=== PATIENT | female | born 1955 | race Caucasian/White ===

== ENCOUNTER 2023-04-26 11:58 | Outpatient (OUT) | payer MEDICARE, SELFPAY ==
[2023-04-26 12:25] LABS: Basophils Absolute Auto 0.1 10^3/uL (0.0-0.1); Basophils Percent Auto 1.2 % (0.2-2.0); Eosinophils Absolute Auto 0.3 10^3/uL (0.0-0.7); Eosinophils Percent Auto 2.9 % (0.9-7.0); Hematocrit 44.9 % (36.0-48.0); Hemoglobin 14.8 g/dL (12.0-16.0); Immature Granulocytes Abs Auto 0.07 10^3/uL (0.00-0.03); Immature Granulocytes Pct Auto 0.7 % (0.0-0.5); Lymphocytes Absolute Auto 2.3 10^3/uL (1.2-3.8); Lymphocytes Percent Auto 22.5 % (20.5-60.0); Mean Corpuscular Hemoglobin 33.1 pg (26.7-34.0); Mean Corpuscular Volume 100.4 fL (81.0-99.0); Mean Platelet Volume 9.4 fL (9.5-13.5); Monocytes Absolute Auto 0.9 10^3/uL (0.3-0.8); Monocytes Percent Auto 8.6 % (1.7-12.0); Neutrophils Absolute Auto 6.4 10^3/uL (1.4-6.5); Neutrophils Percent Auto 64.1 % (43.0-75.0); Platelet Count 265 10^3/uL (150-450); Red Blood Count 4.47 10^6/uL (4.20-5.40); Red Cell Distribution Width 12.9 % (11.0-15.0)
[2023-04-26 12:33] LABS: Erythrocyte Sedimentation Rate 59 mm/hr (<=30)
[2023-04-26 13:08] LABS: Alanine Aminotransferase 28 U/L (14-59); Albumin Globulin Ratio 0.8; Albumin Level 3.5 g/dL (3.4-5.0); Alkaline Phosphatase 96 U/L (46-116); Aspartate Amino Transferase 22 U/L (15-37); Bilirubin Direct 0.1 mg/dL (0.0-0.2); Bilirubin Total 0.6 mg/dL (0.2-1.0); Estimated GFR (African America >60 (>=60); Estimated GFR (Non-African Ame 52 (>=60); Globulin 4.5 g/dL
== END 2023-04-26 11:59 ==
LOC: LAB 12:02
PROVIDERS: PCP Family Medicine; Visit Provider Internal Medicine Rheumatology
DX: M05.79 Rheumatoid arthritis with rheumatoid factor of multiple sites without organ or systems involvement (principal); Z79.899 Other long term (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
CPT/HCPCS: 36415; 80076; 82565; 85025; 85652

== ENCOUNTER 2023-06-22 13:15 | Outpatient (OUT) | payer MEDICARE, SELFPAY ==
[2023-06-22 13:33] LABS: Basophils Absolute Auto 0.2 10^3/uL (0.0-0.1); Basophils Percent Auto 1.5 % (0.2-2.0); Eosinophils Absolute Auto 0.3 10^3/uL (0.0-0.7); Eosinophils Percent Auto 3.4 % (0.9-7.0); Hematocrit 44.4 % (36.0-48.0); Hemoglobin 14.8 g/dL (12.0-16.0); Immature Granulocytes Abs Auto 0.05 10^3/uL (0.00-0.03); Immature Granulocytes Pct Auto 0.5 % (0.0-0.5); Lymphocytes Absolute Auto 2.6 10^3/uL (1.2-3.8); Lymphocytes Percent Auto 26.8 % (20.5-60.0); Mean Corpuscular HGB Conc 33.3 g/dL (29.9-35.2); Mean Corpuscular Hemoglobin 33.2 pg (26.7-34.0); Mean Corpuscular Volume 99.6 fL (81.0-99.0); Mean Platelet Volume 9.5 fL (9.5-13.5); Monocytes Absolute Auto 0.7 10^3/uL (0.3-0.8); Monocytes Percent Auto 7.4 % (1.7-12.0); Neutrophils Absolute Auto 5.9 10^3/uL (1.4-6.5); Neutrophils Percent Auto 60.4 % (43.0-75.0); Platelet Count 258 10^3/uL (150-450); Red Blood Count 4.46 10^6/uL (4.20-5.40); Red Cell Distribution Width 12.8 % (11.0-15.0); White Blood Count 9.7 10^3/uL (4.0-11.0)
[2023-06-22 13:36] LABS: Erythrocyte Sedimentation Rate 23 mm/hr (<=30)
[2023-06-22 13:50] LABS: Alanine Aminotransferase 28 U/L (14-59); Albumin Level 3.9 g/dL (3.4-5.0); Alkaline Phosphatase 96 U/L (46-116); Aspartate Amino Transferase 18 U/L (15-37); Bilirubin Direct 0.2 mg/dL (0.0-0.2); Bilirubin Total 0.7 mg/dL (0.2-1.0); Estimated GFR (African America >60 (>=60); Estimated GFR (Non-African Ame >60 (>=60); Globulin 3.8 g/dL; Total Protein 7.7 g/dL (6.4-8.2)
== END 2023-06-22 13:16 | disposition home or self-care (01) ==
PROVIDERS: PCP Family Medicine; Visit Provider Internal Medicine Rheumatology
DX: M05.79 Rheumatoid arthritis with rheumatoid factor of multiple sites without organ or systems involvement (principal); Z79.899 Other long term (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
CPT/HCPCS: 36415; 80076; 82565; 85025; 85652

== ENCOUNTER 2024-02-25 11:15 | Outpatient (OUT) | payer MEDICARE, SELFPAY ==
[2024-02-25 11:55] LABS: Basophils Absolute Auto 0.2 10^3/uL (0.0-0.1); Basophils Percent Auto 1.2 % (0.2-2.0); Eosinophils Absolute Auto 0.3 10^3/uL (0.0-0.7); Eosinophils Percent Auto 2.4 % (0.9-7.0); Hematocrit 46.3 % (36.0-48.0); Hemoglobin 14.9 g/dL (12.0-16.0); Immature Granulocytes Abs Auto 0.13 10^3/uL (0.00-0.03); Lymphocytes Absolute Auto 3.9 10^3/uL (1.2-3.8); Lymphocytes Percent Auto 29.3 % (20.5-60.0); Mean Corpuscular HGB Conc 32.2 g/dL (29.9-35.2); Mean Corpuscular Hemoglobin 32.5 pg (26.7-34.0); Mean Corpuscular Volume 101.1 fL (81.0-99.0); Mean Platelet Volume 10.4 fL (9.5-13.5); Monocytes Absolute Auto 1.3 10^3/uL (0.3-0.8); Monocytes Percent Auto 9.5 % (1.7-12.0); Neutrophils Absolute Auto 7.5 10^3/uL (1.4-6.5); Neutrophils Percent Auto 56.6 % (43.0-75.0); Platelet Count 261 10^3/uL (150-450); Red Blood Count 4.58 10^6/uL (4.20-5.40); Red Cell Distribution Width 12.7 % (11.0-15.0); White Blood Count 13.2 10^3/uL (4.0-11.0)
[2024-02-25 12:07] LABS: Alanine Aminotransferase 22 U/L (14-59); Albumin Level 3.6 g/dL (3.4-5.0); Alkaline Phosphatase 98 U/L (46-116); Aspartate Amino Transferase 12 U/L (15-37); Bilirubin Total 0.4 mg/dL (0.2-1.0); C Reactive Protein <0.50 mg/dL (<=0.50); Estimated GFR (African America >60 (>=60); Estimated GFR (Non-African Ame >60 (>=60)
[2024-02-25 12:46] LABS: Erythrocyte Sedimentation Rate 35 mm/hr (<=30)
== END 2024-02-25 11:16 | disposition home or self-care (01) ==
LOC: LAB 11:16
PROVIDERS: PCP Family Medicine; Visit Provider Internal Medicine Rheumatology
DX: M06.9 Rheumatoid arthritis, unspecified (principal); Z79.899 Other long term (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
CPT/HCPCS: 36415; 82042; 82247; 82565; 84075; 84450; 84460; 85025; 85652; 86140

== ENCOUNTER 2024-07-12 15:06 | Outpatient (OUT) | payer MEDICARE, SELFPAY ==
[2024-07-12 15:22] LABS: Basophils Absolute Auto 0.2 10^3/uL (0.0-0.1); Basophils Percent Auto 1.2 % (0.2-2.0); Eosinophils Absolute Auto 0.4 10^3/uL (0.0-0.7); Eosinophils Percent Auto 3.7 % (0.9-7.0); Hemoglobin 15.5 g/dL (12.0-16.0); Immature Granulocytes Abs Auto 0.04 10^3/uL (0.00-0.03); Immature Granulocytes Pct Auto 0.3 % (0.0-0.5); Lymphocytes Absolute Auto 3.3 10^3/uL (1.2-3.8); Lymphocytes Percent Auto 27.8 % (20.5-60.0); Mean Corpuscular Hemoglobin 32.2 pg (26.7-34.0); Mean Corpuscular Volume 97.5 fL (81.0-99.0); Mean Platelet Volume 9.8 fL (9.5-13.5); Monocytes Percent Auto 8.6 % (1.7-12.0); Neutrophils Percent Auto 58.4 % (43.0-75.0); Platelet Count 246 10^3/uL (150-450); Red Blood Count 4.82 10^6/uL (4.20-5.40); Red Cell Distribution Width 12.7 % (11.0-15.0)
--- NOTE | 2024-07-12 15:28 | XR_ITS ---
The [address] [address] Patient Name: TAWANDA KENNEY MRN: [id number] date: 1955 Sex: F Assigned Patient Location: LAB Current Patient Location: Accession/Order Number: [id number] Exam Date: 07/12/2024 15:22 Report Date: 07/13/2024 07:14 At the request of: CARMINE CONROY Procedure: XR chest 2V PROCEDURE: XR chest 2V DATE: 07/12/2024 2:22 PM CDT COMPARISONS: 05/08/2022 CLINICAL INDICATION: 69 years Female Rheumatoid Arthritis, Immunosuppression FINDINGS: The heart is upper normal in size and is stable. There is slight diffuse increase interstitial markings throughout all lung greer likely representing mild chronic lung changes similar or slightly more prominent than 05/08/2022. There is a questionable 2 cm nodule or mass overlying the right upper lung field medially. It lies near the anterior first rib and. It does not appear to be related to the osseous structures in this area however. This could be a pulmonary mass/nodule. There is a subtle 1.5 cm area of increased density overlying the left mid lung field. This could represent a pulmonary nodule. There is no evidence of pleural effusion or pneumothorax. XR/XR chest 2V IMPRESSION: 1. Diffuse increased interstitial markings probably representing chronic lung changes which have shown slight progression from 04/10/2022 2. Possible developing nodules of the lung as described above. CT of the chest is recommended in follow-up. This CT should be done with contrast enhancement if the patient can tolerate contrast enhancement. This exam was placed in the incidental findings queue Electronically authenticated by: ANGEL HERNANDEZ Date: 07/13/2024 07:14
[2024-07-12 15:33] LABS: Erythrocyte Sedimentation Rate 54 mm/hr (<=30)
[2024-07-12 15:40] LABS: Alanine Aminotransferase 32 U/L (14-59); Albumin Level 3.6 g/dL (3.4-5.0); Alkaline Phosphatase 104 U/L (46-116); Aspartate Amino Transferase 20 U/L (15-37); Bilirubin Direct 0.2 mg/dL (0.0-0.2); Bilirubin Total 0.9 mg/dL (0.2-1.0); Estimated GFR (African America >60 (>=60); Estimated GFR (Non-African Ame >60 (>=60); Globulin 3.7 g/dL; Total Protein 7.3 g/dL (6.4-8.2)
== END 2024-07-12 15:07 | disposition home or self-care (01) ==
LOC: LAB 15:08
PROVIDERS: PCP Family Medicine; Visit Provider Internal Medicine Rheumatology
DX: M05.79 Rheumatoid arthritis with rheumatoid factor of multiple sites without organ or systems involvement (principal); Z79.899 Other long term (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; R91.8 Other nonspecific abnormal finding of lung field
CPT/HCPCS: 36415; 71046; 80076; 82565; 85025; 85652

== ENCOUNTER 2024-07-26 12:11 | Outpatient (OUT) | payer MEDICARE, SELFPAY ==
--- OUTSIDE RECORDS SUMMARY | 2024-07-26 12:19 | XMS_ITS | CCD ---
Author Organization [facility] CliniSyhi Care Team Providers Care Cultured [employer] Maker Name Role Phone Carolee Estrada Unavailable Unavailable Unavailable MD Carolee Estrada Primary Care Provider MD Carmine Nails Attending Provider MD August Lamas Admit Provider MD August Lamas Attending Provider [phone] MD Arsalan Conley Attending Provider MD Arsalan Conley Referring Provider MD Carolee Estrada Primary Care Provider MD Carolee Estrada Primary Care Provider MD Carmine Nails Attending Provider MD Carolee Estrada Primary Care Provider MD Arsalan Conley Attending Provider MD Arsalan Conley Referring Provider MD Carmine Nails Attending Provider MD Carolee Estrada Primary Care Provider [phone] MD Arsalan Conley Attending Provider MD Javier Ross Attending Provider Ms. JANENE BERRY Attending Carolee Cordero Primary Care Unavailable DR CARMINE NAILS Admitting Unavailable DR CARMINE NAILS Attending Unavailable SEAN ., DR CAROLEE Agosto Primary Care Unavailable DR CARMINE NAILS Consulting Unavailable JAMAL Junior, DR TANK Muir Admitting Unavaila lanny Junior, DR TANK Muir Attending Unavaila ble SEAN ., DR CAROLEE Agosto Primary Care Unavailable JANENE STONE Consulting Unavailable HALVERN, DR LOU Admitting Unavailable HALADAChase, DR LOU Attending Unavailable ESTRADA ., DR CAROLEE Agosto Primary Care Unavailable HALADAChase, DR LOU Consulting Unavailable MARYCARMEN, DR LOU Admitting Unavailable HALADAChase, DR LOU Attending Unavailable ESTRADA ., DR CAORLEE Agosto Primary Care Unavailable GHEENS, DR LAUREN Funez Consulting Unavailable HALADAChase, DR LOU Consulting Unavailable ESTRADA ., DR CAROLEE Agosto Admitting Unavailable ESTRADA ., DR CAROLEE Agosto Attending Unavailable ESTRADA ., DR CAROLEE Agosto Primary Care Unavailable ESTRADA ., DR CAROLEE Agosto Consulting Unavailable ESTRADA ., DR CAROLEE Agosto Primary Care Unavailable ELIO MIN Admitting Unavailable ELIO MIN Attending Unavailable ZIEBER, DR AUDIE Cortes Consulting Unavailable ELIO MIN Consulting Unavailable JANENE STONE Admitting Unavailable JANENE STONE Attending Unavailable ESTRADA ., DR CAROLEE Agosto Primary Care Unavailable JANENE STONE Consulting Unavailable MARYCARMEN, DR LOU Admitting Unavailable HALADAChase, DR LOU Attending Unavailable ESTRADA ., DR CAROLEE Agosto Primary Care Unavailable ESTRADA ., DR CAROLEE Agosto Consulting Unavailable Javier Ross Unavailable Gilbert Hernandez Attending Unavailable Jamal, MsVernon Irene Referring Bea Estrada, Dr. Carolee Keller Primary Care Unavailab Arsalan Torrez Attending Unavailable Estrada, Dr. Carolee Keller Primary Care Unavailab Arsalan Torrez Referring Unavailable Jamal, MsVernon Irene Attending Bea Berry, Ms. Janene Irene Referring Bea Estrada, Dr. Carolee Keller Primary Care Unavailab jesus Berry, Ms. Janene Irene Attending Bea Berry, Ms. Janene Irene Referring Bea Estrada, Dr. Carolee Keller Primary Care Unavailab Arsalan Torrez Attending Unavailable Estrada, Dr. Carolee Keller Primary Care Unavailab Arsalan Torrez Referring Unavailable Jamal, MsVernon Irene Referring Bea Berry, MsVernon Irene Attending Bea Estrada, Dr. Carolee Keller Primary Care Unavailab jesus Berry, Vernon Janene Templetonchase Irene Referring Bea Berry, Ms. Janene Templetonchase Irene Attending Bea Estrada, Dr. Carolee Keller Primary Care Unavailab le McGuinpardeep, Arsalan Attending Unavailable Sean, Dr. Carolee Keller Primary Care Unavailab le McGuinpardeep, Arsalan Attending Unavailable McGuinpardeep, Arsalan Attending Unavailable Sean, Dr. Carolee Keller Primary Care Unavailab le McGuinn, Arsalan Attending Unavailable Sean, Dr. Carolee Keller Primary Care Unavailab le McGuinn, Arsalan Attending Unavailable Sean, Dr. Carolee Keller Primary Care Unavailab le McGuinn, Arsalan Attending Unavailable McGuinn, Arsalan Attending Unavailable McGuinn, Arsalan Attending Unavailable McGuinn, Arsalan Attending Unavailable Thal Gilbert Admitting Unavailable Thal, Gilbert Attending Unavailable Thal, Gilbert Referring Unavailable Sean, Dr. Carolee Keller Primary Care Unavailab le Thal, Gilbert Attending Unavailable Sean, Dr. Carolee Keller Primary Care Unavailab le Sean, Dr. Carolee Keller Primary Care Unavailab le Mary, Dr. Gilbert Bethea Attending Unavail able Berry DIRECTOR OF KIDS-TIRE MOLD ENGRAVER, Janene K Unavailable Chris Moss MD Primary Care Provider [phone] MD Carolee Estrada Primary Care Provider MD Javier Ross Attending Provider [phone] Clinton Pierce Unavailable MD Carolee Estrada Primary Care Provider MD Clinton Pierce Attending Provider [phone] MD Javier Ross Attending Provider Carolee Estrada Primary Care Unavailable Clinton Pierce Admitting Unavailable Clinton Pierce Attending Unavailable Carolee Estrada Primary Care Unavailable Javier Ross Admitting Unavaila ble Javier Ross Attending Unavaila Carolee Maynard Primary Care Unavailable Javier Ross Admitting Unavaila ble Javier Ross Attending UnavailMD Clinton Millan Attending Provider ARSALAN CONLEY Attending Unavailable CHRIS MOSS Primary Care Unavailable Medications Current Medications Medication Drug Class(es) Dates Sig (Normalized) Sig (Original) apixaban 5 mg oral tablet (20 sources) Factor Xa Inhibitor Start: 05-13-2022 take 1 tablet by mouth twice daily Apixaban (Eliquis) 5 mg Tablet Active 5 MG PO Twice daily 60 May 13, 2022 12:00am b complex 0.4 mg tablet (1 source) take 1 tablet by mouth once daily b complex 0.4 mg tablet Take 1 tablet by mouth once daily. 0 Active calcium carbonate 1500 mg / cholecalciferol 500 unt oral capsule (10 sources) Vitamin D Start: 05-08-2022 take 2 capsules by mouth once daily Calcium Carbonate-Vitamin D3 (Calcium 600 With Vitamin D3) 600 mg-12.5 mcg (500 unit) Capsule Active 2 CAP PO Daily May 08, 2022 12:00am Calcium Carbonate / vitamin D3 (1 source) take 1 tablet by mouth once daily calcium carbonate/vitamin D3 (CALCIUM WITH VITAMIN D3 ORAL) Take 1 tablet by mouth once daily. 0 Active canagliflozin 100 mg oral tablet (20 sources) Sodium-Glucose Cotransporter 2 Inhibitor Start: 05-13-2022 take 1 tablet by mouth once daily Canagliflozin (Invokana) 100 mg Tablet Active 100 MG PO Daily at 0730 30 May 13, 2022 12:00am digoxin 0.125 mg oral tablet (20 sources) Cardiac Glycoside Start: 05-13-2022 take 125 ug by mouth once daily Digoxin Active 125 MCG PO Daily 30 May 13, 2022 12:00am take 1 tablet by mouth once donna y Digoxin 125 MCG TAKE ONE TABLET BY MOUTH ONCE DAILY Oral for 30 Days Active hydroxychloroquine sulfate 200 mg oral tablet (20 sources) Antimalarial, Antirheumatic Agent Start: 09-30-2022 take 1 tablet by mouth twice daily Hydroxychloroquine (Plaquenil) 200 mg Tablet Active 200 MG PO Twice daily September 30, 2022 1:00am Start: 05-08-2022 End: 06-24-2022 take 200 mg by mouth twice daily Hydroxychloroquine Discontinued 200 MG PO Twice daily May 08, 2022 12:00am June 24, 2022 9:27am Start: 04-02-2022 Hydroxychloroq uine Sulfate 200 MG Oral Tablet Quantity: 60 Refills: 0 Ordered: 02-Apr-2022 DO Start : 02-Apr-2022 Complete Multivitamin preparation (1 source) take 1 tablet by mouth once daily Multi Vitamin - 1 tablet Orally Once a day for 30 day(s) Active omeprazole 40 mg delayed release oral capsule (2 sources) Proton Pump Inhibitor Start: 11-30-19 24 take 40 mg by mouth once daily Omeprazole Active 40 MG PO Daily November 30, 2023 1:00am sertraline 25 mg oral tablet (20 sources) Serotonin Reuptake Inhibitor Start: 08-27-20 21 take 25 mg by mouth once daily Sertraline Active 25 MG PO Daily May 07, 2022 11:00pm spironolactone 25 mg oral tablet (20 sources) Aldosterone Antagonist Start: 05-13-20 take 25 mg by mouth once daily Spironolactone Active 25 MG PO Daily May 13, 2022 12:00am Vitamin B Complex (10 sources) Start: 05-08-20 22 take 1 tablet by mouth once daily Vitamin B Complex Active 1 TAB PO Daily May 07, 2022 11:00pm Start: 05-08-2022 take 1 tablet by mouth once da sebastien Vitamin B Complex Active 1 TAB PO Daily May 08, 2022 12:00am Vitamin B-6 100 MG (1 source) take 1 tablet by bren th once daily Vitamin B-6 100 MG 1 tablet Orally Once a day Active vitamin b6 100 mg oral tablet (3 sources) take 1 tablet by bren th every twenty-four hours Vitamin B-6 100 MG 1 tablet Orally Once a day Active Vitamin D-3 1000 UNIT (4 sources) take 1 capsule by mo [facility] once daily Vitamin D-3 1000 UNIT 1 capsule Orally Once a day Active Completed/Discontinued Medications Medication Drug Class(es) Dates Sig (Normalized) Sig (Original) 0.4 ml adalimumab 100 mg/ml auto-injector (11 sources) Tumor Necrosis Factor Perfecto Start: 01-20-2023 Humira Pen 40 MG/0.4ML Subcutaneous Pen-injector Kit Quantity: 2 Refills: 0 Ordered: 15-Feb-2023 DO Start : 20-Jan-2023 Active Humira Pen 40 MG /0.4ML 1 INJECTION EVERY 2WEEKS (HOLD IF ANY INFECTION OR UPCOMING SURGERY) Subcutaneous for 28 Days Active adalimumab (Humi ra,CF, Pedi Crohns Starter) 80 mg/0.8 mL-40 mg/0.4 mL syringe kit prefilled syringe starter kit Inject 80 mg under the skin every 14 (fourteen) days. 0 Active amiodarone hydrochloride 200 mg oral tablet (20 sources) Antiarrhythmic Start: 08-12-2022 End: 04-13-2023 take 1 tablet by mouth once daily Amiodarone HCl - 200 MG Oral Tablet TAKE 1 TABLET DAILY. Quantity: 30 Refills: 6 Ordered: 18-Nov-2022 Cruz Berry APRN-Janene KIM Start : 12-Aug-2022 End : 13-Apr-2023 Complete lower dose Start: 06-24-2022 End: 11-30-2023 take 200 mg by mouth three times daily Amiodarone Discontinued 200 MG PO Three times daily June 24, 2022 8:09am November 30, 2023 1:35pm Start: 05-13-2022 take 200 mg by mouth twice daily Amiodarone Active 200 MG PO Twice daily June 24, 2022 8:09am Start: 05-13-2022 End: 06-24-2022 take 200 mg by mouth once daily in the morning Amiodarone Discontinued 200 MG PO Every morning May 13, 2022 12:00am June 24, 2022 8:10am atorvastatin 20 mg oral tablet (20 sources) HMG-CoA Reductase Inhibitor Start: 05-13-2022 Atorvastatin Calcium 20 MG Oral Tablet as directed Quantity: 0 Refills: 0 Ordered: 13-May-2022 DO Start : 13-May-2022 Active Start: 05-13-2022 take 20 mg by mouth once daily Atorvastatin Active 20 MG PO Daily May 13, 2022 12:00am Calcium Carbonate-Vitamin D3 TABS (20 sources) Calcium Carbonat e-Vitamin D3 TABS Take 1 tablet daily Quantity: 0 Refills: 0 Ordered: 29-Jun-2022 DO Active 1 ml etanercept 50 mg/ml auto-injector (1 source) Tumor Necrosis Factor Perfecto Start: 022 Enbrel SureClick 50 MG/ML Subcutaneous Solution Auto-injector Quantity: 8 Refills: 0 Ordered: 20-May-2022 DO Start : 04-Dec-2021 Complete hydroCHLOROthiazide 25 mg oral tablet (11 sources) Thiazide Diuretic Start: End: take 25 mg by mouth once daily Hydrochlorothiazide Discontinued 25 MG PO Daily May 07, 2022 11:00pm June 24, 2022 8:27am 24 hr metoprolol succinate 100 mg extended release oral tablet (20 sources) beta-Adrenergic Perfecto Start: take 1 tablet by mouth once daily Metoprolol Succinate ER 100 MG Oral Tablet Extended Release 24 Hour TAKE 1 TABLET Daily Quantity: 90 Refills: 3 Ordered: 03-Mar-2023 Arsalan Conley MD Start : 13-May-2022 Active Start: 05-13-2022 take 1 tablet by bren th every twenty-four hours Metoprolol Succinate ER 200 MG Oral Tablet Extended Release 24 Hour Quantity: 30 Refills: 0 Ordered: 13-May-2022 DO Start : 13-May-2022 Active Start: 05-13-2022 take 1 tablet by mouth once da sebastien Metoprolol Succinate (Toprol Xl) 200 mg tablet extended release 24 hr Active 200 MG PO Daily May 13, 2022 12:00am 24 hr nicotine 0.875 mg/hr transdermal system (15 sources) Cholinergic Nicotinic Agonist Start: 10-21-2022 apply 1 dose transdermal route once daily HM Nicotine 21 MG/24HR Transdermal Patch 24 Hour APPLY 1 PATCH DAILY DIRECTED. Quantity: 30 Refills: 0 Ordered: 21-Oct-2022 Janene Downing Start : 21-Oct-2022 Active pantoprazole 40 mg delayed release oral tablet (6 sources) Proton Pump Inhibitor Start: 01-14-2023 End: 04-13-2023 take 1 tablet by mouth once daily Pantoprazole Sodium 40 MG Oral Tablet Delayed Release TAKE 1 TABLET DAILY. Quantity: 30 Refills: 0 Ordered: 14-Jan-2023 Zoya Coffman Start : 14-Jan-2023 End : 13-Apr-2023 Complete microencapsulated potassium chloride 20 meq extended release oral tablet (20 sources) Start: 06-24-2022 End: 11-30-2023 Potassium Chloride (Klor-Con M20) 20 mEq tablet,ER particles/shelbi ls Discontinued 20 MEQ PO Daily 30 Domino 10th, 2022 12:00am November 30, 2023 1:36pm Start: 12-13-2020 take 1 tablet by bren th once daily Potassium Chloride ER 10 MEQ Oral Tablet Extended Release TAKE ONE TABLET BY MOUTH ONCE DAILY Quantity: 90 Refills: 0 Ordered: 26-Jun-2021 DO Start : 13-Dec-2020 Complete take 1 tablet by bren th once daily Potassium Chloride ER 20 MEQ Oral Tablet Extended Release Take 1 tablet daily Quantity: 90 Refills: 3 Ordered: 03-Mar-2023 Arsalan Conley MD Active predniSONE 5 mg oral tablet (20 sources) Start: 07-28-2022 End: 11-30-2023 take 5 mg by mouth once daily Prednisone Discontinued 5 MG PO Daily July 28, 2022 12:00am November 30, 2023 1:36pm Start: 05-08-2022 End: 05-13-2022 Prednisone Discontinued 0 Miri SYKESE ENE May 08, 2022 12:00am May 13, 2022 2:25pm Patient was on taper but discontinued per self a few days ago Start: 04-02-2022 take 2 tablets by mo [facility] twice daily, then take 2 tablets by mouth in the morning, then take 1 tablet by mouth in the morning predniSONE 5 MG Oral Tablet TKE TWO TABLETS BY MOUTH TWICE A DAY FOR 3 DAYS, TWO TABLETS BY MOUTH IN THE MORNING FOR 7 DAYS, ONE TABLET BY MOUTH IN THE MORNING FOR 21 D Quantity: 60 Refills: 0 Ordered: 02-Apr-2022 DO Start : 02-Apr-2022 Complete rosuvastatin calcium 10 mg oral tablet (12 sources) HMG-CoA Reductase Inhibitor Start: 05-08-2022 End: 05-13-2022 take 1 tablet by mouth once daily Rosuvastatin (Crestor) 10 mg Tablet Discontinued 10 MG PO Daily May 08, 2022 12:00am May 13, 2022 2:25pm Start: 02-02-2022 Rosuvastatin C alcium 10 MG Oral Tablet Quantity: 90 Refills: 0 Ordered: 02-Feb-2022 DO Start : 02-Feb-2022 Complete take 1 tablet by bren every twenty-four hours Rosuvastatin Calcium 20 MG 1 tablet Orally Once a day Active sulfaSALAzine 500 mg oral tablet (20 sources) Aminosalicylate Start: 09-30-2022 End: 11-30-2023 take 500 mg by mouth once daily Sulfasalazine Discontinued 500 MG PO Daily September 30, 2022 1:00am November 30, 2023 1:36pm Vitamin B Complex CAPS (20 sources) Vitamin B Comple x CAPS TAKE 1 CAPSULE Daily Quantity: 0 Refills: 0 Ordered: 29-Jun-2022 DO Active Problems Active Problems Problem Classification Problem Date Documented Da te Episodic/Chronic Anxiety disorders (13 sources) Anxiety; Translations: [Anxiety disorder, unspecified] 05-08-2022 Chronic Cardiac dysrhythmias (20 sources) Persistent atrial fibrillation; Translations: [Atrial fibrillation] Onset: 05-12-2022 05-08-2022 Chronic Chronic obstructive pulmonary disease and bronchiectasis (6 sources) Pulmonary emphysema; Translations: [Emphysema, unspecified] Chronic Congestive heart failure; nonhypertensive (17 sources) Acute systolic heart failure; Translations: [Acute systolic (congestive) heart failure] Onset: 05-20-2022 05-09-2022 Chronic Disorders of lipid metabolism (20 sources) Hyperlipidemia; Translations: [Other and unspecified hyperlipidemia] Onset: 01-08-2023 05-08-2022 Chronic Essential hypertension (20 sources) Hypertensive disorder; Translations: [Unspecified essential hypertension] Onset: 09-15-2023 09-15-2023 Chronic Heart valve disorders (20 sources) Mitral valve regurgitation; Translations: [Mitral valve disorders] Chronic Immunity disorders (1 source) Immunodeficiency, unspecified; Translations: [IMMUNODEFICIENCY UNSPECIFIED] Onset: 04-17-2022 Chronic Mood disorders (20 sources) Depressive disorder; Translations: [Depression] 05-08-2022 Chronic Other aftercare (20 sources) Drug therapy finding; Translations: [Long-term (current) use of anticoagulants] Episodic Other aftercare (1 source) Other medical terminologist (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; Translations: [OTH FDC CURRENT DRUG THERAPY] Onset: 01-21-2023 Episodic Other aftercare (1 source) assisted (current) use of anticoagulants; Translations: [INFORMATION TECHNOLOGY ASSOCIATE CURRNT USE ANTICOAGULANTS] Onset: 11-02-2022 Episodic Other eye disorders (20 sources) Exophthalmos; 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, unspecified] Chronic Comment on above: Proptosis Bilateral; Other gastrointestinal disorders (20 sources) Diarrhea; Translations: [Diarrhea] Episodic Other gastrointestinal disorders (1 source) Other fecal abnormalities; Translations: [Other fecal abnormalities] Onset: 11-30-2023 Episodic Other lower respiratory disease (4 sources) Solitary nodule of lung; Translations: [Solitary pulmonary nodule] Episodic Other lower respiratory disease (4 sources) Other nonspecific abnormal finding of lung field; Translations: [Other nonspecific abnormal finding of lung field] Onset: 10-22-2023 Episodic Other nutritional; endocrine; and metabolic disorders (20 sources) Obesity; Translations: [Obesity, unspecified] Chronic Other nutritional; endocrine; and metabolic disorders (1 source) Obesity, unspecified; Translations: [Obesity, unspecified] Onset: 01-08-2023 Chronic Other nutritional; endocrine; and metabolic disorders (1 source) Body mass index (BMI) 30.0-30.9, adult; Translations: [Body mass index [BMI] 30.0-30.9, adult] Onset: 01-08-2023 Chronic Other nutritional; endocrine; and metabolic disorders (20 sources) Overweight in adulthood with body mass index of 25 or more but less than 30; Translations: [Overweight] Episodic Sherie-; endo-; and myocarditis; cardiomyopathy (except that caused by tuberculosis or sexually transmitted disease) (20 sources) Cardiomyopathy; Translations: [Other primary cardiomyopathies] Onset: 07-29-2022 05-13-2022 Chronic Retinal detachments; defects; vascular occlusion; and retinopathy (20 sources) Cholesterol retinal embolus of right eye; 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 Rheumatoid arthritis and related disease (20 sources) Rheumatoid arthritis; Translations: [Rheumatoid arthritis, unspecified] Onset: 04-10-2022 05-08-2022 Chronic Substance-related disorders (20 sources) Smokes tobacco daily; Translations: [Tobacco use disorder] Onset: 01-08-2023 Chronic Comment on above: 1/2 PPD; Tuberculosis (20 sources) Tuberculosis of skin and subcutaneous tissue; Translations: [Tuberculosis of skin and subcutaneous cellular tissue, unspecified] Episodic Unclassified (6 sources) Other persistent atrial fibrillation; Translations: [OTHR PERSISTENT ATRIAL FIBRILLATION] Onset: 07-22-2022 Unclassified (1 source) CONTACT W/AND (SUSP) EXPOS COVID-19; Translations: [CONTACT W/AND (SUSP) EXPOS COVID-19] Onset: 05-12-2022 Past or Other Problems Problem Classification Problem Date Documented Da te Episodic/Chronic Cardiac dysrhythmias (3 sources) Tachycardia, unspecified; Translations: [TACHYCARDIA UNSPECIFIED] Onset: 05-08-2022 Episodic Gastrointestinal hemorrhage (4 sources) Melena; Translations: [Melena] Onset: 09-15-2023 09-15-2023 Episodic Mood disorders (1 source) Mood disorders Onset: 11-18-2022 03-16-2023 Other hematologic conditions (1 source) Other specified abnormalities of plasma proteins; Translations: [OTH SPEC ABNORM PLASMA PROTEINS] Onset: 05-12-2022 Episodic Other lower respiratory disease (1 source) Dyspnea, unspecified; Translations: [DYSPNEA UNSPECIFIED] Onset: 04-17-2022 Episodic Unclassified (1 source) Onset: 09-15-2023 09-15-2023 Results Test Name Value Interpretation Reference Range Facility CT chest [facility] 02-22-2024 CT chest [facility] [place] [address] CT Scan Report Signed Patient: Tawanda Stevens MR#: [id number] 7 : 1955 Acct:[id number] Age/Sex: 68 / F ADM Date: 02/22/24 Loc: [facility] Room: Type: [facility] Attending Dr: Javier Ross MD Copies to: Javire Ross MD Ordering Provider: Javier Ross MD Date of Service: 02/22/24 CT/CT chest con: R91.8 CT CHEST WITHOUT IV CONTRAST: CLINICAL HISTORY: Follow-up lung nodule COMPARISON: CT chest 10/22/2023, 10/30/2022 TECHNIQUE: Spiral images were obtained through the chest without IV contrast. This CT exam was performed using one or more following dose reduction techniques: Automated exposure control, adjustment of the mA and/or kV according to patient size, or use of iterative reconstruction technique. FINDINGS: Mediastinum:Thoracic aorta demonstrates mild calcification without aneurysm. Pulmonary trunk appears nondilated. No pleural effusion. No lymphadenopathy. The esophagus is grossly unremarkable. Lungs:Emphysema with peripheral fibrotic changes. No consolidation pneumothorax or pleural effusion. The previously identified 13 mm subpleural nodule involving the right upper lobe is once again demonstrated now seen on series 4 image 15. This appears grossly unchanged in size compared to the 10/22/2023 study, however it does appear now to have somewhat spiculated margins. Right apical pleural thickening is seen. Abd:No acute findings. Soft tissues/Bones: Soft tissues surrounding the chest wall demonstrate no acute findings. Osseous structures demonstrate degenerative change. CT/CT chest wo con IMPRESSION: The previously identified 13 mm subpleural nodule involving the right upper lobe is once again demonstrated now having spiculated margins. Malignancy cannot BE excluded. Further evaluation with PET/CT and tissue sampling should be contemplated. Impression dictated by: Roberth Bryant Jr., D.OVernon02/22/2024 2:18 PM Dictation Location: [place] [address] Transcribed By: [facility] 02/22/241417 Dictated By: Roberth Bryant Jr, DO 02/22/241413 Signed By: 02/22/241417 Normal [facility] 11-30-2023 L Specimen: [id number] Received: 11/30/23 Status: DANIAL Norris Num: [id number] Spec Type: Surgical Subm Dr: Clinton Pierce MD Tissues: A GASTRIC FOR HP (GASTRIC HP) Procedures: HE/2, Gross/Micro L4, H PYLORI, IHC First AB Age/ Patient Sex Location Account Attending Physician Tawanda Stevens 68/F [id number] Clinton Pierce MD SPEC NUM: [id number] RECD: 11/30/23 STATUS: DANIAL ERI NUM: [id number] CHANTEL: 11/30/[address]: Clinton Pierce MD ENTERED: 11/30/[address] [facility] [address]: SPEC TYPE: Surgical DEPT: S ORDERED: HE/2, Gross/Micro L4, H PYLORI, IHC First AB ORDERED: HE/2, Gross/Micro L4, H PYLORI, IHC First AB This Amended Report is issued to correct the following: CPT code Amended Report Information: [id number] for IHC Addendum Signed (signature on file) Latoya Roman MD 12/09/23 0804 Pathological Diagnosis Gastric biopsy: - Mild nonspecific chronic gastritis involving gastric antrum and body mucosa - Negative for H. pylori on H. pylori immunostain run with appropriate controls Clinical Information Black stools, rule out H. pylori Gross Description Received in formalin labeled with the patient's name, date of and gastric biopsy are two wolff tissues fragments, 0.3 and 0.5 cm in greatest dimensions. Entirely submitted in one cassette labeled A1. Specimen: [id number] Received: 11/30/23 Status: DANIAL Eri Num: [id number] Spec Type: Surgical Subm Dr: Clinton Pierce MD Tissues: A GASTRIC FOR HP (GASTRIC HP) Procedures: HE/2, Gross/Micro L4, H PYLORI, IHC First AB Patient: Tawanda Stevens [id number] (Continued) Specimen: [id number] Received: 11/30/23 (Continued) Signed (signature on file) Latoya Roman MD 12/01/23 1610 Specimen: Received: 11/30/23 Status: DANIAL Eri Num: [id number] Spec Type: Surgical Subm Dr: Clinton Pierce MD Tissues: A GASTRIC FOR HP (GASTRIC HP) Procedures: HE/2, Gross/Micro L4, H PYLORI, IHC First AB Patient: Tawanda Stevens [id number] (Continued) Specimen: [id number] Received: 11/30/23 (Continued) CPT Codes 68042 Specimen: [id number] Received: 11/30/23 Status: DANIAL Mercedesmaximino Num: [id number] Spec Type: Surgical Subm Dr: Clinton Pierce MD Tissues: A GASTRIC FOR HP (GASTRIC HP) Procedures: HE/2, Gross/Micro L4, H PYLORI, IHC First AB Patient: Tawanda Stevens [id number] (Continued) Signed (signature on file) Latoya Roman MD 12/01/23 1267 Normal [facility] [facility] CT chest wo conon 10-22-2023 CT chest wo con [facility] [place] [address] [place] [address] CT Scan Report Signed Patient: Tawanda Stevens MR#: [id number] 7 : 1955 Acct:[id number] Age/Sex: 68 / F ADM Date: 10/22/23 Loc: CT Room: Type: [facility] Attending Dr: Javier Ross MD Copies to: Javier Ross MD Ordering Provider: Javier Ross MD Date of Service: 10/22/23 CT/CT chest wo con: R91.8, CT CHEST WITHOUT IV CONTRAST: CLINICAL HISTORY: Abnormal CT scan. History of rheumatoid arthritis. Current smoker. COMPARISON: CT chest 10/30/2022 TECHNIQUE: Spiral images were obtained through the chest without IV contrast. This CT exam was performed using one or more following dose reduction techniques: Automated exposure control, adjustment of the mA and/or kV according to patient size, or use of iterative reconstruction technique. FINDINGS: Mediastinum:Thoracic aorta appears normal in caliber. Pulmonary trunk appears nondilated. No pericardial effusion or lymphadenopathy. The esophagus is grossly unremarkable. Lungs:Erythematous changes with associated peripheral reticulation. No honeycombing is seen. No consolidation pneumothorax or pleural effusion. Trachea and distal airways appear patent. There is presumed postinflammatory thickening involving the right minor fissure. A similar finding is seen involving the left major fissure. A 1.3 cm subpleural nodule is seen involving the right upper lobe series 4 image 16 which appears to have progressed since the prior CT study once measuring 6 mm. Abd:No acute findings. Soft tissues/Bones: Soft tissues surrounding the chest wall demonstrate no acute findings. Osseous structures demonstrate degenerative change. CT/CT chest wo con IMPRESSION: A 1.3 cm subpleural nodule seen involving the right upper lobe which appears to have progressed in size since the prior study from 10/30/2022. Given the somewhat triangular-shaped on the sagittal reconstructions, a postinflammatory process is suspected. However, given the emphysema, underlying malignancy cannot BE totally excluded. This can be further evaluated by PET/CT or repeat CT in 3 months. Impression dictated by: Roberth Bryant Jr., DVernonOVernon10/22/2023 2:44 PM Dictation Location: [place] [address] Transcribed By: [facility] 10/22/23 1444 Dictated By: Roberth Bryant Jr, DO 10/22/23 1435 Signed By: 10/22/23 1444 Normal [facility] Office Visit (Cardiology)on 07-14-2023 Follow-up visit Diagnoses/Problems Assessed Paroxysmal atrial fibrillation (427.31) (I48.0) Chief Complaint TAWANDA STEVENS is being seen for a 3 month follow-up of S/P AF RFA December 2022. Adult Risk Screening Spiritual and Cultural: Patient Declined. Initial Fall Risk Screening: TAWANDA has not fallen in the last 6 months. Her fall did not result in injury. TAWANDA does not have a fear of falling. She does not need assistance with sitting, standing or walking. Does not need assistance walking in her home. She does not need assistance in an unfamiliar setting. The patient is not using an assistive device. Pain Scale: On a scale of 0 to 10, the patient rates the pain at 0. Living Will. Living Will: Living will on file. Healthcare POA: Health care proxy on file. Declaration of Mental Health Treatment: Patient Declined. Tobacco Screening: Has not used tobacco in the past 6 months. Has not tried to quit or thought about quitting tobacco. Domestic Violence Screen: Does not feel threatened or abused physically, emotionally or sexually. Do you feel UNSAFE? The patient feels safe in the home. Depression/Suicide Screening: During the past 2 weeks, the patient has not felt down, depressed or hopeless. During the past 2 weeks, the patient has not felt little interest or pleasure in doing things. She does not have a risk of suicide. She has not had thoughts of harming others. Single alcohol screening question: Patient Declined/Screening not indicated. Single substance abuse screening question: Patient Declined/Screening not indicated. Procedure or Sedation Areas: Not Applicable Nutrition Screening: In the past month, there was not a day when I or anyone in my family went hungry because there was not enough food. Patient Education: The patient denies that they or the person with them has problems with hearing, speaking, seeing, moving around or learning The patient is comfortable filling out medical forms. Social Determinant of Health Does the patient have an SDoH need as identified by the screening form? No. Does the patient want intervention? No. Food Insecurity: 1. Within the past 12 months, you worried that your food would run out before you got money to buy more: No 2. Within the past 12 months, the food you bought just didn't last and you didn't have money to get more: No History of Present Illness 68 yo female. Presents for 6 months follow up after A fib RFA. Amiodarone was stopped during last visit. 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) Hyperlipidemia (272.4) (E78.5) Hypertension (401.9) (I10) Hypertensive retinopathy (362.11) (H35.039) Mitral regurgitation (424.0) (I34.0) Moderate episode of recurrent major depressive disorder (296.32) (F33.1) NICM (nonischemic cardiomyopathy) (425.4) (I42.8) Normal coronary angiogram (V72.85) Obesity (278.00) (E66.9) Overweight with body mass index (BMI) of 25 to 25.9 in adult (278.02,V85.21) (E66.3,Z68.25) Paroxysmal atrial fibrillation (427.31) (I48.0) Persistent atrial fibrillation (427.31) (I48.19) Preop testing (V72.84) (Z01.818) Proptosis (376.30) (H05.20) Proptosis Bilateral 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 Humira Pen 40 MG/0.4ML Subcutaneous Pen-injector Kit Hydroxychloroquine Sulfate 200 MG Oral TabletTAKE 1 TABLET TWICE DAILY WITH FOOD. Invokana 100 MG Oral TabletTake one tablet daily Metoprolol Succinate ER 100 MG Oral Tablet Extended Release 24 HourTAKE 1 TABLET Daily Potassium Chloride ER 20 MEQ Oral Tablet Extended ReleaseTake 1 tablet daily predniSONE 5 MG Oral TabletTAKE 1 TABLET DIRECTED. Sertraline HCl - 25 MG Oral TabletTAKE 1 TABLET DAILY DIRECTED. Spironolactone 25 MG Oral TabletTAKE ONE TABLET BY MOUTH ONCE DAILY sulfaSALAzine 500 MG Oral TabletTake 1 tablet daily Vitamin B Complex CAPSTAKE 1 CAPSULE Daily A (more content not included)... Normal [employer] Consultation Noteon 04-15-20 Consultation Note [id number]:12 7 Normal [facility] Electrocardiogram 12 Leadon 04-13-2023 Electrocardiogram 12 Lead Ventricular Rate 57 Atrial Rate 57 QRS Duration 86 Q-T Interval 424 QTC Calculation(Bazett) 412 R Jolon -11 T Jolon 28 QRS Count 9 Q Onset 223 P Onset 149 P Offset 217 T Offset 435 QTC Fredericia 416 Diagnosis Class Abnormal Diagnosis Sinus rhythm Nonspecific ST and T wave abnormality Abnormal ECG When compared with ECG of 15-DEC-2022 10:51, Junctional rhythm has replaced Sinus rhythm Nonspecific T wave abnormality, improved in Lateral leads Confirmed by Gilbert Hernandez ([id number]) on 04/14/2023 3:36:14 PM Normal [facility] Office Visit (Cardiology)on 04-13-2023 Follow-up visit Diagnoses/Problems Assessed Persistent atrial fibrillation (427.31) (I48.19) Orders Persistent atrial fibrillation Electrocardiogram EKG; Status:Complete; Done: [id number] 08:44AM Chief Complaint TAWANDA STEVENS is being seen for a cardiovascular evaluation. TAWANDA STEVENS is being seen for a cardiovascular evaluation of atrial fibrillation, dyslipidemia and hypertension. Adult Risk Screening There are no spiritual/cultural practices/values/needs that are important to know Initial Fall Risk Screening: TAWANDA has not fallen in the last 6 months. The patient is not using an assistive device. Pain Scale: On a scale of 0 to 10, the patient rates the pain at 0. Living Will. Living Will: No living will on file. Healthcare POA: No healthcare proxy on file. Tobacco Screening: TAWANDA uses tobacco. Has used tobacco in the past 6 months. Has tried to quit or thought about quitting tobacco. Domestic Violence Screen: Does not feel threatened or abused physically, emotionally or sexually. Do you feel UNSAFE? The patient feels safe in the home. Depression/Suicide Screening: During the past 2 weeks, the patient has not felt down, depressed or hopeless. During the past 2 weeks, the patient has not felt little interest or pleasure in doing things. She does not have a risk of suicide. She has not had thoughts of harming others. Single alcohol screening question: In the past year the patient has had 5 or more drinks (men) or 4 or more drinks (women)? 0 time(s). History of Present Illness 67 yo female. Presents for 3 months follow up after A Fib RFA. 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) Hyperlipidemia (272.4) (E78.5) Hypertension (401.9) (I10) Hypertensive retinopathy (362.11) (H35.039) Mitral regurgitation (424.0) (I34.0) Moderate episode of recurrent major depressive disorder (296.32) (F33.1) NICM (nonischemic cardiomyopathy) (425.4) (I42.8) Normal coronary angiogram (V72.85) Obesity (278.00) (E66.9) Overweight with body mass index (BMI) of 25 to 25.9 in adult (278.02,V85.21) (E66.3,Z68.25) Paroxysmal atrial fibrillation (427.31) (I48.0) Persistent atrial fibrillation (427.31) (I48.19) Preop testing (V72.84) (Z01.818) Proptosis (376.30) (H05.20) Proptosis Bilateral 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 Atorvastatin Calcium 20 MG Oral TabletTAKE 1 TABLET AT BEDTIME Calcium Carbonate-Vitamin D3 TABSTake 1 tablet daily Digoxin 125 MCG Oral TabletTAKE ONE TABLET BY MOUTH ONCE DAILY Eliquis 5 MG Oral Tablettake one tablet twice a day HM Nicotine 21 MG/24HR Transdermal Patch 24 HourAPPLY 1 PATCH DAILY DIRECTED. Humira Pen 40 MG/0.4ML Subcutaneous Pen-injector Kit Hydroxychloroquine Sulfate 200 MG Oral TabletTAKE 1 TABLET TWICE DAILY WITH FOOD. Invokana 100 MG Oral TabletTake one tablet daily Metoprolol Succinate ER 100 MG Oral Tablet Extended Release 24 HourTAKE 1 TABLET Daily Pantoprazole Sodium 40 MG Oral Tablet Delayed ReleaseTAKE 1 TABLET DAILY. Potassium Chloride ER 20 MEQ Oral Tablet Extended ReleaseTake 1 tablet daily predniSONE 5 MG Oral TabletTAKE 1 TABLET DIRECTED. Sertraline HCl - 25 MG Oral TabletTAKE 1 TABLET DAILY DIRECTED. Spironolactone 25 MG Oral TabletTAKE ONE TABLET BY MOUTH ONCE DAILY sulfaSALAzine 500 MG Oral TabletTake 1 tablet daily Vitamin B Complex CAPSTAKE 1 CAPSULE Daily Allergies NoKnown No Known Allergies Recorded By: Veronica Palacio; 06/08/2022 8:50:10 AM Family History Mother Family history of arteriosclerotic cardiovascular disease (V17.49) (Z82.49) Father Family history of arteriosclerotic cardiovascular disease (V17.49) (Z82.49) Brother Family history of arteriosclerotic cardiovascular disease (V17.49) (Z82.49) Social History Problems Current every day smoker (305.1) (F17.200) 1/2 PPD Daily caffeine consumption, 4-5 servings a day No illicit drug use Social alcohol use (V49.89) (Z78.9) Review of Systems Constitutional: not feeling tired. Eyes: no eyesight problems. ENT: no hearing loss and no nosebleeds. Cardiovascular: no intermittent leg claudication and as (more content not included)... Normal [facility] Tobacco Screening.on 023 Fall risk assessment a) No falls within the last year [facility] [address] [place] Work Phone: Tobacco use status [facility] a) Yes [facility] [address] [place] Work Phone: Tobacco Screening. Yes [facility] [address] [place] Work Phone: Office Visit (Cardiology)on 02-19-2023 Follow-up visit Diagnoses/Problems Assessed Persistent atrial fibrillation (427.31) (I48.19) Initial diagnosis April 2022 hospitalization Amio start date May 13, 2022 Jun 24, 2022 unsuccessful DCC - at that time recieved 9.8 grams amiodarone. July 28, 2022 DCC x2 with NSR on amiodarone 200 twice daily August 11, 2022 recurrent atrial fibrillation and amiodarone increased 200 mg 3 times daily September 30, 2022 DCC with jainism normal sinus rhythm on amiodarone 200 mg 3 times daily and Toprol 200 mg daily Nov 2022 amio reduced 200mg and Toprol 100mg Jan 08 [address] Hernandez ECG in office sinus rafael, QTc 436 Anticoagulated (V58.61) (Z79.01) CHADS VASc 4 full dose Eliquis ( 67, Cr 1.0) Start date: May 13, 2022 No missed doses [employer] No bleeding events High risk medications (not anticoagulants) long-term use (V58.69) (Z79.899) Amiodarone Start date May 13, 2022 ECG in office QTc 486 Jan 08 2023 Afib RFA - to f/u with Dr. Hernandez next month and determine if to continue amiodarone. If to continue, will need testing. NICM (nonischemic cardiomyopathy) (425.4) (I42.8) NICM HF improved EF 50-55% Oct 2022 Echo ( EF 15-20% April 2022 Echo) FC II Stage C GDMT: Toprol - May 13, 2022 Aldactone - May 13, 2022 SGLT2i - May 13, 2022 ARNI - none to date d/t BP (needs high dose BB for rate control) Etiology: non-ischemic: April 2022 negative cath Tachycardia mediated due to A. fib with RVR with improvement in EF with jainism normal sinus rhythm. No syncope Father SCD at 39 QRS 84 Normal coronary angiogram (V72.85) April 2022 cardiac cath - diffuse LI Hypertension (401.9) (I10) optimal in office Hyperlipidemia (272.4) (E78.5) Moderate intensity statin Current every day smoker (305.1) (F17.200) 1/2 PPD Class 1 obesity with body mass index (BMI) of 32.0 to 32.9 in adult (278.00,V85.32) (E66.9,Z68.32) Reviewed the merits of healthy lifestyle choices on overall cardiovascular health. Orders Class 1 obesity with body mass index (BMI) of 32.0 to 32.9 in adult Healthy Weight Tips; Status:Complete; Done: 19Feb2023 SocHx: Current every day smoker You need to stop smoking. Though it is not easy, more than half of all adult smokers have quit. We encourage you to write down all the reasons you should quit smoking and set a quit date for yourself. Ask us how we can help. You may also call 7-282-EGKE-NOW for free resources and assistance.; Status:Complete; Done: [id number] Tobacco Use Screening; Status:Complete; Done: [id number] Patient Instructions Please bring all medicines, vitamins, and herbal supplements with you when you come to the office. Prescriptions will not be filled unless you are compliant with your follow up appointments or have a follow up appointment scheduled as per instruction of your physician. Refills should be requested at the time of your visit. PLAN: Through informed decision making process incorporating patients unique circumstances, the following treatment plan will be initiated: 1. Prescription drug management of cardiovascular medication for efficacy, adherence to treatment, side effect assessment and polypharmacy. Current treatment clinically warranted and to continue without modifications. 2. When you see Dr. Hernandez next month he may decide to stop amiodarone 3. Return for follow-up; in the interim, contact the office if new symptoms arise. Dr. Conley 6 months Chief Complaint Routine f/u: 'doing ok' TAWANDA STEVENS is being seen for a 3 month follow-up of atrial fibrillation, dyslipidemia and hypertension. Patient presents to the office ambulatory with steady gait. Last evaluated in clinic by myself November 18, 2022. At that time reduce Toprol to 100 mg daily and she has noted some improvement in overall fatigability. January 08, 2023 uneventful A-fib ablation by Dr. Hernandez. Right groin access site have healed without adverse sequela. Patient presents to the office today were overall she reports doing good . She reports some improvement in her dyspnea and fatigability. Activity level includes ADLs, light housework. She is looking forward to the warmer weather so that she can start a walking program. She denies any type of palpitations. Had no concerns ambulating in from the parking lot. Atrial fibrillation history: Initial diagnosis April 2022 hospitalization -at that time EF 15 to 20% thought to be tachycardia mediated. She required high-dose beta-perfecto for rate control and was initiated on amiodarone. June 24, 2022 cardioversion unsuccessful; had received 9.8 g loading of amiodarone July 28, 2022 cardioversion x2 with jainism of normal sinus rhythm on amiodarone 200 mg twice daily. August 11, 2022 follow-up had recurrent atrial fibrillation and amiodarone increased 200 mg 3 times daily. Follow-up cardioversion was postponed due to COVID-positive illness, did not require hospitalization. September 30, 2022 uneventful (more content not included)... Normal [employer] Tobacco Screening.on 023 Tobacco use status [facility] b) No [facility] [address] DO Work Phone: Lab Reportson 02-02-2023 Lab Reports [id number]:12 7 Normal [facility] CBC AUTO DIFFon 01-18-2023 BASO # 0.1 103/ul Normal 0.0-0.1 [facility] Comment on above: Performed By: #### P TT, PT #### [facility] [address] [place] [address] Dr. Lee Zaldivar Basophils/100 WBC (Bld) 0.9 % Normal 0.2-2.0 [facility] Comment on above: Performed By: #### P TT, PT #### [facility] [address] [place] [address] Dr. Lee Zaldivar EO # 0.3 103/ul Normal 0.0-0.7 [facility] Comment on above: Performed By: #### P TT, PT #### [facility] [address] [place] [address] Dr. Lee Zaldivar Eosinophils/100 WBC (Bld) 1.7 % Normal 0.9-7.0 [facility] Comment on above: Performed By: #### P TT, PT #### [facility] [address] [place] [address] Dr. Lee Zaldivar Erythrocyte distribution width (RBC) [Ratio] 14.3 % Normal 11.0-15.0 [facility] Comment on above: Performed By: #### P TT, PT #### [facility] [address] [place] [address] Dr. Lee Zaldivar Hematocrit (Bld) [Volume fraction] 46.6 % Normal 36.0-48.0 [facility] Comment on above: Performed By: #### P TT, PT #### [facility] [address] [place] [address] Dr. Lee Zaldivar Hemoglobin (Bld) [Mass/Vol] 15.3 g/dL Normal 12.0-16.0 [facility] Comment on above: Performed By: #### P TT, PT #### [facility] [address] [place] [address] Dr. Lee Zaldivar IG # 0.13 10e3/ul Critically high 0.00-0.03 [facility] Comment on above: Performed By: #### P TT, PT #### [facility] [address] [place] [address] Dr. Lee Zaldivar IG % 0.9 % Critically high 0.0-0.5 [facility] Comment on above: Performed By: #### P TT, PT #### [facility] [address] [place] [address] Dr. Lee Zaldivar LYMPH # 2.2 103/ul Normal 1.2-3.8 [facility] Comment on above: Performed By: #### P TT, PT #### [facility] [address] [place] [address] Dr. Lee Zaldivar Lymphocytes/100 WBC (Bld) 15.0 % Critically low 20.5-60.0 [facility] Comment on above: Performed By: #### P TT, PT #### [facility] [address] [place] [address] Dr. Lee Zaldivar MANUAL DIFF REQ NO Normal [facility] Comment on above: Performed By: #### P TT, PT #### [facility] [address] [place] [address] Dr. Lee Zaldivar MCH (RBC) [Entitic mass] 31.7 pg Normal 26.7-34.0 [facility] Comment on above: Performed By: #### P TT, PT #### [facility] [address] [place] [address] Dr. Lee Zaldivar MCHC (RBC) [Mass/Vol] 32.8 g/dL Normal 29.9-35.2 [facility] Comment on above: Performed By: #### P TT, PT #### [facility] [address] [place] [address] Dr. Lee Zaldivar MCV (RBC) [Entitic vol] 96.5 fL Normal 81.0-99.0 [facility] Comment on above: Performed By: #### P TT, PT #### [facility] [address] [place] [address] Dr. Lee Zaldivar MONO # 1.0 103/ul Critically high 0.3-0.8 [facility] Comment on above: Performed By: #### P TT, PT #### [facility] [address] [place] [address] Dr. Lee Zaldivar Monocytes/100 WBC (Bld) 7.0 % Normal 1.7-12.0 [facility] Comment on above: Performed By: #### P TT, PT #### [facility] [address] [place] [address] Dr. Lee Zaldivar NEUT # 11.1 103/ul Critically high 1.4-6.5 [facility] Comment on above: Performed By: #### P TT, PT #### [facility] [address] [place] [address] Dr. Lee Zaldivar Neutrophils/100 WBC (Bld) 74.5 % Normal 43.0-75.0 [facility] Comment on above: Performed By: #### P TT, PT #### [facility] [address] [place] [address] Dr. Lee Zaldivar Platelet mean volume (Bld) [Entitic vol] 9.7 fL Normal 9.5-13.5 [facility] Comment on above: Performed By: #### P TT, PT #### [facility] [address] [place] [address] Dr. Lee Zaldivar PLT 354 103/ul Normal 150-450 [facility] Comment on above: Performed By: #### P TT, PT #### [facility] [address] [place] [address] Dr. Lee Zaldivar RBC 4.83 106/ul Normal 4.20-5.40 [facility] Comment on above: Performed By: #### P TT, PT #### [facility] [address] [place] [address] Dr. Lee Zaldivar WBC 15.0 103/ul Critically high 4.0-11.0 [facility] Comment on above: Performed By: #### P TT, PT #### [facility] [address] [place] [address] Dr. Lee Zaldivar CREATININEon 01-18-2023 Creatinine [Mass/Vol] 1.00 mg/dL Normal 0.55-1.02 [facility] Comment on above: Performed By: #### D IG #### [facility] [facility] [address] [place] [address] Dr. Lee Zaldivar EGFR-AF ZAMBIAN >60 Normal >=60 [facility] Comment on above: Performed By: #### D IG #### [facility] [address] [place] [address] Dr. Lee Zaldivar EGFR-NON AF ZAMBIAN 55 mL/min/1.73m2 Critically low >=60 [facility] Comment on above: Performed By: #### D IG #### [facility] [address] [place] [address] Dr. Lee Zaldivar LIVER PROFILEon 01-18-2023 Albumin [Mass/Vol] 3.4 g/dL Normal 3.4-5.0 [facility] Comment on above: Performed By: #### D IG #### [facility] [address] [place] [address] Dr. Lee Zaldivar Albumin/Globulin [Mass ratio] 0.7 {ratio} Normal [facility] Comment on above: Performed By: #### D IG #### [facility] [address] [place] [address] Dr. Lee Zaldivar ALP [Catalytic activity/Vol] 106 U/L Normal 46-116 [facility] Comment on above: Performed By: #### D IG #### [facility] [address] [place] [address] Dr. Lee Zaldivar ALT [Catalytic activity/Vol] 23 U/L Normal 14-59 [facility] Comment on above: Performed By: #### D IG #### [facility] [address] [place] [address] Dr. Lee Zaldivar AST [Catalytic activity/Vol] 19 U/L Normal 15-37 [facility] Comment on above: Performed By: #### D IG #### [facility] [address] [address] [address] Lee Zaldivar BILI, CONJUGATED 0.1 mg/dL Normal 0.0-0.2 [facility] Comment on above: Performed By: #### D IG #### [facility] [address] [address] [address] Lee Zaldivar Bilirubin [Mass/Vol] 0.4 mg/dL Normal 0.2-1.0 [facility] Comment on above: Performed By: #### D IG #### [facility] [address] [address] [address] Lee Zaldivar Globulin (S) [Mass/Vol] 4.6 g/dL Normal [facility] Comment on above: Performed By: #### D IG #### [facility] [address] [address] [address] Lee Zaldivar Protein [Mass/Vol] 8.0 g/dL Normal 6.4-8.2 [facility] Comment on above: Performed By: #### D IG #### [facility] [address] [address] [address] Lee Zaldivar SED RATE [facility] 2022 SED RATE 7 mm/hr Normal <=30 [facility] Comment on above: Performed By: #### D IG #### [facility] [address] [address] [address] Lee Zaldivar ACT-HIGH RANGEon 01-08-2023 ACT-HIGH RANGE 349 SECONDS High 96 - 152 [facility] Comment on above: Result Comment: Note new reference range as of 02/17/2019. Target ACT range will vary based on the patient population, clinical status, and surgical intervention occurring. Performed By: #### A CTP #### [facility] [id number] [place] [address] ACT-HIGH RANGE 285 SECONDS High 96 - 152 [facility] Comment on above: Result Comment: Note new reference range as of 02/17/2019. Target ACT range will vary based on the patient population, clinical status, and surgical intervention occurring. Performed By: #### A CTP ####[id number] [place] [address] ACT-HIGH RANGE 242 SECONDS High 96 - 152 [facility] Comment on above: Result Comment: Note new reference range as of 02/17/2019. Target ACT range will vary based on the patient population, clinical status, and surgical intervention occurring. Performed By: #### A CTP #### [facility] [address] [place] [address] No Panel Informationon 01-08 349 {SECONDS} above high threshold 96 - 152 [facility] Work Phone: Comment on above: Note new reference r lauren as of 02/17/2019. Target ACT range will vary based on the patient population, clinical status, and surgical intervention occurring. 285 {SECONDS} above high threshold 96 - 152 [facility] Work Phone: Comment on above: Note new reference r lauren as of 02/17/2019. Target ACT range will vary based on the patient population, clinical status, and surgical intervention occurring. 242 {SECONDS} above high threshold 96 - 152 [facility] Work Phone: Comment on above: Note new reference r lauren as of 02/17/2019. Target ACT range will vary based on the patient population, clinical status, and surgical intervention occurring. Order Reconciliationon 01-08 Order Reconciliation Page 1 Discharge Reconciliation Document Reconciliation Type: Discharge requested on behalf of Diana Garcia (Resident) done by Diana Garcia (Resident)) Discharge - Reconciliation: 08-Jan-2023 12:36 by: Diana Garcia (Resident)) Home Medications EnteredHOME MEDICATIONS AT DISCHARGE DateReconciliation Comment/ Additional Information amiodarone 200 mg oral tablet 1 tab(s) orally once a day 08-Jan-2023 07:57 amiodarone 200 mg oral tablet 1 tab(s) orally once a day 24 07:57 amiodarone 200 mg oral tablet is continued as amiodarone 200 mg oral tablet apixaban 5 mg oral tablet 1 tab(s) orally 2 times a day 24 07:59 apixaban 5 mg oral tablet 1 tab(s) orally 2 times a day 24 07:59 apixaban 5 mg oral tablet is continued as apixaban 5 mg oral tablet atorvastatin 20 mg oral tablet 1 tab(s) orally once a day 24 07:58 atorvastatin 20 mg oral tablet 1 tab(s) orally once a day 24 07:58 atorvastatin 20 mg oral tablet is continued as atorvastatin 20 mg oral tablet Calcium 600+D oral tablet 1 tab(s) orally once a day 24 07:59 Calcium 600+D oral tablet 1 tab(s) orally once a day 24 07:59 Calcium 600+D oral tablet is continued as Calcium 600+D oral tablet canagliflozin 100 mg oral tablet 1 tab(s) orally once a day 08-Jan-2023 08:01 canagliflozin 100 mg oral tablet 1 tab(s) orally once a day 08-Jan-2023 08:01 canagliflozin 100 mg oral tablet is continued as canagliflozin 100 mg oral tablet digoxin 125 mcg (0.125 mg) oral tablet 1 tab(s) orally once a day 08-Jan-2023 07:59 Discontinued; Discontinue from ORM hydroxychloroquine 200 mg oral tablet 1 tab(s) orally 2 times a day (with meals) 08-Jan-2023 08:00 hydroxychloroquine 200 mg oral tablet 1 tab(s) orally 2 times a day (with meals) 08-Jan-2023 08:00 hydroxychloroquine 200 mg oral tablet is continued as hydroxychloroquine 200 mg oral tablet metoprolol succinate 100 mg oral tablet, extended release 1 tab(s) orally once a day 08-Jan-2023 08:01 metoprolol succinate 100 mg oral tablet, extended release 1 tab(s) orally once a day 24 08:01 metoprolol succinate 100 mg oral tablet, extended release is continued as metoprolol succinate 100 mg oral tablet, extended release Multiple Vitamins oral tablet 1 tab(s) orally once a day (B Complex) 08-Jan-2023 08:05 Multiple Vitamins oral tablet 1 tab(s) orally once a day (B Complex) 08-Jan-2023 08:05 Multiple Vitamins oral tablet is continued as Multiple Vitamins oral tablet potassium chloride 20 mEq oral tablet, extended release 1 tab(s) orally once a day 08-Jan-2023 08:02 potassium chloride 20 mEq oral tablet, extended release 1 tab(s) orally once a day 08-Jan-2023 08:02 potassium chloride 20 mEq oral tablet, extended release is continued as potassium chloride 20 mEq oral tablet, extended release predniSONE 5 mg oral tablet 1 tab(s) orally once a day 08-Jan-2023 08:02 predniSONE 5 mg oral tablet 1 tab(s) orally once a day 08-Jan-2023 08:02 predniSONE 5 mg oral tablet is continued as predniSONE 5 mg oral tablet sertraline 25 mg oral tablet 1 tab(s) orally once a day 08-Jan-2023 08:03 sertraline 25 mg oral tablet 1 tab(s) orally once a day 08-Jan-2023 08:03 sertraline 25 mg oral tablet is continued as sertraline 25 mg oral tablet spironolactone 25 mg oral tablet 1 tab(s) orally once a day 08-Jan-2023 08:03 spironolactone 25 mg oral tablet 1 tab(s) orally once a day 08-Jan-2023 08:03 spironolactone 25 mg oral tablet is continued as spironolactone 25 mg oral tablet sulfaSALAzine 500 mg oral tablet 2 tab(s) orally 2 times a day 08-Jan-2023 08:04 sulfaSALAzine 500 mg oral tablet 2 tab(s) orally 2 times a day 08-Jan-2023 08:04 sulfaSALAzine 500 mg oral tablet is continued as sulfaSALAzine 500 mg oral tablet Current OrdersDateHOME MEDICATIONS AT DISCHARGE DateReconciliation Comment/ Additional Information Esmolol 100 mg/10 mL Inj_IPRO SolutionGive 100 mg, IntraVenous, ONCE 08-Jan-2023 11:30 Esmolol 100 mg/10 mL Inj_IPRO is not required FENTANYL 50MCG/1ML 2ML INJ_IPRO SolutionGive 100 microgram(s), IntraVenous, ONCE 08-Jan-2023 11:30 FENTANYL 50MCG/1ML 2ML INJ_IPRO is not required LIDOCAINE 2% PF 5ML VIAL_IPRO SolutionGive 40 mg, IntraVenous, ONCE 08-Jan-2023 11:30 LIDOCAINE 2% PF 5ML VIAL_IPRO is not required Ondansetron 4 mg/2 mL Inj_IPRO SolutionGive 4 mg, IntraVenous, ONCE 08-Jan-2023 11:30 Ondansetron 4 mg/2 mL Inj_IPRO is not required Phenylephrine 10 mg/mL Inj 1 mL_IPRO SolutionGive 714.42 microgram(s), IntraVenous, ONCE 08-Jan-2023 11:30 Phenylephrine 10 mg/mL Inj 1 mL_IPRO is not required PROPOFOL 10MG/1ML 20ML VIAL_IPRO SolutionGive 200 mg, IntraVenous, ONCE 08-Jan-2023 11:30 PROPOFOL 10MG/1ML 20ML VIAL_IPRO is not required Protamine 10 mg/mL Inj 5 mL_IPRO SolutionGive 40 mg, IntraVenous, ONCE 08-Jan-2023 11:30 Protamine 10 mg/mL Inj 5 mL_IPRO is not required Rocuronium 10 mg/mL Inj 10 mL (more content not included)... Normal [facility] CORONAVIRUS 2019, SCREEN ASY MPTOMATICon 01-06-2023 SARS-CoV-2 (COVID-19) RNA LAURITA+probe Ql (Unsp spec) Not detected Normal Not Detected [facility] Comment on above: Result Comment: . This assay is designed to detect the ORF1a/b and E genes of SARS-CoV-2 via nucleic acid amplification. A Not Detected result does not preclude 2019-nCoV infection since the adequacy of sample collection and/or low viral burden may result in presence of viral nucleic acids below the clinical sensitivity of this test method. Fact sheet for providers: https://www.fda.gov/media/863652/download Fact sheet for patients: https://www.fda.gov/media/354408/download This test has received FDA Emergency Use Authorization (EUA) and has been verified for use by [facility] ([facility]). This test is only authorized for the duration of time that circumstances exist to justify the authorization of the emergency use of in vitro diagnostic tests for the detection of SARS-CoV-2 virus and/or diagnosis of COVID-19 infection under section 564(b)(1) of the Act, 21 U.S.C. 360bbb-3(b)(1), unless the authorization is terminated or revoked sooner. [facility] is certified under CLIA-88 as qualified to perform high complexity testing. Testing is performed in the [facility] laboratories located at [id number] [place] [address]. Performed By: #### C OVSC ####[id number] [facility] [place] [address] Covid 19 Resultson 3 SARS-CoV-2 (COVID-19) RNA LAURITA+probe Ql (Unsp spec) NEGATIVE COVID-19 Test Coronaviruses are common world-wide and are the cause of many common colds. SARS-COV2 is a new coronavirus that began circulating worldwide in 2019 so we are calling it COVID-19. It has been estimated that four out of five patients with COVID-19 will recover at home without the need for medical attention. Symptoms of COVID-19 may include cough, fever, shortness of breath, loss of taste or smell and other flu-like symptoms including chills, sore muscles, sore throat, and headache. Severe illness is more common in older people and people with other health problems such as high blood pressure, obesity, and immune system problems. If the test is positive, you have COVID-19. You will be contacted by the ordering physicians office and instructed to remain on home isolation, in accordance with CDC guidelines. You may also be contacted by the [facility] to see if any of your close contacts may have been exposed to the virus and need to quarantine. If the test is negative, you likely do not have COVID-19 at this time, but you still may have a different illness that can spread to other people (like Influenza, or the Flu) and could still be at risk for getting COVID-19. We recommend that you stay away from other people to limit the spread of illness until your symptoms are improving and you are fever-free for 24 hours without the use of fever lowering medications such as acetaminophen or ibuprofen. No test is 100% accurate so if you are still concerned you may have COVID-19, talk to your doctor about the need to continue to stay away from others. Medicines Unless your provider told you not to use the following: Acetaminophen (Tylenol and others) is generally safe. Anti-inflammatory medications, such as Ibuprofen (Advil or Motrin) or Naproxen (Aleve) can also be used. Loxz-bka-tutoeqz cough and cold medicines can be used according to the instructions on the package. Some jfbq-kay-sisrwco medicines also contain acetaminophen. Make sure you are not taking more than your recommended dose. For those not hospitalized, there is no specific treatment available for this illness. Antibiotics do not treat Coronaviruses. Follow-Up Follow up with your doctor by scheduling a virtual visit or consider follow-up at one of our urgent care fever clinics. If you are having difficulty breathing, or are very weak and having difficulty standing, this is a medical emergency. Call 911 or have someone take you to the nearest emergency room immediately. If possible, wear a facemask. Additional guidance from the CDC for patients who tested POSITIVE for COVID-19 How to isolate: Isolate yourself in a specific room at home and limit your contact with others. Use a separate bathroom from other members of the household, when possible. Leave home only to get essential medical care. Do not go to work, school or public areas. Avoid using public transportation, ride-sharing, or taxis. Restrict contact with pets and other animals. If you must care for your pet or be around animals while you are sick, wash your hands before and after your interaction and wear a facemask. Make sure that shared spaces in the home have good airflow, such as by an air conditioner or an opened window, weather permitting. Personal Hygiene Procedures: Wear a face mask when in the same room as other people or pets. If a face mask interferes with your breathing, others should wear a mask when sharing space with you. Frequent hand-washing: wash your hands with soap and water for at least 20 seconds. If soap and water are not available, use alcohol-based hand industrial photographer. Avoid touching your eyes, nose, and mouth with unwashed hands. Household Hygiene Procedures: Avoid sharing personal household items such as dishes, glassware, cups, eating utensils, towels or bedding with other people or pets in your home. After use, these items should be washed with soap and hot water. Disinfect all high-touch surfaces every day with antibacterial cleaning solutions such as Lysol wipes, bleach, cleansers, etc. High-touch surfaces include tabletops, doorknobs, bathroom fixtures, toilets, phones, keyboards, tablets and bedside tables. Immediately clean any surfaces that may have blood, poop or body fluids on them, using antibacterial cleaning solutions such as Lysol wipes, bleach, cleansers, etc. If clothing or bedding come into contact with blood, poop or body fluids, they should be washed immediately. Follow the directions on the laundry detergent and clothing labels but hot water is recommended when possible. Stopping home isolation precautions: If possible, consult your doctor before stopping home isolation precautions. According to the CDC, you can discontinue home isolation precautions when you have met both of these criteria: Your fever and respiratory symptoms have been gone for 24 kalpana (more content not included)... Normal [facility] BASIC METABOLIC PANELon 12-17 Anion gap [Moles/Vol] 12 mmol/L Normal 10 - 20 [facility] Comment on above: Performed By: #### B MP #### [address] [id number] Calcium [Mass/Vol] 9.6 mg/dL Normal 8.6 - 10.3 [facility] Comment on above: Performed By: #### B MP #### [address] [id number] Chloride [Moles/Vol] 108 mmol/L High 98 - 107 [facility] Comment on above: Performed By: #### B MP #### [address] [id number] Creatinine [Mass/Vol] 0.88 mg/dL Normal 0.50 - 1.05 [facility] Comment on above: Performed By: #### B MP #### [address] [id number] GFR/1.73 sq M.predicted among non-blacks MDRD (S/P/Bld) [Vol rate/Area] 72 mL/min/{1.73_m2} Normal >90 [facility] Comment on above: Result Comment: CALC ULATIONS OF ESTIMATED GFR ARE PERFORMED USING THE 2020 CKD-EPI STUDY REFIT EQUATION WITHOUT THE RACE VARIABLE FOR THE IDMS-TRACEABLE CREATININE METHODS. https://jasn.asnjournals.org/content//ASN.60784 20304 Performed By: #### B MP #### [address] [id number] Glucose [Mass/Vol] 79 mg/dL Normal 74 - 99 [facility] Comment on above: Performed By: #### B MP #### [address] [id number] HCO3 (Bld) [Moles/Vol] 23 mmol/L Normal 21 - 32 [facility] Comment on above: Performed By: #### B MP #### [address] [id number] Potassium [Moles/Vol] 3.3 mmol/L Low 3.5 - 5.3 [facility] Comment on above: Performed By: #### B MP #### [address] [id number] Sodium [Moles/Vol] 140 mmol/L Normal 136 - 145 [facility] Comment on above: Performed By: #### B MP #### [address] [id number] Urea nitrogen [Mass/Vol] 12 mg/dL Normal 6 - 23 [facility] Comment on above: Performed By: #### B MP #### [address] [id number] CBCon 01-05-2023 Erythrocyte distribution width (RBC) [Ratio] 14.4 % Normal 11.5 - 14.5 [facility] Comment on above: Performed By: #### C BC #### [address] [id number] Hematocrit (Bld) [Volume fraction] 48.2 % High 36.0 - 46.0 [facility] Comment on above: Performed By: #### C BC #### [address] [id number] Hemoglobin (Bld) [Mass/Vol] 15.3 g/dL Normal 12.0 - 16.0 [facility] Comment on above: Performed By: #### C BC #### [address] [id number] MCHC (RBC) [Mass/Vol] 31.7 g/dL Low 32.0 - 36.0 [facility] Comment on above: Performed By: #### C BC #### [address] [id number] MCV (RBC) [Entitic vol] 101 fL High 80 - 100 [facility] Comment on above: Performed By: #### C BC #### [address] [id number] Platelets (Bld) [#/Vol] 345 10*3/uL Normal 150 - 450 [facility] Comment on above: Performed By: #### C BC #### [address] [id number] RBC 4.79 x10E12/L Normal 4.00 - 5.20 [facility] Comment on above: Performed By: #### C BC #### [address] [id number] WBC (Bld) [#/Vol] 14.4 10*3/uL High 4.4 - 11.3 [facility] Comment on above: Performed By: #### C BC #### [address] [id number] CORONAVIRUS 2019, SCREEN ASY MPTOMATICon 01-05-2023 Lab Specimen Source Nasal, Nasopharyngeal Normal [facility] Comment on above: Performed By: #### C OVSC ####[id number] [place] [address] Coronavirus 2019 RNA by PCR, Screening Asymptomticon 01-05-2023 Coronavirus 2019 RNA by PCR, Screening Asymptomtic Not detected Normal See Below [facility] Work Phone: Comment on above: SOURCE: Nasal, Nasop haryngealReference Range: Not Detected.This assay is designed to detect the ORF1a/b and E genes of SARS-CoV-2 via nucleic acid amplification. A Not Detected result does not preclude 2019-nCoV infection since the adequacy of sample collection and/or low viral burden may result in presence of viral nucleic acids below the clinical sensitivity of this test method. Fact sheet for providers: https://www.fda.gov/media/455300/download Fact sheet for patients: https://www.fda.gov/media/561300/download This test has received FDA Emergency Use Authorization (EUA) and has been verified for use by [facility] ([facility]). This test is only authorized for the duration of time that circumstances exist to justify the authorization of the emergency use of in vitro diagnostic tests for the detection of SARS-CoV-2 virus and/or diagnosis of COVID-19 infection under section 564(b)(1) of the Act, 21 U.S.C. 360bbb-3(b)(1), unless the authorization is terminated or revoked sooner.[facility] is certified under CLIA-88 as qualified to perform high complexity testing. Testing is performed in the [facility] laboratories located at [address] [place] [address]. Laboratory - Chemistry and C hemistry - challengeon 01-05-2023 Anion gap [Moles/Vol] 12 mmol/L 10 - 20 [facility] Work Phone: Calcium [Mass/Vol] 9.6 mg/dL 8.6 - 10.3 [facility] Work Phone: Chloride [Moles/Vol] 108 mmol/L above high threshold 98 - 107 [facility] Work Phone: CO2 [Moles/Vol] 23 mmol/L 21 - 32 [facility] Work Phone: Creatinine [Mass/Vol] 0.88 mg/dL See Below [facility] Work Phone: Comment on above: Reference Range: 0.5 0 - 1.05 Glucose [Mass/Vol] 79 mg/dL 74 - 99 [facility] Work Phone: Potassium [Moles/Vol] 3.3 mmol/L below low threshold 3.5 - 5.3 [facility] Work Phone: Sodium [Moles/Vol] 140 mmol/L 136 - 145 [facility] Work Phone: Urea nitrogen [Mass/Vol] 12 mg/dL 6 - 23 [facility] Work Phone: Laboratory - Coagulationon 0 01-05-2023 INR Coag (PPP) [Relative time] 1.0 {INR} 0.9 - 1.1 [facility] Work Phone: PT Coag (PPP) [Time] 11.9 s 9.8 - 13.4 [facility] Work Phone: Laboratory - Hematology and Cell countson 01-05-2023 Erythrocyte distribution width (RBC) [Ratio] 14.4 % See Below [facility] Work Phone: Comment on above: Reference Range: 11. 5 - 14.5 Hematocrit (Bld) [Volume fraction] 48.2 % above high threshold See Below [facility] Work Phone: Comment on above: Reference Range: 36. 0 - 46.0 Hemoglobin (Bld) [Mass/Vol] 15.3 g/dL See Below [facility] Work Phone: Comment on above: Reference Range: 12. 0 - 16.0 MCHC (RBC) [Mass/Vol] 31.7 g/dL below low threshold See Below [facility] Work Phone: Comment on above: Reference Range: 32. 0 - 36.0 MCV (RBC) [Entitic vol] 101 fL above high threshold 80 - 100 [facility] Work Phone: Platelets (Bld) [#/Vol] 345 10*3/uL 150 - 450 [facility] Work Phone: RBC (Bld) [#/Vol] 4.79 {x10E12/L} See Below [facility] Work Phone: Comment on above: Reference Range: 4.0 0 - 5.20 WBC (Bld) [#/Vol] 14.4 10*3/uL above high threshold 4.4 - 11.3 [facility] Work Phone: No Panel Informationon 01-05 72 {mL/min/1.73m2} >90 [facility] Work Phone: Comment on above: CALCULATIONS OF MICHAEL MATED GFR ARE PERFORMED USING THE 2020 CKD-EPI STUDY REFIT EQUATION WITHOUT THE RACE VARIABLE FOR THE IDMS-TRACEABLE CREATININE METHODS.https://jasn.asnjournals.org/content//A SN.7170911760 PT/INRon 01-05-2023 PT Coag (PPP) [Time] 11.9 s Normal 9.8 - 13.4 [facility] Comment on above: Performed By: #### P TINR #### [address] [id number] PT, INR 1.0 Normal 0.9 - 1.1 [facility] Comment on above: Performed By: #### P TINR #### [address] [id number] Electrocardiogram 12 Leadon 12-15-2022 Electrocardiogram 12 Lead Ventricular Rate 49 Atrial Rate 49 P-R Interval 178 QRS Duration 84 Q-T Interval 490 QTC Calculation(Bazett) 442 P Jolon 74 R Jolon 6 T Jolon 64 QRS Count 8 Q Onset 221 P Onset 132 P Offset 176 T Offset 466 QTC Fredericia 458 Diagnosis Class Abnormal Diagnosis Sinus bradycardia Nonspecific ST and T wave abnormality Abnormal ECG No previous ECGs available Confirmed by Gilbert Hernandez ([id number]) on 12/21/2022 9:01:39 AM Normal [facility] No Panel Informationon 12-15 [email or web address] 080/musescripts/museweb.d ll?RetrieveTestByDateTime ?DofmsabGU=[id number]&Date =15-12-2022&Time=10%3a51% 3a01%3a00&TestType=ECG&Si te=1&OutputType=PDF&Ext=P DF [facility] Work Phone: Sinus bradycardia [facility] Work Phone: Abnormal [facility] Work Phone: 458 1 [facility] Work Phone: 466 1 [facility] Work Phone: 176 1 [facility] Work Phone: 132 1 [facility] Work Phone: 221 1 [facility] Work Phone: 8 1 [facility] Work Phone: 64 1 [facility] Work Phone: 6 1 [facility] Work Phone: 74 1 [facility] Work Phone: 442 1 [facility] Work Phone: 490 1 [facility] Work Phone: 84 1 [facility] Work Phone: 178 1 [facility] Work Phone: 49 1 [facility] Work Phone: Office Visit (Cardiology)on 12-15-2022 Follow-up visit Diagnoses/Problems Assessed Current every day smoker (305.1) (F17.200) 1/2 PPD Paroxysmal atrial fibrillation (427.31) (I48.0) Orders Persistent atrial fibrillation Electrocardiogram EKG; Status:Complete; Done: 15Dec2022 10:56AM SocHx: Current every day smoker Tobacco Use Screening; Status:Complete; Done: 15Dec2022 Chief Complaint TAWANDA STEVENS is being seen for a consultation for atrial fibrillation and cardiomyopathy. Adult Risk Screening There are no spiritual/cultural practices/values/needs that are important to know Initial Fall Risk Screening: TAWANDA has not fallen in the last 6 months. The patient is not using an assistive device. Living Will. Living Will: Living will on file. Healthcare POA: Health care proxy on file. Tobacco Screening: TAWANDA uses tobacco. Has used tobacco in the past 6 months. She uses tobacco: Everyday. Type(s) of Tobacco: cigarettes History of Present Illness 67 yo female. 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 The patient underwent multiple DCC and is currently in high dosis of amiodarone to maintain NSR. Was referred to me for evaluation for A Fib RFA. 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) Hyperlipidemia (272.4) (E78.5) Hypertension (401.9) (I10) Hypertensive retinopathy (362.11) (H35.039) Mitral regurgitation (424.0) (I34.0) Moderate episode of recurrent major depressive disorder (296.32) (F33.1) NICM (nonischemic cardiomyopathy) (425.4) (I42.8) Normal coronary angiogram (V72.85) Obesity (278.00) (E66.9) Overweight with body mass index (BMI) of 25 to 25.9 in adult (278.02,V85.21) (E66.3,Z68.25) Persistent atrial fibrillation (427.31) (I48.19) Preop testing (V72.84) (Z01.818) Proptosis (376.30) (H05.20) Proptosis Bilateral 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 Atorvastatin Calcium 20 MG Oral TabletTAKE 1 TABLET AT BEDTIME Calcium Carbonate-Vitamin D3 TABSTake 1 tablet daily Digoxin 125 MCG Oral TabletTAKE ONE TABLET BY MOUTH ONCE DAILY Eliquis 5 MG Oral TabletTAKE ONE TABLET BY MOUTH TWICE A DAY HM Nicotine 21 MG/24HR Transdermal Patch 24 HourAPPLY 1 PATCH DAILY DIRECTED. Hydroxychloroquine Sulfate 200 MG Oral TabletTAKE 1 TABLET TWICE DAILY WITH FOOD. Invokana 100 MG Oral TabletTAKE ONE TABLET BY MOUTH ONCE DAILY Metoprolol Succinate ER 100 MG Oral Tablet Extended Release 24 HourTAKE 1 TABLET Daily Potassium Chloride ER 20 MEQ Oral Tablet Extended ReleaseTake 1 tablet daily predniSONE 5 MG Oral TabletTAKE 1 TABLET DIRECTED. Sertraline HCl - 25 MG Oral TabletTAKE 1 TABLET DAILY DIRECTED. Spironolactone 25 MG Oral TabletTAKE ONE TABLET BY MOUTH ONCE DAILY sulfaSALAzine 500 MG Oral TabletTake 1 tablet daily Vitamin B Complex CAPSTAKE 1 CAPSULE Daily Allergies NoKnown No Known Allergies Recorded By: Veronica Palacio; 06/08/2022 8:50:10 AM Family History Mother Family history of arteriosclerotic cardiovascular disease (V17.49) (Z82.49) Father Family history of arteriosclerotic cardiovascular disease (V17.49) (Z82.49) Brother Family history of arteriosclerotic cardiovascular disease (V17.49) (Z82.49) Social History Problems Current every day smoker (305.1) (F17.200) 1/2 PPD Daily caffeine consumption, 4-5 servings a day No illicit drug use Social alcohol use (V49.89) (Z78.9) Review of Systems Constitutional: not feeling tired. Eyes: no eyesight problems. ENT: no hearing loss and no nosebleeds. Cardiovascular: shortness of breath and fast heart rate, but no intermittent leg claudication and as noted in HPI. Respiratory: no chronic cough and no shortness of breath. Gastrointestinal: no change in bowel habits and no blood in stools. Genitourinary: no urinary frequency. Skin: no skin rashes. Neurological: no seizures and no frequent falls. Psychiatric: no depression and not suicidal. All other systems have been reviewed and are negative for complaint. Vitals Vital Signs Recorded: 15Dec2022 10:56AM Heart Rate53 Vozrkxuj013, LUE, Sitting Gagsvfopi93, LUE, Sitting Height5 ft 4 in Igreip529 lb 2 oz BMI Cpretfdmdq38.4 kg/m2 BSA Calculated1.86 Tobacco Useb) No Falls Screening (Age (more content not included)... Normal [facility] Tobacco Screening.on 023 Fall risk assessment a) No falls within the last year [facility] Work Phone: Tobacco use status [facility] b) No [facility] Work Phone: Office Visit (Cardiology)on 11-18-2022 Follow-up visit Diagnoses/Problems Assessed Persistent atrial fibrillation (427.31) (I48.19) Initial diagnosis April 2022 hospitalization Amio start date May 13, 2022 Jun 24, 2022 unsuccessful DCC - at that time recieved 9.8 grams amiodarone. July 28, 2022 DCC x2 with NSR on amiodarone 200 twice daily August 11, 2022 recurrent atrial fibrillation and amiodarone increased 200 mg 3 times daily September 30, 2022 DCC with jainism normal sinus rhythm on amiodarone 200 mg 3 times daily and Toprol 200 mg daily Anticoagulated (V58.61) (Z79.01) CHADS VASc 4 full dose Eliquis ( 67, Cr 1.0) Start date: May 13, 2022 No missed doses Affordable No bleeding events High risk medications (not anticoagulants) long-term use (V58.69) (Z79.899) Amiodarone Start date May 13, 2022 ECG in office QTc 367 Will need baseline testing Referral to Dr. Hernandez for ablation and possibiity of coming off high risk medication NICM (nonischemic cardiomyopathy) (425.4) (I42.8) NICM HF improved EF 50-55% Oct 2022 Echo ( EF 15-20% April 2022 Echo) FC III Stage C GDMT: Toprol - May 13, 2022 Aldactone - May 13, 2022 SGLT2i - May 13, 2022 ARNI - none to date d/t BP (needs high dose BB for rate control) Etiology: non-ischemic: April 2022 negative cath Tachycardia mediated due to A. fib with RVR with improvement in EF with jainism normal sinus rhythm. No syncope Father SCD at 39 QRS 84 Hypertension (401.9) (I10) optimal in office Hyperlipidemia (272.4) (E78.5) Moderate intensity statin Normal coronary angiogram (V72.85) April 2022 cardiac cath - diffuse LI Class 1 obesity with body mass index (BMI) of 31.0 to 31.9 in adult (278.00,V85.31) (E66.9,Z68.31) Reviewed the merits of healthy lifestyle choices on overall cardiovascular health. Current every day smoker (305.1) (F17.200) 1/2 PPD Trying to cut down 1/2 pack per day Did not start patches Moderate episode of recurrent major depressive disorder (296.32) (F33.1) Will resume prior treatment of sertraline She will follow-up with PCP Orders Class 1 obesity with body mass index (BMI) of 31.0 to 31.9 in adult Start: Atorvastatin Calcium 20 MG Oral Tablet; TAKE 1 TABLET AT BEDTIME Healthy Weight Tips; Status:Complete; Done: 18Nov2022 Start: Sertraline HCl - 25 MG Oral Tablet; TAKE 1 TABLET DAILY DIRECTED Moderate episode of recurrent major depressive disorder PHQ2 Screen Positive; Status:Complete; Done: 18Nov2022 Persistent atrial fibrillation Changed: From Amiodarone HCl - 200 MG Oral Tablet TAKE 1 TABLET 3 times daily To Amiodarone HCl - 200 MG Oral Tablet TAKE 1 TABLET DAILY Renew: Metoprolol Succinate ER 100 MG Oral Tablet Extended Release 24 Hour; TAKE 1 TABLET Daily SocHx: Current every day smoker You need to stop smoking. Though it is not easy, more than half of all adult smokers have quit. We encourage you to write down all the reasons you should quit smoking and set a quit date for yourself. Ask us how we can help. You may also call 7-822-NZZNDanceOnNOW for free resources and assistance.; Status:Complete; Done: 18Nov2022 Tobacco Use Screening; Status:Complete; Done: 18Nov2022 Patient Instructions Please bring all medicines, vitamins, and herbal supplements with you when you come to the office. Prescriptions will not be filled unless you are compliant with your follow up appointments or have a follow up appointment scheduled as per instruction of your physician. Refills should be requested at the time of your visit. PLAN: Through informed decision making process incorporating patients unique circumstances, the following treatment plan will be initiated: 1. Prescription drug management of cardiovascular medication for efficacy, adherence to treatment, side effect assessment and polypharmacy. Current treatment clinically warranted and to continue with following modifications: - Reduce amiodarone 200mg daily - Reduce metoprolol 100mg daily: Take 1.5 tablets next 5 days then reduce to one tablet daily - Resume atovastatin 20mg daily (holding it did not help leg weakness) - Resume sertraline 25mg daily 2. Keep appointment with Dr. Hernandez 3. Return for follow-up; in the interim, contact the office if new symptoms arise. 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 Patient presents the office today ambulatory with steady gait. Last evaluated in clinic by myself October 2022. At that time: 1. Held atorvastatin due to complaints of leg weakness, there have been no noted improvement and will resume. 2. Consult with to discuss A. fib ablation scheduled for December 15, 2022 3. Lab work was completed at [facility], need to obtain. 4. Repeat echocardiogram showed improvement in LVEF 50 to 55%, left atrium mildly dilated, mild MR. Results reviewed in detail. Patient presents to the office today with contin (more content not included)... Normal [facility] Tobacco Screening.on 023 Adult depression screening assessment Yes [facility] ara 250 DO Work Phone: Adult depression screening assessment Moderate (10-14) [facility] Work Phone: Fall risk assessment a) No falls within the last year [facility] ara 250 DO Work Phone: [phone] Tobacco use status [facility] a) Yes [facility] ara 250 DO Work Phone: Tobacco Screening. Yes [facility] ara 250 DO Work Phone: Tobacco Screening. 2-More than half the days [facility] 250 DO Work Phone: Tobacco Screening. 3-Nearly every day [facility] 250 DO Work Phone: Tobacco Screening. 1-Several days [facility] ara 250 DO Work Phone: Tobacco Screening. 0-Not at all [facility] DO Work Phone: Tobacco Screening. 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 PHYSICIAN INTERPRETATION: Left Ventricle: Left ventricular systolic function is low normal, with an estimated ejection fraction of 50-55%. There are no regional wall motion abnormalities. The left ventricular cavity size is normal. Spectral Doppler shows a normal pattern of left ventricular diastolic filling. Left Atrium: The left atrium is normal in size. Mildly dilated left atrium. Right Ventricle: The right ventricle is normal in size. There is normal right ventricular global systolic function. Right Atrium: The right atrium is mildly dilated. Mildly dilated right atrium. Aortic Valve: The aortic valve appears structurally normal. Aortic valve regurgitation was not assessed. Mitral Valve: The mitral valve is normal in structure. There is mild mitral valve regurgitation. Mild mitral regurgitation. Tricuspid Valve: The tricuspid valve is structurally normal. Tricuspid regurgitation was not assessed. Pulmonic Valve: The pulmonic valve is structurally normal. The pulmonic valve regurgitation was not assessed. Pericardium: There is no pericardial effusion noted. Aorta: The aortic root is normal. CONCLUSIONS: 1. Left ventricular systolic function is low normal with a 50-55% estimated ejection fraction. 2. Mildly dilated left atrium. 3. Mildly dilated right atrium. 4. Mild mitral regurgitation. 5. When compared to prior study there has been significant improvement of left ventricular systolic function. QUANTITATIVE DATA SUMMARY: 2D MEASUREMENTS: Normal Ranges: Ao Root d: 3.00 cm (2.0-3.7cm) LAs: 4.00 cm (2.7-4.0cm) RVIDd: 2.90 cm (0.9-3.6cm) IVSd: 0.80 cm (0.6-1.1cm) LVPWd: 0.80 cm (0.6-1.1cm) LVIDd: 5.40 cm (3.9-5.9cm) LVIDs: 4.60 cm LV Mass Index: 82.7 g/m2 LV % FS 14.8 % LV SYSTOLIC FUNCTION BY 2D PLANIMETRY (MOD): Normal Ranges: EF-A4C View: 63.0 % (>=55%) AORTIC VALVE: Normal Ranges: LVOT Diameter: 2.30 cm (1.8-2.4cm) [id number] Foster Steen MD Electronically signed on 11/12/2022 at 2:30:19 PM Final Normal [facility] AMIODARONEon 11-11-2022 Amiodarone 1708 ng/mL Normal 2349-3047 [facility] Comment on above: Performed By: #### D IG #### [facility] [address] [place] [address] Dr. Lee Zaldivar Desethylamiodarone 1158 ng/mL Normal [facility] Comment on above: Result Comment: Note : To convert from ng/ml to ug/ml, divide the result by 1000. Reference range (amiodarone): 1.00-2.50 ug/mL. This test was developed and its performance characteristics determined by [facility]. It has not been cleared or approved by the Food and Drug Administration. Performed By: #### D IG #### [facility] [address] [place] [address] Dr. Lee Zaldivar CBC AUTO DIFFon 10-30-2022 BASO # 0.1 103/ul Normal 0.0-0.1 [facility] Comment on above: Performed By: #### D IG #### [facility] [address] [place] [address] Dr. Lee Zaldivar Basophils/100 WBC (Bld) 0.9 % Normal 0.2-2.0 [facility] Comment on above: Performed By: #### D IG #### [facility] [address] [place] [address] Dr. Lee Zaldivar EO # 0.3 103/ul Normal 0.0-0.7 [facility] Comment on above: Performed By: #### D IG #### [facility] [address] [place] [address] Dr. Lee Zaldivar Eosinophils/100 WBC (Bld) 2.6 % Normal 0.9-7.0 [facility] Comment on above: Performed By: #### D IG #### [facility] [address] [place] [address] Dr. Lee Zaldivar Erythrocyte distribution width (RBC) [Ratio] 15.6 % Critically high 11.0-15.0 [facility] Comment on above: Performed By: #### D IG #### [facility] [address] [place] [address] Dr. Lee Zaldivar Hematocrit (Bld) [Volume fraction] 44.4 % Normal 36.0-48.0 [facility] Comment on above: Performed By: #### D IG #### [facility] [address] [place] [address] Dr. Lee Zaldivar Hemoglobin (Bld) [Mass/Vol] 14.4 g/dL Normal 12.0-16.0 [facility] Comment on above: Performed By: #### D IG #### [facility] [address] [place] [address] Dr. Lee Zaldivar IG # 0.08 10e3/ul Critically high 0.00-0.03 [facility] Comment on above: Performed By: #### D IG #### [facility] [address] [place] [address] Dr. Lee Zaldivar IG % 0.7 % Critically high 0.0-0.5 [facility] Comment on above: Performed By: #### D IG #### [facility] [address] [place] [address] Dr. Lee Zaldivar LYMPH # 1.7 103/ul Normal 1.2-3.8 [facility] Comment on above: Performed By: #### D IG #### [facility] [address] [place] [address] Dr. Lee Zaldivar Lymphocytes/100 WBC (Bld) 14.9 % Critically low 20.5-60.0 [facility] Comment on above: Performed By: #### D IG #### [facility] [address] [place] [address] Dr. Lee Zaldivar MANUAL DIFF REQ NO Normal [facility] Comment on above: Performed By: #### D IG #### [facility] [address] [place] [address] Dr. Lee Zaldivar MCH (RBC) [Entitic mass] 31.0 pg Normal 26.7-34.0 [facility] Comment on above: Performed By: #### D IG #### [facility] [address] [place] [address] Dr. Lee Zaldivar MCHC (RBC) [Mass/Vol] 32.4 g/dL Normal 29.9-35.2 [facility] Comment on above: Performed By: #### D IG #### [facility] [address] [place] [address] Dr. Lee Zaldivar MCV (RBC) [Entitic vol] 95.5 fL Normal 81.0-99.0 [facility] Comment on above: Performed By: #### D IG #### [facility] [address] [place] [address] Dr. Lee Zaldivar MONO # 0.9 103/ul Critically high 0.3-0.8 [facility] Comment on above: Performed By: #### D IG #### [facility] [address] [place] [address] Dr. Lee Zaldivar Monocytes/100 WBC (Bld) 7.7 % Normal 1.7-12.0 [facility] Comment on above: Performed By: #### D IG #### [facility] [address] [place] [address] Dr. Lee Zaldivar NEUT # 8.1 103/ul Critically high 1.4-6.5 [facility] Comment on above: Performed By: #### D IG #### [facility] [address] [place] [address] Dr. Lee Zaldivar Neutrophils/100 WBC (Bld) 73.2 % Normal 43.0-75.0 [facility] Comment on above: Performed By: #### D IG #### [facility] [address] [place] [address] Dr. Lee Zaldivar Platelet mean volume (Bld) [Entitic vol] 10.4 fL Normal 9.5-13.5 [facility] Comment on above: Performed By: #### D IG #### [facility] [address] [place] [address] Dr. Lee Zaldivar PLT 342 103/ul Normal 150-450 [facility] Comment on above: Performed By: #### D IG #### [facility] [address] [place] [address] Dr. Lee Zaldivar RBC 4.65 106/ul Normal 4.20-5.40 [facility] Comment on above: Performed By: #### D IG #### [facility] [address] [place] [address] Dr. Lee Zaldivar WBC 11.1 103/ul Critically high 4.0-11.0 [facility] Comment on above: Performed By: #### D IG #### [facility] [address] [place] [address] Dr. Lee Zaldivar CREATININEon 10-30-2022 Creatinine [Mass/Vol] 0.85 mg/dL Normal 0.55-1.02 [facility] Comment on above: Performed By: #### REJI DAILEY #### [facility] [address] [place] [address] Dr. Lee Zaldivar EGFR-AF ZAMBIAN >60 Normal >=60 [facility] Comment on above: Performed By: #### REJI DAILEY #### [facility] [address] [place] [address] Dr. Lee Zaldivar EGFR-NON AF ZAMBIAN >60 Normal >=60 [facility] Comment on above: Performed By: #### REJI DAILEY #### [facility] [address] [place] [address] Dr. Lee Zaldivar DIGOXINon 10-30-2022 DIG 0.7 ng/mL Critically low 0.9-2.0 [facility] Comment on above: Performed By: #### D IG #### [facility] [address] [place] [address] Dr. Lee Zaldivar LIVER PROFILEon 10-30-2022 Albumin [Mass/Vol] 3.2 g/dL Critically low 3.4-5.0 Th [facility] Comment on above: Performed By: #### REJI DAILEY #### [facility] [address] [place] [address] Dr. Lee Zaldivar Albumin/Globulin [Mass ratio] 0.7 {ratio} Normal [facility] Comment on above: Performed By: #### AMI DAILEYA #### [facility] [address] [address] [address] Lee Zaldivar ALP [Catalytic activity/Vol] 124 U/L Critically high 46-116 [facility] Comment on above: Performed By: #### REJI DAILEY #### [facility] [address] [place] [address] Dr. Lee Zaldivar ALT [Catalytic activity/Vol] 16 U/L Normal 14-59 [facility] Comment on above: Performed By: #### REJI DAILEY #### [facility] [address] [place] [address] Dr. Lee Zaldivar AST [Catalytic activity/Vol] 20 U/L Normal 15-37 [facility] Comment on above: Performed By: #### REJI DAILEY #### [facility] [address] [place] [address] Dr. Lee Zaldivar BILI, CONJUGATED 0.1 mg/dL Normal 0.0-0.2 [facility] Comment on above: Performed By: #### REJI DAILEY #### [facility] [address] [place] [address] Dr. Lee Zaldivar Bilirubin [Mass/Vol] 0.4 mg/dL Normal 0.2-1.0 [facility] Comment on above: Performed By: #### REJI DAILEY #### [facility] [address] [place] [address] Dr. Lee Zaldivar Globulin (S) [Mass/Vol] 4.6 g/dL Normal [facility] Comment on above: Performed By: #### REJI DAILEY #### [facility] [address] [place], [place] [address] Dr. Lee Zaldivar Protein [Mass/Vol] 7.8 g/dL Normal 6.4-8.2 [facility] Comment on above: Performed By: #### L REJI CHUA #### [facility] [address] [place], [place] [address] Dr. Lee Zaldivar SED RATE WESTERGRENon 2021 SED RATE 81 mm/hr Critically high <=30 [facility] Comment on above: Performed By: #### S EDR #### [facility] [address] [place], [place] [address] Dr. Lee Zaldivar TSHon 10-30-2022 TSH 3.217 uIU/mL Normal 0.358-3.740 [facility] [facility] Comment on above: Performed By: #### D IG #### [facility] [address] [address] [address] Lee Zaldivar Office Visit (Cardiology)on 10-21-2022 Follow-up visit Diagnoses/Problems Assessed Persistent atrial fibrillation (427.31) (I48.19) Initial diagnosis April 2022 hospitalization Amio start date May 13, 2022 ECG in office afib at 102, QTc 427 Jun 24, 2022 DCC - at that time recieved 9.8 grams amiodarone. July 28, 2022 DCC x2 with NSR on amiodarone 200 twice daily August 11, 2022 recurrent atrial fibrillation and amiodarone increased 200 mg 3 times daily July 31, 2022 DCC with jainism normal sinus rhythm on amiodarone 200 mg 3 times daily and Toprol 200 mg daily Anticoagulated (V58.61) (Z79.01) CHADS VASc 4 full dose Eliquis ( 67, Cr 1.0) Start date: May 13, 2022 No missed doses Affordable No bleeding events High risk medications (not anticoagulants) long-term use (V58.69) (Z79.899) Amiodarone Start date May 13, 2022 ECG in office QTc 467 Will need baseline testing Referral to Dr. Hernandez for ablation and possibiity of coming off high risk medication NICM (nonischemic cardiomyopathy) (425.4) (I42.8) NICM HFrEF 15-20% April 2022 Echo FC III Stage C GDMT: Toprol - May 13, 2022 Aldactone - May 13, 2022 SGLT2i - May 13, 2022 ARNI - none to date d/t BP (needs high dose BB for rate control) Etiology: non-ischemic: April 2022 negative cath Likely tachymediated No syncope Father SCD at 39 QRS 84 Mitral regurgitation (424.0) (I34.0) April 2022 Cath - 3+ NV April 2022 Echo - MR moderate Hyperlipidemia (272.4) (E78.5) Complaints of myalgia on moderate intensity statin Statin holiday Current every day smoker (305.1) (F17.200) 1/2 PPD Class 1 obesity with body mass index (BMI) of 31.0 to 31.9 in adult (278.00,V85.31) (E66.9,Z68.31) Reviewed the merits of healthy lifestyle choices on overall cardiovascular health. Normal coronary angiogram (V72.85) April 2022 cardiac cath - diffuse LI Orders Anticoagulated, Persistent atrial fibrillation Amiodarone Level, Serum; Status:Active; Requested for:[id number]; Digoxin Level, Serum; Status:Active; Requested for:[id number]; TSH WITH REFLEX TO FREE T4 IF ABNORMAL; Status:Active; Requested for:[id number]; Class 1 obesity with body mass index (BMI) of 31.0 to 31.9 in adult Healthy Weight Tips; Status:Complete; Done: [id number] NICM (nonischemic cardiomyopathy) Echocardiogram; Status:Hold For - Scheduling; Requested for:[id number]; NICM (nonischemic cardiomyopathy), Persistent atrial fibrillation Cardiology - Electrophysiology Referral Evaluation and Treatment Evaluate AND Treat Status: Active Requested for: [id number] SocHx: Current every day smoker Start: HM Nicotine 21 MG/24HR Transdermal Patch 24 Hour; APPLY 1 PATCH DAILY DIRECTED You need to stop smoking. Though it is not easy, more than half of all adult smokers have quit. We encourage you to write down all the reasons you should quit smoking and set a quit date for yourself. Ask us how we can help. You may also call 5-161-OJVV-NOW for free resources and assistance.; Status:Complete; Done: [id number] Tobacco Use Screening; Status:Complete; Done: [id number] Unlinked Stop: Atorvastatin Calcium 20 MG Oral Tablet Patient Instructions Please bring all medicines, vitamins, and herbal supplements with you when you come to the office. Prescriptions will not be filled unless you are compliant with your follow up appointments or have a follow up appointment scheduled as per instruction of your physician. Refills should be requested at the time of your visit. PLAN: Through informed decision making process incorporating patients unique circumstances, the following treatment plan will be initiated: 1. Prescription drug management of cardiovascular medication for efficacy, adherence to treatment, side effect assessment and polypharmacy. Current treatment clinically warranted and to continue with following modifications: - Hold atorvastatin and see if helps with leg weakness - Nicoderm patches 2. Referral to Dr Hernandez to discuss afib ablation (would like to get off high dose of amiodarone and toprol) 3. Limited echo for heart muscle function to see if need to be more aggressive at changes meds 4. Labs: check amio and digoxin levels and thryroid 5. Return for follow-up; in the interim, contact the office if new symptoms arise. 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 Patient presents to the office today ambulatory with steady gait. Last evaluated in clinic by myself June 2022. Since that time she has completed the following: July 28, 2022 cardioversion x2 with jainism of normal sinus rhythm on amiodarone 200 mg twice daily. August 11, 2022 follow-up had recurrent atrial fibrillation and amiodarone increased 200 mg 3 times daily. Follow-up cardioversion was postponed due to COVID-positive illness, did not require hospitalization. September 30, 2022 uneventful cardioversion with restora (more content not included)... Normal [facility] Tobacco Screening.on 022 Fall risk assessment a) No falls within the last year [facility] 250 DO Work Phone: Tobacco use status CPHS a) Yes [facility] 250 DO Work Phone: Tobacco Screening. Yes [facility] 250 DO Work Phone: CBC AUTO DIFFon 10-12-2022 BASO # 0.1 103/ul Normal 0.0-0.1 [facility] Comment on above: Performed By: #### P TT, PT #### [facility] [address] [place] [address] Dr. Lee Zaldivar Basophils/100 WBC (Bld) 0.8 % Normal 0.2-2.0 [facility] Comment on above: Performed By: #### P TT, PT #### [facility] [address] [place] [address] Dr. Lee Zaldivar EO # 0.2 103/ul Normal 0.0-0.7 [facility] Comment on above: Performed By: #### P TT, PT #### [facility] [address] [place] [address] Dr. Lee Zaldivar Eosinophils/100 WBC (Bld) 1.2 % Normal 0.9-7.0 [facility] Comment on above: Performed By: #### P TT, PT #### [facility] [address] [place] [address] Dr. Lee Zaldivar Erythrocyte distribution width (RBC) [Ratio] 16.5 % Critically high 11.0-15.0 [facility] Comment on above: Performed By: #### P TT, PT #### [facility] [address] [place] [address] Dr. Lee Zaldivar Hematocrit (Bld) [Volume fraction] 45.9 % Normal 36.0-48.0 [facility] Comment on above: Performed By: #### P TT, PT #### [facility] [address] [place] [address] Dr. Lee Zaldivar Hemoglobin (Bld) [Mass/Vol] 15.0 g/dL Normal 12.0-16.0 [facility] Comment on above: Performed By: #### P TT, PT #### [facility] [address] [place] [address] Dr. Lee Zaldivar IG # 0.12 10e3/ul Critically high 0.00-0.03 [facility] Comment on above: Performed By: #### P TT, PT #### [facility] [address] [place] [address] Dr. Lee Zaldivar IG % 0.7 % Critically high 0.0-0.5 [facility] Comment on above: Performed By: #### P TT, PT #### [facility] [address] [place] [address] Dr. Lee Zaldivar LYMPH # 1.7 103/ul Normal 1.2-3.8 [facility] Comment on above: Performed By: #### P TT, PT #### [facility] [address] [place] [address] Dr. Lee Zaldivar Lymphocytes/100 WBC (Bld) 10.1 % Critically low 20.5-60.0 [facility] Comment on above: Performed By: #### P TT, PT #### [facility] [address] [place] [address] Dr. Lee Zaldivar MANUAL DIFF REQ NO Normal [facility] Comment on above: Performed By: #### P TT, PT #### [facility] [address] [place] [address] Dr. Lee Zaldivar MCH (RBC) [Entitic mass] 30.8 pg Normal 26.7-34.0 [facility] Comment on above: Performed By: #### P TT, PT #### [facility] [address] [place] [address] Dr. Lee Zaldivar MCHC (RBC) [Mass/Vol] 32.7 g/dL Normal 29.9-35.2 [facility] Comment on above: Performed By: #### P TT, PT #### [facility] [address] [place] [address] Dr. Lee Zaldivar MCV (RBC) [Entitic vol] 94.3 fL Normal 81.0-99.0 [facility] Comment on above: Performed By: #### P TT, PT #### [facility] [address] [place] [address] Dr. Lee Zaldivar MONO # 1.2 103/ul Critically high 0.3-0.8 [facility] Comment on above: Performed By: #### P TT, PT #### [facility] [address] [place] [address] Dr. Lee Zaldivar Monocytes/100 WBC (Bld) 6.8 % Normal 1.7-12.0 [facility] Comment on above: Performed By: #### P TT, PT #### [facility] [address] [place] [address] Dr. Lee Zaldivar NEUT # 13.7 103/ul Critically high 1.4-6.5 [facility] Comment on above: Performed By: #### P TT, PT #### [facility] [address] [place] [address] Dr. Lee Zaldivar Neutrophils/100 WBC (Bld) 80.4 % Critically high 43.0-75.0 [facility] Comment on above: Performed By: #### P TT, PT #### [facility] [address] [place] [address] Dr. Lee Zaldivar Platelet mean volume (Bld) [Entitic vol] 9.7 fL Normal 9.5-13.5 [facility] Comment on above: Performed By: #### P TT, PT #### [facility] [address] [place] [address] Dr. Lee Zaldivar PLT 342 103/ul Normal 150-450 [facility] Comment on above: Performed By: #### P TT, PT #### [facility] [address] [place] [address] Dr. Lee Zaldivar RBC 4.87 106/ul Normal 4.20-5.40 [facility] Comment on above: Performed By: #### P TT, PT #### [facility] [address] [place] [address] Dr. Lee Zaldivar WBC 17.0 103/ul Critically high 4.0-11.0 [facility] Comment on above: Performed By: #### P TT, PT #### [facility] [address] [place] [address] Dr. Lee Zaldivar CREATININEon 10-12-2022 Creatinine [Mass/Vol] 0.99 mg/dL Normal 0.55-1.02 [facility] Comment on above: Performed By: #### D IG #### [facility] [address] [place] [address] Dr. Lee Zaldivar EGFR-AF ZAMBIAN >60 Normal >=60 [facility] Comment on above: Performed By: #### D IG #### [facility] [address] [place] [address] Dr. Lee Zaldivar EGFR-NON AF ZAMBIAN 56 mL/min/1.73m2 Critically low >=60 [facility] Comment on above: Performed By: #### D IG #### [facility] [address] [place] [address] Dr. Lee Zaldivar LIVER PROFILEon 10-12-2022 Albumin [Mass/Vol] 3.3 g/dL Critically low 3.4-5.0 Th [facility] Comment on above: Performed By: #### C ADDIS, LIVER #### [facility] [address] [place] [address] Dr. Lee Zaldivar Albumin/Globulin [Mass ratio] 0.7 {ratio} Normal [facility] Comment on above: Performed By: #### C ADDIS, LIVER #### [facility] [address] [place] [address] Dr. Lee Zaldivar ALP [Catalytic activity/Vol] 136 U/L Critically high 46-116 [facility] Comment on above: Performed By: #### C ADDIS, LIVER #### [facility] [address] [place] [address] Dr. Lee Zaldivar ALT [Catalytic activity/Vol] 18 U/L Normal 14-59 [facility] Comment on above: Performed By: #### C ADDIS, LIVER #### [facility] [address] [place] [address] Dr. Lee Zaldivar AST [Catalytic activity/Vol] 19 U/L Normal 15-37 [facility] Comment on above: Performed By: #### C ADDIS, LIVER #### [facility] [address] [place] [address] Dr. Lee Zaldivar BILI, CONJUGATED 0.2 mg/dL Normal 0.0-0.2 [facility] Comment on above: Performed By: #### C ADDIS, LIVER #### [facility] [address] [place], [place] [address] Dr. Lee Zaldivar Bilirubin [Mass/Vol] 0.6 mg/dL Normal 0.2-1.0 [facility] Comment on above: Performed By: #### C ADDIS, LIVER #### [facility] [address] [address] [address] Lee Zaldivar Globulin (S) [Mass/Vol] 5.0 g/dL Normal [facility] Comment on above: Performed By: #### C ADDIS, LIVER #### [facility] [address] [address] [address] Lee Zaldivar Protein [Mass/Vol] 8.3 g/dL Critically high 6.4-8.2 T [facility] Comment on above: Performed By: #### C ADDIS, LIVER #### [facility] [address] [place] [address] Dr. Lee Zaldivar SED RATE [facility] 2021 SED RATE 73 mm/hr Critically high <=30 [facility] Comment on above: Performed By: #### S EDR #### [facility] [address] [place] [address] Dr. Lee Zaldivar No Panel Informationon 09-30 9.0\S\9.0 Normal 6.0-15.0 [facility] [employer] DO Work Phone: Comment on above: PERFORMED BY:[address] [address] [address] [place], [place] [phone] MEDICAL DIRECTORBRIANNA MONTALVO M.D. 20.6\S\20.6 below low threshold 22.0-30.0 [facility] 250 DO Work Phone: 109\S\109 Normal 95-114 [facility] 250 DO Work Phone: 3.6\S\3.6 Normal 3.5-5.1 [facility] 250 DO Work Phone: 135\S\135 below low threshold 136-146 -[facility] 250 DO Work Phone: Serum or plasma anion gap de terminationOrdered By: Arsalan Conley on 09-30-2022 Anion gap [Moles/Vol] 9.0 mmol/L 6.0-15.0 [facility] Serum or plasma chloride mukesh surement (moles/volume)Ordered By: Arsalan Conley on 09-30-2022 Chloride [Moles/Vol] 109 mmol/L 95-114 [facility] Serum or plasma potassium me asurement (moles/volume)Ordered By: Arsalan Conley on 09-30-2022 Potassium [Moles/Vol] 3.6 mmol/L 3.5-5.1 [facility] Serum or plasma sodium measu rement (moles/volume)Ordered By: Arsalan Conley on 09-30-2022 Sodium [Moles/Vol] 135 mmol/L 136-146 [facility] Serum or plasma total carbon dioxide measurement (moles/volume)Ordered By: Arsalan Conley on 09-30-2022 CO2 [Moles/Vol] 20.6 mmol/L 22.0-30.0 [facility] COVID-19 SOFIAOrdered By: Stanford Conley on 09-11-2022 SARS-CoV+SARS-CoV-2 (COVID-19) Ag IA.rapid Ql (Resp) Positive Negative [facility] Comment on above: This is a duplicate Celia SARS Antigen (DEB) result to be used for statistical tracking purpose only. No Panel InformationOrdered By: Arsalan Conley on 09-11-2022 SARS Antigen (LFIA) [facility] Body fluid albumin measureme nt (mass/volume)Ordered By: Carmine Nails on 09-02-2022 Albumin (Body fld) [Mass/Vol] 2.9 g/dL 3.2-5.5 [facility] C reactive protein [Mass/vol ume] in Serum or PlasmaOrdered By: Carmine Nails on 09-02-2022 CRP [Mass/Vol] 5.7 mg/dL 0.0-1.0 [facility] Creatinine and Glomerular fi ltration rate.predicted panel (S/P/Bld)Ordered By: Carmine Nails on 09-02-2022 Creatinine [Mass/Vol] 0.98 mg/dL 0.44-1.03 [facility] Direct bilirubin measurement Ordered By: Carmine Nails on 09-02-2022 Bilirubin.direct [Mass/Vol] 0.2 mg/dL 0.0-0.4 [facility] Erythrocyte sedimentation ra te by Photometric methodOrdered By: Carmine Nails on 09-02-2022 ESR Photometric method (Bld) [Velocity] 57 mm/hr 0-29 [facility] Estimated glomerular filtrat ion rate (GFR) non- AmericanOrdered By: Carmine Nails on 09-02-2022 GFR/1.73 sq M.predicted among non-blacks MDRD (S/P/Bld) [Vol rate/Area] 57 mL/Min [facility] Globulin Calc (S) [Mass/Vol] Ordered By: Carmine Nails on 09-02-2022 Globulin (S) [Mass/Vol] 3.9 g/dL [facility] No Panel InformationOrdered By: Carmine Nails on 09-02-2022 Estimated GFR () > 60 mL/Min [facility] Comment on above: GFR estimated refere nce range: According to KDOQI guidelines, <60 ml/min/1.73m2 is sufficient to diagnose a patient with chronic kidney disease. Pharmacy Creatinine Clearance (Chem N/A [facility] Protein [Mass/volume] in Ser um or PlasmaOrdered By: Carmine Nails on 09-02-2022 Protein [Mass/Vol] 6.8 g/dL 6.1-7.9 [facility] Serum or plasma alanine spicer otransferase measurement without P-5'-P (enzymatic activiOrdered By: Carmine Nails on 09-02-2022 ALT No additional P-5'-P [Catalytic activity/Vol] 20 U/L 10-60 [facility] Serum or plasma albumin/glob ulin mass ratioOrdered By: Carmine Nails on 09-02-2022 Albumin/Globulin [Mass ratio] 0.7 {ratio} [facility] Serum or plasma alkaline adis sphatase measurement (enzymatic activity/volume)Ordered By: Carmine Nails on 09-02-2022 ALP [Catalytic activity/Vol] 109 U/L 32-92 [facility] Serum or plasma aspartate am inotransferase measurement (enzymatic activity/volume)Ordered By: Carmine Nails on 09-02-2022 AST [Catalytic activity/Vol] 23 U/L 10- [facility] Serum or plasma non-glucuron idated bilirubin measurement (mass/volume)Ordered By: Carmine Nails on 09-02-2022 Bilirubin.indirect [Mass/Vol] 0.5 mg/dL [facility] Serum or plasma total biliru bin measurement (mass/volume)Ordered By: Carmine Nails on 09-02-2022 Bilirubin [Mass/Vol] 0.7 mg/dL 0.3-1.2 [facility] Digoxin [Mass/volume] in Ser um or PlasmaOrdered By: Arsalan Conley on 07-28-2022 Digoxin [Mass/Vol] 0.3 ng/mL 0.9-2.0 [facility] Comment on above: Last dose: - No Panel Informationon 07-28 17.0\S\17.0 above high threshold 6.0-15.0 [facility] 250 DO Work Phone: Comment on above: PERFORMED BY:[address] [address] [address] [place], [place] [phone] MEDICAL DIRECTORBRIANNA MONTALVO M.D. 23.0\S\23.0 Normal 22.0-30.0 [facility] 250 DO Work Phone: 99\S\99 Normal 95-114 [facility] DO Work Phone: 4.0\S\4.0 Normal 3.5-5.1 [facility] DO Work Phone: 135\S\135 below low threshold 136-146 -[facility] 250 DO Work Phone: 0.3\S\0.3 below low threshold 0.9-2.0 [facility] 250 DO Work Phone: Comment on above: Last dose: -PERFORME D BY:[facility] [place], [place] [phone] MEDICAL DIRECTORBRIANNA MONTALVO M.D. Serum or plasma anion gap de terminationOrdered By: Arsalan Conley on 07-28-2022 Anion gap [Moles/Vol] 17.0 mmol/L 6.0-15.0 [facility] Serum or plasma chloride mukesh surement (moles/volume)Ordered By: Arsalan Conley on 07-28-2022 Chloride [Moles/Vol] 99 mmol/L 95-114 [facility] Serum or plasma potassium me asurement (moles/volume)Ordered By: Arsalan Conley on 07-28-2022 Potassium [Moles/Vol] 4.0 mmol/L 3.5-5.1 [facility] Serum or plasma sodium measu rement (moles/volume)Ordered By: Arsalan Conley on 07-28-2022 Sodium [Moles/Vol] 135 mmol/L 136-146 [facility] Serum or plasma total carbon dioxide measurement (moles/volume)Ordered By: Arsalan Conley on 07-28-2022 CO2 [Moles/Vol] 23.0 mmol/L 22.0-30.0 [facility] COVID-19 SOFIAOrdered By: Stanford Conley on 07-24-2022 SARS-CoV+SARS-CoV-2 (COVID-19) Ag IA.rapid Ql (Resp) Negative Negative [facility] Comment on above: This is a duplicate Celia SARS Antigen (DEB) result to be used for statistical tracking purpose only. Laboratory - Microbiology an d Antimicrobial susceptibilityon 07-24-2022 SARS-CoV-2 (COVID-19) RNA LAURITA+probe Ql (Unsp spec) [facility] 250 DO Work Phone: No Panel Informationon 07-24 Negative Normal Negative [facility] 250 DO Work Phone: Comment on above: This is a duplicate Celia SARS Antigen (DEB) result to be used for statistical tracking purpose only.PERFORMED BY:[facility] [place] [phone] MEDICAL DIRECTORBRIANNA MONTALVO M.D. No Panel InformationOrdered By: Arsalan Conley on 07-24-2022 SARS Antigen (LFIA) [facility] PROF CHEM 8 (BAS METB)on Anion gap [Moles/Vol] 12.1 mmol/L Normal [facility] Comment on above: Performed By: #### T CRISTI, BMP #### [facility] [address] [place] [address] Dr. Lee Zaldivar Calcium [Mass/Vol] 9.2 mg/dL Normal 8.5-10.1 [facility] Comment on above: Performed By: #### T CRISTI, BMP #### [facility] [address] [place] [address] Dr. Lee Zaldivar Chloride [Moles/Vol] 103 mmol/L Normal 98-107 [facility] Comment on above: Performed By: #### T CRISTI, BMP #### [facility] [address] [place] [address] Dr. Lee Zaldivar CO2 [Moles/Vol] 26.2 mmol/L Normal 21.0-32.0 [facility] Comment on above: Performed By: #### T CRISTI, BMP #### [facility] [address] [place] [address] Dr. Lee Zaldivar Creatinine [Mass/Vol] 0.92 mg/dL Normal 0.55-1.02 [facility] Comment on above: Performed By: #### T CRISTI, BMP #### [facility] [address] [place] [address] Dr. Lee Zaldivar EGFR-AF ZAMBIAN >60 Normal >=60 [facility] Comment on above: Performed By: #### T CRISTI, BMP #### [facility] [address] [place], [place] [id number] Dr. Lee Zaldivar EGFR-NON AF ZAMBIAN >60 Normal >=60 [facility] Comment on above: Performed By: #### T CRISTI, BMP #### [facility] [address] [address] [address] Lee Zaldivar Glucose [Mass/Vol] 109 mg/dL Critically high 74-106 [facility] Comment on above: Result Comment: SPEC IMEN SLIGHTLY LIPEMIC MAY AFFECT GLUCOSE RESULT Performed By: #### T SH, BMP #### [facility] [address] [place] [address] Dr. Lee Zaldivar Potassium [Moles/Vol] 4.3 mmol/L Normal 3.5-5.1 [facility] Comment on above: Performed By: #### T CRISTI, BMP #### [facility] [address] [place] [address] Dr. Lee Zaldivar Sodium [Moles/Vol] 137 mmol/L Normal 136-145 [facility] Comment on above: Performed By: #### T CRISTI, BMP #### [facility] [address] [place] [address] Dr. Lee Zaldivar Urea nitrogen [Mass/Vol] 12.0 mg/dL Normal 7.0-18.0 [facility] Comment on above: Performed By: #### T CRISTI, BMP #### [facility] [address] [place] [address] Dr. Lee Zaldivar Urea nitrogen/Creatinine [Mass ratio] 13.0 mg/mg Normal [facility] Comment on above: Performed By: #### T CRISTI, BMP #### [facility] [address] [place] [address] Dr. Lee Zaldivar TSHon 07-22-2022 TSH 1.532 uIU/mL Normal 0.358-3.740 [facility] Comment on above: Performed By: #### T CRISTI, BMP #### [facility] [address] [place] [address] Dr. Lee Zaldivar Tobacco Screening.on 022 Fall risk assessment a) No falls within the last year [facility] 250 DO Work Phone: Tobacco use status CPHS a) Yes [facility] 250 DO Work Phone: Tobacco Screening. Yes [facility] ara 250 DO Work Phone: Digoxin [Mass/volume] in Ser um or PlasmaOrdered By: Arsalan Conley on 06-24-2022 Digoxin [Mass/Vol] ng/mL 0.9-2.0 [facility] Comment on above: Last dose: - No Panel Informationon 06-24 < 0.2 below low threshold 0.9-2.0 [facility] 250 DO Work Phone: Comment on above: Last dose: -PERFORME D BY:[facility] [place], [place] [phone] MEDICAL DIRECTORBRIANNA MONTALVO M.D. 21.3\S\21.3 below low threshold 22.0-30.0 [facility] 250 DO Work Phone: Comment on above: PERFORMED BY:[facility] [place], [place] [phone] MEDICAL DIRECTORBRIANNA MONTALVO M.D. 101\S\101 Normal 95-114 [facility] 250 DO Work Phone: 2.7\S\2.7 Critically low 3.5-5.1 [facility] 250 DO Work Phone: Comment on above: Results called at 10 03 on 06/24/22 135\S\135 below low threshold 136-146 [facility]ay 250 DO Work Phone: Serum or plasma chloride mukesh surement (moles/volume)Ordered By: Arsalan Conley on 06-24-2022 Chloride [Moles/Vol] 101 mmol/L 95-114 [facility] Serum or plasma potassium me asurement (moles/volume)Ordered By: Arsalan Conley on 06-24-2022 Potassium [Moles/Vol] 2.7 mmol/L 3.5-5.1 [facility] Comment on above: Results called at 1003 on 06/24/22 Results calledat 100 3 on 06/24/22 Serum or plasma sodium measu rement (moles/volume)Ordered By: Arsalan Conley on 06-24-2022 Sodium [Moles/Vol] 135 mmol/L 136-146 [facility] Serum or plasma total carbon dioxide measurement (moles/volume)Ordered By: Arsalan Conley on 06-24-2022 CO2 [Moles/Vol] 21.3 mmol/L 22.0-30.0 [facility] COVID-19 SOFIAOrdered By: Stanford Conley on 06-22-2022 SARS-CoV+SARS-CoV-2 (COVID-19) Ag IA.rapid Ql (Resp) Negative Negative [facility] Comment on above: This is a duplicate Celia SARS Antigen (DEB) result to be used for statistical tracking purpose only. Laboratory - Microbiology an d Antimicrobial susceptibilityon 06-22-2022 SARS-CoV-2 (COVID-19) RNA LAURITA+probe Ql (Unsp spec) [facility] ara 250 DO Work Phone: No Panel Informationon 06-22 Negative Normal Negative [facility] Work Phone: Comment on above: This is a duplicate Celia SARS Antigen (DEB) result to be used for statistical tracking purpose only.PERFORMED BY:[facility] [place] [address] [place], [place] [id number] MEDICAL DIRECTORBRIANNA MONTALVO M.D. No Panel InformationOrdered By: Arsalan Conley on 06-22-2022 SARS Antigen (LFIA) [facility] PHQ-2 VITALSon 06-17-2022 Fall risk assessment a) No falls within the last year [facility] ara 250 DO Work Phone: Tobacco use status CPHS a) Yes [facility] 250 DO Work Phone: PHQ-2 VITALS Yes -[facility] ara 250 DO Work Phone: BNPon 05-20-2022 Natriuretic peptide B (Bld) [Mass/Vol] 1242.0 pg/mL Critically high <=900.0 [facility] Comment on above: Performed By: #### P TT, PT #### [facility] [address] [place] [address] Dr. Lee Zaldivar PROF CHEM 8 (BAS METB)on Anion gap [Moles/Vol] 14.1 mmol/L Normal Th [facility] Comment on above: Performed By: #### P TT, PT #### [facility] [address] [place] [address] Dr. Lee Zaldivar Calcium [Mass/Vol] 9.1 mg/dL Normal 8.5-10.1 [facility] Comment on above: Performed By: #### P TT, PT #### [facility] [address] [place] [address] Dr. Lee Zaldivar Chloride [Moles/Vol] 109 mmol/L Critically high 98-107 [facility] Comment on above: Performed By: #### P TT, PT #### [facility] [address] [place] [address] Dr. Lee Zaldivar CO2 [Moles/Vol] 23.1 mmol/L Normal 21.0-32.0 [facility] Comment on above: Performed By: #### P TT, PT #### [facility] [address] [place] [address] Dr. Lee Zaldivar Creatinine [Mass/Vol] 1.04 mg/dL Critically high 0.55-1.02 [facility] Comment on above: Performed By: #### P TT, PT #### [facility] [address] [place] [address] Dr. Lee Zaldivar EGFR-AF ZAMBIAN >60 Normal >=60 [facility] Comment on above: Performed By: #### P TT, PT #### [facility] [address] [place] [address] Dr. Lee Zaldivar EGFR-NON AF ZAMBIAN 53 mL/min/1.73m2 Critically low >=60 [facility] Comment on above: Performed By: #### P TT, PT #### [facility] [address] [place] [address] Dr. Lee Zaldivar Glucose [Mass/Vol] 81 mg/dL Normal 74-106 [facility] Comment on above: Performed By: #### P TT, PT #### [facility] [address] [address] [address] Lee Zaldivar Potassium [Moles/Vol] 4.2 mmol/L Normal 3.5-5.1 [facility] Comment on above: Performed By: #### P TT, PT #### [facility] [address] [place] [address] Dr. Lee Zaldivar Sodium [Moles/Vol] 142 mmol/L Normal 136-145 [facility] Comment on above: Performed By: #### P TT, PT #### [facility] [address] [place] [address] Dr. Lee Zaldivar Urea nitrogen [Mass/Vol] 11.0 mg/dL Normal 7.0-18.0 [facility] Comment on above: Performed By: #### P TT, PT #### [facility] [address] [place] [address] Dr. Lee Zaldivar Urea nitrogen/Creatinine [Mass ratio] 10.6 mg/mg Normal [facility] Comment on above: Performed By: #### P TT, PT #### [facility] [address] [place] [address] Dr. Lee Zaldivar Basophils Auto (Bld) [#/Vol] Ordered By: August Lamas on 05-13-2022 Basophils (Bld) [#/Vol] 0.1 10*3/uL 0.0-0.2 [facility] Basophils/100 WBC Auto (Bld) Ordered By: August Lamas on 05-13-2022 Basophils/100 WBC (Bld) 1.0 % . [facility] Blood hemoglobin measurement (mass/volume)Ordered By: August Lamas on 05-13-2022 Hemoglobin (Bld) [Mass/Vol] 14.8 g/dL 11.8-15.4 [facility] Blood leukocytes automated c ount (number/volume)Ordered By: August Lamas on 05-13-2022 WBC (Bld) [#/Vol] 9.6 10*3/uL 4.5-11.0 [facility] Creatinine and Glomerular fi ltration rate.predicted panel (S/P/Bld)Ordered By: August Lamas on 05-13-2022 Creatinine [Mass/Vol] 0.86 mg/dL 0.44-1.03 [facility] Eosinophils Auto (Bld) [#/Vo l]Ordered By: August Lamas on 05-13-2022 Eosinophils (Bld) [#/Vol] 0.1 10*3/uL 0.0-0.45 [facility] Eosinophils/100 WBC Auto (Bl d)Ordered By: August Lamas on 05-13-2022 Eosinophils/100 WBC (Bld) 1.5 % . [facility] Erythrocyte distribution wid th Auto (RBC) [Ratio]Ordered By: August Lamas on 05-13-2022 Erythrocyte distribution width (RBC) [Ratio] 14.7 % 11.9-15.3 [facility] Estimated glomerular filtrat ion rate (GFR) non- AmericanOrdered By: August Lamas on 05-13-2022 GFR/1.73 sq M.predicted among non-blacks MDRD (S/P/Bld) [Vol rate/Area] > 60 mL/Min [facility] Hematocrit Auto (Bld) [Volum e fraction]Ordered By: August Lamas on 05-13-2022 Hematocrit (Bld) [Volume fraction] 45.2 % 34.0-46.4 [facility] Laboratory - Chemistry and C hemistry - challengeOrdered By: August Lamas on 05-13-2022 Magnesium [Mass/Vol] 1.8 mg/dL 1.6-2.6 [facility] Laboratory - Hematology and Cell countsOrdered By: August Lamas on 05-13-2022 Nucleated RBC/100 WBC (Bld) [Ratio] 0.3 % 0-0.5 [facility] Lymphocytes Auto (Bld) [#/Vo l]Ordered By: August Lamas on 05-13-2022 Lymphocytes (Bld) [#/Vol] 1.3 10*3/uL 1.00-4.8 [facility] Lymphocytes/100 WBC Auto (Bl d)Ordered By: August Lamas on 05-13-2022 Lymphocytes/100 WBC (Bld) 13.1 % . [facility] MCH Auto (RBC) [Entitic mass ]Ordered By: August Lamas on 05-13-2022 MCH (RBC) [Entitic mass] 31.3 pg 24.7-34.3 [facility] MCHC Auto (RBC) [Mass/Vol]Or dered By: August Lamas on 05-13-2022 MCHC (RBC) [Mass/Vol] 32.7 g/dL 32.0-35.0 [facility] MCV Auto (RBC) [Entitic vol] Ordered By: August Lamas on 05-13-2022 MCV (RBC) [Entitic vol] 95.8 fL 80-100 [facility] Monocytes Auto (Bld) [#/Vol] Ordered By: August Lamas on 05-13-2022 Monocytes (Bld) [#/Vol] 1.0 10*3/uL 0.0-0.8 [facility] Monocytes/100 WBC Auto (Bld) Ordered By: August Lamas on 05-13-2022 Monocytes/100 WBC (Bld) 9.9 % . [facility] Neutrophils Auto (Bld) [#/Vo l]Ordered By: August Lamas on 05-13-2022 Neutrophils (Bld) [#/Vol] 7.2 10*3/uL 1.8-7.7 [facility] Neutrophils/100 WBC Auto (Bl d)Ordered By: August Lamas on 05-13-2022 Neutrophils/100 WBC (Bld) 74.5 % . [facility] No Panel InformationOrdered By: August Lamas on 05-13-2022 Estimated GFR () > 60 mL/Min [facility] Comment on above: GFR estimated refere nce range: According to KDOQI guidelines, <60 ml/min/1.73m2 is sufficient to diagnose a patient with chronic kidney disease. Pharmacy Creatinine Clearance (Chem 73.97 [facility] Platelet mean volume Auto (B ld) [Entitic vol]Ordered By: August Lamas on 05-13-2022 Platelet mean volume (Bld) [Entitic vol] 9.5 fL 6.3-10.7 [facility] Platelets Auto (Bld) [#/Vol] Ordered By: August Lamas on 05-13-2022 Platelets (Bld) [#/Vol] 226 10*3/uL 150-450 [facility] RBC Auto (Bld) [#/Vol]Ordere d By: August Lamas on 05-13-2022 RBC (Bld) [#/Vol] 4.71 10*6/uL 3.60-5.00 [facility] Serum or plasma calcium vikki urement (mass/volume)Ordered By: August Lamas on 05-13-2022 Calcium [Mass/Vol] 8.9 mg/dL 8.2-10.2 [facility] Serum or plasma chloride mukesh surement (moles/volume)Ordered By: August Lamas on 05-13-2022 Chloride [Moles/Vol] 103 mmol/L 95-114 [facility] Serum or plasma glucose vikki urement (mass/volume)Ordered By: August Lamas on 05-13-2022 Glucose [Mass/Vol] 89 mg/dL 70-100 [facility] Comment on above: ADA recommended refe rence range Random Glucose Reference Range is dependent on time and content of last meal. Glucose of more than 200 mg/dL in a nonstressed, ambulatory subject supports the diagnosis of Diabetes Mellitus. Serum or plasma potassium me asurement (moles/volume)Ordered By: August Lamas on 05-13-2022 Potassium [Moles/Vol] 3.9 mmol/L 3.5-5.1 [facility] Serum or plasma sodium measu rement (moles/volume)Ordered By: August Lamas on 05-13-2022 Sodium [Moles/Vol] 135 mmol/L 136-146 [facility] Serum or plasma total carbon dioxide measurement (moles/volume)Ordered By: August Lamas on 05-13-2022 CO2 [Moles/Vol] 21.4 mmol/L 22.0-30.0 [facility] Serum or plasma urea nitroge n measurement (mass/volume)Ordered By: August Lamas on 05-13-2022 Urea nitrogen [Mass/Vol] 13 mg/dL 9- [facility] Cholesterol [Mass/volume] in Serum or PlasmaOrdered By: August Lamas on 05-09-2022 Cholesterol [Mass/Vol] 110 mg/dL 140-200 [facility] Comment on above: Chol less than 200 m g/dl low risk Chol 201-239 mg/dl borderline risk Chol 240 mg/dl and greater high risk Cholesterol in LDL Calc [Mas s/Vol]Ordered By: August Lamas on 05-09-2022 Cholesterol in LDL [Mass/Vol] 75 mg/dL 0-100 [facility] Comment on above: LDL ATP III CLASSIFI CATION LDL less than 100 mg/dL Optimal LDL 100-129 mg/dL Near or above optimal LDL 130-159 mg/dL Borderline high LDL 160-189 mg/dL High LDL greater than 189 mg/dL Very high Cholesterol in VLDL Calc [Ma ss/Vol]Ordered By: August Lamas on 05-09-2022 Cholesterol in VLDL [Mass/Vol] 12 mg/dL [facility] Glucose mean value [Mass/vol ume] in Blood Estimated from glycated hemoglobinOrdered By: August Lamas on 05-09-2022 Average glucose Estimated from glycated hemoglobin (Bld) [Mass/Vol] 128 mg/dL [facility] Hemoglobin A1c percentageOrd ered By: August Lamas on 05-09-2022 HbA1c (Bld) [Mass fraction] 6.1 % 4.3-5.6 [facility] Comment on above: Increased risk for d iabetes: 5.7 - 6.4 diabetes: >6.4 glycemic control for adults with diabetes: <7.0 Serum or plasma high density lipoprotein (HDL) cholesterol measurementOrdered By: August Lamas on 05-09-2022 Cholesterol in HDL [Mass/Vol] 22 mg/dL 35-85 [facility] Comment on above: HDL CHOL ATP-III CLA SSIFICATION Cardiovascular Risk HDL > or equal to 60 mg/dL LOW HDL < 40 mg/dL HIGH Serum or plasma total choles terol/high density lipoprotein (HDL) cholesterol mass ratOrdered By: August Lamas on 05-09-2022 Cholesterol.total/Chol esterol in HDL [Mass ratio] 5.0 {ratio} <5.0 [facility] Triglyceride [Mass/volume] i n Serum or PlasmaOrdered By: August Lamas on 05-09-2022 Triglyceride [Mass/Vol] 64 mg/dL 35-149 [facility] Comment on above: TRIG ATP III CLASSIF ICATION TRIG less than 150 mg/dL Normal TRIG 150-199 mg/dL Borderline high TRIG 200-500 mg/dL High TRIG greater than 500 mg/dL Very high Standard traceable to the Center for Disease Conrtrol and Prevention (CDC) test method. Troponin I.cardiac [Mass/vol ume] in Serum or Plasma by High sensitivity methodOrdered By: August Lamas on 05-09-2022 Troponin I.cardiac High sensitivity method [Mass/Vol] 19 pg/mL 0-15 [facility] Activated partial thrombopla stin time (aPTT) in platelet poor plasma by coagulation aOrdered By: August Lamas on 05-08-2022 aPTT Coag (PPP) [Time] 27.8 s 25.1-36.5 [facility] CBC AUTO DIFFon 05-08-2022 BASO # 0.1 103/ul Normal 0.0-0.1 [facility] Comment on above: Performed By: #### D IG #### [facility] [address] [place] [address] Dr. Lee Zaldivar Basophils/100 WBC (Bld) 1.1 % Normal 0.2-2.0 [facility] Comment on above: Performed By: #### D IG #### [facility] [address] [place] [address] Dr. Lee Zaldivar EO # 0.1 103/ul Normal 0.0-0.7 [facility] Comment on above: Performed By: #### D IG #### [facility] [address] [place] [address] Dr. Lee Zaldivar Eosinophils/100 WBC (Bld) 0.5 % Critically low 0.9-7.0 [facility] Comment on above: Performed By: #### D IG #### [facility] [address] [place] [address] Dr. Lee Zaldivar Erythrocyte distribution width (RBC) [Ratio] 14.5 % Normal 11.0-15.0 [facility] Comment on above: Performed By: #### D IG #### [facility] [address] [place] [address] Dr. Lee Zaldivar Hematocrit (Bld) [Volume fraction] 46.8 % Normal 36.0-48.0 [facility] Comment on above: Performed By: #### D IG #### [facility] [address] [place] [address] Dr. Lee Zaldivar Hemoglobin (Bld) [Mass/Vol] 15.3 g/dL Normal 12.0-16.0 [facility] Comment on above: Performed By: #### D IG #### [facility] [address] [place] [address] Dr. Lee Zaldivar IG # 0.05 10e3/ul Critically high 0.00-0.03 [facility] Comment on above: Performed By: #### D IG #### [facility] [address] [place] [address] Dr. Lee Zaldivar IG % 0.5 % Normal 0.0-0.5 [facility] Comment on above: Performed By: #### D IG #### [facility] [address] [place] [address] Dr. Lee Zaldivar LYMPH # 2.1 103/ul Normal 1.2-3.8 [facility] Comment on above: Performed By: #### D IG #### [facility] [address] [place] [address] Dr. Lee Zaldivar Lymphocytes/100 WBC (Bld) 19.6 % Critically low 20.5-60.0 [facility] Comment on above: Performed By: #### D IG #### [facility] [address] [place] [address] Dr. Lee Zaldivar MANUAL DIFF REQ NO Normal [facility] Comment on above: Performed By: #### D IG #### [facility] [address] [place] [address] Dr. Lee Zaldivar MCH (RBC) [Entitic mass] 31.4 pg Normal 26.7-34.0 [facility] Comment on above: Performed By: #### D IG #### [facility] [address] [place] [address] Dr. Lee Zaldivar MCHC (RBC) [Mass/Vol] 32.7 g/dL Normal 29.9-35.2 [facility] Comment on above: Performed By: #### D IG #### [facility] [address] [place] [address] Dr. Lee Zaldivar MCV (RBC) [Entitic vol] 96.1 fL Normal 81.0-99.0 [facility] Comment on above: Performed By: #### D IG #### [facility] [address] [place] [address] Dr. Lee Zaldivar MONO # 0.7 103/ul Normal 0.3-0.8 [facility] Comment on above: Performed By: #### D IG #### [facility] [address] [place] [address] Dr. Lee Zaldivar Monocytes/100 WBC (Bld) 6.8 % Normal 1.7-12.0 [facility] Comment on above: Performed By: #### D IG #### [facility] [address] [place] [address] Dr. Lee Zaldivar NEUT # 7.8 103/ul Critically high 1.4-6.5 [facility] Comment on above: Performed By: #### D IG #### [facility] [address] [address] [address] Lee Zaldivar Neutrophils/100 WBC (Bld) 71.5 % Normal 43.0-75.0 [facility] Comment on above: Performed By: #### D IG #### [facility] [address] [place] [address] Dr. Lee Zaldivar Platelet mean volume (Bld) [Entitic vol] 11.2 fL Normal 9.5-13.5 [facility] Comment on above: Performed By: #### D IG #### [facility] [address] [place] [address] Dr. Lee Zaldivar PLT 243 103/ul Normal 150-450 [facility] Comment on above: Performed By: #### D IG #### [facility] [address] [place] [address] Dr. Lee Zaldivar WBC 10.9 103/ul Normal 4.0-11.0 [facility] Comment on above: Performed By: #### D IG #### [facility] [address] [place] [address] Dr. Lee Zaldivar Covid-19 PCR ([facility])on 04-16 SARS-CoV-2 (COVID-19) RNA LAURITA+probe Ql (Unsp spec) Not detected Normal NOT DETECTED [facility] Comment on above: Result Comment: When diagnostic testing is negative, the possibility of a false negative should be considered in the context of a patient's recent exposures and the presence of clinical signs and symptoms consistent with SARS-CoV-2. This test is not yet approved or cleared by the [place] FDA. When there are no FDA-approved or cleared tests available, and other criteria are met, FDA can make tests available under an emergency access mechanism called an Emergency Use Authorization (EUA). The EUA for this test is supported by the [place] Guide of Health and Human Service's declaration that circumstances exist to justify the emergency use of in vitro diagnostics for the detection and/or diagnosis of the virus that causes COVID-19. This EUA will remain in effect for the duration of the COVID-19 declaration justifying emergency of IVDs, unless it is terminated or revoked by the FDA (after which the test may no longer be used). Performed By: #### P TT, PT #### [facility] [address] [address] [address] Lee Zaldivar Laboratory - Chemistry and C hemistry - challengeOrdered By: August Lamas on 05-08-2022 Natriuretic peptide B (Bld) [Mass/Vol] 390.0 pg/mL 5-100 [facility] Laboratory - CoagulationOrde red By: August Lamas on 05-08-2022 PT Coag (PPP) [Time] 19.7 s 9.0-12.9 [facility] PROF CHEM 8 (BAS METB)on Anion gap [Moles/Vol] 18.0 mmol/L Normal [facility] Comment on above: Performed By: #### P TT, PT #### [facility] [address] [address] [address] Lee Zaldivar Calcium [Mass/Vol] 9.1 mg/dL Normal 8.5-10.1 [facility] Comment on above: Performed By: #### P TT, PT #### [facility] [address] [place] [address] Dr. Lee Zaldivar Chloride [Moles/Vol] 102 mmol/L Normal 98-107 [facility] Comment on above: Performed By: #### P TT, PT #### [facility] [address] [address] [address] Lee Zaldivar CO2 [Moles/Vol] 22.7 mmol/L Normal 21.0-32.0 [facility] Comment on above: Performed By: #### P TT, PT #### [facility] [address] [place] [address] Dr. Lee Zaldivar Creatinine [Mass/Vol] 1.19 mg/dL Critically high 0.55-1.02 [facility] Comment on above: Performed By: #### P TT, PT #### [facility] [address] [place] [address] Dr. Lee Zaldivar EGFR-AF ZAMBIAN 55 mL/min/1.73m2 Critically low >=60 [facility] Comment on above: Performed By: #### P TT, PT #### [facility] [address] [address] [address] Lee Zaldivar EGFR-NON AF ZAMBIAN 45 mL/min/1.73m2 Critically low >=60 [facility] Comment on above: Performed By: #### P TT, PT #### [facility] [address] [address] [address] Lee Zaldivar Glucose [Mass/Vol] 141 mg/dL Critically high 74-106 T [facility] Comment on above: Performed By: #### P TT, PT #### [facility] [address] [place] [address] Dr. Lee Zaldivar Potassium [Moles/Vol] 2.7 mmol/L Critically low 3.5-5.1 [facility] Comment on above: Result Comment: repe ated Performed By: #### P TT, PT #### [facility] [address] [place] [address] Dr. Lee Zaldivar Sodium [Moles/Vol] 140 mmol/L Normal 136-145 [facility] Comment on above: Performed By: #### P TT, PT #### [facility] [address] [place] [address] Dr. Lee Zaldivar Urea nitrogen [Mass/Vol] 18.0 mg/dL Normal 7.0-18.0 [facility] Comment on above: Performed By: #### P TT, PT #### [facility] [address] [place] [address] Dr. Lee Zaldivar Urea nitrogen/Creatinine [Mass ratio] 15.1 mg/mg Normal [facility] Comment on above: Performed By: #### P TT, PT #### [facility] [address] [place] [address] Dr. Lee Zaldivar PROTIMEon 05-08-2022 INR Coag (PPP) [Relative time] 1.48 {INR} Normal [facility] Comment on above: Performed By: #### P TT, PT #### [facility] [address] [address] [address] Lee Zaldivar INR GUIDELINES SEE BELOW Normal [facility] Comment on above: Result Comment: JHONNY RED INR: 2.0 - 3.0 CONDITIONS NOT LISTED BELOW 2.5 - 3.5 FOR PROSTHETIC HEART VALVE REPLACEMENT 2.5 - 3.5 RECURRENT THROMBOSIS Performed By: #### P TT, PT #### [facility] [address] [address] [address] Lee Zaldivar PT Coag (PPP) [Time] 15.6 s Critically high 9.0-11.6 [facility] Comment on above: Performed By: #### P TT, PT #### [facility] [address] [place] [address] Dr. Lee Zaldivar PTTon 05-08-2022 aPTT Coag (Bld) [Time] 27.9 s Normal 22.3-36.2 Th [facility] Comment on above: Performed By: #### P TT, PT #### [facility] [address] [place] [address] Dr. Lee Zaldivar Platelet poor plasma interna tional normalized ratio (INR) by coagulation assay (relatOrdered By: August Lamas on 05-08-2022 INR Coag (PPP) [Relative time] 1.7 {INR} [facility] Comment on above: INR Therapeutic Rang e A) Pre- and Peroperative OAT started two weeks before surgery. NOT HIP SURGERY: 1.5 - 2.5 HIP SURGERY: 2 - 3 B) Primary and secondary prevention of venous THROMBOSIS: 2 - 3 C) Active venous thrombosis, pulmonary embolism and prevention of recurrent venous thrombosis: 2 - 3 D) Prevention of arterial thromboembolism including patients with mechanical heart valves: 3 - 4.5 TROPONIN, HIGH SENSITIVITYon 05-08-2022 HSTROP 509.9 pg/mL Critically high 4.0-51.3 [facility] Comment on above: Result Comment: CUT- OFF POINTS HAVE BEEN ESTABLISHED BASED ON THE FOURTH UNIVERSAL DEFINITIONS OF MYOCARDIAL INFARCTION. THE UPPER REFERENCE LIMIT (URL) OF TROPONIN, DEFINED THE 99TH PERCENTILE OF cTnI DISTRIBUTION IN A REFERENCE POPULATION, HAS BEEN CONFIRMED THE DECISION THRESHOLD FOR NV DIAGNOSIS. repeated Performed By: #### P TT, PT #### [facility] [address], [place] [address] Dr. Lee Zaldivar HSTROP 521.8 pg/mL Critically high 4.0-51.3 [facility] Comment on above: Result Comment: CUT- OFF POINTS HAVE BEEN ESTABLISHED BASED ON THE FOURTH UNIVERSAL DEFINITIONS OF MYOCARDIAL INFARCTION. THE UPPER REFERENCE LIMIT (URL) OF TROPONIN, DEFINED THE 99TH PERCENTILE OF cTnI DISTRIBUTION IN A REFERENCE POPULATION, HAS BEEN CONFIRMED THE DECISION THRESHOLD FOR NV DIAGNOSIS. repeated Performed By: #### P TT, PT #### [facility] [address] [place], [place] [address] Dr. Lee Zaldivar TSH DL <= 0.005 mIU/L QnOrde red By: August Lamas on 05-08-2022 TSH Qn 1.54 m[IU]/L 0.45-5.33 [facility] XR CHEST 1 Von 05-08-2022 XR CHEST 1 V EXAMINATION: XR CHES T 1 V HISTORY: CHEST PAIN, UNSPECIFIED , atrial fibrillation COMPARISON: XR chest 04/10/2022 FINDINGS: LUNGS: Hyperexpanded lungs. Mild haziness within lung bases and slight obscuration of the lateral aspect of the diaphragms. VASCULATURE: No increased pulmonary vasculature. PLEURA: No pneumothorax, effusion, or pleural thickening. CARDIAC: Cardiomegaly. MEDIASTINUM: No visible mass or adenopathy. BONES: No fracture or visible bone lesion. OTHER: Negative. IMPRESSION: 1. Cardiomegaly. This appears to have increased in size since prior study despite today's AP portable technique versus prior PA technique. 2. Mild bibasilar infiltrates versus atelectasis. No convincing pleural effusion. Electronically authenticated by: AUDIE GILLESPIE Date: 2022-05-08 12:53 Normal [facility] XR CHEST 2 Von 04-10-2022 XR CHEST 2 V EXAMINATION: XR CHES T 2 V HISTORY: Dyspnea on exertion COMPARISON: 09/14/2019 TECHNIQUE: PA and lateral FINDINGS: LUNGS: Scattered punctate pulmonary nodules, size and density suggests granulomas. No new focal parenchymal infiltrates. VASCULATURE: No increased pulmonary vasculature. PLEURA: No pneumothorax, effusion, or pleural thickening. CARDIAC: No cardiomegaly or cardiac silhouette abnormality. MEDIASTINUM: No visible mass or adenopathy. BONES: No fracture or visible bone lesion. OTHER: Negative. IMPRESSION: No acute disease. Electronically authenticated by: LAUREN ALCALA Date: 2022-04-10 14:26 Normal [facility] Vital Signs Date Time Vital Sign Value Performing Clinician Facility 11-30-2023 13:57-0500 Diastolic blood pressure 83 mm[Hg] MD Carolee Estrada Work Phone: [facility] 11-30-2023 13:57-0500 Heart rate 105 /min MD Carolee Estrada Work Phone: [facility] 11-30-2023 13:57-0500 Respiratory rate 18 /min MD Carolee Estrada Work Phone: [facility] 11-30-2023 13:57-0500 SaO2% (BldA) [Mass fraction] 96 % MD Carolee Estrada Work Phone: [facility] 11-30-2023 13:57-0500 Systolic blood pressure 107 mm[Hg] MD Carolee Estrada Work Phone: [facility] 11-30-2023 12:31-0500 Body height 162.56 cm MD Carolee Estrada Work Phone: [facility] 11-30-2023 12:31-0500 Body weight 90.71 kg MD Carolee Estrada Work Phone: [facility] 11-23-2023 14:30-0500 Body height 162.56 cm Javier Ross Other [facility] Other 11-23-2023 14:30-0500 Body mass index (BMI) [Ratio] 35.7 kg/m2 Javier Ross Other [facility] Other 11-23-2023 14:30-0500 Body temperature 96.7 [degF] Javier Ross Other [facility] Other 11-23-2023 14:30-0500 Body weight 94.35 kg Lazaropat Quinnno Other [facility] Other 11-23-2023 14:30-0500 Diastolic blood pressure 84 mm[Hg] Lazaromigeler Vandana Other [facility] Other 11-23-2023 14:30-0500 Respiratory rate 20 /min Lazaropat Quinnno Other [facility] Other 11-23-2023 14:30-0500 SaO2% (BldA) [Mass fraction] 96 % Javier Quinnno Other [facility] Other 11-23-2023 14:30-0500 Systolic blood pressure 118 mm[Hg] Jacshanae SnowVandana Other [facility] Other 11-11-2023 14:15-0500 Body height 162.56 cm Clinton Pierce Other [facility] Other 11-11-2023 14:15-0500 Body mass index (BMI) [Ratio] 32.44 kg/m2 Clinton Pierce Other [facility] Other 11-11-2023 14:15-0500 Body weight 85.73 kg Clinton Pierce Other [facility] Other 11-11-2023 14:15-0500 Diastolic blood pressure 81 mm[Hg] Clinton Pierce Other [facility] Other 11-11-2023 14:15-0500 Systolic blood pressure 128 mm[Hg] Clinton Pierce Other [facility] Other 09-15-2023 15:16-0400 Body height 162.6 cm Arsalan Conley MD Work Phone: [facility] 09-15-2023 15:16-0400 Body mass index (BMI) [Ratio] 35.7 kg/m2 Arsalan Conley MD Work Phone: [facility] 09-15-2023 15:16-0400 Body weight 94.35 kg Arsalan Conley MD Work Phone: [facility] 09-15-2023 15:16-0400 Diastolic blood pressure 78 mm[Hg] Arsalan Conley MD Work Phone: [facility] 09-15-2023 15:16-0400 Heart rate 64 /min Arsalan Conley MD Work Phone: [facility] 09-15-2023 15:16-0400 Systolic blood pressure 116 mm[Hg] Arsalan Conley MD Work Phone: [facility] 07-14-2023 11:53-0400 Body height 162.56 cm Carolee Estrada Work Phone: GN-Bxgyhwymil-Vtouw [facility] Work Phone: 07-14-2023 11:53-0400 Body mass index (BMI) [Ratio] 34.16 kg/m2 Carolee Estrada Work Phone: JN-Ihbkinbfnv-Ykfue [facility] Work Phone: 07-14-2023 11:53-0400 Body surface area Derived from formula 1.95 m2 Carolee Estrada Work Phone: BH-Juaklssuyx-Zudxn [facility] Work Phone: 07-14-2023 11:53-0400 Body weight 90.27 kg Carolee Estrada Work Phone: MH-Upnadndcws-Sghzc [facility] Work Phone: 07-14-2023 11:53-0400 Diastolic blood pressure 81 mm[Hg] Carolee Agosto Sean Work Phone: YK-Qfrhomdlta-Wdpgq [facility] Work Phone: 07-14-2023 11:53-0400 Heart rate 69 /min Carolee Agosto Sean Work Phone: MY-Kcrgjbuskg-Yquyi [facility] Work Phone: 07-14-2023 11:53-0400 SaO2% (BldA) [Mass fraction] 99 % Carolee Agosto Sean Work Phone: AK-Gmycatijyw-Akgqw [facility] Work Phone: 07-14-2023 11:53-0400 Systolic blood pressure 118 mm[Hg] Carolee Agosto Sean Work Phone: HO-Vdqogmodqv-Lzujz [facility] Work Phone: 04-13-2023 08:41-0400 Body height 162.56 cm Carolee Agosto Sean Work Phone: AX-Zrzagtrmvy-VKN [facility] [address] [place] Work Phone: 04-13-2023 08:41-0400 Body mass index (BMI) [Ratio] 33.99 kg/m2 Carolee Agosto Sean Work Phone: GW-Uedyoixkve-JCK [facility] [address] [place] Work Phone: 04-13-2023 08:41-0400 Body surface area Derived from formula 1.95 m2 Carolee Agosto Estrada Work Phone: DX-Kjdtwoxhnj-WFL [facility] [address] [place] Work Phone: 04-13-2023 08:41-0400 Body weight 89.81 kg Carolee Abelight Work Phone: PP-Hnqlbndsge-IIR [facility] [address] [place] Work Phone: 04-13-2023 08:41-0400 Diastolic blood pressure 87 mm[Hg] Carolee Abelight Work Phone: YF-Pewdyfwufh-HNF [facility] [address] [place] Work Phone: 04-13-2023 08:41-0400 Heart rate 60 /min Carolee Abelight Work Phone: [facility] [address] [place] Work Phone: 04-13-2023 08:41-0400 SaO2% (BldA) [Mass fraction] 95 % Carolee Abelight Work Phone: [facility] [address] [place] Work Phone: 04-13-2023 08:41-0400 Systolic blood pressure 143 mm[Hg] Carolee Estrada Work Phone: [facility] [address] [place] Work Phone: 04-13-2023 08:41-0400 0 1 Carolee Estrada Work Phone: [facility] [address] [place] Work Phone: Comment on above: [employer] 02-19-2023 11:23-0400 Body height 162.56 cm Carolee Estrada Work Phone: [facility] [address] Work Phone: 02-19-2023 11:23-0400 Body mass index (BMI) [Ratio] 32.44 kg/m2 Carolee Estrada Work Phone: [facility] [address] Work Phone: 02-19-2023 11:23-0400 Body surface area Derived from formula 1.91 m2 Carolee Estrada Work Phone: [facility] [address] Work Phone: 02-19-2023 11:23-0400 Body weight 85.73 kg Carolee Estrada Work Phone: [facility] [address] Work Phone: 02-19-2023 11:23-0400 Diastolic blood pressure 76 mm[Hg] Carolee Estrada Work Phone: [facility] [employer] [address] Work Phone: 02-19-2023 11:23-0400 Heart rate 51 /min Carolee Estrada Work Phone: [facility] [employer] [address] Work Phone: 02-19-2023 11:23-0400 Systolic blood pressure 118 mm[Hg] Carolee Estrada Work Phone: [facility] [employer] [address] Work Phone: 02-16-2023 11:00-0400 Body height 162.56 cm Javier Ross Other [facility] Other 02-16-2023 11:00-0400 Body mass index (BMI) [Ratio] 32.09 kg/m2 Javier Ross Other [facility] Other 02-16-2023 11:00-0400 Body temperature 96.4 [degF] Javier Ross Other [facility] Other 02-16-2023 11:00-0400 Body weight 84.82 kg Javier Ross Other [facility] Other 02-16-2023 11:00-0400 Diastolic blood pressure 80 mm[Hg] Javier Ross Other [facility] Other 02-16-2023 11:00-0400 Respiratory rate 20 /min Javier Ross Other [facility] Other 02-16-2023 11:00-0400 SaO2% (BldA) [Mass fraction] 95 % Javier Ross Other [facility] Other 02-16-2023 11:00-0400 Systolic blood pressure 122 mm[Hg] Javier Ross Other [facility] Other 12-15-2022 10:56-0500 Body height 162.56 cm Carolee Estrada Work Phone: OC-Elxioeqdis-Nnnar [facility] Work Phone: 12-15-2022 10:56-0500 Body mass index (BMI) [Ratio] 30.4 kg/m2 Carolee Estrada Work Phone: WA-Kxdhjfcwuw-Smoms [facility] Work Phone: 12-15-2022 10:56-0500 Body surface area Derived from formula 1.86 m2 Carolee Estrada Work Phone: KK-Ipwoybrfga-Yllnx [facility] Work Phone: 12-15-2022 10:56-0500 Body weight 80.35 kg Carolee Estrada Work Phone: PL-Qeqrlbvoiy-Epfdc EP [facility] Work Phone: 12-15-2022 10:56-0500 Diastolic blood pressure 79 mm[Hg] Carolee Estrada Work Phone: OD-Pklpmmyqsp-Uqatd [facility] Work Phone: 12-15-2022 10:56-0500 Heart rate 53 /min Carolee Estrada Work Phone: WP-Rtenncnpit-Xapwm [facility] Work Phone: 12-15-2022 10:56-0500 SaO2% (BldA) [Mass fraction] 94 % Carolee Estrada Work Phone: ID-Mfdjtjprbf-Wzmwt EP [facility] Work Phone: 12-15-2022 10:56-0500 Systolic blood pressure 124 mm[Hg] Carolee Triny Estrada Work Phone: PE-Idxtdgvwir-Woluz EP [facility] Work Phone: 12-15-2022 10:56-0500 0 1 Carolee Estrada Work Phone: RW-Kyknvvepzz-Dbtpb EP [facility] Work Phone: Comment on above: [employer] 11-18-2022 13:09-0500 Body height 162.56 cm Carolee Estrada Work Phone: [facility] [address] DO Work Phone: 11-18-2022 13:09-0500 Body mass index (BMI) [Ratio] 31.76 kg/m2 Carolee Estrada Work Phone: [facility] [address] Work Phone: 11-18-2022 13:09-0500 Body surface area Derived from formula 1.89 m2 Carolee Estrada Work Phone: [facility] [address] DO Work Phone: 11-18-2022 13:09-0500 Body weight 83.92 kg Carolee Estrada Work Phone: [facility] [address] DO Work Phone: 11-18-2022 13:09-0500 Diastolic blood pressure 72 mm[Hg] Carolee Triny Estrada Work Phone: [facility] [address] DO Work Phone: 11-18-2022 13:09-0500 Heart rate 44 /min Carolee Triny Estrada Work Phone: [facility] [address] DO Work Phone: 11-18-2022 13:09-0500 Systolic blood pressure 120 mm[Hg] Carolee Agosto Sean Work Phone: [facility] [address] DO Work Phone: 11-18-2022 13:09-0500 11 1 Carolee Agosto Estrada Work Phone: [facility] [address] Work Phone: Comment on above: PHQ-9 TS 11-12-2022 10:45-0500 55 1 Carolee Agosto Estrada Work Phone: [facility] [address] DO Work Phone: Comment on above: [id number] 10-21-2022 10:06-0500 Body height 162.56 cm Carolee Agosto Estrada Work Phone: [facility] [address] DO Work Phone: 10-21-2022 10:06-0500 Body mass index (BMI) [Ratio] 31.07 kg/m2 Carolee Abelight Work Phone: [facility] [address] DO Work Phone: 10-21-2022 10:06-0500 Body surface area Derived from formula 1.87 m2 Carolee Agosto Estrada Work Phone: [facility] [address] DO Work Phone: 10-21-2022 10:06-0500 Body weight 82.1 kg Carolee Agosto Estrada Work Phone: [facility] [address] Work Phone: 10-21-2022 10:06-0500 Diastolic blood pressure 72 mm[Hg] Carolee Agosto Estrada Work Phone: [facility] [address] Work Phone: 10-21-2022 10:06-0500 Heart rate 56 /min Carolee Abelight Work Phone: [facility] [address] DO Work Phone: 10-21-2022 10:06-0500 Systolic blood pressure 124 mm[Hg] Carolee Abelight Work Phone: [facility] [address] Work Phone: 08-11-2022 14:24-0400 Body height 162.56 cm Carolee Estrada Work Phone: [facility] [address] Work Phone: 08-11-2022 14:24-0400 Body mass index (BMI) [Ratio] 31.76 kg/m2 Carolee Estrada Work Phone: [facility] [address] Work Phone: 08-11-2022 14:24-0400 Body surface area Derived from formula 1.89 m2 Carolee Estrada Work Phone: [facility] [address] Work Phone: 08-11-2022 14:24-0400 Body weight 83.92 kg Carolee Estrada Work Phone: [facility] [address] DO Work Phone: 08-11-2022 14:24-0400 Diastolic blood pressure 84 mm[Hg] Carolee Estrada Work Phone: [facility] [address] DO Work Phone: 08-11-2022 14:24-0400 Heart rate 94 /min Carolee Estrada Work Phone: [facility] [address] DO Work Phone: 08-11-2022 14:24-0400 Systolic blood pressure 100 mm[Hg] Carolee Estrada Work Phone: [facility] [address] DO Work Phone: 07-27-2022 17:46-0400 Body height 162.56 cm MD Carolee Estrada Work Phone: [facility] 07-27-2022 17:46-0400 Body weight 87.99 kg MD Carolee Estrada Work Phone: [facility] 07-06-2022 15:49-0400 Body height 162.56 cm Carolee Agosto Estrada Work Phone: [facility] [address] Work Phone: 07-06-2022 15:49-0400 Body mass index (BMI) [Ratio] 33.3 kg/m2 Carolee Agosto Estrada Work Phone: [facility] [address] DO Work Phone: 07-06-2022 15:49-0400 Body surface area Derived from formula 1.93 m2 Carolee Abelight Work Phone: [facility] [address] DO Work Phone: 07-06-2022 15:49-0400 Body weight 88 kg Carolee Estrada Work Phone: [facility] [address] Work Phone: 07-06-2022 15:49-0400 Diastolic blood pressure 68 mm[Hg] Carolee Abelight Work Phone: [facility] [address] DO Work Phone: 07-06-2022 15:49-0400 Heart rate 102 /min Carolee Abelight Work Phone: [facility] [address] Work Phone: 07-06-2022 15:49-0400 Systolic blood pressure 98 mm[Hg] Carolee Abelight Work Phone: [facility] [address] DO Work Phone: 06-24-2022 09:39-0400 Heart rate 111 /min MD Carolee Estrada Work Phone: [facility] 06-17-2022 15:13-0400 Body height 162.56 cm Carolee Estrada Work Phone: [facility] [address] DO Work Phone: 06-17-2022 15:13-0400 Body mass index (BMI) [Ratio] 25.58 kg/m2 Carolee Agosto Sean Work Phone: [facility] [address] DO Work Phone: 06-17-2022 15:13-0400 Body surface area Derived from formula 1.73 m2 Carolee Estrada Work Phone: [facility] [address] DO Work Phone: 06-17-2022 15:13-0400 Body weight 67.59 kg Carolee Agosto Estrada Work Phone: [facility] [address] DO Work Phone: 06-17-2022 15:13-0400 Diastolic blood pressure 64 mm[Hg] Carolee Agosto Estrada Work Phone: [facility] [address] DO Work Phone: 06-17-2022 15:13-0400 Heart rate 116 /min Carolee Estrada Work Phone: [facility] [address] DO Work Phone: 06-17-2022 15:13-0400 Systolic blood pressure 102 mm[Hg] Carolee Estrada Work Phone: [facility] [address] DO Work Phone: 05-13-2022 11:31-0400 Body temperature 98 [degF] MD Carolee Estrada Work Phone: [facility] 05-13-2022 11:31-0400 Diastolic blood pressure 72 mm[Hg] MD Carolee Estrada Work Phone: [facility] 05-13-2022 11:31-0400 Heart rate 88 /min MD Carolee Estrada Work Phone: [facility] 05-13-2022 11:31-0400 Respiratory rate 18 /min MD Carolee Estrada Work Phone: [facility] 05-13-2022 11:31-0400 SaO2% (BldA) [Mass fraction] 95 % MD Carolee Estrada Work Phone: [facility] 05-13-2022 11:31-0400 Systolic blood pressure 104 mm[Hg] MD Carolee Estrada Work Phone: [facility] 05-13-2022 04:53-0400 Body weight 102.5 kg MD Carolee Estrada Work Phone: [facility] 05-12-2022 14:00-0400 Inhaled oxygen flow rate 2 L/min MD Carolee Estrada Work Phone: [facility] 05-11-2022 14:56-0400 Body height 162.56 cm MD Carolee Estrada Work Phone: [facility] 05-08-2022 18:00-0400 Body mass index (BMI) [Ratio] 37.8 kg/m2 MD Carolee Estrada Work Phone: [facility] Encounters Encounter Date Encounter Type Care Provider Facility Start: 02-22-2024 End: 02-22-2024 ambulatory Carolee Estrada Facility:[facility] Start: 02-22-2024 End: 02-22-2024 ambulatory MD Carolee Estrada Work Phone: [facility] Work Phone: Start: 02-22-2024 End: 02-22-2024 Patient encounter procedure MD Carolee Estrada Work Phone: [facility]-CT [address] Work Phone: Start: 12-01-2023 End: 12-01-2023 ambulatory Clinton Pierce Other [facility] Other Start: 12-01-2023 Telephone encounter Clinton Pablo [facility] Start: 11-30-2023 End: 11-30-2023 ambulatory Carolee Estrada Facility:[facility] Start: 11-30-2023 End: 11-30-2023 Admission to same day surgery center MD Carolee Estrada Work Phone: [facility]-Digestive [facility] Work Phone: Start: 11-30-2023 End: 11-30-2023 ambulatory MD Carolee Estrada Work Phone: [facility] Work Phone: Start: 11-23-2023 End: 11-23-2023 ambulatory Javier Snowdano Other [facility] Other Start: 11-23-2023 Office outpatient vi sit 25 minutes Javier Vandana [facility] Start: 11-11-2023 End: 11-11-2023 ambulatory Clinton Pierce Other [facility] [employer] Other Start: 11-11-2023 Patient encounter procedure Clinton Pierce [facility] Start: 10-22-2023 End: 10-22-2023 ambulatory Carolee Estrada Facility:[facility] Start: 10-22-2023 End: 10-22-2023 ambulatory MD Carolee Estrada Work Phone: [facility] Work Phone: Start: 10-22-2023 End: 10-22-2023 Patient encounter procedure MD Carolee Estrada Work Phone: [facility]-CT Scan [address] Work Phone: Start: 09-15-2023 End: 09-15-2023 ambulatory ARSALAN CONLEY [facility] Ambulatory Start: 09-15-2023 End: 09-15-2023 Office outpatient visit 25 minutes Arsalan Conley MD Work Phone: [facility] Comment on above: Paroxysmal atrial fi brillation (CMS/HCC) (Primary Dx); Nonischemic cardiomyopathy (CMS/HCC); Mixed hyperlipidemia; Essential hypertension; Melena Start: 07-14-2023 Office outpatient vi sit 25 minutes Carolee Estrada Work Phone: TV-Vqblnvfrul-Epgmg [facility] Work Phone: Start: 07-14-[address] Carolee Estrada Facility:[facility] Start: 04-13-2023 ambulatory Gilbert Thal Facility:[facility] Start: 04-13-2023 Office outpatient vi sit 25 minutes Carolee Estrada Work Phone: ZR-Axrlxhvtcx-IKV [address] [place] Work Phone: Start: 03-02-2023 Rx Renewal Carolee Estrada Work Phone: [facility] [address] DO Work Phone: Start: 02-19-2023 ambulatory Ms. Janene Berry Facility: Start: 02-19-2023 Office outpatient vi sit 25 minutes Carolee Estrada Work Phone: [facility] [address] DO Work Phone: Start: 02-16-2023 End: 02-16-2023 ambulatory Javier Ross Other [facility] Other Start: 02-16-2023 Office outpatient vi sit 25 minutes Javier Ross [facility] Start: 01-30-2023 ambulatory Facility:[facility] Sarbjit Start: 01-18-2023 End: 01-19-[address] CARMINE NAILS Facility: Start: 01-14-2023 AUDIT Carolee Estrada Work Phone: OX-Uwmjqcrkgd-Xorxbb Work Phone: Start: 01-12-2023 Chart Update Carolee Estrada Work Phone: ZK-Lnmcavbeth-Pnalujcnr Work Phone: Start: 01-08-2023 End: 01-08-2023 ambulatory Gilbert Thal Facility:[facility] Start: 01-06-2023 Chart Update Carolee Estrada Work Phone: AB-Bovjqwdrip-Koourvbtc Work Phone: Start: 12-15-2022 Office outpatient ne w 45 minutes Carolee Estrada Work Phone: FA-Jjthdsufxg-Jukdc EP Lab Work Phone: Start: 12-15-2022 ambulatory Gilbert Hernandez Facility:U Start: 11-18-2022 Office outpatient vi sit 25 minutes Carolee Estrada Work Phone: [facility] [address] DO Work Phone: Start: 11-18-2022 Patient encounter procedure Carolee Estrada Work Phone: [facility] DO Work Phone: Start: 11-18-2022 ambulatory Ms. Janene Bueno Cruz Berry Facility: Start: 11-12-2022 Chart Update Carolee Estrada Work Phone: [facility] DO Work Phone: Start: 11-12-2022 ambulatory Ms. JANENE BUENO CRUZ BERRY Facility:[id number] Start: 10-30-2022 End: 10-31-[address] TANK Junior Facility: Start: 10-30-2022 End: 10-30-2022 ambulatory MD Carolee Estrada Work Phone: [facility] Work Phone: Start: 10-30-2022 End: 10-30-2022 Patient encounter procedure MD Carolee Estrada Work Phone: [facility] [address] Start: 10-21-2022 Office outpatient vi sit 25 minutes Carolee Estrada Work Phone: [facility] [address] DO Work Phone: Start: 10-21-2022 Patient encounter procedure Carolee Estrada Work Phone: [facility] DO Work Phone: Start: 10-21-2022 ambulatory Ms. Janene Berry Facility: Start: 10-12-2022 End: 10-13-[address] CARMINE NAILS Facility:[facility] Start: 09-30-2022 ambulatory Arsalan Kaufman [id number] Start: 09-30-2022 End: 09-30-2022 Admission to same day surgery center MD Carolee Estrada Work Phone: [facility]-Electrodiagnostics Start: 09-30-2022 End: 09-30-2022 ambulatory MD Carolee Estrada Work Phone: [facility] Work Phone: Start: 09-11-2022 End: 09-11-2022 ambulatory MD Carolee Estrada Work Phone: [facility] Work Phone: Start: 09-11-2022 End: 09-11-2022 Patient encounter procedure MD Carolee Estrada Work Phone: [facility] Fnm-Awr-Qrihkeuo Testing Start: 09-02-2022 End: 09-02-2022 ambulatory MD Carolee Estrada Work Phone: [facility] Work Phone: Start: 09-02-2022 End: 09-02-2022 Patient encounter procedure MD Carolee Estrada Work Phone: [facility]-Lab [address] Start: 08-12-2022 Telephone encounter Carolee Bradley ht Work Phone: [facility] [address] DO Work Phone: Start: 08-11-2022 ambulatory Arsalan Kaufman [id number] Start: 08-11-2022 Patient encounter procedure Carolee Estrada Work Phone: [facility] DO Work Phone: Start: 07-29-2022 Chart Update Carolee Estrada Work Phone: [facility] DO Work Phone: Start: 07-28-2022 ambulatory Arsalan Kaufman [id number] Start: 07-28-2022 End: 07-28-2022 Admission to same day surgery center MD Carolee Estrada Work Phone: [facility]-Electrodiagnostics Start: 07-28-2022 ambulatory Arsalan Conley Facilit [id number] Start: 07-24-2022 Chart Update Carolee Estrada Work Phone: [facility] DO Work Phone: Start: 07-24-2022 End: 07-24-2022 Patient encounter procedure MD Carolee Estrada Work Phone: [facility] Ruw-Wsm-Bfgzfbug Testing Start: 07-22-2022 End: 07-23-2022 ambulatory JANENE STONE Facility: Start: 07-06-2022 ambulatory Ms. Janene Bueno Cruz Berry Facility: Start: 07-06-2022 Office outpatient vi sit 25 minutes Carolee Estrada Work Phone: [facility] [address] DO Work Phone: Start: 07-06-2022 Patient encounter procedure Carolee Estrada Work Phone: [facility] DO Work Phone: Start: 07-01-2022 FUV, Provider: Janene García, Status: Pen, Time: 12:30 PM Carolee Estrada Work Phone: [facility] DO Work Phone: Start: 06-29-2022 AUDIT Carolee Estrada Work Phone: [facility] DO Work Phone: Start: 06-24-2022 Chart Update Carolee Estrada Work Phone: [facility] [facility] 250 DO Work Phone: Start: 06-24-2022 ambulatory Arsalan Conley Facilit [id number] Start: 06-24-2022 SURGNONUH, Provider: Arsalan Conley, Status: Pen, Time: 10:00 AM Carolee Estrada Work Phone: [facility] 250 DO Work Phone: Start: 06-24-2022 End: 06-24-2022 Admission to same day surgery center MD Carolee Estrada Work Phone: [facility] C[facility]-Electrodiagnostics Start: 06-22-2022 Chart Update Carolee Estrada Work Phone: [facility] 250 DO Work Phone: Start: 06-22-2022 End: 06-22-2022 Patient encounter procedure MD Carolee Estrada Work Phone: [facility]-Pre-Surgical Testing Start: 06-17-2022 Office outpatient vi sit 25 minutes Carolee Estrada Work Phone: [facility] 250 DO Work Phone: Start: 06-17-2022 ambulatory Arsalan Cnoley Facilit [id number] Start: 05-20-2022 End: 05-21-[address] CAROLEE ESTRADA . Facility:H1 Start: 05-13-2022 ambulatory Arsalan McGuinn Facilit y:[id number] Start: 05-12-2022 ambulatory Arsalan Carlinn Facilit y:[id number] Start: 05-11-2022 ambulatory Arsalan McGuinn Facilit y:[id number] Start: 05-10-2022 ambulatory Arsalan McGuinn Facilit y:[id number] Start: 05-09-2022 ambulatory Arsalan McGuinn Facilit y:[id number] Start: 05-08-2022 ambulatory Gilbert Thal Facility:[id number] Start: 05-08-2022 End: 05-13-2022 Evaluation and management of inpatient MD Carolee Estrada Work Phone: [facility] Ctr-4 [facility] Progressive Start: 05-08-2022 End: 05-08-[address] CAROLEE ESTRADA . Facility:H1 Start: 04-27-2022 End: 04-27-2022 Patient encounter procedure MD Carolee Estrada Work Phone: [facility] Ctr-CT [address] Start: 04-10-2022 End: 04-11-[address] CARMINE NAILS Facility:H1 Imaging result normal Carolee Bradley [employer] Work Phone: [facility] 250 DO Work Phone: Patient encounter status Carolee Estrada Work Phone: [facility] 600 DO Work Phone: Procedures Date Procedure Procedure Detail Performing Clinician Start: 02-22-2024 CT of chest without contrast MD Carolee Bradley [employer] Work Phone: Start: 11-30-2023 Esophagogastroduodenoscopy MD Carolee Estrada Work Phone: Start: 10-22-2023 CT of chest without contrast MD Carolee Bradley [employer] Work Phone: Start: 11-12-2022 Echocardiography Carolee Estrada Work Phone: Start: 10-30-2022 CT of chest without contrast MD Carolee Bradley [employer] Work Phone: Start: 04-27-2022 CT of chest without contrast MD Carolee Bradley [employer] Work Phone: Catheter ablation of arrhythmogenic focus Carolee Estrada Work Phone: Hysterectomy Carolee Estrada Work Phone: Ligation of varicose vein Petros Abelight Work Phone: Removal of ectopic fetus Carolee Estrada Work Phone: SARS Antigen (LFIA) MD Carolee Morton night Work Phone: SARS Antigen (LFIA) MD Carolee Morton night Work Phone: SARS Antigen (LFIA) MD Carolee Morton night Work Phone: Tonsillectomy and adenoidectomy Carolee Estrada Work Phone: Plan of Treatment Date Care Activity Detail Author Start: 09-15-2024 End: 09-15-2024 Patient encounter procedure 09/15/2024 1:30 PM EDT Office Visit [address] [address] Arsalan Conley MD [address] [facility] [address], [address] [place] [address] [facility] Start: 01-10-2024 FUV, Provider: Gilbert Hernandez, Status: Pen, Time: 10:20 AM FUV, Provider: Gilbert Hernandez, Status: Pen, Time: 10:20 AM [facility] Work Phone: Start: 01-10-2024 End: 01-10-2024 Patient encounter procedure 01/10/2024 10:20 AM EST Office Visit [facility] [address] [place] [address] [place] [address] [place] [address] [facility] Start: 11-30-2023 [facility] Start: 09-15-2023 FUV, Provider: Arsalan Conley, Status: Pen, Time: 2:50 PM FUV, Provider: Arsalan Conley, Status: Pen, Time: 2:50 PM -[facility] 250 DO Work Phone: Start: 07-16-2023 Influenza vaccination Influenza Vaccine (#1) [facility] Start: 07-14-2023 FUV, Provider: Gilbert Hernandez, Status: Pen, Time: 11:40 AM FUV, Provider: Gilbert Hernandez, Status: Pen, Time: 11:40 AM [facility] [address] [place] Work Phone: Start: 04-13-2023 FUVHOSP, Provider: Gilbret Hernandez, Status: Pen, Time: 8:20 AM FUVHOSP, Provider: Gilbert Hernandez, Status: Pen, Time: 8:20 AM HC-Zudelqnqwh-Yoikjsi rg Work Phone: Start: 02-15-2023 FUV, Provider: Janene García, Status: Pen, Time: 11:30 AM FUV, Provider: Janene García, Status: Pen, Time: 11:30 AM -[facility] 250 DO Work Phone: Start: 12-15-2022 NPV, Provider: Gilbert Hernandez, Status: Pen, Time: 11:20 AM NPV, Provider: Gilbert Hernandez, Status: Pen, Time: 11:20 AM -[facility] 250 DO Work Phone: Start: 11-18-2022 FUV, Provider: Janene García, Status: Pen, Time: 1:00 PM FUV, Provider: Janene García, Status: Pen, Time: 1:00 PM -[facility] 250 DO Work Phone: Start: 11-12-2022 ECHO, Provider: [facility] ULTRASOUND 01,[id number], Status: Pen, Time: 10:45 AM ECHO, Provider: [facility] ULTRASOUND 01,[id number], Status: Pen, Time: 10:45 AM -[facility] 250 DO Work Phone: Start: 09-30-2022 [facility] Start: 09-28-2022 FUV, Provider: Arsalan Conley, Status: Pen, Time: 11:10 AM FUV, Provider: Arsalan Conley, Status: Pen, Time: 11:10 AM -[facility] 250 DO Work Phone: Start: 09-15-2022 SURGNONUH, Provider: Arsalan Conley, Status: Pen, Time: 1:00 PM SURGNONUH, Provider: Arsalan Conley, Status: Pen, Time: 1:00 PM -[facility] [place] 600 DO Work Phone: Start: 08-11-2022 EKG, Provider: CLIFTON AGUILAR HYDRAULIC BOOM OPERATOR 1,[id number], Status: Pen, Time: 1:00 PM EKG, Provider: CLIFTON AGUILAR HYDRAULIC BOOM OPERATOR 1,[id number], Status: Pen, Time: 1:00 PM [facility] 250 DO Work Phone: Start: 07-28-2022 SURGNONUH, Provider: Arsalan Conley, Status: Pen, Time: 2:00 PM SURGNONUH, Provider: Arsalan Conley, Status: Pen, Time: 2:00 PM [facility] 250 DO Work Phone: Start: 07-28-2022 End: 07-28-2022 [facility] Start: 07-01-2022 FUV, Provider: Janene García, Status: Pen, Time: 12:30 PM FUV, Provider: Janene García, Status: Pen, Time: 12:30 PM -[facility] 250 DO Work Phone: Start: 06-24-2022 SURGNONUH, Provider: Arsalan Conley, Status: Pen, Time: 10:00 AM SURGNONUH, Provider: Arsalan Conley, Status: Pen, Time: 10:00 AM -[facility] 250 DO Work Phone: Start: 06-24-2022 [facility] Start: 05-13-2022 [facility] Work Phone: Start: 05-12-2022 Hospital admission [facility] Work Phone: Start: 05-08-2022 Hospital admission [facility] Work Phone: Start: 05-08-2022 Fluoroscopy of Left Heart using Low Osmolar Contrast Fluoroscopy of Left Heart using Low Osmolar Contrast [facility] Start: 05-08-2022 Fluoroscopy of Multiple Coronary Arteries using Low Osmolar Contrast Fluoroscopy of Multiple Coronary Arteries using Low Osmolar Contrast [facility] Start: 05-08-2022 Measurement of Cardiac Sampling and Pressure, Left Heart, Percutaneous Approach Measurement of Cardiac Sampling and Pressure, Left Heart, Percutaneous Approach [facility] Start: 11-19-2021 COVID-19 Vaccine (4 - Pfizer risk series) COVID-19 Vaccine (4 - Pfizer risk series) [facility] Start: 11-08-2020 Pneumococcal Vaccine: 65+ Years (2 - PPSV23 or PCV20) Pneumococcal Vaccine: 65+ Years (2 - PPSV23 or PCV20) [facility] Start: 1995 Screening for malignant neoplasm of breast Mammogram [facility] Start: 1977 DTaP/Tdap/Td Vaccines (1 - Tdap) DTaP/Tdap/Td Vaccines (1 - Tdap) [facility] Start: 1973 Diabetes mellitus screening Diabetes Screening [facility] Start: 1973 Hepatitis C screening Hepatitis C Screening [facility] Start: 1955 Lipid panel Lipid Panel [facility] Start: 1955 Medicare Annual Wellness Visit Medicare Annual Wellness Visit (AWV) [facility] Start: 1955 Screening for malignant neoplasm of colon [facility] Start: 1955 Screening for osteoporosis Bone Density Scan [facility] Patient Education [facility] Work Phone: Patient referral [facility] Work Phone: Immunizations Immunization Date Immunization Notes Care Provider Fa thu 09-24-2021 Pfizer-BioNTech COVID-19 Vacc 30 MCG/0.3ML Intramuscular Suspension Carolee Estrada Work Phone: [facility] 03-17-2021 Pfizer-BioNTech COVID-19 Vacc 30 MCG/0.3ML Intramuscular Suspension Carolee Estrada Work Phone: [facility] 02-25-2021 Pfizer-BioNTech COVID-19 Vacc 30 MCG/0.3ML Intramuscular Suspension Carolee Estrada Work Phone: [facility] 12-24-2020 zoster vaccine recombinant [facility] Work Phone: 10-17-2020 zoster vaccine recombinant [facility]strada [facility] Work Phone: 09-13-2020 pneumococcal conjuga te vaccine, 13 valent Carolee Estrada Work Phone: [place] [address] DO Work Phone: 09-13-2020 Seasonal trivalent influenza vaccine, adjuvanted, preservative free Carolee Estrada Work Phone: [place] [address] DO Work Phone: 09-13-2020 influenza virus vaccine, unspecified formulation Arsalan Conley MD Work Phone: [facility] Work Phone: 08-15-2019 influenza, injectabl e, quadrivalent, contains preservative Carolee Estrada Work Phone: [place] [address] DO Work Phone: 08-15-2019 pneumococcal conjuga te vaccine, 13 valent Carolee Agosto Estrada Work Phone: [place] [address] DO Work Phone: 10-21-2018 influenza, injectabl e, quadrivalent, preservative free Carolee Agosto Estrada Work Phone: [place] [address] DO Work Phone: Payers Date Payer Category Payer Medicare [employer] [id number] 2023-Present [address] [place] [address] [id number] 2023 Private Health Insurance [id number] 2023 Self-pay [id number] 1959 Medicare [id number] 1959 Medicare [id number] 1959 Private Health Insurance [id number] 1955 Unknown [id number] 2.16.840.1.382459.3.579.2. 1068 1955 Unknown [id number] 2.16.840.1.997590.3.579.2. 593 1955 Unknown [id number] 2.16.840.1.601136.3.579.2. 593 1955 Unknown [id number] 2.16.840.1.736446.3.579.2. 593 1955 Unknown [id number] 2.16.840.1.818897.3.579.2. 593 1955 Unknown [id number] 2.16.840.1.546196.3.579.2. 593 1955 Unknown [id number] 2.16.840.1.792734.3.579.2. 593 1955 Unknown [id number] 2.16.840.1.759762.3.579.2. 593 1955 Unknown [id number] 2.16.840.1.067033.3.579.2. 593 1955 Unknown [id number] 2.16.840.1.856018.3.579.2. 356 1955 Unknown [id number] 2.16.840.1.020205.3.579.2. 356 1955 Unknown [id number] 2.16.840.1.729166.3.579.2. 356 1955 Unknown [id number] 2.16.840.1.242339.3.579.2. 356 1955 Unknown [id number] 2.16.840.1.189871.3.579.2. 356 1955 Unknown [id number] 2.16.840.1.558790.3.579.2. 356 1955 Unknown [id number] 2.16.840.1.645626.3.579.2. 356 1955 Unknown [id number] 2.16.840.1.307936.3.579.2. 356 1955 Unknown [id number] 2.16.840.1.272811.3.579.2. 356 1955 Unknown [id number] 2.16.840.1.764389.3.579.2. 1955 Unknown [id number] 2.16.840.1.815315.3.579.2. 356 1955 Unknown [id number] 2.16.840.1.003122.3.579.2. 1955 Unknown [id number] 2.16.840.1.532997.3.579.2. 1955 Unknown [id number] 2.16.840.1.051991.3.579.2. 1955 Unknown [id number] 2.16.840.1.130393.3.579.2. 356 1955 Unknown [id number] 2.16.840.1.305020.3.579.2. 356 1955 Unknown [id number] 2.16.840.1.710303.3.579.2. 1955 Unknown [id number] 2.16.840.1.001193.3.579.2. 356 1955 Unknown [id number] 2.16.840.1.659682.3.579.2. 356 1955 Unknown [id number] 2.16.840.1.037562.3.579.2. 1955 Unknown [id number] 2.16.840.1.088637.3.579.2. 1244 Medicare Medicare [id number] Unknown Unknown [employer] BC/BS [id number] Unknown [id number] 2.16.840.1.348892.3.579.2. 531 Unknown [id number] 2.16.840.1.547861.3.579.2. 531 Unknown [id number] 2.16.840.1.976181.3.579.2. 531 Social History Date Type Detail Facility Start: 11-18-2022 End: 09-15-2023 Social alcohol use Social alcohol use [facility] Comment on above: 11/16 PPD; Start: 05-09-2022 End: 11-30-2023 Tobacco smoking status NHIS Smoker (finding) [facility] Start: 1955 Sex Assigned At Female [facility] Start: 11-18-2022 End: 09-15-2023 Sex Assigned At [facility] Start: 09-15-2023 Tobacco smoking status NHIS Smokes tobacco daily [facility] Work Phone: History of tobacco use Cigarette Smoker [facility] Work Phone: Start: 09-15-2023 Tobacco use and exposure Smokeless tobacco non-user [facility] Work Phone: Start: 09-15-2023 Alcohol intake Current drinke r of alcohol (finding) [facility] Work Phone: Start: 09-15-2023 Alcohol Comment occassionally [facility] Work Phone: Start: 1955 Sex Assigned At Not on file [facility] Work Phone: Start: 09-05-2023 End: 09-15-2023 Exposure to SARS-CoV-2 (event) Not sure [facility] Goals Date Patient Goal Desired Activity /State Functional Status Date Assessment Result Facility 05-13-2022 Functional status Patient at Baseline [facility] Work Phone: Mental Status Date Assessment Result Facility 05-13-2022 Cognitive function Cognitive Sta tus Patient at Baseline [facility] Work Phone: Clinical Notes 06-17-2022 to 11-30-2023 Note Date & Type Note Facility 11-30-2023 Procedure note [facility] 11-23-2023 Evaluation note Encounter Date Diagnosis Assessment Notes Nov, Pulmonary nodules (ICD-10 - R91.8) Nov, Emphysema lung (ICD-10 - J43.9) Nov, 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 PROCEED WITH EGD TO EVALUATE. PATIENT TO REPORT TO ER IF SYMPTOMS WORSEN. [facility] Other 11-01-2023 History of Present illness Narrative* Arsalan Conley MD - 09/15/2023 2:50 PM EDT Subjective Tawanda Stevens is a 68 y.o. female Chief Complaint Follow-up HPI Complains of melena Patient returns in follow-up of problems as noted. In the interim she has had none of the cardiomyopathy symptoms that prompted her original evaluation. Her review of recent echocardiogram demonstrates normalization of ejection fraction. She has had no recurrence of her atrial arrhythmia on currenttherapy and she is adequately protected with apixaban and because of this we make no change. Recently she has noticed some melena. She was strongly encouraged to call the gastroenterology office to make arrangements for EGD and/or colonoscopy. Review of Systems Respiratory: Positive for shortness of breath. All other systems reviewed and are negative. Visit Vitals BP 116/78 (BP Location: Left arm, Patient Position: Sitting) Pulse 64 Ht 1.626 m (5' 4 ) Wt 94.3 kg (208 lb) BMI 35.70 kg/m Smoking Status Every Day BSA 2.06 m Objective Physical Exam Constitutional: Appearance: Normal appearance. She is normal weight. HENT: Nose: Nose normal. Neck: Vascular: No carotid bruit. Cardiovascular: Rate and Rhythm: Normal rate. Pulses: Normal pulses. Heart sounds: Normal heart sounds. Pulmonary: Effort: Pulmonary effort is normal. Abdominal: General: Bowel sounds are normal. Palpations: Abdomen is soft. Genitourinary: Rectum: Normal. Musculoskeletal: General: Normal range of motion. Cervical back: Normal range of motion. Right lower leg: No edema. Left lower leg: No edema. Skin: General: Skin is warm and dry. Neurological: General: No focal deficit present. Mental Status: She is alert. Psychiatric: Mood and Affect: Mood normal. Behavior: Behavior normal. Thought Content: Thought content normal. Judgment: Judgment normal. Current Medications Current Outpatient Medications: adalimumab (Humira,CF, Pedi Crohns Starter) 80 mg/0.8 mL-40 mg/0.4 mL syringe kit prefilled syringestarter kit, Inject 80 mg under the skin every 14 (fourteen) days., Disp: , Rfl: apixaban (Eliquis) 5 mg tablet, Take 1 tablet (5 mg) by mouth 2 times a day., Disp: , Rfl: atorvastatin (Lipitor) 20 mg tablet, Take 1 tablet (20 mg) by mouth once daily., Disp: , Rfl: b complex 0.4 mg tablet, Take 1 tablet by mouth once daily., Disp: , Rfl: calcium carbonate/vitamin D3 (CALCIUM WITH VITAMIN D3 ORAL), Take 1 tablet by mouth once daily., Disp: , Rfl: canagliflozin (Invokana) 100 mg, Take 1 tablet (100 mg) by mouth once daily in the morning. Take before meals., Disp: , Rfl: digoxin (Lanoxin) 125 MCG tablet, Take 1 tablet (125 mcg) by mouth once daily., Disp: , Rfl: hydroxychloroquine (Plaquenil) 200 mg tablet, Take 1 tablet (200 mg) by mouth 2 times a day., Disp:, Rfl: metoprolol succinate XL (Toprol-XL) 100 mg 24 hr tablet, Take 1 tablet (100 mg) by mouth once daily. Do not crush or chew., Disp: , Rfl: predniSONE (Deltasone) 5 mg tablet, Take 1 tablet (5 mg) by mouth if needed., Disp: , Rfl: sertraline (Zoloft) 25 mg tablet, Take 1 tablet (25 mg) by mouth once daily., Disp: , Rfl: spironolactone (Aldactone) 25 mg tablet, Take 1 tablet (25 mg) by mouth once daily., Disp: , Rfl: 1. Paroxysmal atrial fibrillation (CMS/HCC) No apparent symptomatic or and/or clinical recurrence. She is protected with anticoagulant therapy - Follow Up In Cardiology; Future 2. Nonischemic cardiomyopathy (CMS/HCC) Normalization of ejection fraction noticed on previous echocardiogram, she is on guideline directedtherapy. Adequately controlled on current therapy 3. Mixed hyperlipidemia Adequately controlled on current therapy 4. Essential hypertension Adequately controlled on current therapy 5. Melena Strongly encouraged to seek GI consultation. She has a pre-existing relationship with them. [facility]: 1(198) 580-596811-01-2023 Instructions* Patient Instructions* Sakshi Epstein LPN - 09/15/2023 2:50 PM EDT Please bring all medicines, vitamins, and herbal supplements with you when you come to the office. Prescriptions will not be filled unless you are compliant with your follow up appointments or have a follow up appointment scheduled as per instruction of your physician. Refills should be requested at the time of your visit. 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 The patient underwent multiple DCC and is currently in high dosis of amiodarone to maintain NSR. Was referred to me for evaluation for A Fib RFA. Allergies: Allergies: No Known Allergies: Home Medication Review: Home Medications Reviewed: yes Impression/Procedure: Impression and Planned Procedure: afib ablation ERAS (Enhanced Recovery After Surgery): ERAS Patient: no Physical Exam by System: Respiratory/Thorax: Patent airways, CTAB, normal breath sounds with good chest expansion, thorax symmetric Cardiovascular: Regular, rate and rhythm, no murmurs, 2+ equal pulses of the extremities, normal S 1and S 2 Airway/Sedation Assessment: Assmentment by AnesthesiaSee anesthesia airway/sedation assessment. Consent: COVID-19 Consent: COVID-19 Risk ConsentSurgeon has reviewed nash risks related to the risk of dorothy COVID-19 and if they contract COVID-19 what the risks are. Coronavirus Attestation of Need for Surgery: COVID-19 Surgery / Procedure Attestation: Select all criteria that applyRisk of metastasis or progression of staging if delayed Attestation: Note Completion: I am a: Resident/Fellow Attending AttestationI saw and evaluated the patient. I personally obtained the nash and critical portions of the history and physical exam or was physically present for nash and critical portions performed by the resident/fellow. I reviewed the resident/fellows documentation and discussed the patient with the resident/fellow. I agree with the resident/fellows medical decision making as documented in the note. I personally evaluated the patient [id number] Electronic Signatures: Gilbert Hernandez) (Signed 02-Feb-2023 11:45) Co-Signer: History of Present Illness, Allergies, Home Medication Review, Impression/Procedure, ERAS, Physical Exam, Consent, Note Completion Diana Garcia (Resident)) (Signed 01-Feb-2023 19:00) Authored: History of Present Illness, Allergies, Home Medication Review, Impression/Procedure, ERAS, Physical Exam, Consent, Note Completion Last Updated: 02-Feb-2023 11:45 by Gilbert Hernandez)[facility] 01-08-2023 NotePre-procedure Verification and Time Out: Pre-Procedure Verification and Time Out: Procedure Locationprocedure area HUDDLE - Pre-procedure Verificationcompleted TIME OUT - Final Verificationcompleted immediately prior to procedure start DEBRIEFcompleted General Information: Anesthesia Critical Care: Non-Anesthesia Post-Procedure Diagnosis: successful afib ablation Procedure Name: afib ablation Findings: grossly normal anatomy Procedure performed by: Mary Engineering Assistant(s): Diana garcia Estimated Blood Loss (mL): 10 Specimen: no Informed Consent: written consent obtained Procedure Details: Procedure Details: The indications, risks, benefits, alternatives, and details of the procedure were explained to the patient who expressed understanding of the risks including but are not limited to: pain, bleeding, and infection for which the risk is less than 1%. More serious risks, including cardiac perforation and tamponade, vascular trauma, pulmonary vein stenosis, atrio-esophageal fistula, diaphragmatic paralysis, life-threatening arrhythmia, need for permanent pacemaker, stroke, heart attack, and/or , for which the overall risk ranges 0.1-1%. After all questions were answered, the patient provided informed and written consent. Access was obtained in the right femoral vein using the modified Seldinger technique with the aid of ultrasound. Three sheaths (8Fr, 8.5Fr, 8.5Fr) were placed in the right femoral vein. Intracardiac echo was used to evaluate for baseline effusion. A Meadows CS catheter was placed in the CS. The proximal sheath was then exchanged for a short SL0 sheath over a wire. Transseptal catheterization was performed under fluoroscopic and intracardiac echocardiographic guidance with BLK. A left atrial voltage map was constructed using Carto3 and a PentaRay mapping catheter. A Biosense Meadows SmartTouch SF catheter was used for ablation. Isolation of all 4 PVs was achieved with bilateral RF wide-area circumferential ablation (WACA) lesions and carinal lines. Exit block was confirmed by pacing from all 4 veins. The long sheath was exchanged for a short 8.5Fr sheath over a wire. All sheaths were removed and hemostasis was achieved using Vascade and manual pressure. Throughout the procedure, the heparin infusion rate was adjusted to maintain an ACT between 350-400 sec throughout the procedure. Protamine was given to reverse anticoagulation at procedure end. Successful ablation for atrial fibrillation. The patient tolerated the procedure well with no immediate complications. Plan: 1. Transfer to telemetry for overnight observation 2. Bedrest for 2 hours then ambulate as tolerated 3. Cont current home meds as prescribed 4. Pantoprazole for 4 weeks. Tolerance: good Complications: none Attestation: Note Completion: Attending AttestationI was present for the entire procedure Electronic Signatures: Gilbert Hernandez) (Signed 08-Jan-2023 12:32) Authored: Note Completion Co-Signer: Pre-procedure Verification and Time Out, General Information, Procedure Details Diana Garcia (Resident)) (Signed 08-Jan-2023 12:25) Authored: Pre-procedure Verification and Time Out, General Information, Procedure Details Last Updated: 08-Jan-2023 12:32 by Gilbert Hernandez)[facility] 01-08-2023 NoteClinical Note - Pharmacy v2: Education: Document TopicMedication Education MedicationMeds to Beds: Patient declines Meds to Beds service at discharge. Sources used to confirm home medication list: Patient interview, pharmacy fill history (surescripts), AEMR med list Additional comments: has not started nicotine patches that were prescribed. Aspirin: not prescribed Statin: atorvastatin 20 mg daily P2Y12 inhibitor: not prescribed Anticoagulant: apixaban 5 mg BID Medication reconciliation complete Please reach out via [employer] for questions, or if no response call [phone] or [employer] [facility] Phil Caldwell, YesseniaD, PGY-1 Resident [facility] Is This Intervention Medication Reconciliation Relatedyes Time Aetniczv89 - 60 minutes Additional NotesDrug Name: amiodarone 200 mg oral tablet Instructions: 1 tab(s) orally once a day Drug Name: atorvastatin 20 mg oral tablet Instructions: 1 tab(s) orally once a day Drug Name: Calcium 600+D oral tablet Instructions: 1 tab(s) orally once a day Drug Name: digoxin 125 mcg (0.125 mg) oral tablet Instructions: 1 tab(s) orally once a day Drug Name: apixaban 5 mg oral tablet Instructions: 1 tab(s) orally 2 times a day Drug Name: hydroxychloroquine 200 mg oral tablet Instructions: 1 tab(s) orally 2 times a day (with meals) Drug Name: canagliflozin 100 mg oral tablet Instructions: 1 tab(s) orally once a day Drug Name: metoprolol succinate 100 mg oral tablet, extended release Instructions: 1 tab(s) orally once a day Drug Name: potassium chloride 20 mEq oral tablet, extended release Instructions: 1 tab(s) orally once a day Drug Name: predniSONE 5 mg oral tablet Instructions: 1 tab(s) orally once a day Drug Name: sertraline 25 mg oral tablet Instructions: 1 tab(s) orally once a day Drug Name: spironolactone 25 mg oral tablet Instructions: 1 tab(s) orally once a day Drug Name: sulfaSALAzine 500 mg oral tablet Instructions: 2 tab(s) orally 2 times a day Drug Name: Multiple Vitamins oral tablet Instructions: 1 tab(s) orally once a day (B Complex) Allergy: Allergies Summary No Known Allergies Electronic Signatures: Nely Orantes ([facility]) (Signed 08-Jan-2023 13:27) Co-Signer: Donald Allergy Phil Caldwell ([facility]) (Signed 08-Jan-2023 08:10) Authored: Education, Allergy Last Updated: 08-Jan-2023 13:27 by Nely Orantes ([facility]02-24-2023 NoteElectrophysiology Procedure TestingPlease click on the link to view the study images (Normal)[facility] Work Phone: 1(784) 432-484602-24-2023 NoteElectrophysiology Procedure Testing Please click on the link to view the study images (Normal)[facility] Work Phone: 1(412) 134-719612-12-2022 History of Present illness Narrative* The patient presents with non-ischemic heart failure with reduced ejection fraction. The patient's last LV ejection fraction was 15-20%. The patient is NYHA functional Class III. This is stage C heart failure. * Symptoms: denies lower extremity edema, denies dyspnea on exertion, stable fatigue, stable exerciseintolerance, denies orthopnea and denies paroxysmal nocturnal dyspnea. Associated symptoms include recent 4 pounds weight loss. * Medications: the patient is adherent with her medication regimen. She denies medication side effects. [facility] Work Phone: 1([phone]) 589-326812-07-2022 History of Present illness Narrative* The patient presents with non-ischemic heart failure with reduced ejection fraction. The patient's last LV ejection fraction was 15-20%. The patient is NYHA functional Class III. This is stage C heart failure. * Symptoms: denies lower extremity edema, denies dyspnea on exertion, stable fatigue, stable exerciseintolerance, denies orthopnea and denies paroxysmal nocturnal dyspnea. Associated symptoms include recent 4 pounds weight loss. * Medications: the patient is adherent with her medication regimen. She denies medication side effects. [facility] Work Phone: 1([phone]) 611-664211-16-2022 [facility]2022 History of Present illness Narrative* The patient presents with non-ischemic heart failure with reduced ejection fraction. The patient's last LV ejection fraction was 15-20%. The patient is NYHA functional Class III. This is stage C heart failure. * Symptoms: resolved lower extremity edema, stable dyspnea on exertion, stable fatigue, stable exercise intolerance, denies orthopnea and denies paroxysmal nocturnal dyspnea. Associated symptoms include recent 20 pounds weight loss, but no chest pain. * Home Monitoring: The patient checks her weight regularly. Weight control has been good. * Medications: the patient is adherent with her medication regimen. She denies medication side effects. [facility] 250 DO Work Phone: Chief complaint Narrative - ReportedTAWANDA STEVENS is being seen for a consultation for atrial fibrillation and cardiomyopathy. [facility] Work Phone: Chief complaint Narrative - Reported* TAWANDA STEVENS is being seen for a cardiovascular evaluation. * TAWANDA STEVENS is being seen for a cardiovascular evaluation of atrial fibrillation, dyslipidemia and hypertension. SC-Bcrtjdskqf-WJJ Dale Estevez [address] [place] Work Phone: Evaluation note* Diagnosis Onset Date Resolution Status Acute systolic CHF (congesti ve heart failure), NYHA class 4 acute Anxiety acute Atrial fibrillation with RVR acute Cardiomyopathy acute Depression acute HLD (hyperlipidemia) acute Rheumatoid arthritis acute [facility] Work Phone: Evaluation noteNo assessment information available [facility] Work Phone: Evaluation note* Diagnosis Paroxysmal atrial fibrillation (CMS/HCC)- Primary Atrial fibrillation Nonischemic cardiomyopathy (CMS/HCC) Other primary cardiomyopathies Mixed hyperlipidemia Essential hypertension Unspecified essential hypertension Melena Blood in stool documented in this encounter [facility] Work Phone: Evaluation noteNo [facility] [facility] [employer] [facility] [employer] Other History and physical note Author Clinton Pierce [facility] November 30, 2023 1:10pm Note Date/Time November 30, 2023 1 :10pm [facility] [address] [place] [address] Gastroenterology H&P Signed Patient: Tawanda Stevens MR#: [id number] : 1955 Acct:[id number] Age/Sex: 68 / F Adm Date: 4 Loc: Room: Type: [facility] Attending Dr: Clinton Pierce MD Copies to: MD Carolee Pang MD~ Date of Service: 11/30/2023 HISTORY & PHYSICAL: Patient's history with special attention to the cardiovascular, pulmonary systems and the current problem was reviewed with the patient immediately prior to the procedure. Present medications and doses reviewed in the EMR. Allergies and pertinent laboratory tests were also reviewedat this time in the EMR. The physical examination, as below, was then performed. Indication, assessment and HPI: 68-year-old female presents for EGD to evaluate dark stools Family history of GI malignancy? No PHYSICAL EXAMINATION Mouth and Pharynx : Moist mucus membranes, normal dentition Cardiac: Regular rate, regular rhythm Pulmonary: Clear to auscultation bilaterally, no wheezing Neurological: Alert and oriented x3, no focal deficits noted Abdomen: Abdomen soft, non-tender REVIEW OF SYSTEMS Constitutional: Denies malaise, fevers Cardiovascular: Denies chest pain, palpitations Respiratory: Denies shortness of breath, wheezing Gastrointestinal: Per HPI Genitourinary: Denies dysuria, polyuria Musculoskeletal: Denies joint swelling, joint stiffness Neurological: Denies numbness, tingling Integumentary: Denies rashes, skin lesions Endocrine: Denies fatigue, weight loss Written informed consent obtained from the patient. Risks (including but not limited to perforation, infection, bloating, bleeding, need for emergent surgeryand loss of life), benefits and alternatives explained and questions answered. The patient verbalized understanding. Based on history patient is an appropriate candidate for the procedure. Clinton Pierce MD Documented By: Clinton Pierce MD 11/30/23 1309 Signed By: <Electronically signed by Clinton Pierce MD> 11/30/23 1310 [facility] Work Phone: Hisrjmd general Narrative - Reported* Type Description Date Medical History depression Medical History BURSITIS Medical History Atrial fibrillation Medical History rheumatoid arthritis Medical History pulmonary nodule Surgical History HYSTERECTOMY 2005 Surgical History T & A 1974 Surgical History ectopic 1993 Surgical History rt leg veins 2008 [facility] Other Hispuwd general Narrative - Reported* Type Description Date Medical History depression Medical History BURSITIS Medical History Atrial fibrillation Medical History rheumatoid arthritis Medical History pulmonary nodule Medical History emphysema Medical History rheumatoid lung disease Surgical History HYSTERECTOMY 2004 Surgical History T & A 1974 Surgical History ectopic 1993 Surgical History rt leg veins 2008 [facility] Other History of Present illness Narrative* The patient presents with non-ischemic heart failure with reduced ejection fraction. The patient's last LV ejection fraction was 15-20%. The patient is NYHA functional Class III. This is stage C heart failure. * Symptoms: stable lower extremity edema, stable dyspnea on exertion, stable fatigue, stable exerciseintolerance, denies orthopnea and denies paroxysmal nocturnal dyspnea. Associated symptoms include no chest pain. Weight control has been poor. * Medications: the patient is adherent with her medication regimen. She denies medication side effects. [facility] [facility] [employer] DO Work Phone: History of Present illness Narrative* The patient presents with non-ischemic heart failure with reduced ejection fraction. The patient's last LV ejection fraction was 15-20%. The patient is NYHA functional Class III. This is stage C heart failure. * Symptoms: stable lower extremity edema, stable dyspnea on exertion, stable fatigue, stable exerciseintolerance, denies orthopnea and denies paroxysmal nocturnal dyspnea. Associated symptoms include no chest pain. Weight control has been poor. * Medications: the patient is adherent with her medication regimen. She denies medication side effects. [facility] [facility] [employer] DO Work Phone: History of Present illness Narrative* The patient states she has been generally doing well since the last visit. Comorbid Illnesses: hypertension and hyperlipidemia. * Symptoms: denies chest pain at rest, denies exertional chest pain, denies dyspnea, stable fatigue, stable exercise intolerance, denies palpitations, denies edema, denies orthopnea, denies dizziness and denies orthostatic dizziness. * Associated symptoms: no syncope. * Her symptoms do not limit her activities. * Disease Monitoring: The patient has had a stable weight. * Medications: the patient is adherent with her medication regimen. She denies medication side effects. -[facility] 250 DO Work Phone: History of Present illness Narrative* The patient states she has been generally doing well since the last visit. Comorbid Illnesses: hypertension and hyperlipidemia. * Symptoms: denies chest pain at rest, denies exertional chest pain, denies dyspnea, stable fatigue, stable exercise intolerance, denies palpitations, denies edema, denies orthopnea, denies dizziness and denies orthostatic dizziness. * Associated symptoms: no syncope. * Her symptoms do not limit her activities. * Disease Monitoring: The patient has had a stable weight. * Medications: the patient is adherent with her medication regimen. She denies medication side effects. [facility] 600 DO Work Phone: History of Present illness Unzpyttbo36 yo female. 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 The patient underwent multiple DCC and is currently in high dosis ofamiodarone to maintain NSR. Was referred to me for evaluation for A Fib RFA.[facility] Work Phone: History of Present illness Narrative* The patient states she has been generally doing well since the last visit. Comorbid Illnesses: hypertension and hyperlipidemia. * Symptoms: denies chest pain at rest, denies exertional chest pain, improved dyspnea, improved fatigue, improved exercise intolerance, denies palpitations, denies edema, denies orthopnea, denies dizziness and denies orthostatic dizziness. * Associated symptoms: no syncope. * Her symptoms do not limit her activities. * Disease Monitoring: * Medications: the patient is adherent with her medication regimen. She denies medication side effects. -[facility] 250 DO Work Phone: History of Present illness Gfjjyiqjb4 yo female. Presents for 3 months follow up after A Fib RFA.LO-Cdfumxmccw-OSV Dale Estevez [address] [place] Work Phone: History of Present illness Kwqzlivvi54 yo female. Presents for 6 months follow up after A fib RFA. Amiodarone was stopped during last visit.[facility]V-Hxvebgpntk-Mdxzw [facility] Work Phone: Hospital Discharge instructions Additional Instructions No driving for 24 hours. Office will call for your follow up appointment.[facility] Work Phone: Hospital Discharge instructions Additional Instructions DISCHARGE INSTRUCTIONS FOR UPPER ENDOSCOPY WHAT TO EXPECT: - You may feel full, gassy or cramping after your procedure. In some cases, this may be from a few hours to a day. Walking may help relieve the discomfort. - Your throat may feel sore today from the scope that the doctor passed through your throat to visualize your stomach. Take a throat lozenge or suck on ice to ease the discomfort. - You may notice some streaks of blood in your sputum if the doctor has taken a biopsy. - You should begin to recover from anesthesia within 1 hour of the procedure, however may feel groggy for the next 24 hours. DO's AND DON'Ts: - Call your doctor right away if you have a hard abdomen, severe pain, vomiting or if you cough up large amounts of blood. - Call your doctor if you develop any rashes, hives or difficulty breathing. - If you take 81 mg aspirin for your heart it is safe to resume this medication. - If you take other blood thinner medications your doctor will instruct you when these can safely be resumed. - Do NOT drive for 24 hours. - Do NOT operate machinery such as power tools, lawn mowers, snow blowers, sewing machines, etc. for 24 hours. - Avoid alcoholic beverages and drugs for allergies, nerves, or sleep. - Do NOT stay alone. Do NOT leave your child unattended. - Do NOT make important personal or business decisions or sign any legal documents. - Eat solid foods and drink liquids in smaller amounts than usual until normal appetite returns. If you should experience an upset stomach, liquids high in sugar content (soda, Darin-Aid, non-acid juices) are recommended. - Do NOT smoke. - Do take it easy today. You need not stay in bed, but avoid strenuous activities such as jogging or working out. FOLLOW UP & RECOMMENDATIONS: -You can restart your Eliquis tomorrow. -Start omeprazole 40 mg once daily, 30 minutes before your first meal of the day. -Please bring this new medication to your follow-up visit with you. -The GI office will schedule you a follow-up appointment. -Notify the doctor if you have any problems. -Follow up with PCP. -Office number [phone].[facility] Work Phone: Reason for referral (narrative)* Consultation (Routine) - Authorized Specialty Diagnoses / Procedures Referred By Contac t Referred To Contact Cardiology Diagnoses Paroxysmal atrial fibrillation (CMS/HCC) Procedures Follow Up In Cardiology Arsalan Conley MD [address] [place] [address] 2, [address] [address] Arsalan Conley MD [address] [place] [address] 2, [address] [address] Referral ID Status Reason Start Date Expiration Date V isits Requested Visits Authorized [id number] Authorized 09/15/2023 09/14/2024 1 1 [facility] Work Phone: Chief Complaint * More bad then good days * TAWANDA STEVENS is being seen for follow-up of a hospitalization for dyspnea. * Patient was recently hospitalized at [facility]. The patient was seen in Cardiology consult with subsequent cardiovascular management by [facility]. Hospitalization records have been reviewed. * Reason for Cardiology Consultation: ADHF, afib RVR * Consulting Ditch Tender: Dr. Conley * Cardiovascular testing: Echo, cardiac cath * Changes to cardiovascular medical regimen at time of discharge: amiodarone, eliquis, toprol, invokana, spironolactone, lipitor, digoxin * Discharge disposition: Home * Since discharge, remain fatigue and 'sleeping all the time'. * Sleeps in bed, occasionally recliner. One pillow, no PND. * No edema, weight loss 20 pounds since discharge * +POH, no dry mouth * no near syncope * No palpitations. * New Medications: * Has been compliant * Eliquis - no missed doses, is affordable * Ambulated in from [place] without complaints. * Right radial cath site healed without adverse sequela * Mother aortic aneurysm * Father 39 - unexpectedly at home * Siblings 'all having heart problems' * Atrial fibrillation: no ANISA w/u, no ETOH, caffeine 4-6, no diet pills, no OTC meds * Due to symptomatic atrial fibrillation in the setting of appropriate anticoagulation, the risk benefits and procedure of cardioversion were discussed including, but not limited to anesthesia reaction, irritation at defibrillator site and progression to high grade heart block requiring implant of temporary pacemaker. Patient is in agreement to proceed. Procedure will be scheduled. * I think I am breathing better * TAWANDA STEVENS is being seen for a 2 week follow-up of atrial fibrillation. * K+ 2.7 - unclear if she was taking HCTZ at that time (not on med list at [facility], she believes was stopped mid May by PCP), has been compliant with addition of KCL supplement. Is due for repeat labs. * Jun 24, 2022: DCC x3 with jainism of NSR. * Feels like initially 'was easier to breath' * At that time had 9.8 gram amiodarone loading. * Has continued to take amiodarone 200mg twice daily - at this time, 14.6 grams. * She is surprised to hear she is in atrial fib today because breathing better * Energy 'pretty low' * Weight - recorded Jun 17, 2022 at 149 pounds (should have been 194) * Sometimes sleeps in recliner for comfort * 1 pillow orthopnea/PND * Edema - comes and goes * No palpitation * No missed Eliquis dosing * I think I am breathing better * TAWANDA STEVENS is being seen for a 2 week follow-up of atrial fibrillation. * K+ 2.7 - unclear if she was taking HCTZ at that time (not on med list at [facility], she believes was stopped mid May by PCP), has been compliant with addition of KCL supplement. Is due for repeat labs. * Jun 24, 2022: DCC x3 with jainism of NSR. * Feels like initially 'was easier to breath' * At that time had 9.8 gram amiodarone loading. * Has continued to take amiodarone 200mg twice daily - at this time, 14.6 grams. * She is surprised to hear she is in atrial fib today because breathing better * Energy 'pretty low' * Weight - recorded Jun 17, 2022 at 149 pounds (should have been 194) * Sometimes sleeps in recliner for comfort * 1 pillow orthopnea/PND * Edema - comes and goes * No palpitation * No missed Eliquis dosing * Patient here for EKG ordered by Dr. Arsalan Conley MD due to AFIB. Janene Stone NP in suite.Patient had DCC on 07/28/2022. Verbally reviewed medication list with patient. Patient has no cardiac complaints at time of visit. EKG reviewed by Duarte MCFARLAND prior to discharge * to Dr. Arsalan Conley MD for review. * f/u after cardioversion: 'I am tired' * TAWANDA STEVENS is being seen for atrial fibrillation and cardiomyopathy. * f/u after cardioversion: 'I am tired' * TAWANDA STEVENS is being seen for atrial fibrillation and cardiomyopathy. * Patient presents to the office today ambulatory with steady gait. * Last evaluated in clinic by myself June 2022. Since that time she has completed the following: * July 28, 2022 cardioversion x2 with jainism of normal sinus rhythm on amiodarone 200 mg twice daily. * August 11, 2022 follow-up had recurrent atrial fibrillation and amiodarone increased 200 mg 3 times daily. Follow-up cardioversion was postponed due to COVID-positive illness, did not require hospitalization. * September 30, 2022 uneventful cardioversion with jainism of normal sinus rhythm. * Patient presents to the office today where she is maintaining normal sinus rhythm and reports no real difference . Her primary concern today is myalgia and leg weakness possibly related to statin use. She denied any shortness of breath ambulating in from the parking lot. She reports continued fatigability and feeling always tired . 1 pillow orthopnea, no evidence of PND, no edema. There is no evidence of dizziness or lightheadedness. * Atrial fibrillation history: * Initial diagnosis April 2022 hospitalization -at that time EF 15 to 20% thought to be tachycardia mediated. * She required high-dose beta-perfecto for rate control and was initiated on amiodarone. * June 24, 2022 cardioversion unsuccessful; had received 9.8 g loading of amiodarone * Today in office EKG sinus bradycardia at 56, QTC 567. She is currently on amiodarone 200 mg 3 timesdaily and Toprol XL 200 mg daily. 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 Unfortunately, due to need for high-dose beta-perfecto have been unable to initiate optimal GDMT. I am hesitant to reduce amiodarone or Toprol today due to difficulty at restoring normal sinus rhythm. * At 67 years old, preference would be to avoid amiodarone and it was selected as initial agent due to cardiomyopathy and need for jainism normal sinus rhythm in setting EF 15 to 20%. Discussed option of ablation for treatment of atrial fibrillation. Briefly discussed procedure and possibility ofeventual reduction of polypharmacy. She is in agreement to discuss with . * In regards to cardiomyopathy she has baseline functional class IIb-3 fatigability but no orthopnea.Fatigability more than likely related to high- dose metoprolol dosing. She exhibits no limitations consistent with decompensated heart failure. * Her complaints of leg weakness and myalgia possibly related to statin use and will provide with statin holiday. * Routine f/u: 'still tired' * TAWANDA STEVENS is being seen for a 1 month follow-up of atrial fibrillation and cardiomyopathy. * Routine f/u: 'still tired' * TAWANDA STEVENS is being seen for a 1 month follow-up of atrial fibrillation and cardiomyopathy. * Patient presents the office today ambulatory with steady gait. Last evaluated in clinic by myself October 2022. At that time: * 1. Held atorvastatin due to complaints of leg weakness, there have been no noted improvement and will resume. * 2. Consult with to discuss A. fib ablation scheduled for December 15, 2022 * 3. Lab work was completed at [facility], need to obtain. * 4. Repeat echocardiogram showed improvement in LVEF 50 to 55%, left atrium mildly dilated, mild MR.Results reviewed in detail. * Patient presents to the office today with continued complaints of fatigability and no energy. She had no complaints ambulating in from the parking lot. No dyspnea on exertion. Denies any recurrent palpitations, has been compliant with anticoagulation. * EKG in the office today sinus bradycardia at 44 bpm with QTC 467 currently on amiodarone 200mg BID and toprol 200mg. * Atrial fibrillation history: * Initial diagnosis April 2022 hospitalization -at that time EF 15 to 20% thought to be tachycardia mediated. * She required high-dose beta-perfecto for rate control and was initiated on amiodarone. * June 24, 2022 cardioversion unsuccessful; had received 9.8 g loading of amiodarone * July 28, 2022 cardioversion x2 with jainism of normal sinus rhythm on amiodarone 200 mg twice daily. * August 11, 2022 follow-up had recurrent atrial fibrillation and amiodarone increased 200 mg 3 times daily. Follow-up cardioversion was postponed due to COVID-positive illness, did not require hospitalization. * September 30, 2022 uneventful cardioversion with jainism of normal sinus rhythm. 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 * At 67 years old, preference would be to avoid amiodarone and it was selected as initial agent due to cardiomyopathy and need for jainism normal sinus rhythm in setting EF 15 to 20%. She has been maintaining sinus bradycardia on high-dose amiodarone since September 30, 2022 cardioversion. * In regards to cardiomyopathy she has baseline functional class IIb-3 fatigability but no orthopnea.Fatigability more than likely related to high- dose metoprolol dosing. She exhibits no limitations consistent with decompensated heart failure. * At this time, will reduce amiodarone and metoprolol dosage. She will continue to follow blood pressure with lower dose of metoprolol and notify me if concerns. She will keep scheduled follow-up with Dr. Hernandez. I will follow-up on lab work from [facility]. * Routine f/u: 'doing ok' * TAWANDA STEVENS is being seen for a 3 month follow-up of atrial fibrillation, dyslipidemia and hypertension. * Patient presents to the office ambulatory with steady gait. * Last evaluated in clinic by myself November 18, 2022. At that time reduce Toprol to 100 mg daily and she has noted some improvement in overall fatigability. * January 08, 2023 uneventful A-fib ablation by Dr. Hernandez. Right groin access site have healed without adverse sequela. * Patient presents to the office today were overall she reports doing good . She reports some improvement in her dyspnea and fatigability. Activity level includes ADLs, light housework. She is lookingforward to the warmer weather so that she can start a walking program. She denies any type of palpitations. Had no concerns ambulating in from the parking lot. * Atrial fibrillation history: * Initial diagnosis April 2022 hospitalization -at that time EF 15 to 20% thought to be tachycardia mediated. * She required high-dose beta-perfecto for rate control and was initiated on amiodarone. * June 24, 2022 cardioversion unsuccessful; had received 9.8 g loading of amiodarone * July 28, 2022 cardioversion x2 with jainism of normal sinus rhythm on amiodarone 200 mg twice daily. * August 11, 2022 follow-up had recurrent atrial fibrillation and amiodarone increased 200 mg 3 times daily. Follow-up cardioversion was postponed due to COVID-positive illness, did not require hospitalization. * September 30, 2022 uneventful cardioversion with jainism of normal sinus rhythm. * January 08, 2023 A-fib ablation * Her cardiomyopathy is tachycardia mediated; LVEF improved with jainism and maintenance of normal sinus rhythm. * We will defer additional changes to amiodarone, digoxin and metoprolol to Dr. Hernandez. * Primary prevention reviewed. * Unfortunately, continues to smoke. Is trying to cut back but continues to decline pharmaceutical assistance. * Overall patient is pleased with current state of cardiovascular health. At this time there are no indications for additional cardiovascular testing or need for medication changes. TAWANDA STEVENS is being seen for a 3 month follow-up of S/P AF RFA December 2022. Family History No Family History Records FoundUnknown Family Member Name Dates Details Family history of arterioscl erotic cardiovascular disease: Mother, Father, Brother(V17.49, Z82.49) Status:Active Unknown Family Member Name Dates Details Family history of arterioscl erotic cardiovascular disease: Mother, Father, Brother(V17.49, Z82.49) Status:Active Unknown Family Member Name Dates Details Family history of arterioscl erotic cardiovascular disease: Mother, Father, Brother(V17.49, Z82.49) Status:Active Unknown Family Member Name Dates Details Family history of arterioscl erotic cardiovascular disease: Mother, Father, Brother(V17.49, Z82.49) Status:Active Unknown Family Member Name Dates Details Family history of arterioscl erotic cardiovascular disease: Mother, Father, Brother(V17.49, Z82.49) Status:Active Unknown Family Member Name Dates Details Family history of arterioscl erotic cardiovascular disease: Mother, Father, Brother(V17.49, Z82.49) Status:Active Relationship Condition Age at Onset Recorded Date/T adrian brother Atrial fibrillation Unknown sister Atrial fibrillation Unknown Not Specified Abdominal aortic aneurysm (AAA) Unknown father Myocardial infarction Unknown Unknown Family Member Name Dates Details Family history of arterioscl erotic cardiovascular disease: Mother, Father, Brother(V17.49, Z82.49) Status:Active Unknown Family Member Name Dates Details Family history of arterioscl erotic cardiovascular disease: Mother, Father, Brother(V17.49, Z82.49) Status:Active Unknown Family Member Name Dates Details Family history of arterioscl erotic cardiovascular disease: Mother, Father, Brother(V17.49, Z82.49) Status:Active Unknown Family Member Name Dates Details Family history of arterioscl erotic cardiovascular disease: Mother, Father, Brother(V17.49, Z82.49) Status:Active Unknown Family Member Name Dates Details Family history of arterioscl erotic cardiovascular disease: Mother, Father, Brother(V17.49, Z82.49) Status:Active Unknown Family Member Name Dates Details Family history of arterioscl erotic cardiovascular disease: Mother, Father, Brother(V17.49, Z82.49) Status:Active Unknown Family Member Name Dates Details Family history of arterioscl erotic cardiovascular disease: Mother, Father, Brother(V17.49, Z82.49) Status:Active Unknown Family Member Name Dates Details Family history of arterioscl erotic cardiovascular disease: Mother, Father, Brother(V17.49, Z82.49) Status:Active Unknown Family Member Name Dates Details Family history of arterioscl erotic cardiovascular disease: Mother, Father, Brother(V17.49, Z82.49) Status:Active Unknown Family Member Name Dates Details Family history of arterioscl erotic cardiovascular disease: Mother, Father, Brother(V17.49, Z82.49) Status:Active Unknown Family Member Name Dates Details Family history of arterioscl erotic cardiovascular disease: Mother, Father, Brother(V17.49, Z82.49) Status:Active Unknown Family Member Name Dates Details Family history of arterioscl erotic cardiovascular disease: Mother, Father, Brother(V17.49, Z82.49) Status:Active Unknown Family Member Name Dates Details Family history of arterioscl erotic cardiovascular disease: Mother, Father, Brother(V17.49, Z82.49) Status:Active Unknown Family Member Name Dates Details Family history of arterioscl erotic cardiovascular disease: Mother, Father, Brother(V17.49, Z82.49) Status:Active Unknown Family Member Name Dates Details Family history of arterioscl erotic cardiovascular disease: Mother, Father, Brother(V17.49, Z82.49) Status:Active Unknown Family Member Name Dates Details Family history of arterioscl erotic cardiovascular disease: Mother, Father, Brother(V17.49, Z82.49) Status:Active Unknown Family Member Name Dates Details Family history of arterioscl erotic cardiovascular disease: Mother, Father, Brother(V17.49, Z82.49) Status:Active Unknown Family Member Name Dates Details Family history of arterioscl erotic cardiovascular disease: Mother, Father, Brother(V17.49, Z82.49) Status:Active Unknown Family Member Name Dates Details Family history of arterioscl erotic cardiovascular disease: Mother, Father, Brother(V17.49, Z82.49) Status:Active Relationship Condition Age at Onset Recorded Date/T adrian brother Atrial fibrillation Unknown sister Atrial fibrillation Unknown Not Specified Abdominal aortic aneurysm (AAA) Unknown father Myocardial infarction Unknown brother Diabetes mellitus Unknown Heart disease Unknown Hypertension Unknown father Unknown Not Specified Unknown sister Hypertension Unknown Chief Complaint and Reason for Visit Chief Complaint lung nodules fontenot hx of ra Afib;SOB;NStemi Afib afib Reason for Visit Acute systolic CHF ( congestive heart failure), NYHA class 4 Anxiety Atrial fibrillation with RVR Cardiomyopathy Depression HLD (hyperlipidemia) Rheumatoid arthritis Chief Complaint lung nodules fontenot hx of ra Afib;SOB;NStemi Afib afib Pre Op Testing for Cardioversion Reason for Visit Acute systolic CHF ( congestive heart failure), NYHA class 4 Anxiety Atrial fibrillation with RVR Cardiomyopathy Depression HLD (hyperlipidemia) Rheumatoid arthritis Chief Complaint Afib;SOB;NStemi Afib afib Pre Op Testing for Cardioversion Z79.01 I42.8 I48.19 Reason for Visit Acute systolic CHF ( congestive heart failure), NYHA class 4 Anxiety Atrial fibrillation with RVR Cardiomyopathy Depression HLD (hyperlipidemia) Rheumatoid arthritis Chief Complaint Afib afib Pre Op Testing for Cardioversion Z79.01 I42.8 I48.19 Chief Complaint Afib afib Pre Op Testing for Cardioversion Z79.01 I42.8 I48.19 M05.79 Z79.899 Afib Chief Complaint Pre Op Testing for C ardioversion Z79.01 I42.8 I48.19 M05.79 Z79.899 Afib afib Chief Complaint M05.79 Z79.899 Afib afib R91.8 Chief Complaint r91.8 m05.10 Chief Complaint Black Stools r91.8 Chief Complaint r91.8 m05.10 Black Stools Advance Directives No Advanced Directives Records Found Advance Directive Response Recorded Date/ Time Advance Directives No December 01, 2018 4:17pm Advance Directive Response Recorded Date/ Time Advance Directives No December 01, 2018 3:17pm Summary Purpose Additional Source Comments Care Teams (unrecognized sec tion and content) Team Status: Inactive Member Role Status Dates Carolee Estrada MD Primary Care Provider Active Arsalan Conley MD Attending Provider Active Team Status: Inactive Member Role Status Dates Carolee Estrada MD Primary Care Provider Active Arsalan Conley MD Attending Provider, [facility] Provider Active Team Status: Inactive Member Role Status Dates Carolee Estrada MD Primary Care Provider Active August Lamas MD Admit Provider, Rachel moya Active Team Status: Inactive Member Role Status Dates Carolee Estrada MD Primary Care Provider Active Carmine Nails MD Attending Provider Active Team Status: Active Member Role Status Dates Carolee Estrada MD Primary Care Provider Active Team Status: Inactive Member Role Status Dates Carolee Estrada MD Primary Care Provider Active Javier Ross MD Attending Provider Active [employer] Relationship Specialty Start Date End Date Janene Berry, DIRECTOR OF [employer] ENGRAVER [address] [place] [address] 2, [address] [place] [id number] PCP - [employer] PCP 03/15/23 Chris Moss MD [address] [facility] [place] [id number] PCP - General Family Medicine 09/15/23 Team Status: Inactive Member Role Status Dates Carolee Estrada MD Primary Care Provider Active S tart: November 30, 2023 End: November 30, 2023 Clinton Pierce MD Attending Provider Active S tart: November 30, 2023 End: November 30, 2023 Team Status: Inactive Member Role Status Dates Carolee Estrada MD Primary Care Provider Active S tart: February 22, 2024 End: February 22, 2024 Javier Ross MD Attending Provider Active Start: February 22, 2024 End: February 22, 2024 Team Status: Inactive Member Role Status Dates Carolee Estrada MD Primary Care Provider Active Clinton Pierce MD Attending Provider Active Goals (unrecognized section and content) Goals may be documented in a n alternate sectionGoals may be documented in an alternate sectionGoals may be documented in an alternate sectionGoals may be documented in an alternate sectionNo InformationGoals may be documented in an alternate sectionNo InformationNo InformationNo Information INFORMATION SOURCE (unrecogn ized section and content) DATE CREATED AUTHOR 11/14/2022 [facility] DATE CREATED AUTHOR AUTHOR'S ORGANIZ ATION 01/23/2023 [facility] DATE CREATED AUTHOR AUTHOR'S ORGANIZ ATION 04/23/2023 [facility] DATE CREATED AUTHOR AUTHOR'S ORGANIZ ATION 04/23/2023 [facility] DATE CREATED AUTHOR AUTHOR'S ORGANIZ ATION 07/15/2023 [facility] DATE CREATED AUTHOR AUTHOR'S ORGANIZ ATION 07/16/2023 [facility] DATE CREATED AUTHOR AUTHOR'S ORGANIZ ATION 02/27/2024 [facility] DATE CREATED AUTHOR AUTHOR'S ORGANIZ ATION 07/14/2024 [facility] REASON FOR VISIT (unrecogniz ed section and content) Reason Comments Follow-up 6m FOR RECORDS PERTAINING TO PATIENTS WHO ARE OR HAVE BEEN ENROLLED IN A CHEMICAL DEPENDENCY/SUBSTANCEABUSE PROGRAM, SOME INFORMATION MAY BE OMITTED. This clinical summary was aggregated from multiple sources. Caution should be exercised in using it in the provision of clinical care. This summary normalizes information from multiple sources, and as a consequence, information in this document may materially change the coding, format and clinical context of patient data. In addition, data may be omitted in some cases. CLINICAL DECISIONS SHOULD BE BASED ON THE PRIMARY CLINICAL RECORDS. [facility]IC[facility]. provides no warranty or guarantee of the accuracy or completeness of information in this document.
[2024-07-26 12:25] LABS: Basophils Absolute Auto 0.1 10^3/uL (0.0-0.1); Basophils Percent Auto 1.5 % (0.2-2.0); Eosinophils Absolute Auto 0.4 10^3/uL (0.0-0.7); Eosinophils Percent Auto 4.9 % (0.9-7.0); Hematocrit 46.3 % (36.0-48.0); Hemoglobin 15.3 g/dL (12.0-16.0); Immature Granulocytes Abs Auto 0.02 10^3/uL (0.00-0.03); Immature Granulocytes Pct Auto 0.2 % (0.0-0.5); Lymphocytes Percent Auto 35.7 % (20.5-60.0); Mean Corpuscular Hemoglobin 32.1 pg (26.7-34.0); Mean Corpuscular Volume 97.3 fL (81.0-99.0); Mean Platelet Volume 9.6 fL (9.5-13.5); Monocytes Absolute Auto 0.7 10^3/uL (0.3-0.8); Monocytes Percent Auto 8.7 % (1.7-12.0); Neutrophils Absolute Auto 4.1 10^3/uL (1.4-6.5); Platelet Count 259 10^3/uL (150-450); Red Blood Count 4.76 10^6/uL (4.20-5.40); White Blood Count 8.4 10^3/uL (4.0-11.0)
[2024-07-26 12:43] LABS: Erythrocyte Sedimentation Rate 32 mm/hr (<=30)
[2024-07-26 13:09] LABS: Alanine Aminotransferase 31 U/L (14-59); Albumin Globulin Ratio 0.9; Albumin Level 3.5 g/dL (3.4-5.0); Alkaline Phosphatase 100 U/L (46-116); Aspartate Amino Transferase 20 U/L (15-37); Bilirubin Direct 0.1 mg/dL (0.0-0.2); Bilirubin Total 0.5 mg/dL (0.2-1.0); Estimated GFR (African America >60 (>=60); Estimated GFR (Non-African Ame >60 (>=60); Globulin 3.7 g/dL; Total Protein 7.2 g/dL (6.4-8.2)
== END 2024-07-26 12:12 | disposition home or self-care (01) ==
LOC: LAB 12:12
PROVIDERS: PCP Family Medicine; Visit Provider Internal Medicine Rheumatology
DX: M05.79 Rheumatoid arthritis with rheumatoid factor of multiple sites without organ or systems involvement (principal); Z79.899 Other long term (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
CPT/HCPCS: 36415; 80076; 82565; 85025; 85652

== ENCOUNTER 2024-08-23 13:53 | Outpatient (OUT) | payer MEDICARE, SELFPAY ==
--- OUTSIDE RECORDS SUMMARY | 2024-08-23 14:16 | XMS_ITS | CCD ---
Author Organization [facility] [employer] Care Team Providers Care Wire Rope Sales Representative Name Role Phone Carolee Estrada Unavailable Unavailable Unavailable MD Carolee Estrada Primary Care Provider MD Carmine Nails Attending Provider [phone] MD August Lamas Admit Provider MD August Lamas Attending Provider MD Arsalan Conley Attending Provider MD Arsalan Conley Referring Provider MD Carolee Estrada Primary Care Provider MD Carolee Estrada Primary Care Provider [phone] MD Carmine Nails Attending Provider MD Carolee Estrada Primary Care Provider [phone] MD Arsalan Conley Attending Provider MD Arsalan Conley Referring Provider MD Carmine Nails Attending Provider MD Carolee Estrada Primary Care Provider MD Arsalan Conley Attending Provider MD Javier [...] ., DR CAROLEE Agosto Primary Care Unavailable [place], DR LAUREN Funez Consulting Unavailable HALADAChase, DR LOU Consulting Unavailable ESTRADA ., DR CAROLEE Agosto Admitting Unavailable ESTRADA ., DR CRAOLEE Agosto Attending Unavailable ESTRADA ., DR CAROLEE [...] le McGuinn, Arsalan Attending Unavailable Sean, Dr. Carloee Keller Primary Care Unavailab le McGuinn, Arsalan [...] Dr. Gilbert Bethea Attending Unavail able Berry PERSONAL SHOPPER-VIDEO COORDINATOR, Janene K Unavailable Chris Moss MD Primary Care Provider MD Carolee Estrada Primary Care Provider MD Javier Ross Attending Provider Clinton Pierce Unavailable MD Carolee Estrada Primary Care Provider MD Clinton Pierce Attending Provider MD Javier Ross Attending Provider Carolee Estrada [...] (4 sources) take 1 capsule by mo [facility] once daily Vitamin D-3 1000 UNIT 1 [...] ls Discontinued 20 MEQ PO Daily 30 [place] 10th, 2022 12:00am November 30, 2023 1:36pm [...] Start: 04-02-2022 take 2 tablets by mo [facility] twice daily, then take 2 tablets by [...] anticoagulants] Episodic Other aftercare (1 source) Other 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 (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; Translations: [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 SETTER CURRENT DRUG THERAPY] Onset: 01-21-2023 Episodic Other aftercare (1 source) rn long term care (current) use of anticoagulants; Translations: [PENITENTIARY CURRNT USE ANTICOAGULANTS] Onset: 11-02-2022 Episodic Other [...] Value Interpretation Reference Range Facility CT chest [facility] 02-22-2024 CT chest [facility] [place] [address] CT Scan Report Signed Patient: Tawanda Stevens MR#: [id number] 7 : 1955 Acct:[id number] Age/Sex: 68 / F ADM Date: 02/22/24 Loc: [facility] Room: Type: [facility] Attending Dr: Javier Ross MD Copies to: [...] Bryant Jr., D.OVernon02/22/2024 2:18 PM Dictation Location: [place] [address] Transcribed By: [facility] 02/22/241417 Dictated By: Roberth Bryant Jr, DO 02/22/241413 Signed By: 02/22/241417 Normal [facility] 11-30-2023 L Specimen: [id number] Received: 11/30/23 Status: DANIAL Norris Num: [id number] Spec Type: Surgical Subm Dr: Clinton Pierce MD Tissues: A GASTRIC FOR HP (GASTRIC HP) Procedures: HE/2, Gross/Micro L4, H PYLORI, IHC First AB Age/ Patient Sex Location Account Attending Physician Tawanda Stevens 68/F [id number] Clinton Pierce MD SPEC NUM: [id number] RECD: 11/30/23 STATUS: DANIAL ERI NUM: [id number] CHANTEL: 11/30/[address]: Clinton Pierce MD ENTERED: 11/30/[address] [facility] [address]: SPEC TYPE: Surgical DEPT: S ORDERED: HE/2, Gross/Micro L4, H PYLORI, IHC First AB ORDERED: HE/2, Gross/Micro L4, H PYLORI, IHC First AB This Amended Report is issued to correct the following: CPT code Amended Report Information: [id number] for IHC Addendum Signed (signature on file) [...] [id number] Received: 11/30/23 Status: DANIAL Eri Num: [id number] Spec Type: Surgical Subm Dr: Clinton Pierce MD Tissues: A GASTRIC FOR HP (GASTRIC HP) Procedures: HE/2, Gross/Micro L4, H PYLORI, IHC First AB Patient: Tawanda Stevens [id number] (Continued) Specimen: [id number] Received: 11/30/23 (Continued) Signed (signature on file) Latoya Roman MD 12/01/23 1610 Specimen: Received: 11/30/23 Status: DANIAL Eri Num: [id number] Spec Type: Surgical Subm Dr: Clinton Pierce MD Tissues: A GASTRIC FOR HP (GASTRIC HP) Procedures: HE/2, Gross/Micro L4, H PYLORI, IHC First AB Patient: Tawanda Stevens [id number] (Continued) Specimen: S2 Received: 11/30/23 (Continued) CPT Codes 12545 Specimen: [id number] Received: 11/30/23 Status: DANIAL Mercedesmaximino Num: [id number] Spec Type: Surgical Subm Dr: Clinton Pierce MD Tissues: A GASTRIC FOR HP (GASTRIC HP) Procedures: HE/2, Gross/Micro L4, H PYLORI, IHC First AB Patient: Tawanda Stevens [id number] (Continued) Signed (signature on file) Latoya Roman MD 12/01/23 7158 Normal [facility] CT chest wo conon 10-22-2023 CT chest wo con [facility] Main [place] [address] [place] [address] CT Scan Report Signed Patient: Tawanda Stevens MR#: [id number] 7 : 1955 Acct:[id number] Age/Sex: 68 / F ADM Date: 10/22/23 Loc: CT Room: Type: [facility] Attending Dr: Javier Ross MD Copies to: [...] Bryant Jr., DVernonOVernon10/22/2023 2:44 PM Dictation Location: [place] [address] Transcribed By: [facility] 10/22/23 1444 Dictated By: Roberth Bryant Jr, DO 10/22/23 1435 Signed By: 10/22/23 1444 Normal [facility] Office Visit (Cardiology)on 07-14-2023 Follow-up visit Diagnoses/Problems Assessed Paroxysmal atrial fibrillation (427.31) (I48.0) Chief Complaint TAWANDA STEVENS is being seen for a 3 month follow-up of S/P AF RFA December 2022. Adult Risk Screening Spiritual and Cultural: Patient Declined. Initial Fall Risk Screening: TAWANAD has not fallen in the last 6 [...] Normal [employer] Consultation Noteon 04-15-20 Consultation Note [id number]:12 7 Normal [facility] Electrocardiogram 12 Leadon 04-13-2023 Electrocardiogram 12 Lead Ventricular Rate 57 Atrial Rate 57 QRS Duration 86 Q-T Interval 424 QTC Calculation(Bazett) 412 R [place] -11 T [place] 28 QRS Count 9 Q Onset 223 [...] Hernandez (1205) on 04/14/2023 3:36:14 PM Normal [facility] Office Visit (Cardiology)on 04-13-2023 Follow-up visit Diagnoses/Problems Assessed Persistent atrial fibrillation (427.31) (I48.19) Orders Persistent atrial fibrillation Electrocardiogram EKG; Status:Complete; Done: [id number] 08:44AM Chief Complaint TAWANDA STEVENS is being [...] and as (more content not included)... Normal [employer] Tobacco Screening.on 023 Fall risk assessment a) No falls within the last year [facility] [address] [place] Work Phone: Tobacco use status [facility] a) Yes [facility] [facility] [address] [place] Work Phone: Tobacco Screening. 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 No syncope Father SCD [...] we can help. You may also call 4-493-DGAF-NOW for free resources and assistance.; Status:Complete; Done: [id number] Tobacco Use Screening; Status:Complete; Done: [id number] Patient Instructions Please bring all medicines, vitamins, [...] amiodarone July 28, 2022 cardioversion x2 with moravian of normal sinus rhythm on amiodarone 200 mg twice daily. August 11, 2022 follow-up had recurrent atrial fibrillation and amiodarone increased 200 mg 3 times daily. Follow-up cardioversion was postponed due to COVID-positive illness, did not require hospitalization. September 30, 2022 uneventful (more content not included)... Normal [facility] Tobacco Screening.on 023 Tobacco use status [facility] b) No [facility]-Sandu ara [address] DO Work Phone: Lab Reportson 02-02-2023 Lab Reports [id number]:12 7 Normal [facility] CBC AUTO DIFFon 01-18-2023 BASO # 0.1 103/ul Normal 0.0-0.1 [facility] Comment on above: Performed By: #### P TT, PT #### [facility] [address] [place] [address] Dr. Lee Zaldivar Basophils/100 WBC (Bld) 0.9 % Normal 0.2-2.0 [facility] Comment on above: Performed By: #### P TT, PT #### [facility] [address] [place] [address] Dr. Lee Zaldivar EO # 0.3 103/ul Normal 0.0-0.7 [facility] Comment on above: Performed By: #### P TT, PT #### [facility] [address] [place] [address] Dr. Lee Zaldivar Eosinophils/100 WBC (Bld) 1.7 % Normal 0.9-7.0 [facility] Comment on above: Performed By: #### P TT, PT #### [facility] [address] [place] [address] Dr. Lee Zaldivar Erythrocyte distribution width (RBC) [Ratio] 14.3 % Normal 11.0-15.0 [facility] Comment on above: Performed By: #### P TT, PT #### [facility] [address] [place] [address] Dr. Lee Zaldivar Hematocrit (Bld) [Volume fraction] 46.6 % Normal 36.0-48.0 [facility] Comment on above: Performed By: #### P TT, PT #### [facility] [address] [place] [address] Dr. Lee Zaldivar Hemoglobin (Bld) [Mass/Vol] 15.3 g/dL Normal 12.0-16.0 [facility] Comment on above: Performed By: #### P TT, PT #### [facility] [address] [place] [address] Dr. Lee Zaldivar IG # 0.13 10e3/ul Critically high 0.00-0.03 [facility] Comment on above: Performed By: #### P TT, PT #### [facility] [address] [place] [address] Dr. Lee Zaldivar IG % 0.9 % Critically high 0.0-0.5 [facility] Comment on above: Performed By: #### P TT, PT #### [facility] [address] [place] [address] Dr. Lee Zaldivar LYMPH # 2.2 103/ul Normal 1.2-3.8 [facility] Comment on above: Performed By: #### P TT, PT #### [facility] [address] [place] [address] Dr. Lee Zaldivar Lymphocytes/100 WBC (Bld) 15.0 % Critically low 20.5-60.0 [facility] Comment on above: Performed By: #### P TT, PT #### [facility] [address] [place] [address] Dr. Lee Zaldivar MANUAL DIFF REQ NO Normal [facility] Comment on above: Performed By: #### P TT, PT #### [facility] [address] [place] [address] Dr. Lee Zaldivar MCH (RBC) [Entitic mass] 31.7 pg Normal 26.7-34.0 [facility] Comment on above: Performed By: #### P TT, PT #### [facility] [address] [place] [address] Dr. Lee Zaldivar MCHC (RBC) [Mass/Vol] 32.8 g/dL Normal 29.9-35.2 [facility] Comment on above: Performed By: #### P TT, PT #### [facility] [address] [place] [address] Dr. Lee Zaldivar MCV (RBC) [Entitic vol] 96.5 fL Normal 81.0-99.0 [facility] Comment on above: Performed By: #### P TT, PT #### [facility] [address] [place] [address] Dr. Lee Zaldivar MONO # 1.0 103/ul Critically high 0.3-0.8 [facility] Comment on above: Performed By: #### P TT, PT #### [facility] [address] [place] [address] Dr. Lee Zaldivar Monocytes/100 WBC (Bld) 7.0 % Normal 1.7-12.0 [facility] Comment on above: Performed By: #### P TT, PT #### [facility] [address] [place] [address] Dr. Lee Zaldivar NEUT # 11.1 103/ul Critically high 1.4-6.5 [facility] Comment on above: Performed By: #### P TT, PT #### [facility] [address] [place] [address] Dr. Lee Zaldivar Neutrophils/100 WBC (Bld) 74.5 % Normal 43.0-75.0 [facility] Comment on above: Performed By: #### P TT, PT #### [facility] [address] [place] [address] Dr. Lee Zaldivar Platelet mean volume (Bld) [Entitic vol] 9.7 fL Normal 9.5-13.5 [facility] Comment on above: Performed By: #### P TT, PT #### [facility] [address] [place] [address] Dr. Lee Zaldivar PLT 354 103/ul Normal 150-450 [facility] Comment on above: Performed By: #### P TT, PT #### [facility] [address] [place] [address] Dr. Lee Zaldivar RBC 4.83 106/ul Normal 4.20-5.40 [facility] Comment on above: Performed By: #### P TT, PT #### [facility] [address] [place] [address] Dr. Lee Zaldivar WBC 15.0 103/ul Critically high 4.0-11.0 [facility] Comment on above: Performed By: #### P TT, PT #### [facility] [address] [place] [address] Dr. Lee Zaldivar CREATININEon 01-18-2023 Creatinine [Mass/Vol] 1.00 mg/dL Normal 0.55-1.02 [facility] Comment on above: Performed By: #### D IG #### [facility] [address] [place] [address] Dr. Lee Zladivar EGFR-AF CROATIAN >60 Normal >=60 [facility] Comment on above: Performed By: #### D IG #### [facility] [address] [place] [address] Dr. Lee Zaldivar EGFR-NON AF CROATIAN 55 mL/min/1.73m2 Critically low >=60 [facility] Comment on above: Performed By: #### D IG #### [facility] [address] [place] [address] Dr. Lee Zaldivar LIVER PROFILEon 01-18-2023 Albumin [Mass/Vol] 3.4 g/dL Normal 3.4-5.0 [facility] Comment on above: Performed By: #### D IG #### [facility] [address] [place] [address] Dr. Lee Zaldivar Albumin/Globulin [Mass ratio] 0.7 {ratio} Normal [facility] Comment on above: Performed By: #### D IG #### [facility] [address] [place] [address] Dr. Lee Zaldivar ALP [Catalytic activity/Vol] 106 U/L Normal 46-116 [facility] Comment on above: Performed By: #### D IG #### [facility] [address] [place] [address] Dr. Lee Zaldivar ALT [Catalytic activity/Vol] 23 U/L Normal 14-59 [facility] Comment on above: Performed By: #### D IG #### [facility] [address] [place] [address] Dr. Lee Zaldivar AST [Catalytic activity/Vol] 19 U/L Normal 15-37 [facility] Comment on above: Performed By: #### D IG #### [facility] [address] [place] [address] [address] Lee Zaldivar BILI, CONJUGATED 0.1 mg/dL Normal 0.0-0.2 [facility] Comment on above: Performed By: #### D IG #### [facility] [address] [place] [address] [address] Lee Zaldivar Bilirubin [Mass/Vol] 0.4 mg/dL Normal 0.2-1.0 [facility] Comment on above: Performed By: #### D IG #### [facility] [address] [place] [address] [address] Lee Zaldivar Globulin (S) [Mass/Vol] 4.6 g/dL Normal [facility] Comment on above: Performed By: #### D IG #### [facility] [address] [place] [address] [address] Lee Zaldivar Protein [Mass/Vol] 8.0 g/dL Normal 6.4-8.2 [facility] Comment on above: Performed By: #### D IG #### [facility] [address] [place] [address] [address] Lee Zaldivar SED RATE [facility] 2022 SED RATE 7 mm/hr Normal <=30 [facility] Comment on above: Performed By: #### D IG #### [facility] [address] [place] [address] [address] Lee Zaldivar ACT-HIGH RANGEon 01-08-2023 ACT-HIGH RANGE 349 SECONDS High 96 - 152 [facility] Comment on above: Result Comment: Note new reference range as of 02/17/2019. Target ACT range will vary based on the patient population, clinical status, and surgical intervention occurring. Performed By: #### A CTP #### [facility] [address] [place] [address] ACT-HIGH RANGE 285 SECONDS High 96 - 152 [facility] Comment on above: Result Comment: Note new reference range as of 02/17/2019. Target ACT range will vary based on the patient population, clinical status, and surgical intervention occurring. Performed By: #### A CTP ####[id number] [place] [address] ACT-HIGH RANGE 242 SECONDS High 96 - 152 [facility] Comment on above: Result Comment: Note new reference range as of 02/17/2019. Target ACT range will vary based on the patient population, clinical status, and surgical intervention occurring. Performed By: #### A CTP #### [facility] [address] [place] [address] No Panel Informationon 01-08 349 {SECONDS} above [...] 10 mL (more content not included)... Normal [facility] CORONAVIRUS 2019, SCREEN ASY MPTOMATICon 01-06-2023 SARS-CoV-2 (COVID-19) RNA LAURITA+probe Ql (Unsp spec) Not detected Normal Not Detected [facility] Comment on above: Result Comment: . This assay is designed to detect the ORF1a/b and E genes of SARS-CoV-2 via nucleic acid amplification. A Not Detected result does not preclude 2019-nCoV infection since the adequacy of sample collection and/or low viral burden may result in presence of viral nucleic acids below the clinical sensitivity of this test method. Fact sheet for providers: https://www.fda.gov/media/312499/download Fact sheet for patients: https://www.fda.gov/media/020612/download This test has received FDA Emergency Use Authorization (EUA) and has been verified for use by [facility] ([facility]). This test is only authorized for the duration of time that circumstances exist to justify the authorization of the emergency use of in vitro diagnostic tests for the detection of SARS-CoV-2 virus and/or diagnosis of COVID-19 infection under section 564(b)(1) of the Act, 21 U.S.C. 360bbb-3(b)(1), unless the authorization is terminated or revoked sooner. [facility] is certified under CLIA-88 as qualified to perform high complexity testing. Testing is performed in the [facility] laboratories located at [id number] [place] [address]. Performed By: #### C OVSC ####[id number] [facility] [place] [address] Covid 19 Resultson 3 SARS-CoV-2 (COVID-19) RNA [...] You may also be contacted by the [facility] to see if any of your close [...] or Naproxen (Aleve) can also be used. Lshg-epd-cfxwcfl cough and cold medicines can be used according to the instructions on the package. Some ctyy-znd-sctzyee medicines also contain acetaminophen. Make sure you [...] water are not available, use alcohol-based hand head of digital advertising & integration. Avoid touching your eyes, nose, and mouth [...] 24 kalpana (more content not included)... Normal [facility] BASIC METABOLIC PANELon 12-17 Anion gap [Moles/Vol] 12 mmol/L Normal 10 - 20 [facility] Comment on above: Performed By: #### B MP #### [address] [id number] Calcium [Mass/Vol] 9.6 mg/dL Normal 8.6 - 10.3 [facility] Comment on above: Performed By: #### B MP #### [address] [id number] Chloride [Moles/Vol] 108 mmol/L High 98 - 107 [facility] Comment on above: Performed By: #### B MP #### [address] [id number] Creatinine [Mass/Vol] 0.88 mg/dL Normal 0.50 - 1.05 [facility] Comment on above: Performed By: #### B MP #### [address] [id number] GFR/1.73 sq M.predicted among non-blacks MDRD (S/P/Bld) [Vol rate/Area] 72 mL/min/{1.73_m2} Normal >90 [facility] Comment on above: Result Comment: CALC ULATIONS OF ESTIMATED GFR ARE PERFORMED USING THE 2020 CKD-EPI STUDY REFIT EQUATION WITHOUT THE RACE VARIABLE FOR THE IDMS-TRACEABLE CREATININE METHODS. https://jasn.asnjournals.org/content//ASN.15353 44057 Performed By: #### B MP #### [address] [id number] Glucose [Mass/Vol] 79 mg/dL Normal 74 - 99 [facility] Comment on above: Performed By: #### B MP #### [address] [id number] HCO3 (Bld) [Moles/Vol] 23 mmol/L Normal 21 - 32 [facility] Comment on above: Performed By: #### B MP #### [address] [id number] Potassium [Moles/Vol] 3.3 mmol/L Low 3.5 - 5.3 [facility] Comment on above: Performed By: #### B MP #### [address] [id number] Sodium [Moles/Vol] 140 mmol/L Normal 136 - 145 [facility] Comment on above: Performed By: #### B MP #### [address] [id number] Urea nitrogen [Mass/Vol] 12 mg/dL Normal 6 - 23 [facility] Comment on above: Performed By: #### B MP #### [address] [id number] CBCon 01-05-2023 Erythrocyte distribution width (RBC) [Ratio] 14.4 % Normal 11.5 - 14.5 [facility] Comment on above: Performed By: #### C BC #### [address] [id number] Hematocrit (Bld) [Volume fraction] 48.2 % High 36.0 - 46.0 [facility] Comment on above: Performed By: #### C BC #### [address] [id number] Hemoglobin (Bld) [Mass/Vol] 15.3 g/dL Normal 12.0 - 16.0 [facility] Comment on above: Performed By: #### C BC #### [address] [id number] MCHC (RBC) [Mass/Vol] 31.7 g/dL Low 32.0 - 36.0 [facility] Comment on above: Performed By: #### C BC #### [address] [id number] MCV (RBC) [Entitic vol] 101 fL High 80 - 100 [facility] Comment on above: Performed By: #### C BC #### [address] [id number] Platelets (Bld) [#/Vol] 345 10*3/uL Normal 150 - 450 [facility] Comment on above: Performed By: #### C BC #### [address] [id number] RBC 4.79 x10E12/L Normal 4.00 - 5.20 [facility] Comment on above: Performed By: #### C BC #### [address] [id number] WBC (Bld) [#/Vol] 14.4 10*3/uL High 4.4 - 11.3 [facility] Comment on above: Performed By: #### C BC #### [address] [id number] CORONAVIRUS 2019, SCREEN ASY MPTOMATICon 01-05-2023 Lab Specimen Source Nasal, Nasopharyngeal Normal [facility] Comment on above: Performed By: #### C OVSC ####[id number] [place] [address] Coronavirus 2019 RNA by PCR, Screening Asymptomticon [...] this test method. Fact sheet for providers: https://www.fda.gov/media/493278/download Fact sheet for patients: https://www.fda.gov/media/969856/download This test has received FDA Emergency Use Authorization (EUA) and has been verified for use by [facility] ([facility]). This test is only authorized for the duration of time that circumstances exist to justify the authorization of the emergency use of in vitro diagnostic tests for the detection of SARS-CoV-2 virus and/or diagnosis of COVID-19 infection under section 564(b)(1) of the Act, 21 U.S.C. 360bbb-3(b)(1), unless the authorization is terminated or revoked sooner.[facility] is certified under CLIA-88 as qualified to perform high complexity testing. Testing is performed in the [facility] laboratories located at [address] [place] [address]. Laboratory - Chemistry and C hemistry - [...] RACE VARIABLE FOR THE IDMS-TRACEABLE CREATININE METHODS.https://jasn.asnjournals.org/content//A SN.4406243708 PT/INRon 01-05-2023 PT Coag (PPP) [Time] 11.9 s Normal 9.8 - 13.4 [facility] Comment on above: Performed By: #### P TINR #### [address] [id number] PT, INR 1.0 Normal 0.9 - 1.1 [facility] Comment on above: Performed By: #### P TINR #### [address] [id number] Electrocardiogram 12 Leadon 12-15-2022 Electrocardiogram 12 Lead Ventricular Rate 49 Atrial Rate 49 P-R Interval 178 QRS Duration 84 Q-T Interval 490 QTC Calculation(Bazett) 442 P Buffalo 74 R Buffalo 6 T Buffalo 64 QRS Count 8 Q Onset 221 P Onset 132 P Offset 176 T Offset 466 QTC Fredericia 458 Diagnosis Class Abnormal Diagnosis Sinus bradycardia Nonspecific ST and T wave abnormality Abnormal ECG No previous ECGs available Confirmed by Gilbert Hernandez ([id number]) on 12/21/2022 9:01:39 AM Normal [facility] No Panel Informationon 12-15 [email or web address] ?[email or web address]=[id number]&Date =15-12-2022&Time=10%3a51% 3a01%3a00&TestType=ECG&Si te=1&OutputType=PDF&Ext=P DF [facility] [...] Vital Signs Recorded: 15Dec2022 10:56AM Heart Rate53 Nquivurv617, LUE, Sitting Nrdhlcelx31, LUE, Sitting Height5 ft 4 in Vxhxvy590 lb 2 oz BMI Cbqncodryy89.4 kg/m2 BSA Calculated1.86 Tobacco Useb) No Falls Screening (Age (more content not included)... 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 No syncope Father SCD [...] we can help. You may also call [phone] HealthNOW for free resources and assistance.; Status:Complete; Done: [...] contact the office if new symptoms arise. 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 Lab work was completed at [facility], need to obtain. 4. Repeat echocardiogram showed improvement in LVEF 50 to 55%, left atrium mildly dilated, mild MR. Results reviewed in detail. Patient presents to the office today with contin (more content not included)... Normal [employer] Tobacco Screening.on 023 Adult depression screening assessment Yes [facility] 250 DO Work Phone: Adult depression screening assessment Moderate (10-14) [facility] Work Phone: Fall risk assessment a) No falls within the last year [facility] ara 250 DO Work Phone: Tobacco use status [facility] a) Yes [facility] ara 250 DO Work Phone: Tobacco Screening. Yes [facility] 250 DO Work Phone: Tobacco Screening. 2-More than half the days [facility] Work Phone: [phone] Tobacco Screening. 3-Nearly every day [facility] 250 DO Work Phone: Tobacco Screening. 1-Several days [facility] ara 250 DO Work Phone: Tobacco Screening. 0-Not at all [facility] DO Work Phone: Tobacco Screening. Somewhat Difficult [facility] 250 DO Work Phone: Echocardiogramon 11-12-2022 Echocardiography [facility] [address] [place] [address], [address] [place] [address] TRANSTHORACIC ECHOCARDIOGRAM REPORT Patient Name: TAWANDA Rodrigues Physician: [id number] Foster Steen MD Study Date: 11/12/2022 Referring Physician: JANENE BERRY MRN/PID: [id number] PCP: Carolee Estrada Accession/Order#: [id number] Department Location: [facility] Date of : 1955 Fellow: Gender: F Nurse: Admit Date: Voice Systems Engineer: Vira Berg RDCS, RVT Height: 162.56 cm CC Report to: Weight: 82.10 kg Study Type: Echocardiogram BSA: 1.87 m2 Blood Pressure: 124 /68 mmHg Diagnosis/ICD: I42.8-Other cardiomyopathies Indication: Atrial Fibrillation-s/p Cardioversion X2, CHF, Hyperlipidemia, Tobacco Abuse, Obesity, COVID-19 07/2022 Procedure/CPT: Echo [id number] Study Detail: The following Echo studies were [...] Normal Ranges: LVOT Diameter: 2.30 cm (1.8-2.4cm) [id number] Foster Steen MD Electronically signed on 11/12/2022 at 2:30:19 PM Final Normal [facility] AMIODARONEon 11-11-2022 Amiodarone 1708 ng/mL Normal 2243-7013 [facility] Comment on above: Performed By: #### D IG #### [facility] [address] [place] [address] Dr. Lee Zaldivar Desethylamiodarone 1158 ng/mL Normal [facility] Comment on above: Result Comment: Note : To convert from ng/ml to ug/ml, divide the result by 1000. Reference range (amiodarone): 1.00-2.50 ug/mL. This test was developed and its performance characteristics determined by [employer]. It has not been cleared or approved by the Food and Drug Administration. Performed By: #### D IG #### [facility] [address] [place] [address] Dr. Lee Zaldivar CBC AUTO DIFFon 10-30-2022 BASO # 0.1 103/ul Normal 0.0-0.1 [facility] Comment on above: Performed By: #### D IG #### [facility] [address] [place] [address] Dr. Lee Zaldivar Basophils/100 WBC (Bld) 0.9 % Normal 0.2-2.0 [facility] Comment on above: Performed By: #### D IG #### [facility] [address] [place] [address] Dr. Lee Zaldivar EO # 0.3 103/ul Normal 0.0-0.7 [facility] Comment on above: Performed By: #### D IG #### [facility] [address] [place] [address] Dr. Lee Zaldivar Eosinophils/100 WBC (Bld) 2.6 % Normal 0.9-7.0 [facility] Comment on above: Performed By: #### D IG #### [facility] [address] [place] [address] Dr. Lee Zaldivar Erythrocyte distribution width (RBC) [Ratio] 15.6 % Critically high 11.0-15.0 [facility] Comment on above: Performed By: #### D IG #### [facility] [address] [place] [address] Dr. Lee Zaldivar Hematocrit (Bld) [Volume fraction] 44.4 % Normal 36.0-48.0 [facility] Comment on above: Performed By: #### D IG #### [facility] [address] [place] [address] Dr. Lee Zaldivar Hemoglobin (Bld) [Mass/Vol] 14.4 g/dL Normal 12.0-16.0 [facility] Comment on above: Performed By: #### D IG #### [facility] [address] [place] [address] Dr. Lee Zaldivar IG # 0.08 10e3/ul Critically high 0.00-0.03 [facility] Comment on above: Performed By: #### D IG #### [facility] [address] [place] [address] Dr. Lee Zaldivar IG % 0.7 % Critically high 0.0-0.5 [facility] Comment on above: Performed By: #### D IG #### [facility] [address] [place] [address] Dr. Lee Zaldivar LYMPH # 1.7 103/ul Normal 1.2-3.8 [facility] Comment on above: Performed By: #### D IG #### [facility] [address] [place] [address] Dr. Lee Zaldivar Lymphocytes/100 WBC (Bld) 14.9 % Critically low 20.5-60.0 [facility] Comment on above: Performed By: #### D IG #### [facility] [address] [place] [address] Dr. Lee Zaldivar MANUAL DIFF REQ NO Normal [facility] Comment on above: Performed By: #### D IG #### [facility] [address] [place] [address] Dr. Lee Zaldivar MCH (RBC) [Entitic mass] 31.0 pg Normal 26.7-34.0 [facility] Comment on above: Performed By: #### D IG #### [facility] [address] [place] [address] Dr. Lee Zaldivar MCHC (RBC) [Mass/Vol] 32.4 g/dL Normal 29.9-35.2 [facility] Comment on above: Performed By: #### D IG #### [facility] [address] [place] [address] Dr. Lee Zaldivar MCV (RBC) [Entitic vol] 95.5 fL Normal 81.0-99.0 [facility] Comment on above: Performed By: #### D IG #### [facility] [address] [place] [address] Dr. Lee Zaldivar MONO # 0.9 103/ul Critically high 0.3-0.8 [facility] Comment on above: Performed By: #### D IG #### [facility] [address] [place] [address] Dr. Lee Zaldivar Monocytes/100 WBC (Bld) 7.7 % Normal 1.7-12.0 [facility] Comment on above: Performed By: #### D IG #### [facility] [address] [place] [address] Dr. Lee Zaldivar NEUT # 8.1 103/ul Critically high 1.4-6.5 [facility] Comment on above: Performed By: #### D IG #### [facility] [address] [place] [address] Dr. Lee Zaldivar Neutrophils/100 WBC (Bld) 73.2 % Normal 43.0-75.0 [facility] Comment on above: Performed By: #### D IG #### [facility] [address] [place] [address] Dr. Lee Zaldivar Platelet mean volume (Bld) [Entitic vol] 10.4 fL Normal 9.5-13.5 [facility] Comment on above: Performed By: #### D IG #### [facility] [address] [place] [address] Dr. Lee Zaldivar PLT 342 103/ul Normal 150-450 [facility] Comment on above: Performed By: #### D IG #### [facility] [address] [place] [address] Dr. Lee Zaldivar RBC 4.65 106/ul Normal 4.20-5.40 [facility] Comment on above: Performed By: #### D IG #### [facility] [address] [place] [address] Dr. Lee Zaldivar WBC 11.1 103/ul Critically high 4.0-11.0 [facility] Comment on above: Performed By: #### D IG #### [facility] [address] [place] [address] Dr. Lee Zaldivar CREATININEon 10-30-2022 Creatinine [Mass/Vol] 0.85 mg/dL Normal 0.55-1.02 [facility] Comment on above: Performed By: #### REJI DAILEY #### [facility] [address] [place] [address] Dr. Lee Zaldivar EGFR-AF CROATIAN >60 Normal >=60 [facility] Comment on above: Performed By: #### REJI DAILEY #### [facility] [address] [place] [address] Dr. Lee Zaldivar EGFR-NON AF CROATIAN >60 Normal >=60 [facility] Comment on above: Performed By: #### REJI DAILEY #### [facility] [address] [place] [address] Dr. Lee Zaldivar DIGOXINon 10-30-2022 DIG 0.7 ng/mL Critically low 0.9-2.0 [facility] Comment on above: Performed By: #### D IG #### [facility] [address] [place] [address] Dr. Lee Zaldivar LIVER PROFILEon 10-30-2022 Albumin [Mass/Vol] 3.2 g/dL Critically low 3.4-5.0 Th e [facility] Comment on above: Performed By: #### REJI DAILEY #### [facility] [address] [place] [address] Dr. Lee Zaldivar Albumin/Globulin [Mass ratio] 0.7 {ratio} Normal [facility] Comment on above: Performed By: #### AMI DAILEYA #### [facility] [address] [address] [address] Lee Zaldivar ALP [Catalytic activity/Vol] 124 U/L Critically high 46-116 [facility] Comment on above: Performed By: #### REJI DAILEY #### [facility] [address] [place] [address] Dr. Lee Zaldivar ALT [Catalytic activity/Vol] 16 U/L Normal 14-59 [facility] Comment on above: Performed By: #### REJI DAILEY #### [facility] [address] [place] [address] Dr. Lee Zaldivar AST [Catalytic activity/Vol] 20 U/L Normal 15-37 [facility] Comment on above: Performed By: #### REJI DAILEY #### [facility] [address] [place] [address] Dr. Lee Zaldivar BILI, CONJUGATED 0.1 mg/dL Normal 0.0-0.2 [facility] Comment on above: Performed By: #### REJI DAILEY #### [facility] [address] [place] [address] Dr. Lee Zaldivar Bilirubin [Mass/Vol] 0.4 mg/dL Normal 0.2-1.0 [facility] Comment on above: Performed By: #### REJI DAILEY #### [facility] [address] [place] [address] Dr. Lee Zaldivar Globulin (S) [Mass/Vol] 4.6 g/dL Normal [facility] Comment on above: Performed By: #### REJI DAILEY #### [facility] [address] [place], [place] [address] Dr. Lee Zaldivar Protein [Mass/Vol] 7.8 g/dL Normal 6.4-8.2 [facility] Comment on above: Performed By: #### L REJI CHUA #### [facility] [address] [place], [place] [address] Dr. Lee Zaldivar SED RATE WESTERGRENon 2021 SED RATE 81 mm/hr Critically high <=30 [facility] Comment on above: Performed By: #### S EDR #### [facility] [address] [place], [place] [address] Dr. Lee Zaldivar TSHon 10-30-2022 TSH 3.217 uIU/mL Normal 0.358-3.740 [facility] Comment on above: Performed By: #### D IG #### [facility] [address] [address] [address] Lee Zaldivar Office Visit (Cardiology)on 10-21-2022 [...] times daily July 31, 2022 DCC with moravian normal sinus rhythm on amiodarone 200 mg [...] (424.0) (I34.0) April 2022 Cath - 3+ [facility] April 2022 Echo - MR moderate Hyperlipidemia [...] atrial fibrillation Amiodarone Level, Serum; Status:Active; Requested for:02Mpa2512; Digoxin Level, Serum; Status:Active; Requested for:99Plj5392; TSH WITH REFLEX TO FREE T4 IF ABNORMAL; Status:Active; Requested for:34Gvv1752; Class 1 obesity with body mass index (BMI) of 31.0 to 31.9 in adult Healthy Weight Tips; Status:Complete; Done: 40Fry5738 NICM (nonischemic cardiomyopathy) Echocardiogram; Status:Hold For - Scheduling; Requested for:90Hfu9627; NICM (nonischemic cardiomyopathy), Persistent atrial fibrillation Cardiology - Electrophysiology Referral Evaluation and Treatment Evaluate AND Treat Status: Active Requested for: 97Vtt2877 SocHx: Current every day smoker Start: HM [...] we can help. You may also call 1-099-HHYD-NOW for free resources and assistance.; Status:Complete; Done: 05Poz7676 Tobacco Use Screening; Status:Complete; Done: 11Gvz9676 Unlinked Stop: Atorvastatin Calcium 20 MG Oral [...] contact the office if new symptoms arise. 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 Patient presents to the office today ambulatory with steady gait. Last evaluated in clinic by myself June 2022. Since that time she has completed the following: July 28, 2022 cardioversion x2 with moravian of normal sinus rhythm on amiodarone 200 mg twice daily. August 11, 2022 follow-up had recurrent atrial fibrillation and amiodarone increased 200 mg 3 times daily. Follow-up cardioversion was postponed due to COVID-positive illness, did not require hospitalization. September 30, 2022 uneventful cardioversion with restora (more content not included)... Normal [employer] Tobacco Screening.on 022 Fall risk assessment a) No falls within the last year [facility] [employer] 250 DO Work Phone: Tobacco use status [facility] a) Yes [facility] [employer] 250 DO Work Phone: Tobacco Screening. Yes [facility] [employer] 250 DO Work Phone: CBC AUTO DIFFon 10-12-2022 BASO # 0.1 103/ul Normal 0.0-0.1 [facility] Comment on above: Performed By: #### P TT, PT #### [facility] [address] [place] [address] Dr. Lee Zaldivar Basophils/100 WBC (Bld) 0.8 % Normal 0.2-2.0 [facility] Comment on above: Performed By: #### P TT, PT #### [facility] [address] [place] [address] Dr. Lee Zaldivar EO # 0.2 103/ul Normal 0.0-0.7 [facility] Comment on above: Performed By: #### P TT, PT #### [facility] [address] [place] [address] Dr. Lee Zaldivar Eosinophils/100 WBC (Bld) 1.2 % Normal 0.9-7.0 [facility] Comment on above: Performed By: #### P TT, PT #### [facility] [address] [place] [address] Dr. Lee Zaldivar Erythrocyte distribution width (RBC) [Ratio] 16.5 % Critically high 11.0-15.0 [facility] Comment on above: Performed By: #### P TT, PT #### [facility] [address] [place] [address] Dr. Lee Zaldivar Hematocrit (Bld) [Volume fraction] 45.9 % Normal 36.0-48.0 [facility] Comment on above: Performed By: #### P TT, PT #### [facility] [address] [place] [address] Dr. Lee Zaldivar Hemoglobin (Bld) [Mass/Vol] 15.0 g/dL Normal 12.0-16.0 [facility] Comment on above: Performed By: #### P TT, PT #### [facility] [address] [place] [address] Dr. Lee Zaldivar IG # 0.12 10e3/ul Critically high 0.00-0.03 [facility] Comment on above: Performed By: #### P TT, PT #### [facility] [address] [place] [address] Dr. Lee Zaldivar IG % 0.7 % Critically high 0.0-0.5 [facility] Comment on above: Performed By: #### P TT, PT #### [facility] [address] [place] [address] Dr. Lee Zaldivar LYMPH # 1.7 103/ul Normal 1.2-3.8 [facility] Comment on above: Performed By: #### P TT, PT #### [facility] [address] [place] [address] Dr. Lee Zaldivar Lymphocytes/100 WBC (Bld) 10.1 % Critically low 20.5-60.0 [facility] Comment on above: Performed By: #### P TT, PT #### [facility] [address] [place] [address] Dr. Lee Zaldivar MANUAL DIFF REQ NO Normal [facility] Comment on above: Performed By: #### P TT, PT #### [facility] [address] [place] [address] Dr. Lee Zaldivar MCH (RBC) [Entitic mass] 30.8 pg Normal 26.7-34.0 [facility] Comment on above: Performed By: #### P TT, PT #### [facility] [address] [place] [address] Dr. Lee Zaldivar MCHC (RBC) [Mass/Vol] 32.7 g/dL Normal 29.9-35.2 [facility] Comment on above: Performed By: #### P TT, PT #### [facility] [address] [place] [address] Dr. Lee Zaldivar MCV (RBC) [Entitic vol] 94.3 fL Normal 81.0-99.0 [facility] Comment on above: Performed By: #### P TT, PT #### [facility] [address] [place] [address] Dr. Lee Zaldivar MONO # 1.2 103/ul Critically high 0.3-0.8 [facility] Comment on above: Performed By: #### P TT, PT #### [facility] [address] [place] [address] Dr. Lee Zaldivar Monocytes/100 WBC (Bld) 6.8 % Normal 1.7-12.0 [facility] Comment on above: Performed By: #### P TT, PT #### [facility] [address] [place] [address] Dr. Lee Zaldivar NEUT # 13.7 103/ul Critically high 1.4-6.5 [facility] Comment on above: Performed By: #### P TT, PT #### [facility] [address] [place] [address] Dr. Lee Zaldivar Neutrophils/100 WBC (Bld) 80.4 % Critically high 43.0-75.0 [facility] Comment on above: Performed By: #### P TT, PT #### [facility] [address] [place] [address] Dr. Lee Zaldivar Platelet mean volume (Bld) [Entitic vol] 9.7 fL Normal 9.5-13.5 [facility] Comment on above: Performed By: #### P TT, PT #### [facility] [address] [place] [address] Dr. Lee Zaldivar PLT 342 103/ul Normal 150-450 [facility] Comment on above: Performed By: #### P TT, PT #### [facility] [address] [place] [address] Dr. Lee Zaldivar RBC 4.87 106/ul Normal 4.20-5.40 [facility] Comment on above: Performed By: #### P TT, PT #### [facility] [address] [place] [address] Dr. Lee Zaldivar WBC 17.0 103/ul Critically high 4.0-11.0 [facility] Comment on above: Performed By: #### P TT, PT #### [facility] [address] [place] [address] Dr. Lee Zaldivar CREATININEon 10-12-2022 Creatinine [Mass/Vol] 0.99 mg/dL Normal 0.55-1.02 [facility] Comment on above: Performed By: #### D IG #### [facility] [address] [place] [address] Dr. Lee Zaldivar EGFR-AF CROATIAN >60 Normal >=60 [facility] Comment on above: Performed By: #### D IG #### [facility] [address] [place] [address] Dr. Lee Zaldivar EGFR-NON AF CROATIAN 56 mL/min/1.73m2 Critically low >=60 [facility] Comment on above: Performed By: #### D IG #### [facility] [address] [place] [address] Dr. Lee Zaldivar LIVER PROFILEon 10-12-2022 Albumin [Mass/Vol] 3.3 g/dL Critically low 3.4-5.0 Th [facility] Comment on above: Performed By: #### C ADDIS, LIVER #### [facility] [address] [place] [address] Dr. Lee Zaldivar Albumin/Globulin [Mass ratio] 0.7 {ratio} Normal [facility] Comment on above: Performed By: #### C ADDIS, LIVER #### [facility] [address] [place] [address] Dr. Lee Zaldivar ALP [Catalytic activity/Vol] 136 U/L Critically high 46-116 [facility] Comment on above: Performed By: #### C ADDIS, LIVER #### [facility] [address] [place] [address] Dr. Lee Zaldivar ALT [Catalytic activity/Vol] 18 U/L Normal 14-59 [facility] Comment on above: Performed By: #### C ADDIS, LIVER #### [facility] [address] [place] [address] Dr. Lee Zaldivar AST [Catalytic activity/Vol] 19 U/L Normal 15-37 [facility] Comment on above: Performed By: #### C ADDIS, LIVER #### [facility] [address] [place] [address] Dr. Lee Zaldivar BILI, CONJUGATED 0.2 mg/dL Normal 0.0-0.2 [facility] Comment on above: Performed By: #### C ADDIS, LIVER #### [facility] [address] [place], [place] [address] Dr. Lee Zaldivar Bilirubin [Mass/Vol] 0.6 mg/dL Normal 0.2-1.0 [facility] Comment on above: Performed By: #### C ADDIS, LIVER #### [facility] [address] [address] [address] Lee Zaldivar Globulin (S) [Mass/Vol] 5.0 g/dL Normal [facility] Comment on above: Performed By: #### C ADDIS, LIVER #### [facility] [address] [address] [address] Lee Zaldivar Protein [Mass/Vol] 8.3 g/dL Critically high 6.4-8.2 T [facility] Comment on above: Performed By: #### C ADDIS, LIVER #### [facility] [address] [place] [address] Dr. Lee Zaldivar SED RATE [facility] 2021 SED RATE 73 mm/hr Critically high <=30 [facility] Comment on above: Performed By: #### S EDR #### [facility] [address] [place] [address] Dr. Lee Zaldivar No Panel Informationon 09-30 9.0\S\9.0 Normal 6.0-15.0 [facility] [employer] DO Work Phone: Comment on above: PERFORMED BY:[address] [address] [address] [place], [place] [phone] MEDICAL DIRECTORBRIANNA MONTALVO M.D. 20.6\S\20.6 below low threshold 22.0-30.0 [facility] 250 DO Work Phone: 109\S\109 Normal 95-114 [facility] 250 DO Work Phone: 3.6\S\3.6 Normal 3.5-5.1 [facility] 250 DO Work Phone: 135\S\135 below low threshold 136-146 -[facility] 250 DO Work Phone: Serum or plasma anion gap de terminationOrdered By: Arsalan Conley on 09-30-2022 Anion gap [Moles/Vol] 9.0 mmol/L 6.0-15.0 [facility] Serum or plasma chloride mukesh surement (moles/volume)Ordered By: Arsalan Conley on 09-30-2022 Chloride [Moles/Vol] 109 mmol/L 95-114 [facility] Serum or plasma potassium me asurement (moles/volume)Ordered By: Arsalan Conley on 09-30-2022 Potassium [Moles/Vol] 3.6 mmol/L 3.5-5.1 [facility] Serum or plasma sodium measu rement (moles/volume)Ordered By: Arsalan Conley on 09-30-2022 Sodium [Moles/Vol] 135 mmol/L 136-146 [facility] [place] Serum or plasma total carbon dioxide measurement (moles/volume)Ordered By: Arsalan Conley on 09-30-2022 CO2 [Moles/Vol] 20.6 mmol/L 22.0-30.0 [facility] COVID-19 SOFIAOrdered By: Stanford Conley on 09-11-2022 SARS-CoV+SARS-CoV-2 (COVID-19) Ag IA.rapid Ql (Resp) Positive Negative [facility] Comment on above: This is a duplicate Celia SARS Antigen (DEB) result to be used for statistical tracking purpose only. No Panel InformationOrdered By: Arsalan Conley on 09-11-2022 SARS Antigen (LFIA) [facility] Body fluid albumin measureme nt (mass/volume)Ordered By: Carmine Nails on 09-02-2022 Albumin (Body fld) [Mass/Vol] 2.9 g/dL 3.2-5.5 [facility] C reactive protein [Mass/vol ume] in Serum or PlasmaOrdered By: Carmine Nails on 09-02-2022 CRP [Mass/Vol] 5.7 mg/dL 0.0-1.0 [facility] Creatinine and Glomerular fi ltration rate.predicted panel (S/P/Bld)Ordered By: Carmine Nails on 09-02-2022 Creatinine [Mass/Vol] 0.98 mg/dL 0.44-1.03 [facility] Direct bilirubin measurement Ordered By: Carmine Nails on 09-02-2022 Bilirubin.direct [Mass/Vol] 0.2 mg/dL 0.0-0.4 [facility] Erythrocyte sedimentation ra te by Photometric methodOrdered By: Carmine Nails on 09-02-2022 ESR Photometric method (Bld) [Velocity] 57 mm/hr 0-29 [facility] Estimated glomerular filtrat ion rate (GFR) non- AmericanOrdered By: Carmine Nails on 09-02-2022 GFR/1.73 sq M.predicted among non-blacks MDRD (S/P/Bld) [Vol rate/Area] 57 mL/Min [facility] Globulin Calc (S) [Mass/Vol] Ordered By: Carmine Nails on 09-02-2022 Globulin (S) [Mass/Vol] 3.9 g/dL [facility] No Panel InformationOrdered By: Carmine Nails on 09-02-2022 Estimated GFR () > 60 mL/Min [facility] Comment on above: GFR estimated refere nce range: According to KDOQI guidelines, <60 ml/min/1.73m2 is sufficient to diagnose a patient with chronic kidney disease. Pharmacy Creatinine Clearance (Chem N/A [facility] Protein [Mass/volume] in Ser um or PlasmaOrdered By: Carmine Nails on 09-02-2022 Protein [Mass/Vol] 6.8 g/dL 6.1-7.9 [facility] [place] Serum or plasma alanine spicer otransferase measurement without P-5'-P (enzymatic activiOrdered By: Carmine Nails on 09-02-2022 ALT No additional P-5'-P [Catalytic activity/Vol] 20 U/L 10-60 [facility] Serum or plasma albumin/glob ulin mass ratioOrdered By: Carmine Nails on 09-02-2022 Albumin/Globulin [Mass ratio] 0.7 {ratio} [facility] Serum or plasma alkaline adis sphatase measurement (enzymatic activity/volume)Ordered By: Carmine Nails on 09-02-2022 ALP [Catalytic activity/Vol] 109 U/L 32-92 [facility] Serum or plasma aspartate am inotransferase measurement (enzymatic activity/volume)Ordered By: Carmine Nails on 09-02-2022 AST [Catalytic activity/Vol] 23 U/L 10- [facility] Serum or plasma non-glucuron idated bilirubin measurement (mass/volume)Ordered By: Carmine Nails on 09-02-2022 Bilirubin.indirect [Mass/Vol] 0.5 mg/dL [facility] Serum or plasma total biliru bin measurement (mass/volume)Ordered By: Carmine Nails on 09-02-2022 Bilirubin [Mass/Vol] 0.7 mg/dL 0.3-1.2 [facility] Digoxin [Mass/volume] in Ser um or PlasmaOrdered By: Arsalan Conley on 07-28-2022 Digoxin [Mass/Vol] 0.3 ng/mL 0.9-2.0 [facility] [place] Comment on above: Last dose: - No Panel Informationon 07-28 17.0\S\17.0 above high threshold 6.0-15.0 [facility] 250 DO Work Phone: Comment on above: PERFORMED BY:[address] [address] [address] [place], [place] [phone] MEDICAL DIRECTORBRIANNA MONTALVO M.D. 23.0\S\23.0 Normal 22.0-30.0 [facility] 250 DO Work Phone: 99\S\99 Normal 95-114 [facility] 250 DO Work Phone: 4.0\S\4.0 Normal 3.5-5.1 [facility] 250 DO Work Phone: 135\S\135 below low threshold 136-146 -[facility] 250 DO Work Phone: 0.3\S\0.3 below low threshold 0.9-2.0 [facility] ara 250 DO Work Phone: Comment on above: Last dose: -PERFORME D BY:[facility] [place], [place] [phone] MEDICAL DIRECTORBRIANNA MONTALVO M.D. Serum or plasma anion gap de terminationOrdered By: Arsalan Conley on 07-28-2022 Anion gap [Moles/Vol] 17.0 mmol/L 6.0-15.0 [facility] Serum or plasma chloride mukesh surement (moles/volume)Ordered By: Arsalan Conley on 07-28-2022 Chloride [Moles/Vol] 99 mmol/L 95-114 [facility] Serum or plasma potassium me asurement (moles/volume)Ordered By: Arsalan Conley on 07-28-2022 Potassium [Moles/Vol] 4.0 mmol/L 3.5-5.1 [facility] Serum or plasma sodium measu rement (moles/volume)Ordered By: Arsalan Conley on 07-28-2022 Sodium [Moles/Vol] 135 mmol/L 136-146 [facility] [place] Serum or plasma total carbon dioxide measurement (moles/volume)Ordered By: Arsalan Conley on 07-28-2022 CO2 [Moles/Vol] 23.0 mmol/L 22.0-30.0 [facility] COVID-19 SOFIAOrdered By: Stanford Conley on 07-24-2022 SARS-CoV+SARS-CoV-2 (COVID-19) Ag IA.rapid Ql (Resp) Negative Negative [facility] Comment on above: This is a duplicate Celia SARS Antigen (DEB) result to be used for statistical tracking purpose only. Laboratory - Microbiology an d Antimicrobial susceptibilityon 07-24-2022 SARS-CoV-2 (COVID-19) RNA LAURITA+probe Ql (Unsp spec) [facility] 250 DO Work Phone: No Panel Informationon 07-24 Negative Normal Negative [facility] 250 DO Work Phone: Comment on above: This is a duplicate Celia SARS Antigen (DEB) result to be used for statistical tracking purpose only.PERFORMED BY:[facility] [place] [phone] MEDICAL DIRECTORBRIANNA MONTALVO M.D. No Panel InformationOrdered By: Arsalan Conley on 07-24-2022 SARS Antigen (LFIA) [facility] PROF CHEM 8 (BAS METB)on Anion gap [Moles/Vol] 12.1 mmol/L Normal [facility] Comment on above: Performed By: #### T CRISTI, BMP #### [facility] [address] [place] [address] Dr. Lee Zaldivar Calcium [Mass/Vol] 9.2 mg/dL Normal 8.5-10.1 [facility] Comment on above: Performed By: #### T CRISTI, BMP #### [facility] [address] [place] [address] Dr. Lee Zaldivar Chloride [Moles/Vol] 103 mmol/L Normal 98-107 [facility] Comment on above: Performed By: #### T CRISTI, BMP #### [facility] [address] [place] [address] Dr. Lee Zaldivar CO2 [Moles/Vol] 26.2 mmol/L Normal 21.0-32.0 [facility] Comment on above: Performed By: #### T CRISTI, BMP #### [facility] [address] [place] [address] Dr. Lee Zaldivar Creatinine [Mass/Vol] 0.92 mg/dL Normal 0.55-1.02 [facility] Comment on above: Performed By: #### T CRISTI, BMP #### [facility] [address] [place] [address] Dr. Lee Zaldivar EGFR-AF CROATIAN >60 Normal >=60 [facility] Comment on above: Performed By: #### T CRISTI, BMP #### [facility] [address] [place], [place] [id number] Dr. Lee Zaldivar EGFR-NON AF CROATIAN >60 Normal >=60 [facility] Comment on above: Performed By: #### T CRISTI, BMP #### [facility] [address] [address] [address] Lee Zaldivar Glucose [Mass/Vol] 109 mg/dL Critically high 74-106 [facility] Comment on above: Result Comment: SPEC IMEN SLIGHTLY LIPEMIC MAY AFFECT GLUCOSE RESULT Performed By: #### T SH, BMP #### [facility] [address] [place] [address] Dr. Lee Zaldivar Potassium [Moles/Vol] 4.3 mmol/L Normal 3.5-5.1 [facility] Comment on above: Performed By: #### T CRISTI, BMP #### [facility] [address] [place] [address] Dr. Lee Zaldivar Sodium [Moles/Vol] 137 mmol/L Normal 136-145 [facility] Comment on above: Performed By: #### T CIRSTI, BMP #### [facility] [address] [place] [address] Dr. Lee Zaldivar Urea nitrogen [Mass/Vol] 12.0 mg/dL Normal 7.0-18.0 [facility] Comment on above: Performed By: #### T CRISTI, BMP #### [facility] [address] [place] [address] Dr. Lee Zaldivar Urea nitrogen/Creatinine [Mass ratio] 13.0 mg/mg Normal [facility] Comment on above: Performed By: #### T CRISTI, BMP #### [facility] [address] [place] [address] Dr. Lee Zaldivar TSHon 07-22-2022 TSH 1.532 uIU/mL Normal 0.358-3.740 [facility] Comment on above: Performed By: #### T CRISTI, BMP #### [facility] [address] [place] [address] Dr. Lee Zaldivar Tobacco Screening.on 022 Fall risk assessment a) No falls within the last year [facility] 250 DO Work Phone: Tobacco use status CPHS a) Yes [facility] 250 DO Work Phone: Tobacco Screening. Yes [facility] 250 DO Work Phone: Digoxin [Mass/volume] in Ser um or PlasmaOrdered By: Arsalan Conley on 06-24-2022 Digoxin [Mass/Vol] ng/mL 0.9-2.0 [facility] [place] Comment on above: Last dose: - No Panel Informationon 06-24 < 0.2 below low threshold 0.9-2.0 [facility] 250 DO Work Phone: Comment on above: Last dose: -PERFORME D BY:[facility] [place], [place] [id number] MEDICAL DIRECTORBRIANNA MONTALVO M.D. 21.3\S\21.3 below low threshold 22.0-30.0 [facility] 250 DO Work Phone: Comment on above: PERFORMED BY:[facility] [place], [place] [phone] MEDICAL DIRECTORBRIANNA MONTALVO M.D. 101\S\101 Normal 95-114 [facility] 250 DO Work Phone: 2.7\S\2.7 Critically low 3.5-5.1 [facility] 250 DO Work Phone: Comment on above: Results called at 10 03 on 06/24/22 135\S\135 below low threshold 136-146 [facility] 250 DO Work Phone: Serum or plasma chloride mukesh surement (moles/volume)Ordered By: Arsalan Conley on 06-24-2022 Chloride [Moles/Vol] 101 mmol/L 95-114 [facility] Serum or plasma potassium me asurement (moles/volume)Ordered By: Arsalan Conley on 06-24-2022 Potassium [Moles/Vol] 2.7 mmol/L 3.5-5.1 [facility] Comment on above: Results called at 1003 on 06/24/22 Results calledat 100 3 on 06/24/22 Serum or plasma sodium measu rement (moles/volume)Ordered By: Arsalan Conley on 06-24-2022 Sodium [Moles/Vol] 135 mmol/L 136-146 [facility] [place] Serum or plasma total carbon dioxide measurement (moles/volume)Ordered By: Arsalan Conley on 06-24-2022 CO2 [Moles/Vol] 21.3 mmol/L 22.0-30.0 [facility] COVID-19 SOFIAOrdered By: Stanford Conley on 06-22-2022 SARS-CoV+SARS-CoV-2 (COVID-19) Ag IA.rapid Ql (Resp) Negative Negative [facility] Comment on above: This is a duplicate Celia SARS Antigen (DEB) result to be used for statistical tracking purpose only. Laboratory - Microbiology an d Antimicrobial susceptibilityon 06-22-2022 SARS-CoV-2 (COVID-19) RNA LAURITA+probe Ql (Unsp spec) [facility] ara 250 DO Work Phone: No Panel Informationon 06-22 Negative Normal Negative [facility] Work Phone: Comment on above: This is a duplicate Celia SARS Antigen (DEB) result to be used for statistical tracking purpose only.PERFORMED BY:[address] [place] [address] [address] [place] [place], [place] [phone] MEDICAL DIRECTORBRIANNA MONTALVO M.D. No Panel InformationOrdered By: Arsalan Conley on 06-22-2022 SARS Antigen (LFIA) [facility] PHQ-2 VITALSon 06-17-2022 Fall risk assessment a) No falls within the last year [facility] ara 250 DO Work Phone: Tobacco use status CPHS a) Yes [facility] 250 DO Work Phone: PHQ-2 VITALS Yes -[facility] 250 DO Work Phone: BNPon 05-20-2022 Natriuretic peptide B (Bld) [Mass/Vol] 1242.0 pg/mL Critically high <=900.0 [facility] Comment on above: Performed By: #### P TT, PT #### [facility] [address] [place] [address] Dr. Lee Zaldivar PROF CHEM 8 (BAS METB)on Anion gap [Moles/Vol] 14.1 mmol/L Normal [facility] Comment on above: Performed By: #### P TT, PT #### [facility] [address] [place] [address] Dr. Lee Zaldivar Calcium [Mass/Vol] 9.1 mg/dL Normal 8.5-10.1 [facility] Comment on above: Performed By: #### P TT, PT #### [facility] [address] [place] [address] Dr. Lee Zaldivar Chloride [Moles/Vol] 109 mmol/L Critically high 98-107 [facility] Comment on above: Performed By: #### P TT, PT #### [facility] [address] [place] [address] Dr. Lee Zaldivar CO2 [Moles/Vol] 23.1 mmol/L Normal 21.0-32.0 [facility] Comment on above: Performed By: #### P TT, PT #### [facility] [address] [place] [address] Dr. Lee Zaldivar Creatinine [Mass/Vol] 1.04 mg/dL Critically high 0.55-1.02 [facility] Comment on above: Performed By: #### P TT, PT #### [facility] [address] [place] [address] Dr. Lee Zaldivar EGFR-AF CROATIAN >60 Normal >=60 [facility] Comment on above: Performed By: #### P TT, PT #### [facility] [address] [place] [address] Dr. Lee Zaldivar EGFR-NON AF CROATIAN 53 mL/min/1.73m2 Critically low >=60 [facility] Comment on above: Performed By: #### P TT, PT #### [facility] [address] [place] [address] Dr. Lee Zaldivar Glucose [Mass/Vol] 81 mg/dL Normal 74-106 [facility] Comment on above: Performed By: #### P TT, PT #### [facility] [address] [address] [address] Lee Zaldivar Potassium [Moles/Vol] 4.2 mmol/L Normal 3.5-5.1 [facility] Comment on above: Performed By: #### P TT, PT #### [facility] [address] [place] [address] Dr. Lee Zaldivar Sodium [Moles/Vol] 142 mmol/L Normal 136-145 [facility] Comment on above: Performed By: #### P TT, PT #### [facility] [address] [place] [address] Dr. Lee Zaldivar Urea nitrogen [Mass/Vol] 11.0 mg/dL Normal 7.0-18.0 [facility] Comment on above: Performed By: #### P TT, PT #### [facility] [address] [place] [address] Dr. Lee Zaldivar Urea nitrogen/Creatinine [Mass ratio] 10.6 mg/mg Normal [facility] Comment on above: Performed By: #### P TT, PT #### [facility] [address] [place] [address] Dr. Lee Zaldivar Basophils Auto (Bld) [#/Vol] Ordered By: August Lamas on 05-13-2022 Basophils (Bld) [#/Vol] 0.1 10*3/uL 0.0-0.2 [facility] Basophils/100 WBC Auto (Bld) Ordered By: August Lamas on 05-13-2022 Basophils/100 WBC (Bld) 1.0 % . [facility] Blood hemoglobin measurement (mass/volume)Ordered By: August Lamas on 05-13-2022 Hemoglobin (Bld) [Mass/Vol] 14.8 g/dL 11.8-15.4 [facility] Blood leukocytes automated c ount (number/volume)Ordered By: August Lamas on 05-13-2022 WBC (Bld) [#/Vol] 9.6 10*3/uL 4.5-11.0 [facility] Creatinine and Glomerular fi ltration rate.predicted panel (S/P/Bld)Ordered By: August Lamas on 05-13-2022 Creatinine [Mass/Vol] 0.86 mg/dL 0.44-1.03 [facility] Eosinophils Auto (Bld) [#/Vo l]Ordered By: August Lamas on 05-13-2022 Eosinophils (Bld) [#/Vol] 0.1 10*3/uL 0.0-0.45 [facility] Eosinophils/100 WBC Auto (Bl d)Ordered By: August Lamas on 05-13-2022 Eosinophils/100 WBC (Bld) 1.5 % . [facility] Erythrocyte distribution wid th Auto (RBC) [Ratio]Ordered By: August Lamas on 05-13-2022 Erythrocyte distribution width (RBC) [Ratio] 14.7 % 11.9-15.3 [facility] Estimated glomerular filtrat ion rate (GFR) non- AmericanOrdered By: August Lamas on 05-13-2022 GFR/1.73 sq M.predicted among non-blacks MDRD (S/P/Bld) [Vol rate/Area] > 60 mL/Min [facility] Hematocrit Auto (Bld) [Volum e fraction]Ordered By: August Lamas on 05-13-2022 Hematocrit (Bld) [Volume fraction] 45.2 % 34.0-46.4 [facility] Laboratory - Chemistry and C hemistry - challengeOrdered By: August Lamas on 05-13-2022 Magnesium [Mass/Vol] 1.8 mg/dL 1.6-2.6 [facility] - Hematology and Cell countsOrdered By: August Lamas on 05-13-2022 Nucleated RBC/100 WBC (Bld) [Ratio] 0.3 % 0-0.5 [facility] Lymphocytes Auto (Bld) [#/Vo l]Ordered By: August Lamas on 05-13-2022 Lymphocytes (Bld) [#/Vol] 1.3 10*3/uL 1.00-4.8 [facility] Lymphocytes/100 WBC Auto (Bl d)Ordered By: August Lamas on 05-13-2022 Lymphocytes/100 WBC (Bld) 13.1 % . [facility] MCH Auto (RBC) [Entitic mass ]Ordered By: August Lamas on 05-13-2022 MCH (RBC) [Entitic mass] 31.3 pg 24.7-34.3 [facility] MCHC Auto (RBC) [Mass/Vol]Or dered By: August Lamas on 05-13-2022 MCHC (RBC) [Mass/Vol] 32.7 g/dL 32.0-35.0 [facility] MCV Auto (RBC) [Entitic vol] Ordered By: August Lamas on 05-13-2022 MCV (RBC) [Entitic vol] 95.8 fL 80-100 [facility] Monocytes Auto (Bld) [#/Vol] Ordered By: August Lamas on 05-13-2022 Monocytes (Bld) [#/Vol] 1.0 10*3/uL 0.0-0.8 [facility] Monocytes/100 WBC Auto (Bld) Ordered By: August Lamas on 05-13-2022 Monocytes/100 WBC (Bld) 9.9 % . [facility] Neutrophils Auto (Bld) [#/Vo l]Ordered By: August Lamas on 05-13-2022 Neutrophils (Bld) [#/Vol] 7.2 10*3/uL 1.8-7.7 [facility] Neutrophils/100 WBC Auto (Bl d)Ordered By: August Lamas on 05-13-2022 Neutrophils/100 WBC (Bld) 74.5 % . [facility] No Panel InformationOrdered By: August Lamas on 05-13-2022 Estimated GFR () > 60 mL/Min [facility] Comment on above: GFR estimated refere nce range: According to KDOQI guidelines, <60 ml/min/1.73m2 is sufficient to diagnose a patient with chronic kidney disease. Pharmacy Creatinine Clearance (Chem 73.97 [facility] Platelet mean volume Auto (B ld) [Entitic vol]Ordered By: August Lamas on 05-13-2022 Platelet mean volume (Bld) [Entitic vol] 9.5 fL 6.3-10.7 [facility] Platelets Auto (Bld) [#/Vol] Ordered By: August Lamas on 05-13-2022 Platelets (Bld) [#/Vol] 226 10*3/uL 150-450 [facility] RBC Auto (Bld) [#/Vol]Ordere d By: August Lamas on 05-13-2022 RBC (Bld) [#/Vol] 4.71 10*6/uL 3.60-5.00 [facility] Serum or plasma calcium vikki urement (mass/volume)Ordered By: August Lamas on 05-13-2022 Calcium [Mass/Vol] 8.9 mg/dL 8.2-10.2 [facility] Serum or plasma chloride mukesh surement (moles/volume)Ordered By: August Lamas on 05-13-2022 Chloride [Moles/Vol] 103 mmol/L 95-114 [facility] Serum or plasma glucose vikki urement (mass/volume)Ordered By: August Lamas on 05-13-2022 Glucose [Mass/Vol] 89 mg/dL 70-100 [facility] [place] Comment on above: ADA recommended refe rence range Random Glucose Reference Range is dependent on time and content of last meal. Glucose of more than 200 mg/dL in a nonstressed, ambulatory subject supports the diagnosis of Diabetes Mellitus. Serum or plasma potassium me asurement (moles/volume)Ordered By: August Lamas on 05-13-2022 Potassium [Moles/Vol] 3.9 mmol/L 3.5-5.1 [facility] Serum or plasma sodium measu rement (moles/volume)Ordered By: August Lamas on 05-13-2022 Sodium [Moles/Vol] 135 mmol/L 136-146 [facility] [place] Serum or plasma total carbon dioxide measurement (moles/volume)Ordered By: August Lamas on 05-13-2022 CO2 [Moles/Vol] 21.4 mmol/L 22.0-30.0 [facility] Serum or plasma urea nitroge n measurement (mass/volume)Ordered By: August Lamas on 05-13-2022 Urea nitrogen [Mass/Vol] 13 mg/dL 9- [facility] Cholesterol [Mass/volume] in Serum or PlasmaOrdered By: August Lamas on 05-09-2022 Cholesterol [Mass/Vol] 110 mg/dL 140-200 [facility] Comment on above: Chol less than 200 m g/dl low risk Chol 201-239 mg/dl borderline risk Chol 240 mg/dl and greater high risk Cholesterol in LDL Calc [Mas s/Vol]Ordered By: August Lamas on 05-09-2022 Cholesterol in LDL [Mass/Vol] 75 mg/dL 0-100 [facility] Comment on above: LDL ATP III CLASSIFI CATION LDL less than 100 mg/dL Optimal LDL 100-129 mg/dL Near or above optimal LDL 130-159 mg/dL Borderline high LDL 160-189 mg/dL High LDL greater than 189 mg/dL Very high Cholesterol in VLDL Calc [Ma ss/Vol]Ordered By: August Lamas on 05-09-2022 Cholesterol in VLDL [Mass/Vol] 12 mg/dL [facility] Glucose mean value [Mass/vol ume] in Blood Estimated from glycated hemoglobinOrdered By: August Lamas on 05-09-2022 Average glucose Estimated from glycated hemoglobin (Bld) [Mass/Vol] 128 mg/dL [facility] Hemoglobin A1c percentageOrd ered By: August Lamas on 05-09-2022 HbA1c (Bld) [Mass fraction] 6.1 % 4.3-5.6 [facility] Comment on above: Increased risk for d iabetes: 5.7 - 6.4 diabetes: >6.4 glycemic control for adults with diabetes: <7.0 Serum or plasma high density lipoprotein (HDL) cholesterol measurementOrdered By: August Lamas on 05-09-2022 Cholesterol in HDL [Mass/Vol] 22 mg/dL 35-85 [facility] Comment on above: HDL CHOL ATP-III CLA SSIFICATION Cardiovascular Risk HDL > or equal to 60 mg/dL LOW HDL < 40 mg/dL HIGH Serum or plasma total choles terol/high density lipoprotein (HDL) cholesterol mass ratOrdered By: August Lamas on 05-09-2022 Cholesterol.total/Chol esterol in HDL [Mass ratio] 5.0 {ratio} <5.0 [facility] Triglyceride [Mass/volume] i n Serum or PlasmaOrdered By: August Lamas on 05-09-2022 Triglyceride [Mass/Vol] 64 mg/dL 35-149 [facility] Comment on above: TRIG ATP III CLASSIF [...] High sensitivity method [Mass/Vol] 19 pg/mL 0-15 [facility] Activated partial thrombopla stin time (aPTT) in platelet poor plasma by coagulation aOrdered By: August Lamas on 05-08-2022 aPTT Coag (PPP) [Time] 27.8 s 25.1-36.5 [facility] CBC AUTO DIFFon 05-08-2022 BASO # 0.1 103/ul Normal 0.0-0.1 [facility] Comment on above: Performed By: #### D IG #### [facility] [address] [place] [address] Dr. Lee Zaldivar Basophils/100 WBC (Bld) 1.1 % Normal 0.2-2.0 [facility] Comment on above: Performed By: #### D IG #### [facility] [address] [place] [address] Dr. Lee Zaldivar EO # 0.1 103/ul Normal 0.0-0.7 [facility] Comment on above: Performed By: #### D IG #### [facility] [address] [place] [address] Dr. Lee Zaldivar Eosinophils/100 WBC (Bld) 0.5 % Critically low 0.9-7.0 [facility] Comment on above: Performed By: #### D IG #### [facility] [address] [place] [address] Dr. Lee Zaldivar Erythrocyte distribution width (RBC) [Ratio] 14.5 % Normal 11.0-15.0 [facility] Comment on above: Performed By: #### D IG #### [facility] [address] [place] [address] Dr. Lee Zaldivar Hematocrit (Bld) [Volume fraction] 46.8 % Normal 36.0-48.0 [facility] Comment on above: Performed By: #### D IG #### [facility] [address] [place] [address] Dr. Lee Zaldivar Hemoglobin (Bld) [Mass/Vol] 15.3 g/dL Normal 12.0-16.0 [facility] Comment on above: Performed By: #### D IG #### [facility] [address] [place] [address] Dr. Lee Zaldivar IG # 0.05 10e3/ul Critically high 0.00-0.03 [facility] Comment on above: Performed By: #### D IG #### [facility] [address] [place] [address] Dr. Lee Zaldivar IG % 0.5 % Normal 0.0-0.5 [facility] Comment on above: Performed By: #### D IG #### [facility] [address] [place] [address] Dr. Lee Zaldivar LYMPH # 2.1 103/ul Normal 1.2-3.8 [facility] Comment on above: Performed By: #### D IG #### [facility] [address] [place] [address] Dr. Lee Zaldivar Lymphocytes/100 WBC (Bld) 19.6 % Critically low 20.5-60.0 [facility] Comment on above: Performed By: #### D IG #### [facility] [address] [place] [address] Dr. Lee Zaldivar MANUAL DIFF REQ NO Normal [facility] Comment on above: Performed By: #### D IG #### [facility] [address] [place] [address] Dr. Lee Zaldivar MCH (RBC) [Entitic mass] 31.4 pg Normal 26.7-34.0 [facility] Comment on above: Performed By: #### D IG #### [facility] [address] [place] [address] Dr. Lee Zaldivar MCHC (RBC) [Mass/Vol] 32.7 g/dL Normal 29.9-35.2 [facility] Comment on above: Performed By: #### D IG #### [facility] [address] [place] [address] Dr. Lee Zaldivar MCV (RBC) [Entitic vol] 96.1 fL Normal 81.0-99.0 [facility] Comment on above: Performed By: #### D IG #### [facility] [address] [place] [address] Dr. Lee Zaldivar MONO # 0.7 103/ul Normal 0.3-0.8 [facility] Comment on above: Performed By: #### D IG #### [facility] [address] [place] [address] Dr. Lee Zaldivar Monocytes/100 WBC (Bld) 6.8 % Normal 1.7-12.0 [facility] Comment on above: Performed By: #### D IG #### [facility] [address] [place] [address] Dr. Lee Zaldivar NEUT # 7.8 103/ul Critically high 1.4-6.5 [facility] Comment on above: Performed By: #### D IG #### [facility] [address] [address] [address] Lee Zaldivar Neutrophils/100 WBC (Bld) 71.5 % Normal 43.0-75.0 [facility] Comment on above: Performed By: #### D IG #### [facility] [address] [place] [address] Dr. Lee Zaldivar Platelet mean volume (Bld) [Entitic vol] 11.2 fL Normal 9.5-13.5 [facility] Comment on above: Performed By: #### D IG #### [facility] [address] [place] [address] Dr. Lee Zaldivar PLT 243 103/ul Normal 150-450 [facility] Comment on above: Performed By: #### D IG #### [facility] [address] [place] [address] Dr. Lee Zaldivar WBC 10.9 103/ul Normal 4.0-11.0 [facility] Comment on above: Performed By: #### D IG #### [facility] [address] [place] [address] Dr. Lee Zaldivar Covid-19 PCR ([facility])on 04-16 SARS-CoV-2 (COVID-19) RNA LAURITA+probe Ql (Unsp spec) Not detected Normal NOT DETECTED [facility] Comment on above: Result Comment: When diagnostic [...] for this test is supported by the Financial Consultant of Health and Human Service's declaration that [...] Performed By: #### P TT, PT #### [facility] [address] [address] [address] Lee Zaldivar Laboratory - Chemistry and C hemistry - challengeOrdered By: August Lamas on 05-08-2022 Natriuretic peptide B (Bld) [Mass/Vol] 390.0 pg/mL 5-100 [facility] - CoagulationOrde red By: August Lamas on 05-08-2022 PT Coag (PPP) [Time] 19.7 s 9.0-12.9 [facility] PROF CHEM 8 (BAS METB)on Anion gap [Moles/Vol] 18.0 mmol/L Normal [facility] Comment on above: Performed By: #### P TT, PT #### [facility] [address] [address] [address] Lee Zaldivar Calcium [Mass/Vol] 9.1 mg/dL Normal 8.5-10.1 [facility] Comment on above: Performed By: #### P TT, PT #### [facility] [address] [place] [address] Dr. Lee Zaldivar Chloride [Moles/Vol] 102 mmol/L Normal 98-107 [facility] Comment on above: Performed By: #### P TT, PT #### [facility] [address] [address] [address] Lee Zaldivar CO2 [Moles/Vol] 22.7 mmol/L Normal 21.0-32.0 [facility] Comment on above: Performed By: #### P TT, PT #### [facility] [address] [place] [address] Dr. Lee Zaldivar Creatinine [Mass/Vol] 1.19 mg/dL Critically high 0.55-1.02 [facility] Comment on above: Performed By: #### P TT, PT #### [facility] [address] [place] [address] Dr. Lee Zaldivar EGFR-AF CROATIAN 55 mL/min/1.73m2 Critically low >=60 [facility] Comment on above: Performed By: #### P TT, PT #### [facility] [address] [address] [address] Lee Zaldivar EGFR-NON AF CROATIAN 45 mL/min/1.73m2 Critically low >=60 [facility] Comment on above: Performed By: #### P TT, PT #### [facility] [address] [address] [address] Lee Zaldivar Glucose [Mass/Vol] 141 mg/dL Critically high 74-106 [facility] Comment on above: Performed By: #### P TT, PT #### [facility] [address] [place] [address] Dr. Lee Zaldivar Potassium [Moles/Vol] 2.7 mmol/L Critically low 3.5-5.1 [facility] Comment on above: Result Comment: repe ated Performed By: #### P TT, PT #### [facility] [address] [place] [address] Dr. Lee Zaldivar Sodium [Moles/Vol] 140 mmol/L Normal 136-145 [facility] Comment on above: Performed By: #### P TT, PT #### [facility] [address] [place] [address] Dr. Lee Zaldivar Urea nitrogen [Mass/Vol] 18.0 mg/dL Normal 7.0-18.0 [facility] Comment on above: Performed By: #### P TT, PT #### [facility] [address] [place] [address] Dr. Lee Zaldivar Urea nitrogen/Creatinine [Mass ratio] 15.1 mg/mg Normal [facility] Comment on above: Performed By: #### P TT, PT #### [facility] [address] [place] [address] Dr. Lee Zaldivar PROTIMEon 05-08-2022 INR Coag (PPP) [Relative time] 1.48 {INR} Normal [facility] Comment on above: Performed By: #### P TT, PT #### [facility] [address] [address] [address] Lee Zaldivar INR GUIDELINES SEE BELOW Normal [facility] Comment on above: Result Comment: JHONNY RED INR: 2.0 - 3.0 CONDITIONS NOT LISTED BELOW 2.5 - 3.5 FOR PROSTHETIC HEART VALVE REPLACEMENT 2.5 - 3.5 RECURRENT THROMBOSIS Performed By: #### P TT, PT #### [facility] [address] [address] [address] Lee Zaldivar PT Coag (PPP) [Time] 15.6 s Critically high 9.0-11.6 [facility] Comment on above: Performed By: #### P TT, PT #### [facility] [address] [place] [address] Dr. Lee Zaldivar PTTon 05-08-2022 aPTT Coag (Bld) [Time] 27.9 s Normal 22.3-36.2 [facility] Comment on above: Performed By: #### P TT, PT #### [facility] [address] [place] [address] Dr. Lee Zaldivar Platelet poor plasma interna tional normalized ratio (INR) by coagulation assay (relatOrdered By: August Lamas on 05-08-2022 INR Coag (PPP) [Relative time] 1.7 {INR} [facility] Comment on above: INR Therapeutic Rang e [...] 05-08-2022 HSTROP 509.9 pg/mL Critically high 4.0-51.3 [facility] Comment on above: Result Comment: CUT- OFF POINTS HAVE BEEN ESTABLISHED BASED ON THE FOURTH UNIVERSAL DEFINITIONS OF MYOCARDIAL INFARCTION. THE UPPER REFERENCE LIMIT (URL) OF TROPONIN, DEFINED THE 99TH PERCENTILE OF cTnI DISTRIBUTION IN A REFERENCE POPULATION, HAS BEEN CONFIRMED THE DECISION THRESHOLD FOR VA DIAGNOSIS. repeated Performed By: #### P TT, PT #### [facility] [address] [place], [place] [address] Dr. Lee Zaldivar HSTROP 521.8 pg/mL Critically high 4.0-51.3 [facility] Comment on above: Result Comment: CUT- OFF POINTS HAVE BEEN ESTABLISHED BASED ON THE FOURTH UNIVERSAL DEFINITIONS OF MYOCARDIAL INFARCTION. THE UPPER REFERENCE LIMIT (URL) OF TROPONIN, DEFINED THE 99TH PERCENTILE OF cTnI DISTRIBUTION IN A REFERENCE POPULATION, HAS BEEN CONFIRMED THE DECISION THRESHOLD FOR VA DIAGNOSIS. repeated Performed By: #### P TT, PT #### [facility] [address] [place], [place] [address] Dr. Lee Zaldivar TSH DL <= 0.005 mIU/L QnOrde red By: August Lamas on 05-08-2022 TSH Qn 1.54 m[IU]/L 0.45-5.33 [facility] XR CHEST 1 Von 05-08-2022 XR CHEST [...] convincing pleural effusion. Electronically authenticated by: AUDIE GILELSPIE Date: 2022-05-08 12:53 Normal [facility] XR CHEST 2 Von 04-10-2022 XR CHEST [...] by: LAUREN ALCALA Date: 2022-04-10 14:26 Normal [facility] Vital Signs Date Time Vital Sign Value Performing Clinician Facility 11-30-2023 13:57-0500 Diastolic blood pressure 83 mm[Hg] MD Carolee Estrada Work Phone: [facility] 11-30-2023 13:57-0500 Heart rate 105 /min MD Carolee Estrada Work Phone: [facility] 11-30-2023 13:57-0500 Respiratory rate 18 /min MD Carolee Estrada Work Phone: [facility] 11-30-2023 13:57-0500 SaO2% (BldA) [Mass fraction] 96 % MD Carolee Estrada Work Phone: [facility] 11-30-2023 13:57-0500 Systolic blood pressure 107 mm[Hg] MD Carolee Estrada Work Phone: [facility] 11-30-2023 12:31-0500 Body height 162.56 cm MD Carolee Estrada Work Phone: [facility] 11-30-2023 12:31-0500 Body weight 90.71 kg MD Carolee Estrada Work Phone: [facility] 11-23-2023 14:30-0500 Body height 162.56 cm Javier Ross Other [employer] Other 11-23-2023 14:30-0500 Body mass index (BMI) [Ratio] 35.7 kg/m2 Javier Ross Other [employer] Other 11-23-2023 14:30-0500 Body temperature 96.7 [degF] Javier Ross Other [employer] Other 11-23-2023 14:30-0500 Body weight 94.35 kg Lazaropat Quinnno Other [employer] Other 11-23-2023 14:30-0500 Diastolic blood pressure 84 mm[Hg] Lazaromigeler Vandana Other [employer] Other 11-23-2023 14:30-0500 Respiratory rate 20 /min Lazaropat Quinnno Other [employer] Other 11-23-2023 14:30-0500 SaO2% (BldA) [Mass fraction] 96 % Javier Quinnno Other [employer] Other 11-23-2023 14:30-0500 Systolic blood pressure 118 mm[Hg] Jacshanae SnowVandana Other [employer] Other 11-11-2023 14:15-0500 Body height 162.56 cm Clinton Pierce Other [employer] Other 11-11-2023 14:15-0500 Body mass index (BMI) [Ratio] 32.44 kg/m2 Clinton Pierce Other [employer] Other 11-11-2023 14:15-0500 Body weight 85.73 kg Clinton Pierce Other [employer] Other 11-11-2023 14:15-0500 Diastolic blood pressure 81 mm[Hg] Clinton Pierce Other [employer] Other 11-11-2023 14:15-0500 Systolic blood pressure 128 mm[Hg] Clinton Pierce Other [facility] Other 09-15-2023 15:16-0400 Body height 162.6 cm Arsalan Conley MD Work Phone: [facility] 09-15-2023 15:16-0400 Body mass index (BMI) [Ratio] 35.7 kg/m2 Arsalan Conley MD Work Phone: [facility] 09-15-2023 15:16-0400 Body weight 94.35 kg Arsalan Conley MD Work Phone: [facility] 09-15-2023 15:16-0400 Diastolic blood pressure 78 mm[Hg] Arsalan Conley MD Work Phone: [facility] 09-15-2023 15:16-0400 Heart rate 64 /min Arsalan Conley MD Work Phone: [facility] 09-15-2023 15:16-0400 Systolic blood pressure 116 mm[Hg] Arsalan Conley MD Work Phone: [facility] 07-14-2023 11:53-0400 Body height 162.56 cm Carolee Estrada Work Phone: [facility]Pctkateoic[facility]alkj [facility] Work Phone: 07-14-2023 11:53-0400 Body mass index (BMI) [Ratio] 34.16 kg/m2 Carolee Estrada Work Phone: TZ[facility]Etwmjneiqr-Wrvuo [facility] Work Phone: 07-14-2023 11:53-0400 Body surface area Derived from formula 1.95 m2 Carolee Estrada Work Phone: ZR-Sdnnafixup-Dnfxe [facility] Work Phone: 07-14-2023 11:53-0400 Body weight 90.27 kg Carolee Estrada Work Phone: [facility]Lifnqakzdh-Qpszb [facility] Work Phone: 07-14-2023 11:53-0400 Diastolic blood pressure 81 mm[Hg] Carolee Agosto Sean Work Phone: BK-Hesoqzugzy-Rkthq [facility] Work Phone: 07-14-2023 11:53-0400 Heart rate 69 /min Carolee Agosto Sean Work Phone: CP-Eygwxolqzo-Dlzgp [facility] Work Phone: 07-14-2023 11:53-0400 SaO2% (BldA) [Mass fraction] 99 % Carolee Agosto Sean Work Phone: BI-Ezbfvdxzui-Yambu [facility] Work Phone: 07-14-2023 11:53-0400 Systolic blood pressure 118 mm[Hg] Carolee Agosto Sean Work Phone: QF-Erehdtvlsc-Nlxgt [facility] Work Phone: 04-13-2023 08:41-0400 Body height 162.56 cm Carolee Agosto Sean Work Phone: DM-Yxzipzzrpt-EHW [facility] [address] [place] Work Phone: 04-13-2023 08:41-0400 Body mass index (BMI) [Ratio] 33.99 kg/m2 Carolee Agosto Sean Work Phone: MG-Djblykcrip-[facility] [address] [place] Work Phone: 04-13-2023 08:41-0400 Body surface area Derived from formula 1.95 m2 Carolee Agosto Estrada Work Phone: UY-Mwvnqpmsrt-RWD [facility] [address] [place] Work Phone: 04-13-2023 08:41-0400 Body weight 89.81 kg Carolee Abelight Work Phone: WU-Bowhncrpbp-BYJ [facility] [address] [place] Work Phone: 04-13-2023 08:41-0400 Diastolic blood pressure 87 mm[Hg] Carolee Abelight Work Phone: YZ-Wvttppgfkg-CQW [facility] [address] [place] Work Phone: 04-13-2023 08:41-0400 Heart rate 60 /min Carolee Abelight Work Phone: [facility] [address] [place] Work Phone: 04-13-2023 08:41-0400 SaO2% (BldA) [Mass fraction] 95 % Carolee Abelight Work Phone: [facility] [address] [place] Work Phone: 04-13-2023 08:41-0400 Systolic blood pressure 143 mm[Hg] Carolee Estrada Work Phone: [facility] [address] [facility] [place] Work Phone: 04-13-2023 08:41-0400 0 1 Carolee Estrada Work Phone: [facility] [address] [place] Work Phone: Comment on above: [employer] 02-19-2023 11:23-0400 Body height 162.56 cm Carolee Estrada Work Phone: [facility] [address] [place] Work Phone: 02-19-2023 11:23-0400 Body mass index (BMI) [Ratio] 32.44 kg/m2 Carolee Estrada Work Phone: [facility] [address] Work Phone: 02-19-2023 11:23-0400 Body surface area Derived from formula 1.91 m2 Carolee Estrada Work Phone: [facility] [address] Work Phone: 02-19-2023 11:23-0400 Body weight 85.73 kg Carolee Estrada Work Phone: [facility] [address] [place] Work Phone: 02-19-2023 11:23-0400 Diastolic blood pressure 76 mm[Hg] Carolee Estrada Work Phone: [facility] [address] [place] Work Phone: 02-19-2023 11:23-0400 Heart rate 51 /min Carolee Estrada Work Phone: [facility] [address] Work Phone: 02-19-2023 11:23-0400 Systolic blood pressure 118 mm[Hg] Carolee Estrada Work Phone: [facility] [address] [place] Work Phone: 02-16-2023 11:00-0400 Body height 162.56 cm Javier Ross Other [employer] Other 02-16-2023 11:00-0400 Body mass index (BMI) [Ratio] 32.09 kg/m2 Javier Ross Other [employer] Other 02-16-2023 11:00-0400 Body temperature 96.4 [degF] Javier Ross Other [employer] Other 02-16-2023 11:00-0400 Body weight 84.82 kg Javier Ross Other [employer] Other 02-16-2023 11:00-0400 Diastolic blood pressure 80 mm[Hg] Javier Ross Other [employer] Other 02-16-2023 11:00-0400 Respiratory rate 20 /min Javier Ross Other [employer] Other 02-16-2023 11:00-0400 SaO2% (BldA) [Mass fraction] 95 % Javier Ross Other [employer] Other 02-16-2023 11:00-0400 Systolic blood pressure 122 mm[Hg] Javier Ross Other [employer] Other 12-15-2022 10:56-0500 Body height 162.56 cm Carolee Estrada Work Phone: SC-Hnkbqgmcvh-Llzkq [facility] Work Phone: 12-15-2022 10:56-0500 Body mass index (BMI) [Ratio] 30.4 kg/m2 Carolee Estrada Work Phone: UZ-Vhwcvbsbjo-Arwxr [facility] Work Phone: 12-15-2022 10:56-0500 Body surface area Derived from formula 1.86 m2 Carolee Estrada Work Phone: LR-Pdqcekyyer-Rnevj [facility] Work Phone: 12-15-2022 10:56-0500 Body weight 80.35 kg Carolee Estrada Work Phone: CM-Upnlxrmhrl-Xpmep [facility] Work Phone: 12-15-2022 10:56-0500 Diastolic blood pressure 79 mm[Hg] Carolee Estrada Work Phone: BT-Rquajqzvro-Zivox [facility] Work Phone: 12-15-2022 10:56-0500 Heart rate 53 /min Carolee Estrada Work Phone: VR-Tfwyrbebhp-Jqucq [facility] Work Phone: 12-15-2022 10:56-0500 SaO2% (BldA) [Mass fraction] 94 % Carolee Estrada Work Phone: AV-Vxexiyuceo-Gjkfh [facility] Work Phone: 12-15-2022 10:56-0500 Systolic blood pressure 124 mm[Hg] Carolee Triny Estrada Work Phone: LK-Ikekeijlxo-Wvztv [facility] Work Phone: 12-15-2022 10:56-0500 0 1 Carolee Estrada Work Phone: MS-Yuooqbqajp-Yyhly [facility] Work Phone: Comment on above: [employer] 11-18-2022 13:09-0500 Body height 162.56 cm Carolee Estrada Work Phone: [facility] [address] Work Phone: 11-18-2022 13:09-0500 Body mass index (BMI) [Ratio] 31.76 kg/m2 Carolee Estrada Work Phone: [facility] [address] Work Phone: 11-18-2022 13:09-0500 Body surface area Derived from formula 1.89 m2 Carolee Estrada Work Phone: [facility] [address] Work Phone: 11-18-2022 13:09-0500 Body weight 83.92 kg Carolee Estrada Work Phone: [facility] [address] Work Phone: 11-18-2022 13:09-0500 Diastolic blood pressure 72 mm[Hg] Carolee Triny Estrada Work Phone: [facility] [address] Work Phone: 11-18-2022 13:09-0500 Heart rate 44 /min Carolee Triny Estrada Work Phone: [facility] [address] Work Phone: 11-18-2022 13:09-0500 Systolic blood pressure 120 mm[Hg] Carolee Agosto Sean Work Phone: [facility] [address] Work Phone: 11-18-2022 13:09-0500 11 1 Carolee Agosto Estrada Work Phone: [facility] [address] Work Phone: Comment on above: PHQ-9 TS 11-12-2022 10:45-0500 55 1 Carolee Agosto Estrada Work Phone: [facility] [address] Work Phone: Comment on above: [id number] 10-21-2022 10:06-0500 Body height 162.56 cm Carolee Agosto Estrada Work Phone: [facility] [address] Work Phone: 10-21-2022 10:06-0500 Body mass index (BMI) [Ratio] 31.07 kg/m2 Carolee Abelight Work Phone: [facility] 250 DO Work Phone: 10-21-2022 10:06-0500 Body surface area Derived from formula 1.87 m2 Carolee Agosto Estrada Work Phone: [facility] 250 DO Work Phone: 10-21-2022 10:06-0500 Body weight 82.1 kg Carolee Agosto Estrada Work Phone: [facility] 250 DO Work Phone: 10-21-2022 10:06-0500 Diastolic blood pressure 72 mm[Hg] Carolee Agosto Estrada Work Phone: [facility] 250 DO Work Phone: 10-21-2022 10:06-0500 Heart rate 56 /min Carolee Abelight Work Phone: [facility] 250 DO Work Phone: 10-21-2022 10:06-0500 Systolic blood pressure 124 mm[Hg] Carolee Abelight Work Phone: [facility] 250 DO Work Phone: 08-11-2022 14:24-0400 Body height 162.56 cm Carolee Estrada Work Phone: [facility] DO Work Phone: 08-11-2022 14:24-0400 Body mass index (BMI) [Ratio] 31.76 kg/m2 Carolee Estrada Work Phone: [facility] 250 DO Work Phone: 08-11-2022 14:24-0400 Body surface area Derived from formula 1.89 m2 Carolee Estrada Work Phone: [facility] DO Work Phone: 08-11-2022 14:24-0400 Body weight 83.92 kg Carolee Estrada Work Phone: [facility] 250 DO Work Phone: 08-11-2022 14:24-0400 Diastolic blood pressure 84 mm[Hg] Carolee Estrada Work Phone: [facility] 250 DO Work Phone: 08-11-2022 14:24-0400 Heart rate 94 /min Carolee Estrada Work Phone: [facility] 250 DO Work Phone: 08-11-2022 14:24-0400 Systolic blood pressure 100 mm[Hg] Carolee Estrada Work Phone: [facility] 250 DO Work Phone: 07-27-2022 17:46-0400 Body height 162.56 cm MD Carolee Estrada Work Phone: [facility] 07-27-2022 17:46-0400 Body weight 87.99 kg MD Carolee Estrada Work Phone: [facility] 07-06-2022 15:49-0400 Body height 162.56 cm Carolee Agosto Estrada Work Phone: [facility] 250 DO Work Phone: 07-06-2022 15:49-0400 Body mass index (BMI) [Ratio] 33.3 kg/m2 Carolee Agosto Estrada Work Phone: [facility] 250 DO Work Phone: 07-06-2022 15:49-0400 Body surface area Derived from formula 1.93 m2 Carolee Abelight Work Phone: [facility] 250 DO Work Phone: 07-06-2022 15:49-0400 Body weight 88 kg Carolee Estrada Work Phone: [facility] 250 DO Work Phone: 07-06-2022 15:49-0400 Diastolic blood pressure 68 mm[Hg] Carolee Abelight Work Phone: [facility] 250 DO Work Phone: 07-06-2022 15:49-0400 Heart rate 102 /min Carolee Abelight Work Phone: [facility] 250 DO Work Phone: 07-06-2022 15:49-0400 Systolic blood pressure 98 mm[Hg] Carolee Abelight Work Phone: [facility] 250 DO Work Phone: 06-24-2022 09:39-0400 Heart rate 111 /min MD Carolee Estrada Work Phone: [facility] 06-17-2022 15:13-0400 Body height 162.56 cm Carolee Estrada Work Phone: [facility] 250 DO Work Phone: 06-17-2022 15:13-0400 Body mass index (BMI) [Ratio] 25.58 kg/m2 Carolee Agosto Sean Work Phone: [facility] 250 DO Work Phone: 06-17-2022 15:13-0400 Body surface area Derived from formula 1.73 m2 Carolee Estrada Work Phone: [facility] 250 DO Work Phone: 06-17-2022 15:13-0400 Body weight 67.59 kg Carolee Agosto Estrada Work Phone: [facility] 250 DO Work Phone: 06-17-2022 15:13-0400 Diastolic blood pressure 64 mm[Hg] Carolee Agosto Estrada Work Phone: [facility] 250 DO Work Phone: 06-17-2022 15:13-0400 Heart rate 116 /min Carolee Estrada Work Phone: [facility] 250 DO Work Phone: 06-17-2022 15:13-0400 Systolic blood pressure 102 mm[Hg] Carolee Estrada Work Phone: [facility] 250 DO Work Phone: 05-13-2022 11:31-0400 Body temperature 98 [degF] MD Carolee Estrada Work Phone: [facility] 05-13-2022 11:31-0400 Diastolic blood pressure 72 mm[Hg] MD Carolee Estrada Work Phone: [facility] 05-13-2022 11:31-0400 Heart rate 88 /min MD Carolee Estrada Work Phone: [facility] 05-13-2022 11:31-0400 Respiratory rate 18 /min MD Carolee Estrada Work Phone: [facility] 05-13-2022 11:31-0400 SaO2% (BldA) [Mass fraction] 95 % MD Carolee Estrada Work Phone: [facility] 05-13-2022 11:31-0400 Systolic blood pressure 104 mm[Hg] MD Carolee Estrada Work Phone: [facility] 05-13-2022 04:53-0400 Body weight 102.5 kg MD Carolee Estrada Work Phone: [facility] 05-12-2022 14:00-0400 Inhaled oxygen flow rate 2 L/min MD Carolee Estrada Work Phone: [facility] 05-11-2022 14:56-0400 Body height 162.56 cm MD Carolee Estrada Work Phone: [facility] 05-08-2022 18:00-0400 Body mass index (BMI) [Ratio] 37.8 kg/m2 MD Carolee Estrada Work Phone: [facility] Encounters Encounter Date Encounter Type Care Provider Facility Start: 02-22-2024 End: 02-22-2024 ambulatory Carolee Estrada Facility:[facility] Start: 02-22-2024 End: 02-22-2024 ambulatory MD Carolee Estrada Work Phone: [facility] Work Phone: Start: 02-22-2024 End: 02-22-2024 Patient encounter procedure MD Carolee Estrada Work Phone: [facility] [address] Work Phone: Start: 12-01-2023 End: 12-01-2023 ambulatory Clinton Pierce Other [employer] Other Start: 12-01-2023 Telephone encounter Clinton [facility] Start: 11-30-2023 End: 11-30-2023 ambulatory Carolee Estrada Facility:[facility] Start: 11-30-2023 End: 11-30-2023 Admission to same day surgery center MD Carolee Estrada Work Phone: [facility] Work Phone: Start: 11-30-2023 End: 11-30-2023 ambulatory MD Carolee Estrada Work Phone: [facility] Work Phone: Start: 11-23-2023 End: 11-23-2023 ambulatory Javier Snowdano Other [facility] [place] Other Start: 11-23-2023 Office outpatient vi sit 25 minutes Javier Vandana [facility] Start: 11-11-2023 End: 11-11-2023 ambulatory Clinton Pierce Other [place] [facility] Other Start: 11-11-2023 Patient encounter procedure Clinton Pierce [facility] Start: 10-22-2023 End: 10-22-2023 ambulatory Carolee Estrada Facility:[facility] Start: 10-22-2023 End: 10-22-2023 ambulatory MD Carolee Estrada Work Phone: [facility] Work Phone: Start: 10-22-2023 End: 10-22-2023 Patient encounter procedure MD Carolee Estrada Work Phone: [facility]-CT Scan Main [place] Work Phone: Start: 09-15-2023 End: 09-15-2023 ambulatory ARSALAN CONLEY [facility] Start: 09-15-2023 End: 09-15-2023 Office outpatient visit 25 minutes Arsalan Conley MD Work Phone: [facility] Comment on above: Paroxysmal atrial fi brillation (CMS/HCC) (Primary Dx); Nonischemic cardiomyopathy (CMS/HCC); Mixed hyperlipidemia; Essential hypertension; Melena Start: 07-14-2023 Office outpatient vi sit 25 minutes Carolee Estrada Work Phone: [facility] Work Phone: Start: 07-14-[address] Carolee Estrada Facility:[facility] Start: 04-13-2023 ambulatory Gilbert Thal Facility:[facility] Start: 04-13-2023 Office outpatient vi sit 25 minutes Carolee Estrada Work Phone: [facility]Przjudwseg-ONS [address] [place] Work Phone: Start: 03-02-2023 Rx Renewal Carolee sEtrada Work Phone: [facility] 250 DO Work Phone: Start: 02-19-2023 ambulatory Ms. Janene Berry Facility: Start: 02-19-2023 Office outpatient vi sit 25 minutes Carolee Estrada Work Phone: [facility] 250 DO Work Phone: Start: 02-16-2023 End: 02-16-2023 ambulatory Javier Ross Other [facility] [place] Other Start: 02-16-2023 Office outpatient vi sit 25 minutes Javier Ross [facility] Start: 01-30-2023 ambulatory Facility:[facility] Sarbjit Start: 01-18-2023 End: 01-19-[address] CARMINE NAILS Facility: Start: 01-14-2023 AUDIT Carolee Estrada Work Phone: [facility]Aohjgswtmp[facility]Toejyh Work Phone: Start: 01-12-2023 Chart Update Carolee Estrada Work Phone: [facility]-Nrwojpotjc-Xqaqwsqji Work Phone: Start: 01-08-2023 End: 01-08-2023 ambulatory Gilbert Thal Facility:[facility] Start: 01-06-2023 Chart Update Carolee Estrada Work Phone: MO-Ezsbtmxnua-Ixdhkrbls Work Phone: Start: 12-15-2022 Office outpatient ne w 45 minutes Carolee Estrada Work Phone: [facility]Bcwawgtexx-Xcdss EP Lab Work Phone: Start: 12-15-2022 ambulatory Gilbert Hernandez Facility:U Start: 11-18-2022 Office outpatient vi sit 25 minutes Carolee Estrada Work Phone: [facility] 600 DO Work Phone: Start: 11-18-2022 Patient encounter procedure Carolee Estrada Work Phone: [facility] 250 DO Work Phone: Start: 11-18-2022 ambulatory Ms. Janene Bueno Cruz Berry Facility: Start: 11-12-2022 Chart Update Carolee Estrada Work Phone: [facility] 250 DO Work Phone: Start: 11-12-2022 ambulatory Ms. JANENE BUENO CRUZ BERRY Facility:[id number] Start: 10-30-2022 End: 10-31-[address] TANK Junior Facility: Start: 10-30-2022 End: 10-30-2022 ambulatory MD Carolee Estrada Work Phone: [facility] Work Phone: Start: 10-30-2022 End: 10-30-2022 Patient encounter procedure MD Carolee Estrada Work Phone: [facility] [address] Start: 10-21-2022 Office outpatient vi sit 25 minutes Carolee Estrada Work Phone: [facility] 250 DO Work Phone: Start: 10-21-2022 Patient encounter procedure Carolee Estrada Work Phone: [facility] 250 DO Work Phone: Start: 10-21-2022 ambulatory Ms. Janene Berry Facility: Start: 10-12-2022 End: 10-13-[address] CARMINE NAILS Facility:[facility] Start: 09-30-2022 ambulatory Arsalan Kaufman y:[id number] Start: 09-30-2022 End: 09-30-2022 Admission to same day surgery center MD Carolee Estrada Work Phone: [facility]Electrodiagnostics Start: 09-30-2022 End: 09-30-2022 ambulatory MD Carolee Estrada Work Phone: [facility] Work Phone: Start: 09-11-2022 End: 09-11-2022 ambulatory MD Carolee Estrada Work Phone: [facility] Work Phone: Start: 09-11-2022 End: 09-11-2022 Patient encounter procedure MD Carolee Estrada Work Phone: [facility] Nfx-Jjv-Cndqpoqg Testing Start: 09-02-2022 End: 09-02-2022 ambulatory MD Carolee Estrada Work Phone: [facility] Work Phone: Start: 09-02-2022 End: 09-02-2022 Patient encounter procedure MD Carolee Estrada Work Phone: [facility]-Lab [address] Start: 08-12-2022 Telephone encounter Carolee Bradley ht Work Phone: [facility] 600 DO Work Phone: Start: 08-11-2022 ambulatory Arsalan Kaufman y:[id number] Start: 08-11-2022 Patient encounter procedure Carolee Estrada Work Phone: [facility] 250 DO Work Phone: Start: 07-29-2022 Chart Update Carolee Estrada Work Phone: [facility] 250 DO Work Phone: Start: 07-28-2022 ambulatory Arsalan Kaufman y:[id number] Start: 07-28-2022 End: 07-28-2022 Admission to same day surgery center MD Carolee Estrada Work Phone: [facility]Electrodiagnostics Start: 07-28-2022 ambulatory Arsalan Conley Facilit y:[id number] Start: 07-24-2022 Chart Update Carolee Estrada Work Phone: [facility] 250 DO Work Phone: Start: 07-24-2022 End: 07-24-2022 Patient encounter procedure MD Carolee Estrada Work Phone: [facility] Wow-Qde-Osjravdz Testing Start: 07-22-2022 End: 07-23-2022 ambulatory JANENE STONE Facility: Start: 07-06-2022 ambulatory Ms. Janene Bueno Cruz Berry Facility: Start: 07-06-2022 Office outpatient vi sit 25 minutes Carolee Estrada Work Phone: [facility] 250 DO Work Phone: Start: 07-06-2022 Patient encounter procedure Carolee Estrada Work Phone: [facility] 250 DO Work Phone: Start: 07-01-2022 FUV, Provider: Janene García, Status: Pen, Time: 12:30 PM Carolee Estrada Work Phone: [facility] 250 DO Work Phone: Start: 06-29-2022 AUDIT Carolee Estrada Work Phone: [facility] 250 DO Work Phone: Start: 06-24-2022 Chart Update Carolee Estrada Work Phone: [facility] 250 DO Work Phone: Start: 06-24-2022 ambulatory Arsalan Conley Facilit y:[id number] Start: 06-24-2022 SURGNONUH, Provider: Arsalan Conley, Status: Pen, Time: 10:00 AM Carolee Estrada Work Phone: [facility] 250 DO Work Phone: Start: 06-24-2022 End: 06-24-2022 Admission to same day surgery center MD Carolee Estrada Work Phone: [facility]Electro[facility]ostics Start: 06-22-2022 Chart Update Carolee Estrada Work Phone: [facility] 250 DO Work Phone: Start: 06-22-2022 End: 06-22-2022 Patient encounter procedure MD Carolee Estrada Work Phone: [facility]-Pre-Surgical Testing Start: 06-17-2022 Office outpatient vi sit 25 minutes Carolee Estrada Work Phone: [facility] 250 DO Work Phone: Start: 06-17-2022 ambulatory Arsalan Conley Facilit y:[id number] Start: 05-20-2022 End: 05-21-[address] CAROLEE [...] of inpatient MD Carolee Estrada Work Phone: [facility] [place] [facility] Start: 05-08-2022 End: 05-08-[address] CAROLEE ESTRADA . Facility:[facility] Start: 04-27-2022 End: 04-27-2022 Patient encounter procedure MD Carolee Estrada Work Phone: [facility] [address] Start: 04-10-2022 End: 04-11-[address] CARMINE NAILS Facility:[facility] Imaging result normal Carolee Bradley Maclear Work Phone: [facility] DO Work Phone: Patient encounter status Carolee Estrada Work Phone: [facility] 600 DO Work Phone: Procedures Date Procedure Procedure Detail Performing Clinician Start: 02-22-2024 CT of chest without contrast MD Carolee Bradley Maclear Work Phone: Start: 11-30-2023 Esophagogastroduodenoscopy MD Carolee Estrada Work Phone: Start: 10-22-2023 CT of chest without contrast MD Carolee Bradley Maclear Work Phone: Start: 11-12-2022 Echocardiography Carolee Estrada Work Phone: Start: 10-30-2022 CT of chest without contrast MD Carolee Bradley Maclear Work Phone: Start: 04-27-2022 CT of chest without contrast MD Carolee Bradley Maclear Work Phone: Catheter ablation of arrhythmogenic focus [...] procedure 09/15/2024 1:30 PM EDT Office Visit [address] [address] Arsalan Conley MD [address] [facility] [address] [place] [address] [facility] Start: 01-10-2024 FUV, Provider: Gilbert Hernandez, Status: Pen, Time: 10:20 AM FUV, Provider: Gilbert Hernandez, Status: Pen, Time: 10:20 AM [facility]-Shqnhfwdeu-Otkgg [facility] Work Phone: Start: 01-10-2024 End: 01-10-2024 Patient encounter procedure 01/10/2024 10:20 AM EST Office Visit [facility] [address] [place] [address] [place] [address] [place] [address] [facility] Start: 11-30-2023 [facility] Start: 09-15-2023 FUV, Provider: Arsalan Conley, Status: Pen, Time: 2:50 PM FUV, Provider: Arsalan Conley, Status: Pen, Time: 2:50 PM -[facility] 250 DO Work Phone: Start: 07-16-2023 Influenza vaccination Influenza Vaccine (#1) [facility] Start: 07-14-2023 FUV, Provider: Gilbert Hernandez, Status: Pen, Time: 11:40 AM FUV, Provider: Gilbert Hernandez, Status: Pen, Time: 11:40 AM JH-Tplnbuthuq-BJO Tumacacori Pavili [address] [place] Work Phone: Start: 04-13-2023 FUVHOSP, Provider: Gilbert Hernandez, Status: Pen, Time: 8:20 AM FUVHOSP, Provider: Gilbert Hernandez, Status: Pen, Time: 8:20 AM DF-Rccwovrubm-Mdpzucw rg Work Phone: Start: 02-15-2023 FUV, Provider: Janene García, Status: Pen, Time: 11:30 AM FUV, Provider: Janene García, Status: Pen, Time: 11:30 AM -[facility] 250 DO Work Phone: Start: 12-15-2022 NPV, Provider: Gilbert Hernandez, Status: Pen, Time: 11:20 AM NPV, Provider: Gilbert Hernandez, Status: Pen, Time: 11:20 AM -[facility] 250 DO Work Phone: Start: 11-18-2022 FUV, Provider: Janene García, Status: Pen, Time: 1:00 PM FUV, Provider: Janene García, Status: Pen, Time: 1:00 PM -[facility] 250 DO Work Phone: Start: 11-12-2022 ECHO, Provider: [facility]TR[facility] 01,[id number], Status: Pen, Time: 10:45 AM ECHO, Provider: [facility] 01,[id number], Status: Pen, Time: 10:45 AM -[facility] 250 DO Work Phone: Start: 09-30-2022 [facility] Start: 09-28-2022 FUV, Provider: Arsalan Conley, Status: Pen, Time: 11:10 AM FUV, Provider: Arsalan Conley, Status: Pen, Time: 11:10 AM -[facility] 250 DO Work Phone: Start: 09-15-2022 SURGNONUH, Provider: Arsalan Conley, Status: Pen, Time: 1:00 PM SURGNONUH, Provider: Arsalan Conley, Status: Pen, Time: 1:00 PM -[facility] 600 DO Work Phone: Start: 08-11-2022 EKG, Provider: CLIFTON AGUILAR STRUCTURAL ARCHITECT 1,[id number], Status: Pen, Time: 1:00 PM EKG, Provider: CLIFTON AGUILAR STRUCTURAL ARCHITECT 1,[id number], Status: Pen, Time: 1:00 PM [facility] 250 DO Work Phone: Start: 07-28-2022 SURGNONUH, Provider: Arsalan Conley, Status: Pen, Time: 2:00 PM SURGNONUH, Provider: Arsalan Conley, Status: Pen, Time: 2:00 PM [facility] 250 DO Work Phone: Start: 07-28-2022 End: 07-28-2022 [facility] Start: 07-01-2022 FUV, Provider: Janene García, Status: Pen, Time: 12:30 PM FUV, Provider: Janene García, Status: Pen, Time: 12:30 PM -[facility] 250 DO Work Phone: Start: 06-24-2022 SURGNONUH, Provider: Arsalan Conley, Status: Pen, Time: 10:00 AM SURGNONUH, Provider: Arsalan Conley, Status: Pen, Time: 10:00 AM -[facility] DO Work Phone: Start: 06-24-2022 [facility] Start: 05-13-2022 [facility] Work Phone: Start: 05-12-2022 Hospital admission [facility] Work Phone: Start: 05-08-2022 Hospital admission [facility] Work Phone: Start: 05-08-2022 Fluoroscopy of Left Heart using Low Osmolar Contrast Fluoroscopy of Left Heart using Low Osmolar Contrast [facility] Start: 05-08-2022 Fluoroscopy of Multiple Coronary Arteries using Low Osmolar Contrast Fluoroscopy of Multiple Coronary Arteries using Low Osmolar Contrast [facility] Start: 05-08-2022 Measurement of Cardiac Sampling and Pressure, Left Heart, Percutaneous Approach Measurement of Cardiac Sampling and Pressure, Left Heart, Percutaneous Approach [facility] Start: 11-19-2021 COVID-19 Vaccine (4 - Pfizer risk series) COVID-19 Vaccine (4 - Pfizer risk series) [facility] Start: 11-08-2020 Pneumococcal Vaccine: 65+ Years (2 - PPSV23 or PCV20) Pneumococcal Vaccine: 65+ Years (2 - PPSV23 or PCV20) [facility] Start: 1995 Screening for malignant neoplasm of breast Mammogram [facility] Start: 1977 DTaP/Tdap/Td Vaccines (1 - Tdap) DTaP/Tdap/Td Vaccines (1 - Tdap) [facility] Start: 1973 Diabetes mellitus screening Diabetes Screening [facility] Start: 1973 Hepatitis C screening Hepatitis C Screening [facility] Start: 1955 Lipid panel Lipid Panel [facility] Start: 1955 Medicare Annual Wellness Visit Medicare Annual Wellness Visit (AWV) [facility] Start: 1955 Screening for malignant neoplasm of colon [facility] Start: 1955 Screening for osteoporosis Bone Density Scan [facility] Patient Education [facility] Work Phone: Patient referral [facility] Work Phone: Immunizations Immunization Date Immunization Notes Care Provider Fa thu 09-24-2021 Pfizer-BioNTech COVID-19 Vacc 30 MCG/0.3ML Intramuscular Suspension Carolee Estrada Work Phone: [facility] 03-17-2021 Pfizer-BioNTech COVID-19 Vacc 30 MCG/0.3ML Intramuscular Suspension Carolee Estrada Work Phone: [facility] 02-25-2021 Pfizer-BioNTech COVID-19 Vacc 30 MCG/0.3ML Intramuscular Suspension Carolee Estrada Work Phone: [facility] 12-24-2020 zoster vaccine recombinant Carolee Estrada [facility] Work Phone: 10-17-2020 zoster vaccine recombinant Carolee Estrada Work Phone: [facility] Work Phone: 09-13-2020 pneumococcal conjuga te vaccine, 13 valent Carolee Estrada Work Phone: [place] [address] DO Work Phone: 09-13-2020 Seasonal trivalent influenza vaccine, adjuvanted, preservative free Carolee Estrada Work Phone: [place] [address] DO Work Phone: 09-13-2020 influenza virus vaccine, unspecified formulation Arsalan Conley MD Work Phone: [facility] Work Phone: 08-15-2019 influenza, injectabl e, quadrivalent, contains preservative Carolee Estrada Work Phone: [place] [address] DO Work Phone: 08-15-2019 pneumococcal conjuga te vaccine, 13 valent Carolee Agosto Estrada Work Phone: [place] [address] DO Work Phone: 10-21-2018 influenza, injectabl e, quadrivalent, preservative free Carolee Agosto Estrada Work Phone: [place] [address] DO Work Phone: Payers Date Payer Category Payer Medicare [employer] [id number] 2023-Present [address] [place] [address] [id number] 2023 Private Health Insurance [id number] 2023 Self-pay [id number] 1959 Medicare [id number] 1959 Medicare [id number] 1959 Private Health Insurance [id number] 1955 Unknown [id number] 2.16.840.1.712595.3.579.2. 1068 1955 Unknown [id number] 2.16.840.1.005666.3.579.2. 593 1955 Unknown [id number] 2.16.840.1.446113.3.579.2. 593 1955 Unknown [id number] 2.16.840.1.115960.3.579.2. 593 1955 Unknown [id number] 2.16.840.1.454431.3.579.2. 593 1955 Unknown [id number] 2.16.840.1.644987.3.579.2. 593 1955 Unknown [id number] 2.16.840.1.393510.3.579.2. 593 1955 Unknown [id number] 2.16.840.1.277740.3.579.2. 593 1955 Unknown [id number] 2.16.840.1.633204.3.579.2. 593 1955 Unknown [id number] 2.16.840.1.647400.3.579.2. 356 1955 Unknown [id number] 2.16.840.1.834115.3.579.2. 356 1955 Unknown [id number] 2.16.840.1.352687.3.579.2. 356 1955 Unknown [id number] 2.16.840.1.916380.3.579.2. 356 1955 Unknown [id number] 2.16.840.1.871211.3.579.2. 356 1955 Unknown [id number] 2.16.840.1.358705.3.579.2. 356 1955 Unknown [id number] 2.16.840.1.395092.3.579.2. 356 1955 Unknown [id number] 2.16.840.1.312615.3.579.2. 356 1955 Unknown [id number] 2.16.840.1.987569.3.579.2. 356 1955 Unknown [id number] 2.16.840.1.037269.3.579.2. 1955 Unknown [id number] 2.16.840.1.166083.3.579.2. 356 1955 Unknown [id number] 2.16.840.1.747265.3.579.2. 1955 Unknown [id number] 2.16.840.1.508559.3.579.2. 1955 Unknown [id number] 2.16.840.1.239555.3.579.2. 1955 Unknown [id number] 2.16.840.1.685117.3.579.2. 356 1955 Unknown [id number] 2.16.840.1.470240.3.579.2. 356 1955 Unknown [id number] 2.16.840.1.066176.3.579.2. 1955 Unknown [id number] 2.16.840.1.398446.3.579.2. 356 1955 Unknown [id number] 2.16.840.1.437750.3.579.2. 356 1955 Unknown [id number] 2.16.840.1.740405.3.579.2. 1955 Unknown [id number] 2.16.840.1.557218.3.579.2. 1244 Medicare Medicare [id number] Unknown Unknown [place] BC/BS [id number] Unknown [id number] 2.16.840.1.586407.3.579.2. 531 Unknown [id number] 2.16.840.1.374104.3.579.2. 531 Unknown [id number] 2.16.840.1.467536.3.579.2. 531 Social History Date Type Detail Facility Start: 11-18-2022 End: 09-15-2023 Social alcohol use Social alcohol use [facility] Comment on above: 11/16 PPD; Start: 05-09-2022 End: 11-30-2023 Tobacco smoking status NHIS Smoker (finding) [facility] Start: 1955 Sex Assigned At Female [facility] Start: 11-18-2022 End: 09-15-2023 Sex Assigned At [facility] Start: 09-15-2023 Tobacco smoking status NHIS Smokes tobacco daily [facility] Work Phone: History of tobacco use Cigarette Smoker [facility] Work Phone: Start: 09-15-2023 Tobacco use and exposure Smokeless tobacco non-user [facility] Work Phone: Start: 09-15-2023 Alcohol intake Current drinke r of alcohol (finding) [facility] Work Phone: Start: 09-15-2023 Alcohol Comment occassionally [facility] Work Phone: Start: 1955 Sex Assigned At Not on file [facility] Work Phone: Start: 09-05-2023 End: 09-15-2023 Exposure to SARS-CoV-2 (event) Not sure [facility] Goals Date Patient Goal Desired Activity /State Functional Status Date Assessment Result Facility 05-13-2022 Functional status Patient at Baseline [facility] Work Phone: Mental Status Date Assessment Result Facility 05-13-2022 Cognitive function Cognitive Sta tus Patient at Baseline [facility] Work Phone: Clinical Notes 06-17-2022 to 11-30-2023 Note Date & Type Note Facility 11-30-2023 Procedure note [facility] 11-23-2023 Evaluation note Encounter Date Diagnosis Assessment Notes Nov, Pulmonary nodules (ICD-10 - R91.8) Nov, Emphysema lung (ICD-10 - J43.9) Nov, 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 PROCEED WITH EGD TO EVALUATE. PATIENT TO REPORT TO ER IF SYMPTOMS WORSEN. [employer] Other 11-01-2023 History of Present illness Narrative* [...] pre-existing relationship with them. [facility]: 1(555) 610-380211-01-2023 Instructions* Patient Instructions* Sakshi Epstein LPN - [...] time of your visit. 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 I personally evaluated the patient [id number] Electronic Signatures: Gilbert Hernandez) (Signed 02-Feb-2023 11:45) Co-Signer: History of Present Illness, Allergies, Home Medication Review, Impression/Procedure, ERAS, Physical Exam, Consent, Note Completion Diana Garcia (Resident)) (Signed 01-Feb-2023 19:00) Authored: History of Present Illness, Allergies, Home Medication Review, Impression/Procedure, ERAS, Physical Exam, Consent, Note Completion Last Updated: 02-Feb-2023 11:45 by Gilbert Hernandez)[facility] 01-08-2023 NotePre-procedure Verification and Time Out: Pre-Procedure Verification and Time Out: Procedure Locationprocedure area HUDDLE - Pre-procedure Verificationcompleted TIME OUT - Final Verificationcompleted immediately prior to procedure start DEBRIEFcompleted General Information: Anesthesia Critical Care: Non-Anesthesia Post-Procedure Diagnosis: successful afib ablation Procedure Name: afib ablation Findings: grossly normal anatomy Procedure performed by: Mary Online Education Manager(s): Diana garcia Estimated Blood Loss (mL): 10 [...] Details Last Updated: 08-Jan-2023 12:32 by Gilbert Hernandez)[facility] 01-08-2023 NoteClinical Note - Pharmacy v2: Education: [...] Medication reconciliation complete Please reach out via [employer] for questions, or if no response call [phone] or [email or web address] [facility]Rec Phil Caldwell, YesseniaD, PGY-1 Resident [facility] Is This Intervention Medication Reconciliation Relatedyes Time [id number] - 60 minutes Additional NotesDrug Name: amiodarone [...] No Known Allergies Electronic Signatures: Nely Orantes ([facility]) (Signed 08-Jan-2023 13:27) Co-Signer: Donald Allergy Phil Caldwell ([facility]) (Signed 08-Jan-2023 08:10) Authored: Education, Allergy Last Updated: 08-Jan-2023 13:27 by Nely Orantes ([facility]02-24-2023 NoteElectrophysiology Procedure TestingPlease click on the link to view the study images (Normal)[facility] Work Phone: 1(997) 864-296302-24-2023 NoteElectrophysiology Procedure Testing Please click on the link to view the study images (Normal)[facility] Work Phone: 1([phone]) 668-872012-12-2022 History of Present illness Narrative* The patient [...] medication regimen. She denies medication side effects. [facility] Work Phone: [phone]) [phone] History of Present illness Narrative* The patient [...] medication regimen. She denies medication side effects. [facility] [address] DO Work Phone: 1([phone]) 405-182211-16-2022 [facility] History of Present illness Narrative* The patient [...] medication regimen. She denies medication side effects. [facility] 250 DO Work Phone: Chief complaint Narrative - ReportedTAWANDA STEVENS is being seen for a consultation for atrial fibrillation and cardiomyopathy. FE-Ftatwomuug-Xisrb EP [facility] Work Phone: Chief complaint Narrative - Reported* TAWANDA STEVENS is being seen for a cardiovascular evaluation. * TAWANDA STEVENS is being seen for a cardiovascular evaluation of atrial fibrillation, dyslipidemia and hypertension. GW-Ykgazoowxu-WMY Dale Estevez [address] [place] Work Phone: Evaluation note* Diagnosis Onset Date Resolution Status Acute systolic CHF (congesti ve heart failure), NYHA class 4 acute Anxiety acute Atrial fibrillation with RVR acute Cardiomyopathy acute Depression acute HLD (hyperlipidemia) acute Rheumatoid arthritis acute [facility] Work Phone: Evaluation noteNo assessment information available [facility] Work Phone: Evaluation note* Diagnosis Paroxysmal atrial fibrillation (CMS/HCC)- Primary Atrial fibrillation Nonischemic cardiomyopathy (CMS/HCC) Other primary cardiomyopathies Mixed hyperlipidemia Essential hypertension Unspecified essential hypertension Melena Blood in stool documented in this encounter [facility] Work Phone: Evaluation noteNo [facility] [place] [employer] Other History and physical note Author Clinton Pierce [facility] November 30, 2023 1:10pm Note Date/Time November 30, 2023 1 :10pm [facility] [address] [place] [address] Gastroenterology H&P Signed Patient: Tawanda Stevens MR#: [id number] : 1955 Acct:[id number] Age/Sex: 68 / F Adm Date: 4 Loc: Room: Type: [facility] Attending Dr: Clinton Pierce MD Copies to: [...] signed by Clinton Pierce MD> 11/30/23 1310 [facility] Work Phone: Hislcpq general Narrative - Reported* Type Description Date Medical History depression Medical History BURSITIS Medical History Atrial fibrillation Medical History rheumatoid arthritis Medical History pulmonary nodule Surgical History HYSTERECTOMY 2005 Surgical History T & A 1974 Surgical History ectopic 1993 Surgical History rt leg veins 2008 [employer] Other Hisvzui general Narrative - Reported* Type Description Date Medical History depression Medical History BURSITIS Medical History Atrial fibrillation Medical History rheumatoid arthritis Medical History pulmonary nodule Medical History emphysema Medical History rheumatoid lung disease Surgical History HYSTERECTOMY 2004 Surgical History T & A 1974 Surgical History ectopic 1993 Surgical History rt leg veins 2008 [employer] Other History of Present illness Narrative* The [...] medication regimen. She denies medication side effects. [facility] Work Phone: History of Present illness [...] medication regimen. She denies medication side effects. [facility] [place] [facility] Work Phone: History of Present illness [...] medication regimen. She denies medication side effects. -[facility] 250 DO Work Phone: History of [...] medication regimen. She denies medication side effects. [facility] 600 DO Work Phone: History of Present illness Mbxudlnbb48 yo female. 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 The patient underwent multiple DCC and is currently in high dosis ofamiodarone to maintain NSR. Was referred to me for evaluation for A Fib RFA.XS-Dxztxojzkk-Pkhrp EP Lab Work Phone: History of Present [...] medication regimen. She denies medication side effects. -[facility] 250 DO Work Phone: History of Present illness Fadxqfkpg46 yo female. Presents for 3 months follow up after A Fib RFA.KU-Uawozsvgzj-TXZ Dale Estevez [address] [place] Work Phone: History of Present illness Edaovoxrw10 yo female. Presents for 6 months follow up after A fib RFA. Amiodarone was stopped during last visit.NM-Gecjtczglh-Gvpjv [facility] Work Phone: Hospital Discharge instructions Additional Instructions No driving for 24 hours. Office will call for your follow up appointment.[facility] Work Phone: Hospital Discharge instructions Additional [...] problems. -Follow up with PCP. -Office number [phone].[facility] Work Phone: Reason for referral (narrative)* Consultation (Routine) - Authorized Specialty Diagnoses / Procedures Referred By Contac t Referred To Contact Cardiology Diagnoses Paroxysmal atrial fibrillation (CMS/HCC) Procedures Follow Up In Cardiology Arsalan Conley MD [address] [place] [address] [address], [address] [address] Arsalan Conley MD [address] [place] [address] [address], [address] [address] Referral ID Status Reason Start Date Expiration Date V isits Requested Visits Authorized [id number] Authorized 09/15/2023 09/14/2024 1 1 [facility] Work Phone: Chief Complaint * More bad then good days * TAWANDA STEVENS is being seen for follow-up of a hospitalization for dyspnea. * Patient was recently hospitalized at [facility]. The patient was seen in Cardiology consult with subsequent cardiovascular management by [facility]. Hospitalization records have been reviewed. * Reason for Cardiology Consultation: ADHF, afib RVR * Consulting Exercise Planner: Dr. Conley * Cardiovascular testing: Echo, cardiac [...] * Jun 24, 2022: DCC x3 with moravian of NSR. * Feels like initially 'was [...] * Jun 24, 2022: DCC x3 with moravian of NSR. * Feels like initially 'was [...] * July 28, 2022 cardioversion x2 with moravian of normal sinus rhythm on amiodarone 200 mg twice daily. * August 11, 2022 follow-up had recurrent atrial fibrillation and amiodarone increased 200 mg 3 times daily. Follow-up cardioversion was postponed due to COVID-positive illness, did not require hospitalization. * September 30, 2022 uneventful cardioversion with moravian of normal sinus rhythm. * Patient presents [...] agent due to cardiomyopathy and need for moravian normal sinus rhythm in setting EF 15 [...] * 3. Lab work was completed at [facility], need to obtain. * 4. Repeat echocardiogram [...] * July 28, 2022 cardioversion x2 with moravian of normal sinus rhythm on amiodarone 200 mg twice daily. * August 11, 2022 follow-up had recurrent atrial fibrillation and amiodarone increased 200 mg 3 times daily. Follow-up cardioversion was postponed due to COVID-positive illness, did not require hospitalization. * September 30, 2022 uneventful cardioversion with moravian of normal sinus rhythm. 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 * At 67 years old, preference would be to avoid amiodarone and it was selected as initial agent due to cardiomyopathy and need for moravian normal sinus rhythm in setting EF 15 [...] I will follow-up on lab work from [facility]. * Routine f/u: 'doing ok' * TAWANDA [...] * July 28, 2022 cardioversion x2 with moravian of normal sinus rhythm on amiodarone 200 mg twice daily. * August 11, 2022 follow-up had recurrent atrial fibrillation and amiodarone increased 200 mg 3 times daily. Follow-up cardioversion was postponed due to COVID-positive illness, did not require hospitalization. * September 30, 2022 uneventful cardioversion with moravian of normal sinus rhythm. 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 * [...] Provider Active Arsalan Conley MD Attending Provider, 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 Start Date End Date Janene Berry, PERSONAL SHOPPER-VIDEO COORDINATOR [address] [place] [address] 2, [address] [place] [address] PCP - [employer] PCP 03/15/23 Chris Moss MD [address] [facility] [place] [address] PCP - General Family Medicine 09/15/23 Team [...] section and content) DATE CREATED AUTHOR 11/14/2022 [facility] DATE CREATED AUTHOR AUTHOR'S ORGANIZ ATION 01/23/2023 [facility] DATE CREATED AUTHOR AUTHOR'S ORGANIZ ATION 04/23/2023 Lee Ricky [facility] DATE CREATED AUTHOR AUTHOR'S ORGANIZ ATION 04/23/2023 [facility] DATE CREATED AUTHOR AUTHOR'S ORGANIZ ATION 07/15/2023 [facility] DATE CREATED AUTHOR AUTHOR'S ORGANIZ ATION 07/16/[address] [facility] DATE CREATED AUTHOR AUTHOR'S ORGANIZ ATION 02/27/2024 [facility] DATE CREATED AUTHOR AUTHOR'S ORGANIZ ATION 07/14/2024 [facility] REASON FOR VISIT (unrecogniz ed section [...] BE BASED ON THE PRIMARY CLINICAL RECORDS. [facility] [employer] [facility]. provides no warranty or guarantee of the accuracy or completeness of information in this document.
[2024-08-23 14:19] LABS: Basophils Absolute Auto 0.1 10^3/uL (0.0-0.1); Basophils Percent Auto 1.1 % (0.2-2.0); Eosinophils Absolute Auto 0.4 10^3/uL (0.0-0.7); Eosinophils Percent Auto 3.6 % (0.9-7.0); Hematocrit 44.7 % (36.0-48.0); Hemoglobin 14.9 g/dL (12.0-16.0); Immature Granulocytes Abs Auto 0.03 10^3/uL (0.00-0.03); Immature Granulocytes Pct Auto 0.3 % (0.0-0.5); Lymphocytes Percent Auto 25.9 % (20.5-60.0); Mean Corpuscular HGB Conc 33.3 g/dL (29.9-35.2); Mean Corpuscular Hemoglobin 32.7 pg (26.7-34.0); Mean Corpuscular Volume 98.2 fL (81.0-99.0); Mean Platelet Volume 10.3 fL (9.5-13.5); Monocytes Percent Auto 8.4 % (1.7-12.0); Neutrophils Percent Auto 60.7 % (43.0-75.0); Platelet Count 254 10^3/uL (150-450); Red Blood Count 4.55 10^6/uL (4.20-5.40); Red Cell Distribution Width 13.7 % (11.0-15.0); White Blood Count 11.5 10^3/uL (4.0-11.0)
[2024-08-23 15:17] LABS: Alanine Aminotransferase 30 U/L (14-59); Albumin Globulin Ratio 0.9; Albumin Level 3.4 g/dL (3.4-5.0); Alkaline Phosphatase 93 U/L (46-116); Aspartate Amino Transferase 21 U/L (15-37); Bilirubin Direct 0.1 mg/dL (0.0-0.2); Bilirubin Total 0.5 mg/dL (0.2-1.0); Estimated GFR (African America >60 (>=60 mL/min/1.73m^2); Estimated GFR (Non-African Ame >60 (>=60 mL/min/1.73m^2); Globulin 3.7 g/dL; Total Protein 7.1 g/dL (6.4-8.2)
== END 2024-08-23 13:54 | disposition home or self-care (01) ==
LOC: LAB 13:55
PROVIDERS: PCP Family Medicine; Visit Provider Internal Medicine Rheumatology
DX: M05.79 Rheumatoid arthritis with rheumatoid factor of multiple sites without organ or systems involvement (principal); Z79.899 Other long term (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
CPT/HCPCS: 36415; 80076; 82565; 85025; 85652

== ENCOUNTER 2025-01-08 13:55 | Outpatient (OUT) | payer MEDICARE, SELFPAY ==
[2025-01-08 14:38] LABS: Basophils Absolute Auto 0.2 10^3/uL (0.0-0.1); Basophils Percent Auto 1.6 % (0.2-2.0); Eosinophils Absolute Auto 0.4 10^3/uL (0.0-0.7); Eosinophils Percent Auto 3.9 % (0.9-7.0); Hematocrit 46.6 % (36.0-48.0); Hemoglobin 15.6 g/dL (12.0-16.0); Immature Granulocytes Abs Auto 0.02 10^3/uL (0.00-0.03); Immature Granulocytes Pct Auto 0.2 % (0.0-0.5); Lymphocytes Percent Auto 31.5 % (20.5-60.0); Mean Corpuscular HGB Conc 33.5 g/dL (29.9-35.2); Mean Corpuscular Hemoglobin 33.8 pg (26.7-34.0); Mean Corpuscular Volume 101.1 fL (81.0-99.0); Mean Platelet Volume 10.9 fL (9.5-13.5); Monocytes Absolute Auto 0.9 10^3/uL (0.3-0.8); Monocytes Percent Auto 9.7 % (1.7-12.0); Neutrophils Absolute Auto 5.1 10^3/uL (1.4-6.5); Neutrophils Percent Auto 53.1 % (43.0-75.0); Platelet Count 253 10^3/uL (150-450); Red Blood Count 4.61 10^6/uL (4.20-5.40); Red Cell Distribution Width 13.2 % (11.0-15.0); White Blood Count 9.5 10^3/uL (4.0-11.0)
[2025-01-08 14:46] LABS: Erythrocyte Sedimentation Rate 19 mm/hr (<=30)
[2025-01-08 15:07] LABS: Alanine Aminotransferase 29 U/L (14-59); Albumin Globulin Ratio 0.9; Albumin Level 3.5 g/dL (3.4-5.0); Alkaline Phosphatase 108 U/L (46-116); Aspartate Amino Transferase 22 U/L (15-37); Bilirubin Direct 0.1 mg/dL (0.0-0.2); Bilirubin Total 0.7 mg/dL (0.2-1.0); Estimated GFR (African America 59 (>=60 mL/min/1.73m^2); Estimated GFR (Non-African Ame 49 (>=60 mL/min/1.73m^2); Globulin 3.9 g/dL; Total Protein 7.4 g/dL (6.4-8.2)
== END 2025-01-08 13:56 | disposition home or self-care (01) ==
LOC: LAB 13:58
PROVIDERS: Visit Provider Internal Medicine Rheumatology
DX: M05.79 Rheumatoid arthritis with rheumatoid factor of multiple sites without organ or systems involvement (principal); Z79.899 Other long term (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
CPT/HCPCS: 36415; 80076; 82565; 85025; 85652

== ENCOUNTER 2025-02-26 13:44 | Outpatient (OUT) | payer MEDICARE, SELFPAY ==
[2025-02-26 14:08] LABS: Basophils Absolute Auto 0.1 10^3/uL (0.0-0.1); Basophils Percent Auto 1.3 % (0.2-2.0); Eosinophils Absolute Auto 0.4 10^3/uL (0.0-0.7); Eosinophils Percent Auto 4.3 % (0.9-7.0); Hematocrit 46.1 % (36.0-48.0); Hemoglobin 15.4 g/dL (12.0-16.0); Immature Granulocytes Abs Auto 0.01 10^3/uL (0.00-0.03); Immature Granulocytes Pct Auto 0.1 % (0.0-0.5); Lymphocytes Absolute Auto 2.8 10^3/uL (1.2-3.8); Lymphocytes Percent Auto 28.9 % (20.5-60.0); Mean Corpuscular HGB Conc 33.4 g/dL (29.9-35.2); Mean Corpuscular Volume 98.7 fL (81.0-99.0); Mean Platelet Volume 10.4 fL (9.5-13.5); Monocytes Absolute Auto 0.9 10^3/uL (0.3-0.8); Neutrophils Absolute Auto 5.4 10^3/uL (1.4-6.5); Neutrophils Percent Auto 56.4 % (43.0-75.0); Platelet Count 238 10^3/uL (150-450); Red Blood Count 4.67 10^6/uL (4.20-5.40); Red Cell Distribution Width 12.5 % (11.0-15.0); White Blood Count 9.6 10^3/uL (4.0-11.0)
--- OUTSIDE RECORDS SUMMARY | 2025-02-26 14:14 | XMS_ITS | CCD ---
Author Organization [facility] Care Team Providers Care Credit Report Checker Name Role Phone Carolee Estrada Unavailable Unavailable Unavailable MD Carolee Estrada Primary Care Provider MD Carmine Nails Attending Provider [phone] MD August Lamas Admit Provider MD August Lamas Attending Provider MD Arsalan Conley Attending Provider MD Arsalan Conley Referring Provider MD Carolee Estrada Primary Care Provider MD Carolee Estrada Primary Care Provider [phone] MD Carmine Nails Attending Provider MD Carolee Estrada Primary Care Provider [phone] MD Arsalan Conley Attending Provider MD Arsalan Conley Referring Provider MD Carmine Nalis Attending Provider MD Carolee Estrada Primary Care Provider MD Arsalan Conley Attending Provider MD Kathy Ross Attending Provider Ms. JANENE BERRY Attending Carolee Cordero Primary Care Unavailable DR CRAMINE NAILS Admitting Unavailable MARYCARMEN, DR LOU Attending Unavailable SEAN ., DR CAROLEE Agosto Primary Care Unavailable DR CARMINE NAILS Consulting Unavailable JAMAL Junior, DR TANK Muir Admitting Unavaila lanny Junior, DR TANK Muir Attending Unavaila ble ESTRADA ., DR CAROLEE Agosto Primary Care Unavailable JANENE STONE Consulting Unavailable HALADAChase, DR LOU Admitting Unavailable HALADAChase, DR LOU Attending Unavailable ESTRADA ., DR CAROLEE Agosto Primary Care Unavailable HALADAChase, DR LOU Consulting Unavailable MARYCARMEN, DR LOU Admitting Unavailable HALVERN, DR LOU Attending Unavailable ESTRADA ., DR CAROLEE Agosto Primary Care Unavailable KINGSPORT, DR LAUREN Funez Consulting Unavailable HALADAChase, DR [...] ESTRADA ., DR CAROLEE Agosto Consulting Unavailable Kathy Ross Unavailable Gilbert Hernandez Attending Unavailable Jamal, MsVernon Irene Referring Bea Estrada, Dr. Carolee Keller Primary Care Unavailab Arsalan Torrez Attending Unavailable Estrada, Dr. Carolee Keller Primary Care Unavailab Arsalan Torrez Referring Unavailable Jamal, MsVernon Irene Attending Bea Berry, Ms. Janene Irene Referring Unavaoscar Estrada, Dr. Carolee Keller Primary Care Unavailab jesus Berry, Ms. Janene Irene Attending Bea Berry, Ms. Janene Irene Referring Lashawnvaoscar Estrada, Dr. Carolee Keller Primary Care Unavailab Arsalan Torrez Attending Unavailable Estrada, Dr. Carolee Keller Primary Care Unavailab Arsalan Torrez Referring Unavailable Jamal, MsVernon Irene Referring Bea Berry, MsVernon Irene Attending Bea Estrada, Dr. Carolee Keller Primary Care Unavailab jesus Berry, Vernon Janene Chchase Irene Referring Bea Berry, . Janene Earlyd Attending Bea Estrada, Dr. Carolee Keller Primary Care Unavailab le McGuinn, Arsalan Attending Unavailable Sean, Dr. Carolee Keller Primary Care Unavailab le McGuinpardeep, Arsalan Attending Unavailable McGuinn, Arsalan Attending Unavailable Sean, Dr. Carolee Keller Primary Care Unavailab le McGuinn, Arsalan Attending Unavailable Sean, Dr. Carolee Keller Primary Care Unavailab le McGuinn, Arsalan Attending Unavailable Estrada, Dr. Carolee Keller Primary Care Unavailab le McGuinn, Arsalan Attending Unavailable McGuinn, Arsalan Attending Unavailable McGuinn, Arsalan Attending Unavailable McGuinn, Arsalan Attending Unavailable Thal, Gilbert Admitting Unavailable Thal, Gilbert Attending Unavailable Thal, Gilbert Referring Unavailable Sean, Dr. Carolee Keller Primary Care Unavailab le Thal, Gilbert Attending Unavailable Sean, Dr. Carolee Keller Primary Care Unavailab le Sean, Dr. Carolee Keller Primary Care Unavailab le Mary, Dr. 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, Janene K Unavailable [phone] Chris Moss MD Primary Care Provider MD Carolee Estrada Primary Care Provider [phone] MD Kathy Ross Attending Provider Clinton Pierce Unavailable MD Carolee Estrada Primary Care Provider MD Clinton Pierce Attending Provider MD Kathy Ross Attending Provider MD Clinton Pierce Attending Provider MD Kathy Ross Attending Provider NO FAMILY, PHYSICIAN Primary Care Provider Carolee Trent MD Primary Care Provider Chris Moss MD Primary Care Provider [phone] Kathy Ross MD Attending Provider NO FAMILY, PHYSICIAN Primary Care Provider Unava ilable Carolee Estrada MD Primary Care Provider [phone] Mac Rhodes DO Attending Provider ESE SAWANT Attending Unavailable CHRIS MOSS Primary Care Unavailable ARSALAN CONLEY Referring Unavailable Kathy Ross MD Primary Care Pro vider Pcp MUNICIPAL MAINTENANCE WORKER, No Primary Care Provider Unavailabl e Pcp MUNICIPAL MAINTENANCE WORKER, No Primary Care Provider Unavailabl e NO FAMILY, PHYSICIAN Primary Care Provider Unava ilable Shekhar Armando MD Attending Provider [phone] Kathy Ross Admitting Unavaila ble Kathy Ross Attending Unavaila ble NO FAMILY, PHYSICIAN Primary Care Unavailable Kathy Ross Attending Unavaila ble Kathy Ross Admitting Unavaila ble Carolee Estrada Primary Care Unavailable NO FAMILY, PHYSICIAN Primary Care Unavailable Mac Rhodes Admitting Unavailable Mac Rhodes Attending Unavailable Tr, Shekhar Attending Unavailable NO FAMILY, PHYSICIAN Primary Care Unavailable Tr, Shekhar Admitting Unavailable Kathy Ross Admitting Unavaila ble Kathy Ross Attending Unavaila ble Carolee Estrada Primary Care Unavailable Kathy Ross Admitting Unavaila ble VandanaKathy corrales Attending Unavaila ble NO FAMILY, PHYSICIAN Primary Care Unavailable TR, SHEKHAR Attending Unavailable NANOEPKETURAH, SHEKHAR Referring Unavailable KATHY ROSS Referring Lashawn vailable VANDANAKATHY CORRALES Primary Care Lashawn vailable VENNEPUREDMARISELA, SHEKHAR Attending Unavailable KATHY ROSS Referring Lashawn vailable VANDANAKATHY MCCRARY Primary Care Lashawn vailable VENNEPUREDDY, SHEKHAR Attending Unavailable VENNEPUREDDY, SHEKHAR Referring Unavailable VENNEPUREDDY, SHEKHAR Attending Unavailable VENNEPUREDDY, SHEKHAR Referring Unavailable VENNEPUREDMARISELA, SHEKHAR Referring Unavailable MAC RHODES H Attending Unavailable KATHY ROSS Referring UnavailMAC Denny Attending Unavailable MAC RHODES Attending Unavailable KATHY ROSS Referring Unavailabl e Medications Current Medications Medication Drug Class(es) Dates Sig (Normalized) Sig (Original) ALPRAZolam 0.5 mg oral tablet (1 source) Benzodiazepine Start: 02-13-2025 End: 02-14-2025 ALPRAZolam (XANAX) 0.5 mg tablet Indications: Lung nodules , Anxiety Take 1 tablet by mouth as directed for 1 day. Take 1 tablet 30 min prior to the scan. 4 tablet 02/13/2025 02/14/2025 Active apixaban 5 mg oral tablet (20 sources) Factor Xa Inhibitor Start: 05-13-2022 take 1 tablet by mouth in the morning Eliquis 5 MG tablet Take 5 mg by mouth in the morning and 5 mg in the evening. 04/12/2024 Active atorvastatin 20 mg oral tablet (20 sources) HMG-CoA Reductase Inhibitor Start: 05-13-2022 Atorvastatin Calcium 20 MG Oral Tablet as directed Quantity: 0 Refills: 0 Ordered: 13-May-2022 DO Start : 13-May-2022 Active Start: 05-13-2022 End: 03-24-2025 take 1 tablet by mouth at bedtime atorvastatin (Lipitor) 20 MG tablet Take 20 mg by mouth at bedtime 03/24/2024 03/24/2025 Active b complex 0.4 mg tablet (2 sources) take 1 tablet by bren th once daily b complex 0.4 mg tablet Take 1 tablet by mouth once daily. Active take 1 tablet by mouth once donna y b complex 0.4 mg tablet Take 1 tablet by mouth once daily. 0 Active b complex-folic acid tablet (6 sources) take 1 tablet by mouth in the morning b complex-folic acid tablet Take 1 tablet by mouth in the morning. Active Calcium Carbonate / vitamin D3 (2 sources) End: 09-28-2024 take 1 tablet by mouth once daily calcium carbonate/vitamin D3 (CALCIUM WITH VITAMIN D3 ORAL) Take 1 tablet by mouth once daily. 09/28/2024 Discontinued (Discontinued by another clinician) take 1 tablet by mouth once donna y calcium carbonate/vitamin D3 (CALCIUM WITH VITAMIN D3 ORAL) Take 1 tablet by mouth once daily. 0 Active canagliflozin 100 mg oral tablet (20 sources) Sodium-Glucose Cotransporter 2 Inhibitor Start: 05-13-2022 End: 03-07-2024 canagliflozin (Invokana) 100 MG Daily 03/07/2024 Active folic acid 1 mg oral tablet (20 sources) Start: 09-05-2024 take 1 tablet by mouth six times weekly Folic Acid 1 mg tablet Active 1 MG PO 6 TIMES PER WEEK September 05, 2024 12:00am Start: 06-27-2024 take 1 tablet by bren th once daily folic acid (Folvite) 1 MG tablet Take 1,000 mcg by mouth Daily 06/27/2024 Active hydroxychloroquine sulfate 200 mg oral tablet (20 sources) Antimalarial, Antirheumatic Agent Start: 09-30-2022 End: 04-11-2024 hydroxychloroquine (Plaquenil) 200 MG tablet Twice daily 04/11/2024 Active Start: 05-08-2022 End: 06-24-2022 take 1 tablet by mouth twice daily Hydroxychloroquine 200 mg tablet Discontinued 200 MG PO Twice daily May 08, 2022 12:00am June 24, 2022 9:27am On Hold: Until follow-up with cardiology Start: 04-02-2022 Hydroxychloroq uine Sulfate 200 MG Oral Tablet Quantity: 60 Refills: 0 Ordered: 02-Apr-2022 DO Start : 02-Apr-2022 Complete iv contrast (will be provided with radiology test) (5 sources) Start: 02-12-2025 End: 02-13-2025 inject 1 dose intravenously once iv contrast (will be provided with radiology test) Indications: Lung nodules , Malignant 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 (HCC) MRI Brain Inject, intravenously, once for 1 dose.No IV access, insert saline lock prior to beginning of sedation, infusion, injection of imaging exam.Discontinue saline lock post exam. If Pt. has a central line or IVAD, may access for administration according to line specific nursing protocol.Once exam is complete flush line and de-access according to line specific nursing protocol in the MR contrast administration guidelines link 1 Each 02/12/2025 02/13/2025 Active Start: 12-07-2024 End: 12-08-2024 iv contrast (will be provide d with radiology test) Indications: Lung nodules CT Chest W -Inject, intravenously, once for 1 dose.No IV access, insert saline lock prior to the beginning of sedation, infusion, injection of imaging exam. Discontinue saline lock post exam. If Pt. has a central line or IVAD, may access for administration according to line specific nursing protocol. Once exam is complete flush line and de-access according to line specific nursing protocol in the CT contrast administration guidelines link. 1 Each 12/07/2024 12/08/2024 Active 24 hr metoprolol succinate 100 mg extended release oral tablet (20 sources) beta-Adrenergic Perfecto Start: 04-12-2024 take 100 mg by mouth once daily metoprolol succinate ER (TOPROL XL) 100 mg Take 100 mg by mouth once daily. 04/12/2024 Active Start: 03-07-2024 metoprolol suc cinate XL (Toprol-XL) 200 MG 24 hr tablet Daily 03/07/2024 Active Start: 03-07-2024 take 2 tablets by mo [facility] once daily Metoprolol Succinate 200 mg tablet extended release 24 hr Active 100 MG PO Daily March 07, 2024 12:00am Start: 02-29-2024 End: 03-07-2024 take 1 tablet by mouth once daily Metoprolol Succinate 100 mg tablet extended release 24 hr Discontinued 100 MG PO Daily February 29, 2024 12:00am March 07, 2024 2:11pm Start: 05-13-2022 take 1 tablet by bren once daily Metoprolol Succinate ER 100 MG [...] DO Start : 13-May-2022 Active Start: 05-13-2022 End: 02-29-2024 take 1 tablet by mouth once daily Metoprolol Succinate (Toprol Xl) 200 mg tablet extended release 24 hr Discontinued 200 MG PO Daily May 13, 2022 12:00am February 29, 2024 10:56am Multivitamin preparation (1 source) take 1 tablet by mouth once daily Multi Vitamin - 1 tablet Orally Once a day for 30 day(s) Active spironolactone 25 mg oral tablet (20 sources) Aldosterone Antagonist Start: 05-13-20 End: 03-24-20 25 take 1 tablet by mouth in the morning spironolactone (Aldactone) 25 MG tablet Take 25 mg by mouth in the morning. 03/24/2024 03/24/2025 Active Vitamin B Complex (11 sources) Start: 05-08-20 take 1 tablet by mouth once daily Vitamin B Complex Active 1 TAB PO Daily May 07, 2022 11:00pm Start: 05-08-2022 take 1 tablet by mouth once da sebastien Vitamin B Complex Active 1 TAB PO Daily May 08, 2022 12:00am VITAMIN B COMPLEX ORAL (13 sources) take 1 tablet by mouth once daily VITAMIN B COMPLEX ORAL Take 1 tablet by mouth once daily. Active Vitamin B Complex Tablet (5 sources) Start: 05-08-2022 take 1 tablet by mouth once daily Vitamin B Complex Tablet Active 1 TAB PO Daily May 08, 2022 12:00am Start: 05-08-2022 take 1 tablet by mouth once da sebastien Vitamin B Complex Tablet Active 1 TAB PO Daily May 07, 2022 11:00pm Vitamin B-6 100 MG (1 source) take 1 tablet by bren th once daily Vitamin B-6 100 MG 1 tablet Orally Once a day Active Vitamin D-3 1000 UNIT (4 sources) take 1 capsule by mo nyh once daily Vitamin D-3 1000 UNIT 1 capsule Orally Once a day Active Completed/Discontinued Medications Medication Drug Class(es) Dates Sig (Normalized) Sig (Original) 0.4 ml adalimumab 100 mg/ml auto-injector (20 sources) Tumor Necrosis Factor Perfecto Start: 03-07-2024 End: 02-22-2025 Humira, 2 Pen, 40 MG/0.4ML Auto-injector Kit 03/07/2024 02/22/2025 Discontinued Start: 01-20-2023 Humira Pen 40 MG/0.4ML Subcutaneous Pen-injector Kit Quantity: 2 Refills: 0 Ordered: 15-Feb-2023 DO Start : 20-Jan-2023 Active End: 01-26-2025 adalimumab 80 mg/0.8 mL and 40 mg/0.4 mL subcutaneous syringe kit (HUMIRA (CF)) Inject 80 mg subcutaneously every 2 weeks. 01/26/2025 Discontinued adalimumab 80 mg /0.8 mL and 40 mg/0.4 mL subcutaneous syringe kit (HUMIRA (CF)) Inject 80 mg subcutaneously every 2 weeks. Active adalimumab (Humi ra,CF, Pedi Crohns Starter) 80 mg/0.8 mL-40 mg/0.4 mL syringe kit prefilled syringe starter kit Inject 80 mg under the skin every 14 (fourteen) days. Active adalimumab (Humi ra,CF, Pedi Crohns Starter) [...] DAILY. Quantity: 30 Refills: 6 Ordered: 18-Nov-2022 Janene Downing Start : 12-Aug-2022 End : 13-Apr-2023 Complete lower dose Start: 06-24-2022 End: 11-30-2023 take 1 tablet by mouth three times daily Amiodarone 200 mg tablet Discontinued 200 MG PO Three times daily June 24, 2022 8:09am November 30, 2023 1:35pm Start: 05-13-2022 take 200 mg by mouth twice daily Amiodarone Active 200 MG PO Twice daily June 24, 2022 8:09am Start: 05-13-2022 End: 06-24-2022 take 1 tablet by mouth once daily in the morning Amiodarone 200 mg Tablet Discontinued 200 MG PO Every morning May 13, 2022 12:00am June 24, 2022 8:10am calcium carbonate 1500 mg / cholecalciferol 500 unt oral capsule (16 sources) Vitamin D Start: 05-08-2022 End: 04-11-2024 take 2 capsules by mouth once daily Calcium Carbonate-Vitamin D3 (Calcium 600 With Vitamin D3) 600 mg-12.5 mcg (500 unit) Capsule Discontinued 2 CAP PO Daily May 08, 2022 12:00am April 11, 2024 8:56am Calcium Carbonate-Vitamin D3 TABS (20 sources) Calcium Carbonate-Vitamin D3 TABS Take 1 tablet daily Quantity: 0 Refills: 0 Ordered: 29-Jun-2022 DO Active cholecalciferol 0.025 mg oral capsule (6 sources) Vitamin D Start: 08-22-2024 End: 09-05-2024 take 1 capsule by mouth once daily Cholecalciferol (Vitamin D3) 25 mcg (1,000 unit) capsule Discontinued 1 CAP PO Daily August 22, 2024 12:00am September 05, 2024 2:06pm FreeTextSi capsule Orally Once a day; Note: Source Status: Taking; Provider: Vandana Herrera ( ) digoxin 0.125 mg oral tablet (20 sources) Cardiac Glycoside Start: 05-13-2022 End: 03-07-2024 take 1 tablet by mouth once daily Digoxin 125 mcg (0.125 mg) Tablet Discontinued 125 MCG PO Daily May 13, 2022 12:00am March 07, 2024 2:10pm take 1 tablet by mouth once donna y Digoxin 125 MCG TAKE ONE TABLET BY MOUTH ONCE DAILY Oral for 30 Days Active 1 ml etanercept 50 mg/ml auto-injector (1 source) Tumor Necrosis Factor Perfecto Start: 12-04-2021 Enbrel SureClick 50 MG/ML Subcutaneous Solution Auto-injector Quantity: 8 Refills: 0 Ordered: 20-May-2022 DO Start : 04-Dec-2021 Complete hydroCHLOROthiazide 25 mg oral tablet (17 sources) Thiazide Diuretic Start: 08-27-2021 End: 06-24-2022 take 1 tablet by mouth once daily Hydrochlorothiazide 25 mg tablet Discontinued 25 MG PO Daily May 08, 2022 12:00am June 24, 2022 9:27am methotrexate 2.5 mg oral tablet (19 sources) Folate Analog Metabolic Inhibitor Start: 09-05-2024 End: 02-22-2025 methotrexate 2.5 MG tablet every week 09/05/2024 02/22/2025 Discontinued 24 hr nicotine 0.875 mg/hr transdermal system (15 sources) Cholinergic Nicotinic Agonist Start: 10-21-2022 apply 1 dose transdermal route once daily HM Nicotine 21 MG/24HR Transdermal Patch 24 Hour APPLY 1 PATCH DAILY DIRECTED. Quantity: 30 Refills: 0 Ordered: 21-Oct-2022 Teto Berry CASSIDYJanene Start : 21-Oct-2022 Active omeprazole 40 mg delayed release oral capsule (8 sources) Proton Pump Inhibitor Start: 11-30-2023 End: 03-07-2024 take 1 capsule by mouth once daily Omeprazole 40 mg capsule,delayed release(DR/EC) Discontinued 40 MG PO Daily November 30, 2023 1:00am March 07, 2024 2:13pm pantoprazole 40 mg delayed release oral tablet [...] Potassium Chloride (Klor-Con M20) 20 mEq tablet,ER particles/crystals Discontinued 20 MEQ PO Daily June 24, 2022 12:00am November 30, 2023 1:36pm Start: [...] (20 sources) Start: 07-28-2022 End: 11-30-2023 take 1 tablet by mouth once daily Prednisone 5 mg tablet Discontinued 5 MG PO Daily July 28, 2022 12:00am November 30, 2023 1:36pm Start: 05-08-2022 End: 05-13-2022 Prednisone 5 mg tablet Disco ntinued 0 .ROUTE .COMPLEX May 08, 2022 12:00am May 13, 2022 2:25pm Patient was on taper but discontinued per self a few days ago Start: 05-08-2022 End: 05-13-2022 Prednisone Discontinued 0 .R OUTE .COMPLEX May 08, 2022 12:00am May 13, 2022 2:25pm Patient was on taper but discontinued per self a few days ago Start: 04-02-2022 take 2 tablets by mo [facility] twice daily, then take 2 tablets [...] Complete rosuvastatin calcium 10 mg oral tablet (18 sources) HMG-CoA Reductase Inhibitor Start: 05-08-2022 End: [...] 1 tablet Orally Once a day Active sertraline 25 mg oral tablet (20 sources) Serotonin Reuptake Inhibitor Start: 08-27-2021 End: 09-28-2024 take 1 tablet by mouth once daily Sertraline 25 mg tablet Discontinued 25 MG PO Daily May 08, 2022 12:00am April 11, 2024 8:56am sulfaSALAzine 500 mg oral tablet (20 sources) Aminosalicylate Start: 09-30-2022 End: 11-30-2023 take 1 tablet by mouth once daily Sulfasalazine 500 mg Tablet Discontinued 500 MG PO Daily September 30, 2022 1:00am November 30, 2023 1:36pm Vitamin B Complex CAPS (20 sources) Vitamin B Comple x CAPS TAKE 1 CAPSULE Daily Quantity: 0 Refills: 0 Ordered: 29-Jun-2022 DO Active vitamin b6 100 mg oral tablet (9 sources) Start: 03-07-2024 End: 04-23-2024 take 1 tablet by mouth once daily Pyridoxine (Vitamin B6) 100 mg tablet Discontinued 100 MG PO Daily March 07, 2024 12:00am March 07, 2024 2:15pm FreeTextSi tablet Orally Once a day; Note: Source Status: Taking; Provider: Vandana Herrera ( ) take 1 tablet by bren th every twenty-four hours Vitamin B-6 100 MG 1 tablet Orally Once a day Active Problems Active Problems Problem Classification Problem Date Documented Da te Episodic/Chronic Administrative/social admission (2 sources) First encounter by subject; Translations: [Persons encountering health services in other specified circumstances] Onset: 09-28-2024 09-28-2024 Episodic Anxiety disorders (20 sources) Anxiety; Translations: [Anxiety disorder, unspecified] 05-08-2022 Chronic Cancer of breast (15 sources) Malignant neoplasm of breast lower outer quadrant; Translations: [Malignant neoplasm of lower-outer quadrant of left female breast] Onset: 10-05-2024 10-05-2024 Chronic Comment on above: left breast Cancer of bronchus; lung (3 sources) Malignant neoplasm of right upper lobe of lung; Translations: [Malignant neoplasm of upper lobe, right bronchus or lung] 02-12-2025 Chronic Cardiac dysrhythmias (20 sources) Persistent atrial fibrillation; Translations: [Atrial fibrillation] Onset: 05-12-2022 05-08-2022 Chronic Comment on above: Problem List clean-u p per request of Phys. EHR Cmte Chronic obstructive pulmonary disease and bronchiectasis (16 sources) Pulmonary emphysema; Translations: [Emphysema, unspecified] Chronic Congestive heart failure; nonhypertensive (20 sources) Acute systolic heart failure; Translations: [Acute systolic (congestive) heart failure] Onset: 05-20-2022 05-09-2022 Chronic Comment on above: Problem List clean-u p per request of Phys. EHR Cmte Disorders of lipid metabolism (20 sources) Hyperlipidemia; Translations: [Other and unspecified hyperlipidemia] Onset: 01-08-2023 05-08-2022 Chronic Essential hypertension (20 sources) Hypertensive disorder; Translations: [Unspecified essential hypertension] Onset: 09-15-2023 09-15-2023 Chronic Gastritis and duodenitis (6 sources) Gastritis; Translations: [Gastritis, unspecified, without bleeding] 04-11-2024 Episodic Gastrointestinal hemorrhage (2 sources) Melena; Translations: [Melena] 09-15-2023 Episodic Heart valve disorders (20 sources) Mitral valve regurgitation; Translations: [Mitral valve disorders] Chronic Immunity disorders (1 source) Immunodeficiency, unspecified; Translations: [IMMUNODEFICIENCY UNSPECIFIED] Onset: 04-17-2022 Chronic Mood disorders (20 sources) Depressive disorder; Translations: [Depression] 05-08-2022 Chronic Other aftercare (20 sources) Drug therapy finding; Translations: [Long-term (current) use of anticoagulants] Episodic Other aftercare (1 source) 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; Translations: [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 CURRENT DRUG THERAPY] Onset: 01-21-2023 Episodic Other aftercare (1 source) equipment 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 intermodal 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 (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) use of anticoagulants; Translations: [NURSING HOME CURRNT USE ANTICOAGULANTS] Onset: 11-02-2022 Episodic Other aftercare (2 sources) Long-term current use of anticoagulant; Translations: [half-way (current) use of anticoagulants] Onset: 09-28-2024 09-28-2024 Episodic Other eye disorders (20 sources) Exophthalmos; 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, unspecified] Chronic Comment on above: Proptosis Bilateral; Other gastrointestinal disorders (20 sources) Diarrhea; Translations: [Diarrhea] Episodic Other lower respiratory disease (4 sources) Solitary nodule of lung; Translations: [Solitary pulmonary nodule] Episodic Other lower respiratory disease (8 sources) Nodule of lung; Translations: [Solitary pulmonary nodule] 03-04-2024 Episodic Other lower respiratory disease (9 sources) Multiple nodules of lung; Translations: [Other nonspecific abnormal finding of lung field] 10-16-2024 Episodic Other nutritional; endocrine; and metabolic disorders (20 sources) Obesity; Translations: [Obesity, unspecified] Chronic Other nutritional; endocrine; and metabolic disorders (1 source) Obesity, unspecified; Translations: [Obesity, unspecified] Onset: 01-08-2023 Chronic Other nutritional; endocrine; and metabolic disorders (1 source) Body mass index (BMI) 30.0-30.9, adult; Translations: [Body mass index [BMI] 30.0-30.9, adult] Onset: 01-08-2023 Chronic Other nutritional; endocrine; and metabolic disorders (2 sources) Body mass index 30+ - obesity; Translations: [Body mass index (BMI) 37.0-37.9, adult] Onset: 09-28-2024 09-28-2024 Chronic Other nutritional; endocrine; and metabolic disorders (2 sources) Body mass index (BMI) 37.0-37.9, adult; Translations: [Body mass index (BMI) 37.0-37.9, adult] Onset: 09-28-2024 Chronic Other nutritional; endocrine; and metabolic disorders (20 sources) Overweight in adulthood with body mass index of 25 or more but less than 30; Translations: [Overweight] Episodic Sherie-; endo-; and myocarditis; cardiomyopathy (except that caused by tuberculosis or sexually transmitted disease) (20 sources) Cardiomyopathy; Translations: [Other primary cardiomyopathies] Onset: 07-29-2022 05-13-2022 Chronic Comment on above: Problem List clean-u p per request of Phys. EHR Cmte Residual codes; unclassified (2 sources) Past history of procedure; Translations: [Other specified postprocedural states] 10-10-2024 Episodic Comment on above: 09/27/24 Dr. 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 EHR Cmte Substance-related disorders (20 sources) Smokes tobacco daily; Translations: [Tobacco use disorder] Onset: 01-08-2023 09-28-2024 Chronic Comment on above: 1/2 PPD; Tuberculosis [...] Other Problems Problem Classification Problem Date Documented Date Episodic/Chronic Cardiac dysrhythmias (3 sources) Tachycardia, unspecified; Translations: [TACHYCARDIA UNSPECIFIED] Onset: 05-08-2022 Episodic Mood disorders (2 sources) Mood disorders Onset: 11-18-2022 03-16-2023 Nonmalignant breast conditions (17 sources) Lump in lower outer quadrant of left breast; Translations: [Unspecified lump in the left breast, lower outer quadrant] Onset: 09-20-2024 09-20-2024 Episodic Other hematologic conditions (1 source) Other specified abnormalities of plasma proteins; Translations: [OTH SPEC ABNORM PLASMA PROTEINS] Onset: 05-12-2022 Episodic Other lower respiratory disease (1 source) Dyspnea, unspecified; Translations: [DYSPNEA UNSPECIFIED] Onset: 04-17-2022 Episodic Other lower respiratory disease (4 sources) Other nonspecific abnormal finding of lung field; Translations: [Other nonspecific abnormal finding of lung field] Onset: 10-16-2024 Episodic Other lower respiratory disease (6 sources) Solitary pulmonary nodule; Translations: [Solitary pulmonary nodule] Onset: 09-25-2024 09-05-2024 Episodic Other screening for suspected conditions (not mental disorders or infectious disease) (1 source) Other abnormal and inconclusive findings on diagnostic imaging of breast; Translations: [Other abnormal and inconclusive findings on diagnostic imaging of breast] Onset: 09-26-2024 Episodic Residual codes; unclassified (1 source) Estrogen receptor positive status [ER+]; Translations: [Malignant neoplasm of upper-outer quadrant of left breast in female, estrogen receptor positive (HCC)] Onset: 10-16-2024 Episodic Unclassified (2 sources) Onset: 09-15-2023 Resolved: 01-10-2024 09-15-2023 Results Test Name Value Interpretation Reference Range [facility]) -- TAWANDA STEVENS ([id number]) 1955 F Date Time Provider Department 02/21/25 SHEKHAR ARMANDO During your visit today, we recorded the following information about you: Tena Dodge 02/21/2025 1:22 PM Signed Per Bridget at [facility] Tawanda's Brain MRI is scheduled for 02/28/25 @ 1030 JONNY Quinn Allergies As of Date: 02/21/2025 (No Known Allergies) Date Reviewed: 02/12/2025 Reviewed by: Alma Santillan MA - Fully Assessed Prescriptions as of 02/21/2025 - predniSONE (DELTASONE) 5 mg tablet Take 5 mg by mouth as needed. - ELIQUIS 5 mg tab(s) Take 5 mg by mouth two times a day. - atorvastatin (LIPITOR) 20 mg tablet Take 20 mg by mouth once daily. - canagliflozin (INVOKANA) 100 mg tab Take 100 mg by mouth once daily. - folic acid 1 mg tablet Take 1 mg by mouth once daily. - hydrOXYchloroQUINE (PLAQUENIL) 200 mg tablet Take 200 mg by mouth two times a day. - metoprolol succinate ER (TOPROL XL) 100 mg Take 100 mg by mouth once daily. - spironolactone (ALDACTONE) 25 mg tablet Take 25 mg by mouth once daily. - VITAMIN B COMPLEX ORAL Take 1 tablet by mouth once daily. Problem List As Of Date: 02/21/2025 (None) Encounter Status:Closed by TENA DODGE on 02/21/25 Normal [facility] SURGICAL PATHOLOGY REFERENCE LAB CONSULTon 02-14-2025 AP DISCLAIMER Normal [facility] Comment on above: Order Comment: Speci men Type: FORMALIN-FIXED PARAFFIN-EMBEDDED TISSUE SPECIMENOrdering Facility: [facility] Address: [facility] [place] [address] Result Comment: Raghavendra Pinon Test (LDT) Disclaimer: Performance characteristics of immunohistochemical, immunofluorescent, and chromogenic in-situ hybridization tests have been determined by the performing laboratory within [facility]'s Carmine Driscoll Pathology and Laboratory Medicine Department ([facility], [facility], [facility], [facility], [facility], [facility], or [facility]) in a manner consistent with CLIA requirements. One or more of these tests may not have been cleared or approved by the FDA. [facility] is regulated under CLIA as qualified to perform high-complexity testing. These tests are used for clinical purposes. These should not be regarded as investigational or for research. Positive and negative controls stain appropriately. Performed By: #### L [id number] ####[facility] LABCLIA [id number] [place] [id number] [facility] CASE REPORT Normal [facility] Comment on above: Order Comment: Speci men Type: FORMALIN-FIXED PARAFFIN-EMBEDDED TISSUE SPECIMENOrdering Facility: [facility] Address: [address] [place] [id number] Result Comment: Surg [facility] Pathology Report Case: [id number] Authorizing Provider: Navjot Zaldivar MD Collected: 02/14/2025 09:40 PM Ordering Location: [facility] Received: 02/14/2025 09:39 PM [facility] Pathologist: Scarlett Michelle MD Specimen: Slide(s), 22 SLIDES ([id number]) Performed By: #### L [id number] ####[facility] LABIA [id number] [address] STATES OF [facility] CLINICAL HISTORY CONSULT REQUESTED [facility] Comment on above: Order Comment: Speci men Type: FORMALIN-FIXED PARAFFIN-EMBEDDED TISSUE SPECIMENOrdering Facility: [facility] Address: [address] [place] [address] Performed By: #### L [id number] ####[facility] LABIA [id number] [place] [id number] [facility] DIAGNOSIS COMMENT Thank you for analia keenan this case of a 69-year-old female patient with history of breast cancer, who presented with lung nodule or nodules, and emphysema. We agree with your interpretation. In A3, there is a non-small cell carcinoma invading lung parenchyma in a background of prominent chronic inflammation and areas of necrosis. A1 and A2 reveal lung parenchyma with prominent interstitial inflammation and acute and chronic pleuritis with necroinflammatory exudate. The provided immunostains reveal tumor cells to be positive for CK5/6 and p40, and negative for CK7, CK20, GATA3, ER, UT, GCDFP-15, TTF-1 and Napsin. Mucicarmine stain does not reveal intracytoplasmic mucin vacuoles in tumor cells. The morphologic and immunohistochemical findings in the current biopsy are consistent with invasive squamous cell carcinoma. Normal [facility] Comment on above: Order Comment: Speci men Type: FORMALIN-FIXED PARAFFIN-EMBEDDED TISSUE SPECIMENOrdering Facility: [facility] Address: [address] [place], [place] [address] [place] [id number] Performed By: #### L [id number] ####[facility] LABCLIA [id number] [address] FINAL DIAGNOSIS Normal [facility] Comment on above: Order Comment: Speci men Type: FORMALIN-FIXED PARAFFIN-EMBEDDED TISSUE SPECIMENOrdering Facility: [facility] Address: [address] [place], [place] [address] [id number] Result Comment: Lung , nodules, CT-guided core biopsy ([id number] A1-A3; 02/05/2025): -Squamous cell carcinoma (see comment). at 1008 EDT Performed By: #### L [id number] ####[facility] LABCLIA [id number] [address] OF [facility] FINAL PERFORMING LAB Normal [facility] Comment on above: Order Comment: Speci men Type: FORMALIN-FIXED PARAFFIN-EMBEDDED TISSUE SPECIMENOrdering Facility: [facility] Address: [address] [place] [address] Result Comment: Diag nostic interpretation performed at: [facility], [address] [id number] CLIA# [id number] Principal Statistical Programmer: Chito Mccallum MD Performed By: #### L [id number] ####[facility] LABCLIA [id number] [place] [id number] [facility] CNPNon 02-13-2025 CNPN Telephone ([facility]) -- HILDATAWANDA M ([id number]) 1955 F Date Time Provider Department 02/13/25 PIERRE HALL During your visit today, we recorded the following information about you: Pierre Hall RN 02/13/2025 12:19 PM Signed Pt requesting medications to complete the MRI. AV: Please advise/ RX to Sarbjit Tinoco RN Vennepureddy, Adarsh, MD 02/13/2025 12:38 PM Signed I sent Xanax to pharmacy. Thanks. Pierre Hall RN 02/13/2025 12:44 PM Signed Pt notified and denies further needs or concerns at this time. Aware will need a after school driver for testing, if taking the medication Pierre Hall RN Allergies As of Date: 02/13/2025 (No Known Allergies) Date Reviewed: 02/12/2025 Reviewed by: Alma Santillan MA - Fully Assessed Reason for Visit: Medication request for MRI [Other] Primary Visit Diagnosis:Lung nodules [R91.8] Other Visit Diagnosis:Anxiety [F41.9] Order(s):ALPRAZolam (XANAX) 0.5 mg tabletTake 1 tablet by mouth as directed for 1 day. Take 1 tablet 30 min prior to the scan.Disp: 4 tabletRfl: 0 Prescriptions as of 02/13/2025 - ALPRAZolam (XANAX) 0.5 mg tablet Take 1 tablet by mouth as directed for 1 day. Take 1 tablet 30 min prior to the scan. - iv contrast (will be provided with radiology test) MRI Brain Inject, intravenously, once for 1 dose.No IV access, insert saline lock prior to beginning of sedation, infusion, injection of imaging exam.Discontinue saline lock post exam. If Pt. has a central line or IVAD, may access for administration according to line specific nursing protocol.Once exam is complete flush line and de-access according to line specific nursing protocol in the MR contrast administration guidelines link - predniSONE (DELTASONE) 5 mg tablet Take 5 mg by mouth as needed. - ELIQUIS 5 mg tab(s) Take 5 mg by mouth two times a day. - atorvastatin (LIPITOR) 20 mg tablet Take 20 mg by mouth once daily. - canagliflozin (INVOKANA) 100 mg tab Take 100 mg by mouth once daily. - folic acid 1 mg tablet Take 1 mg by mouth once daily. - hydrOXYchloroQUINE (PLAQUENIL) 200 mg tablet Take 200 mg by mouth two times a day. - metoprolol succinate ER (TOPROL XL) 100 mg Take 100 mg by mouth once daily. - spironolactone (ALDACTONE) 25 mg tablet Take 25 mg by mouth once daily. - VITAMIN B COMPLEX ORAL Take 1 tablet by mouth once daily. Problem List As Of Date: 02/13/2025 (None) Prescriptions ordered this encounter Disp Refills Start End ALPRAZOLAM 0.5 MG TABLET 4 ta* 0 02/13/2025 02/14/2025 Route: ORAL Sig: Take 1 tablet by mouth as directed for 1 day. Take 1 tablet 30 min prior to the scan. Encounter Status:Closed by PIERRE HALL on 02/13/25 [facility] TAWANDA STEVENS ([id number]) 1955 F Date Time Provider Department 02/13/25 PIERRE HALL During your visit today, we recorded the following information about you: Pierre Hall RN 02/13/2025 9:56 AM Signed [facility] calling to question Lung bx order rec'd yesterday, as pt just had one completed 02/05/25. AV: please advise BRUNA Christopher Adarsh, MD 02/13/2025 9:58 AM Signed They did right lung nodule biopsy. I want to get left lung nodule biopsy too. Thanks Pierre Hall RN 02/13/2025 10:09 AM Signed Marcia [facility] scheduling, updated and will proceed, as ordered. Pierre Hall RN Allergies As of Date: 02/13/2025 (No Known Allergies) Date Reviewed: 02/12/2025 Reviewed by: Alma Santillan MA - Fully Assessed Reason for Visit: Lung bx order [Other] Prescriptions as of 02/13/2025 - iv contrast (will be provided with radiology test) MRI Brain Inject, intravenously, once for 1 dose.No IV access, insert saline lock prior to beginning of sedation, infusion, injection of imaging exam.Discontinue saline lock post exam. If Pt. has a central line or IVAD, may access for administration according to line specific nursing protocol.Once exam is complete flush line and de-access according to line specific nursing protocol in the MR contrast administration guidelines link - predniSONE (DELTASONE) 5 mg tablet Take 5 mg by mouth as needed. - ELIQUIS 5 mg tab(s) Take 5 mg by mouth two times a day. - atorvastatin (LIPITOR) 20 mg tablet Take 20 mg by mouth once daily. - canagliflozin (INVOKANA) 100 mg tab Take 100 mg by mouth once daily. - folic acid 1 mg tablet Take 1 mg by mouth once daily. - hydrOXYchloroQUINE (PLAQUENIL) 200 mg tablet Take 200 mg by mouth two times a day. - metoprolol succinate ER (TOPROL XL) 100 mg Take 100 mg by mouth once daily. - spironolactone (ALDACTONE) 25 mg tablet Take 25 mg by mouth once daily. - VITAMIN B COMPLEX ORAL Take 1 tablet by mouth once daily. Problem List As Of Date: 02/13/2025 (None) Encounter Status:Closed by PIERRE HALL on 02/13/25 [facility] CNOVSPon 02-12-2025 CNOVSP Visit (SP) Office ([facility]) -- TAWANDA STEVENS ([id number]) 1955 F Date Time Provider Department 02/12/25 1:00 PM SHEKHAR ARMANDO During your visit today, we recorded the following information about you: Temperature Pulse Respiration Blood pressure 97.3 degrees 104/minute 18/minute 139/90 Weight Height 99.8 kg 1.626 jt Shekhar Armando MD 02/12/2025 2:46 PM Signed PATIENT NAME: Tawanda Stevens CLINIC NO.: [id number] ATTENDING PHYSICIAN: Shekhar Armando MD DATE OF SERVICE: 02/12/[address] Kathy Ross MD [address] [place], [place] [phone] thank you for referring Tawanda Stevens for an opinion regarding lung and breast mass. Some of the elements of this note have been copied from my previous progress note dated 01/26/25 . All the information has been reviewed carefully. CHIEF COMPLAINT: Lung mass and breast mass. HPI: Tawanda Stevens is a 69 year old year old female with h/o A fib on eliquis, CHF, CAD, DM, RA referred to us for lung mass and breast mass. Had CT chest for follow up on lung nodule followed by mammogram and PET scan. PET scan (10/11/24) Mammogram (09/26/24) CT Chest (08/22/24): Underwent left breast biopsy on 09/27/24. Pathology showed mucinous carcinoma. Smokes 1 pk/day for 40 yrs Occasionally drinks alcohol Worked at [employer]. Saw surgeon on 10/05/24. Brother has prostate cancer. No major complaints. 12/07/24: - Doing well - H/o latent TB treatment 10yrs ago - No major complaints. 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 - Doing well - No major complaints. Current Outpatient Medications Medication Sig predniSONE (DELTASONE) 5 mg tablet Take 5 mg by mouth as needed. ELIQUIS 5 mg tab(s) Take 5 mg by mouth two times a day. atorvastatin (LIPITOR) 20 mg tablet Take 20 mg by mouth once daily. canagliflozin (INVOKANA) 100 mg tab Take 100 mg by mouth once daily. folic acid 1 mg tablet Take 1 mg by mouth once daily. hydrOXYchloroQUINE (PLAQUENIL) 200 mg tablet Take 200 mg by mouth two times a day. metoprolol succinate ER (TOPROL XL) 100 mg Take 100 mg by mouth once daily. spironolactone (ALDACTONE) 25 mg tablet Take 25 mg by mouth once daily. VITAMIN B COMPLEX ORAL Take 1 tablet by mouth once daily. No current facility-administered medications for this visit. ALLERGIES No Known Allergies PAST MEDICAL HISTORY Diagnosis Date A-fib (HCC) Anxiety Breast mass, left Cardiomyopathy (HCC) CHF (congestive heart failure) (HCC) Depression Emphysema lung (HCC) History of ectopic Hyperlipidemia IBS (irritable bowel syndrome) Lung nodule Rheumatoid arthritis (HCC) Smoker No past surgical history on file. FAMILY HISTORY Problem Relation Age of Onset Heart disease Mother other (Abdominal aortic aneurysm) Mother Heart disease Father other (Myocardial infarction) Father Heart disease Sister Hypertension Sister Uterine Fibroids Sister Diabetes Brother Hypertension Brother Heart disease Brother Hypertension Brother Heart disease Brother Social History Tobacco Use Smoking status: Every Day Current packs/day: 1.00 Types: Cigarettes Smokeless tobacco: Never Vaping Use Vaping status: Never Used Substance Use Topics Alcohol use: Not Currently Drug use: Never REVIEW OF SYSTEMS GENERAL: No weight loss, malaise or fevers. No night sweats. HEENT: Negative for headaches, No changes in hearing or vision, no nose bleeds or other nasal problems. RESPIRATORY: Negative for cough, wheezing and shortness of breath CARDIOVASCULAR: Negative for chest pain, leg swelling and palpitations GI: Negative for abdominal discomfort, blood in stools or black stools and change in bowel habits : Negative for dysuria, frequency and incontinence MUSCULOSKELETAL: Negative for joint pain or swelling, back pain, and muscle pain. SKIN: Negative for lesions, rash, and itching. HEMATOLOGY/LYMPHOLOGY Negative for prolonged bleeding, bruising easily, and swollen nodes. NEURO: Negative for numbness or tingling of hands/feet. No weakness. PHYSICAL EXAMINATION: There were no vitals taken for this visit. There were no vitals taken for this visit. No data found for this vital: Wt General appearance:ECOG PERFORMANCE STATUS: 0- Fully active, able to carry on all pre-disease performance w/o restriction. Patient in NAD. Skin: Skin color, texture, turgor normal. No rashes or lesions. Eyes: Anicteric sclera. Pupils are equally round and reactive to light. Extraocular movements are intact. Breast: No nipple change or discharge. Lymph Nodes: No cervical, supraclavicular, axillary or inguinal adenopathy. Oropharynx: Lips, mucosa, and tongue normal. Ba (more content not included)... Normal [facility] JUDYNon 02-12-2025 CNPN Telephone ([facility]) -- TAWANDA STEVENS ([id number]) 1955 F Date Time Provider Department 02/12/25 [facility] During your visit today, we recorded the following information about you: Itzel Leblanc 02/12/2025 3:15 PM Signed 2nd opinion pathology requested from [facility] to be sent to [facility] for 2nd opinion. Allergies As of Date: 02/12/2025 (No Known Allergies) Date Reviewed: 02/12/2025 Reviewed by: Alma Santillan MA - Fully Assessed Reason for Visit: 2nd opinion [Other] Prescriptions as of 02/12/2025 - iv contrast (will be provided with radiology test) MRI Brain Inject, intravenously, once for 1 dose.No IV access, insert saline lock prior to beginning of sedation, infusion, injection of imaging exam.Discontinue saline lock post exam. If Pt. has a central line or IVAD, may access for administration according to line specific nursing protocol.Once exam is complete flush line and de-access according to line specific nursing protocol in the MR contrast administration guidelines link - predniSONE (DELTASONE) 5 mg tablet Take 5 mg by mouth as needed. - ELIQUIS 5 mg tab(s) Take 5 mg by mouth two times a day. - atorvastatin (LIPITOR) 20 mg tablet Take 20 mg by mouth once daily. - canagliflozin (INVOKANA) 100 mg tab Take 100 mg by mouth once daily. - folic acid 1 mg tablet Take 1 mg by mouth once daily. - hydrOXYchloroQUINE (PLAQUENIL) 200 mg tablet Take 200 mg by mouth two times a day. - metoprolol succinate ER (TOPROL XL) 100 mg Take 100 mg by mouth once daily. - spironolactone (ALDACTONE) 25 mg tablet Take 25 mg by mouth once daily. - VITAMIN B COMPLEX ORAL Take 1 tablet by mouth once daily. Problem List As Of Date: 02/12/2025 (None) Encounter Status:Closed by ITZEL LEBLANC on 02/12/25 Normal [facility] CT guided biopsyon 5 CT guided biopsy [place] [address] CT Scan Report Signed Patient: Tawanda Stevens MR#: [id number] : 1955 Acct:[id number] Age/Sex: 69 / F ADM Date: 02/05/25 Loc: CT Room: Type: [facility] Attending Dr: Shekhar Armando MD Copies to: MD Pedro Cruz Jeffrey S DO Ordering Provider: Shekhar Armando MD; Sherman Vasquez DO Date of Service: 02/05/25 CT/CT guided needle placement: R91.8 ([id number]) CT/CT guided biopsy: LUNG BX. ([id number]) XR/XR chest 1V: POST LUNG BX CT-GUIDED LUNG BIOPSY HISTORY: Bilateral lung nodules. A right upper lobe lung nodule biopsy. This is in subpleural location posteriorly. Informed consent was obtained. Complications of pneumothorax and bleeding discussed. Potential for chest tube for pneumothorax and potential hospital admission for this complication discussed. A discussion for monitoring the patient at home by family member friend performed. CT was utilized for localization of skin entry site. The skin entry site was prepped and draped in sterile fashion. Local lidocaine was utilized. Anesthetic needle was utilized to confirm adequate position. 3 core biopsy samples were obtained. Samples given to pathology for further assessment. Results of inflammatory and necrotic cells. Concern for tumor necrosis. The needle was removed with adequate hemostasis obtained. Patient expressed no immediate complications. Post CT assessment demonstrates no pneumothorax. Postbiopsy plain film chest demonstrates no pneumothorax. CT/CT guided needle placement IMPRESSION: SUCCESSFUL CT-GUIDED LUNG BIOPSY Single view chest with inspiration. No pneumothorax identified with delayed postbiopsy inspiratory chest x-ray Impression dictated by: Sherman Vasquez M.D.02/05/2025 3:42 PM Dictation Location: [place] [address] Transcribed By: [facility] 02/05/25 1542 Dictated By: Sherman Vasquez DO 02/05/25 1534 Signed By: 02/05/25 1542 Normal [facility] Coagulation Profileon 2024 aPTT Coag (Bld) [Time] 27.2 s Normal 25.1-36.5 Th e [facility] Comment on above: Result Comment: A he matocrit value greater than 55% may lead to inaccurate results in coagulation testing. Patients having hematocrit values >55% require a special collection tube for coagulation studies. Please contact the laboratory at [phone] for redraw instructions. PERFORMED BY: [address] [address] PATHOLOGIST SNOUT PULLER KENNEDI FELTON M.D. Performed By: #### P LT, PP #### [facility] [address] [place] [id number] [facility] INR Coag (PPP) [Relative time] 1.0 {INR} Normal [facility] Comment on above: Result Comment: INR Therapeutic Range A) Pre- and Peroperative OAT started two weeks before surgery. NOT HIP SURGERY: 1.5 - 2.5 HIP SURGERY: 2 - 3 B) Primary and secondary prevention of venous THROMBOSIS: 2 - 3 C) Active venous thrombosis, pulmonary embolism and prevention of recurrent venous thrombosis: 2 - 3 D) Prevention of arterial thromboembolism including patients with mechanical heart valves: 3 - 4.5 Performed By: #### P LT, PP #### [place] [id number] [facility] PT Coag (PPP) [Time] 11.4 s Normal 9.0-12.9 [facility] Comment on above: Result Comment: A he matocrit value greater than 55% may lead to inaccurate results in coagulation testing. Patients having hematocrit values >55% require a special collection tube for coagulation studies. Please contact the laboratory at [phone] for redraw instructions. Performed By: #### P LT, PP #### [facility] [address] [place] [address] [facility] INR in Platelet poor plasma by Coagulation assayOrdered By: Shekhar Armando on 02-05-2025 INR Coag (PPP) [Relative time] INR in Platelet poor plasma by Coagulation assay [facility] Comment on above: INR Therapeutic Rang e A) Pre- and Peroperative OAT started two weeks before surgery. NOT HIP SURGERY: 1.5 - 2.5 HIP SURGERY: 2 - 3B) Primary and secondary prevention of venous THROMBOSIS: 2 - 3C) Active venous thrombosis, pulmonary embolismand prevention of recurrent venous thrombosis: 2 - 3D) Prevention of arterial thromboembolismincluding patients with mechanical heart valves: 3 - 4.5 Haile 02-05-2025 L ------ Specimen: [id number] Received: 02/05/25 Status: DANIAL Hwang Num: [id number] Spec Type: Surgical Subm Dr: Sherman Vasquez DO Tissues: A Lung CT-Guided Biopsy (R UPPER LUNG) Procedures: Mucicarmine, HE/6, Gross/Micro L4, CK5 6, CK20, CK 7, ER, GCDFP-15, NAPSIN A, UT, TTF1, GATA3, p40, DIFF QWIK/4, PAPSTN Age/ Patient Sex Location Account Attending Physician Tawanda Stevens 69/F CT [id number] Shekhar Armando MD SPEC NUM: [id number] RECD: 02/05/25 STATUS: DANIAL HWANG NUM: [id number] CHANTEL: 02/05/25-[address]: Sherman Vasquez DO ENTERED: 02/05/25-1306 [facility] [address]: Shekhar Armando MD SPEC TYPE: Surgical DEPT: S ENTERED BY: [id number] RECV BY: [id number] ORDERED: Mucicarmine, HE/6, Gross/Micro L4, CK5 6, CK20, CK 7, ER, GCDFP-15, NAPSIN A, UT, TTF1, GATA3, p40, DIFF QWIK/4, PAPSTN ORDERED: Mucicarmine, HE/6, Gross/Micro L4, CK5 6, CK20, CK 7, ER, GCDFP-15, NAPSIN A, UT, TTF1, GATA3, p40, DIFF QWIK/4, PAPSTN Supplemental Report Addendum 1 Entered: 02/19/25-1551 Supplemental for findings of consultation report from [facility] -Squamous cell carcinoma (see comment) Addendum Signed (signature on file) Al Zaldivar MD 02/19/25 1551 Pathological Diagnosis Lung nodule, CT-guided core biopsy: -Rare atypical cells with changes consistent with squamous cell carcinoma of the lung (at least in situ carcinoma), mildly to moderately differentiated -Please also see microscopic description Specimen: [id number] Received: 02/05/25 Status: DANIAL Hwang Num: [id number] Spec Type: Surgical Subm Dr: Sherman Vasquez DO Tissues: A Lung CT-Guided Biopsy (R UPPER LUNG) Procedures: Mucicarmine, HE/6, Gross/Micro L4, CK5 6, CK20, CK 7, ER, GCDFP-15, NAPSIN A, UT, TTF1, GATA3, p40, DIFF QWIK/4, PAPSTN Patient: Tawanda Stevens [id number] (Continued) Specimen: [id number] Received: 02/05/25 (Continued) Signed (signature on file) Al Zaldivar MD 02/07/25 1200 Specimen: [id number] Received: 02/05/25 Status: DANIAL Mercedesmaximino Num: [id number] Spec Type: Surgical Subm Dr: Sherman Vasquez DO Tissues: A Lung CT-Guided Biopsy (R UPPER LUNG) Procedures: Mucicarmine, HE/6, Gross/Micro L4, CK5 6, CK20, CK 7, ER, GCDFP-15, NAPSIN A, UT, TTF1, GATA3, p40, DIFF QWIK/4, PAPSTN Patient: Tawanda Stevens [id number] (Continued) Specimen: Received: 02/05/25 (Continued) Clinical Information Lung nodules, breast cancer, emphysema Gross Description Part A is received fresh from CT in 3 containers and fixed in 10% formalin labeled with the patients name, date of , and RT upper lung are 4 pale mckeon to wolff, focally anthracotic, delicate needle core biopsy segments, 0.2 to 0.8 cm in length. Touch prep slides are prepared and the specimen is entirely submitted in A1?A3. Fixation Time: Time specimen extracted: Time specimen placed in formalin: Cold ischemic time: Less than 1 to 3 minutes Total fixation time: 6 hours and 30 minutes (3, ns, [id number]) Intraoperative Diagnosis Biopsy onsite adequacy assessment by touch imprint cytology -Inflamed lesion sampled -Reported by Dr. Zaldivar on 02/05/25 Microscopic Description Microscopic examination is performed showing a nodular and moderately consolidated bronchoalveolar lung tissue with markedly associated chronic inflammation, focal sheet-like necrosis, and only rare small atypical epithelial nests. Multiple IHC markers with reactive controls are applied for further assessment. The atypical cells showing: -CK7: Negative -CK20:: Negative -ER: Negative -Napsin A: Negative -UT: Negative -TTF-1: Negative -P40: Positive -CK5/6: Positive Specimen: Received: 02/05/25 Status: DANIAL Hwang Num: [id number] Spec Type: [place] (more content not included)... Normal [facility] Platelet Counton 02-05-2025 Platelets (Bld) [#/Vol] 263 10*3/uL Normal 150-450 [facility] Comment on above: Result Comment: PERF ORMED BY: [facility] [address] [place] [address] PATHOLOGIST SNOUT PULLER KENNEDI FELTON M.D. Performed By: #### P LT, PP #### [facility] [address] [id number] [facility] Platelets Auto (Bld) [#/Vol] Ordered By: Shekhar Armando on 02-05-2025 Platelets (Bld) [#/Vol] Platelets [#/volume] in Blood by Automated count 150-450 [facility] Prothrombin time (PT)Ordered By: Shekhar Armando on 02-05-2025 PT Coag (PPP) [Time] Prothrombin time (PT) 9.0- 12.9 [facility] Comment on above: A hematocrit value g reater than 55% may lead to inaccurate results in coagulation testing. Patients having hematocrit values >55% require a special collection tube for coagulation studies. Please contact the laboratory at [phone] for redraw instructions. aPTT in Platelet poor plasma by Coagulation assayOrdered By: Shekhar Armando on 02-05-2025 aPTT Coag (PPP) [Time] Activated partial thromboplastin time (aPTT) in platelet poor plasma by coagulation a 25.1-36.5 [facility] Comment on above: A hematocrit value g reater than 55% may lead to inaccurate results in coagulation testing. Patients having hematocrit values >55% require a special collection tube for coagulation studies. Please contact the laboratory at [phone] for redraw instructions. CNOVSPon 01-26-2025 CNOVSP Visit (SP) Office ([facility]) -- TAWANDA STEVENS ([id number]) 1955 F Date Time Provider Department 01/26/25 10:00 AM SHEKHAR ARMANDO During your visit today, we recorded the following information about you: Temperature Pulse Respiration Blood pressure 98.2 degrees 62/minute 16/minute 105/73 Weight 100.1 kg Shekhar Armando MD 01/26/2025 10:40 AM Signed PATIENT NAME: Tawanda Stevens CLINIC NO.: [id number] ATTENDING PHYSICIAN: Shekhar Armando MD DATE OF SERVICE: 01/26/[address] Kathy Ross MD [address] [address] thank you for referring Tawanda Stevens for an opinion regarding lung and breast mass. Some of the elements of this note have been copied from my previous progress note dated 12/07/24 . All the information has been reviewed carefully. CHIEF COMPLAINT: Lung mass and breast mass. HPI: Tawanda Stevens is a 69 year old year old female with h/o A fib on eliquis, CHF, CAD, DM, RA referred to us for lung mass and breast mass. Had CT chest for follow up on lung nodule followed by mammogram and PET scan. PET scan (10/11/24) Mammogram (09/26/24) CT Chest (08/22/24): Underwent left breast biopsy on 09/27/24. Pathology showed mucinous carcinoma. Smokes 1 pk/day for 40 yrs Occasionally drinks alcohol Worked at [place]. Saw surgeon on 10/05/24. Brother has prostate cancer. No major complaints. 12/07/24: - Doing well - H/o latent TB treatment 10yrs ago - No major complaints. 01/26/25: - Doing well - CT chest on 01/25/25 showed worsening lung nodules - Lung biopsy on 02/05/25 Current Outpatient Medications Medication Sig predniSONE (DELTASONE) 5 mg tablet Take 5 mg by mouth as needed. adalimumab 80 mg/0.8 mL and 40 mg/0.4 mL subcutaneous syringe kit (HUMIRA (CF)) Inject 80 mg subcutaneously every 2 weeks. ELIQUIS 5 mg tab(s) Take 5 mg by mouth two times a day. atorvastatin (LIPITOR) 20 mg tablet Take 20 mg by mouth once daily. canagliflozin (INVOKANA) 100 mg tab Take 100 mg by mouth once daily. folic acid 1 mg tablet Take 1 mg by mouth once daily. hydrOXYchloroQUINE (PLAQUENIL) 200 mg tablet Take 200 mg by mouth two times a day. methotrexate 2.5 mg tablet Take 2.5 mg by mouth as directed. metoprolol succinate ER (TOPROL XL) 100 mg Take 100 mg by mouth once daily. spironolactone (ALDACTONE) 25 mg tablet Take 25 mg by mouth once daily. VITAMIN B COMPLEX ORAL Take 1 tablet by mouth once daily. No current facility-administered medications for this visit. ALLERGIES No Known Allergies PAST MEDICAL HISTORY Diagnosis Date A-fib (HCC) Anxiety Breast mass, left Cardiomyopathy (HCC) CHF (congestive heart failure) (HCC) Depression Emphysema lung (HCC) History of ectopic Hyperlipidemia IBS (irritable bowel syndrome) Lung nodule Rheumatoid arthritis (HCC) Smoker No past surgical history on file. FAMILY HISTORY Problem Relation Age of Onset Heart disease Mother other (Abdominal aortic aneurysm) Mother Heart disease Father other (Myocardial infarction) Father Heart disease Sister Hypertension Sister Uterine Fibroids Sister Diabetes Brother Hypertension Brother Heart disease Brother Hypertension Brother Heart disease Brother Social History Tobacco Use Smoking status: Every Day Current packs/day: 1.00 Types: Cigarettes Smokeless tobacco: Never Vaping Use Vaping status: Never Used Substance Use Topics Alcohol use: Not Currently Drug use: Never REVIEW OF SYSTEMS GENERAL: No weight loss, malaise or fevers. No night sweats. HEENT: Negative for headaches, No changes in hearing or vision, no nose bleeds or other nasal problems. RESPIRATORY: Negative for cough, wheezing and shortness of breath CARDIOVASCULAR: Negative for chest pain, leg swelling and palpitations GI: Negative for abdominal discomfort, blood in stools or black stools and change in bowel habits : Negative for dysuria, frequency and incontinence MUSCULOSKELETAL: Negative for joint pain or swelling, back pain, and muscle pain. SKIN: Negative for lesions, rash, and itching. HEMATOLOGY/LYMPHOLOGY Negative for prolonged bleeding, bruising easily, and swollen nodes. NEURO: Negative for numbness or tingling of hands/feet. No weakness. PHYSICAL EXAMINATION: There were no vitals taken for this visit. There were no vitals taken for this visit. No data found for this vital: Wt General appearance:ECOG PERFORMANCE STATUS: 0- Fully active, able to carry on all pre-disease performance w/o restriction. Patient in NAD. Skin: Skin color, texture, turgor normal. No rashes or lesions. Eyes: Anicteric sclera. Pupils are equally round and reactive to light. Extraocular movements are intact. Breast: No nipple change or discharge. Lymph Nodes: No cervical, supraclavicular, axillary or inguinal adenopathy. Oroph (more content not included)... Normal [facility] CREATININE BLDOrdered By: Am y White on 01-25-2025 Creatinine [Mass/Vol] 0.8 mg/dL 0.58 - 0.96 mg/dL [facility] GFR/1.73 sq M.predicted among non-blacks MDRD (S/P/Bld) [Vol rate/Area] 80 mL/min/{1.73_m2} - PINF [facility] Comment on above: Estimated Glomerular Filtration Rate (eGFR) is calculated using the 2020 CKD-EPI creatinine equation. This equation utilizes serum creatinine, sex, and age as parameters. The creatinine assay has traceable calibration to isotope dilution-mass spectrometry. Refer to KDIGO guidelines for clinical interpretation. In patients with unstable renal function, e.g. those with acute kidney injury, the eGFR may not accurately reflect actual GFR. Interpretation and review of laboratory results Normal [facility] CREATININE BLDon 01-25-2025 Creatinine [Mass/Vol] 0.80 mg/dL Normal 0.58-0.96 [facility] Comment on above: Order Comment: Cyn flores Type: BLOOD SPECIMENOrdering Facility: [facility] Address: [address] [place] [address] Performed By: #### C RET1 ####[facility] LABCLIA [id number] [place] [address] Creatinine and Glomerular filtration rate.predicted panel (S/P/Bld) 80 mL/min/1.73m??? Normal >=60 [facility] Comment on above: Order Comment: Speci men Type: BLOOD SPECIMENOrdering Facility: [facility] Address: [address] [place] [address] Result Comment: Michael mated Glomerular Filtration Rate (eGFR) is calculated using the 2020 CKD-EPI creatinine equation. This equation utilizes serum creatinine, sex, and age as parameters. The creatinine assay has traceable calibration to isotope dilution-mass spectrometry. Refer to KDIGO guidelines for clinical interpretation. In patients with unstable renal function, e.g. those with acute kidney injury, the eGFR may not accurately reflect actual GFR. Performed By: #### C RET1 ####[facility] LABCLIA [id number] [place] [address] CT CHE[address] CHEST W IVCON * * *Final Report* * * DATE OF EXAM: Jan 25 2025 11:23AM [facility] 0539 - CT CHEST W IVCON / PROCEDURE REASON: Lung nodules * * * * Physician Interpretation * * * * RESULT: EXAMINATION: CHEST CT WITH CONTRAST CLINICAL HISTORY: Lung nodule follow-up. Technique: Spiral CT acquisition of the chest from the thoracic inlet to the upper abdomen following IV contrast. MQ: CTCW_6 Contrast: 50 mL Omnipaque [address] Radiation dose: Integrated Dose-length product (DLP) for this visit = 328 mGy*cm CT Dose Reduction Employed: Automated exposure control (AEC) Comparison: Outside CT chest performed 08/22/2024 RESULT: Limitations: None. Lines, tubes, and devices: None. Lung parenchyma and airways: There is bibasal atelectasis. There is moderate centrilobular and paraseptal emphysema. No lobar consolidation is identified. At the right apex (4:29) there is a 2.4 x 1.2 cm nodule, previously measuring 2.2 x 1.3 cm. There is a 2.6 x 2.2 cm nodule in the posterior right upper lobe, previously measuring approximately 2 x 1.3 cm. A 1.8 x 1.4 cm nodule is seen in the posterior left lower lobe, previously measuring 1.3 x 1 cm. No new nodules are visualized. The central airways are widely patent. Pleural space: No pleural effusion. No pleural thickening. Lower neck, lymph nodes, and mediastinum: Multiple subcentimeter mediastinal nodes are seen which are not enlarged by size criteria. No bulky intrathoracic adenopathy is visualized. Heart, pericardium, and thoracic vessels: The thoracic aorta and main pulmonary artery are normal in caliber. The cardiac chambers are normal in size. No coronary artery atherosclerotic calcifications are noted, although the study is not optimized for coronary assessment. No pericardial effusion or thickening. Bones and soft tissues: Degenerative changes are noted in the thoracic spine. There is a 2 cm nodular opacity in the left breast with a biopsy clip within. Upper abdomen: There is a 1.4 cm left adrenal nodule, likely representing an adenoma. The upper abdomen is otherwise unremarkable. Localizer images: No additional findings. IMPRESSION: 1. Bilateral pulmonary nodules, overall increased in size when compared to prior exam. No new nodules are visualized. 2. No evidence of bulky intrathoracic lymphadenopathy. Transcribe Date/Time: Jan 25 2025 2:28P Dictated by: JOANNE CAZARES MD This examination was interpreted and the report reviewed and electronically signed by: JOANNE CAZARES MD on Jan 25 2025 2:35PM EST Thank you for allowing us to participate in the care of your patient. Should there be any questions regarding this interpretation, please call [phone]. If you are unable to reach us at the number above, please feel free to contact [facility] at [phone]. [id number] Normal [facility] CT Chest W contrast Denise IMPRESSION: 1. Bilateral pulmonary nodules, overall increased in size when compared to prior exam. No new nodules are visualized. 2. No evidence of bulky intrathoracic lymphadenopathy. Transcribe Date/Time: Jan 25 2025 2:28P Dictated by: JOANNE CAZARES MD This examination was interpreted and the report reviewed and electronically signed by: JOANNE CAZARES MD on Jan 25 2025 2:35PM EST Thank you for allowing us to participate in the care of your patient. Should there be any questions regarding this interpretation, please call [phone]. If you are unable to reach us at the number above, please feel free to contact [facility] at [phone]. DIVISION OF RADIOLOGY * * *Final Report* * * DATE OF EXAM: Jan 25 2025 11:23AM [facility] 0539 - CT CHEST W IVCON / PROCEDURE REASON: Lung nodules * * * * Physician Interpretation * * * * RESULT: EXAMINATION: CHEST CT WITH CONTRAST CLINICAL HISTORY: Lung nodule follow-up. Technique: Spiral CT acquisition of the chest from the thoracic inlet to the upper abdomen following IV contrast. MQ: CTCW_6 Contrast: 50 mL Omnipaque [address] Radiation dose: Integrated Dose-length product (DLP) for this visit = 328 mGy*cm CT Dose Reduction Employed: Automated exposure control (AEC) Comparison: Outside CT chest performed 08/22/2024 RESULT: Limitations: None. Lines, tubes, and devices: None. Lung parenchyma and airways: There is bibasal atelectasis. There is moderate centrilobular and paraseptal emphysema. No lobar consolidation is identified. At the right apex (4:29) there is a 2.4 x 1.2 cm nodule, previously measuring 2.2 x 1.3 cm. There is a 2.6 x 2.2 cm nodule in the posterior right upper lobe, previously measuring approximately 2 x 1.3 cm. A 1.8 x 1.4 cm nodule is seen in the posterior left lower lobe, previously measuring 1.3 x 1 cm. No new nodules are visualized. The central airways are widely patent. Pleural space: No pleural effusion. No pleural thickening. Lower neck, lymph nodes, and mediastinum: Multiple subcentimeter mediastinal nodes are seen which are not enlarged by size criteria. No bulky intrathoracic adenopathy is visualized. Heart, pericardium, and thoracic vessels: The thoracic aorta and main pulmonary artery are normal in caliber. The cardiac chambers are normal in size. No coronary artery atherosclerotic calcifications are noted, although the study is not optimized for coronary assessment. No pericardial effusion or thickening. Bones and soft tissues: Degenerative changes are noted in the thoracic spine. There is a 2 cm nodular opacity in the left breast with a biopsy clip within. Upper abdomen: There is a 1.4 cm left adrenal nodule, likely representing an adenoma. The upper abdomen is otherwise unremarkable. Localizer images: No additional findings. DIVISION OF RADIOLOGY Provider, [facility] - 01/25/2025 * * *Final Report* * * DATE OF EXAM: Jan 25 2025 11:23AM [facility] 0539 - CT CHEST W IVCON / PROCEDURE REASON: Lung nodules * * * * Physician Interpretation * * * * RESULT: EXAMINATION: CHEST CT WITH CONTRAST CLINICAL HISTORY: Lung nodule follow-up. Technique: Spiral CT acquisition of the chest from the thoracic inlet to the upper abdomen following IV contrast. MQ: CTCW_6 Contrast: 50 mL Omnipaque [address] Radiation dose: Integrated Dose-length product (DLP) for this visit = 328 mGy*cm CT Dose Reduction Employed: Automated exposure control (AEC) Comparison: Outside CT chest performed 08/22/2024 RESULT: Limitations: None. Lines, tubes, and devices: None. Lung parenchyma and airways: There is bibasal atelectasis. There is moderate centrilobular and paraseptal emphysema. No lobar consolidation is identified. At the right apex (4:29) there is a 2.4 x 1.2 cm nodule, previously measuring 2.2 x 1.3 cm. There is a 2.6 x 2.2 cm nodule in the posterior right upper lobe, previously measuring approximately 2 x 1.3 cm. A 1.8 x 1.4 cm nodule is seen in the posterior left lower lobe, previously measuring 1.3 x 1 cm. No new nodules are visualized. The central airways are widely patent. Pleural space: No pleural effusion. No pleural thickening. Lower neck, lymph nodes, and mediastinum: Multiple subcentimeter mediastinal nodes are seen which are not enlarged by size criteria. No bulky intrathoracic adenopathy is visualized. Heart, pericardium, and thoracic vessels: The thoracic aorta and main pulmonary artery are normal in caliber. The cardiac chambers are normal in size. No coronary artery atherosclerotic calcifications are noted, although the study is not optimized for coronary assessment. No pericardial effusion or thickening. Bones and soft tissues: Degenerative changes are noted in the thoracic spine. There is a 2 cm nodular opacity in the left breast with a biopsy clip within. Upper abdomen: There is a 1.4 cm left adrenal nodule, likely representing an adenoma. The upper abdomen is otherwise unremarkable. Localizer images: No additional findings. IMPRESSION IMPRESSION: 1. Bilateral pulmonary nodules, overall increased in size when compared to prior exam. No new nodules are visualized. 2. No evidence of bulky intrathoracic lymphadenopathy. Transcribe Date/Time: Jan 25 2025 2:28P Dictated by: JOANNE CAZARES MD This examination was interpreted and the report reviewed and electronically signed by: JOANNE CAZARES MD on Jan 25 2025 2:35PM EST Thank you for allowing us to participate in the care of your patient. Should there be any questions regarding this interpretation, please call [phone]. If you are unable to reach us at the number above, please feel free to contact [facility] at [phone]. [facility] Radiology Study observation (narrative) [facility] CT Chest W contrast IVOrdere d By: [facility] Provider on 01-25-2025 [facility] CNPNon 01-04-2025 CNPN Telephone ([facility]) -- TAWANDA STEVENS ([id number]) 1955 F Date Time Provider Department 01/04/25 PAIGE NASH HEMTSA During your visit today, we recorded the following information about you: Paige Nash RN 01/04/2025 1:21 PM Signed An updated creatinine is needed prior to scan. Please sign pending order thanks. Paige Nash RN Allergies As of Date: 01/04/2025 (No Known Allergies) Date Reviewed: 12/07/2024 Reviewed by: Daniela Pimentel MA - Fully Assessed Reason for Visit: Orders [681] Primary Visit Diagnosis:Lung nodule [R91.1] Order(s):CREATININE BLD [SQCRET] Order #: [id number] FUTURE Prescriptions as of 01/08/2025 - predniSONE (DELTASONE) 5 mg tablet Take 5 mg by mouth as needed. - adalimumab 80 mg/0.8 mL and 40 mg/0.4 mL subcutaneous syringe kit (HUMIRA (CF)) Inject 80 mg subcutaneously every 2 weeks. - ELIQUIS 5 mg tab(s) Take 5 mg by mouth two times a day. - atorvastatin (LIPITOR) 20 mg tablet Take 20 mg by mouth once daily. - canagliflozin (INVOKANA) 100 mg tab Take 100 mg by mouth once daily. - folic acid 1 mg tablet Take 1 mg by mouth once daily. - hydrOXYchloroQUINE (PLAQUENIL) 200 mg tablet Take 200 mg by mouth two times a day. - methotrexate 2.5 mg tablet Take 2.5 mg by mouth as directed. - metoprolol succinate ER (TOPROL XL) 100 mg Take 100 mg by mouth once daily. - spironolactone (ALDACTONE) 25 mg tablet Take 25 mg by mouth once daily. - VITAMIN B COMPLEX ORAL Take 1 tablet by mouth once daily. Problem List As Of Date: 01/04/2025 (None) Encounter Status:Closed by PAIGE NASH on 01/08/25 [facility] CNOVSPon 12-07-2024 CNOVSP Visit (SP) Office ([facility]) -- TAWANDA STEVENS ([id number]) 1955 F Date Time Provider Department 12/07/24 1:00 PM SHEKHAR ARMANDO During your visit today, we recorded the following information about you: Temperature Pulse Respiration Blood pressure 97 degrees 64/minute 16/minute 121/75 Weight Height 98.8 kg 1.626 m Shekhar Armando MD 12/07/2024 1:35 PM Signed PATIENT NAME: Tawanda Stevens CLINIC NO.: [id number] ATTENDING PHYSICIAN: Shekhar Armando MD DATE OF SERVICE: 12/07/[address] Kathy Ross MD [address] [place], [place] [id number] thank you for referring Tawanda Stevens for an opinion regarding lung and breast mass. Some of the elements of this note have been copied from my previous progress note dated 10/16/24 . All the information has been reviewed carefully. CHIEF COMPLAINT: Lung mass and breast mass. HPI: Tawanda Stevens is a 69 year old year old female with h/o A fib on eliquis, CHF, CAD, DM, RA referred to us for lung mass and breast mass. Had CT chest for follow up on lung nodule followed by mammogram and PET scan. PET scan (10/11/24) Mammogram (09/26/24) CT Chest (08/22/24): Underwent left breast biopsy on 09/27/24. Pathology showed mucinous carcinoma. Smokes 1 pk/day for 40 yrs Occasionally drinks alcohol Worked at [place]. Saw surgeon on 10/05/24. Brother has prostate cancer. No major complaints. 12/07/24: - Doing well - H/o latent TB treatment 10yrs ago - No major complaints. Current Outpatient Medications Medication Sig predniSONE (DELTASONE) 5 mg tablet Take 5 mg by mouth as needed. adalimumab 80 mg/0.8 mL and 40 mg/0.4 mL subcutaneous syringe kit (HUMIRA (CF)) Inject 80 mg subcutaneously every 2 weeks. ELIQUIS 5 mg tab(s) Take 5 mg by mouth two times a day. atorvastatin (LIPITOR) 20 mg tablet Take 20 mg by mouth once daily. canagliflozin (INVOKANA) 100 mg tab Take 100 mg by mouth once daily. folic acid 1 mg tablet Take 1 mg by mouth once daily. hydrOXYchloroQUINE (PLAQUENIL) 200 mg tablet Take 200 mg by mouth two times a day. methotrexate 2.5 mg tablet Take 2.5 mg by mouth as directed. metoprolol succinate ER (TOPROL XL) 100 mg Take 100 mg by mouth once daily. spironolactone (ALDACTONE) 25 mg tablet Take 25 mg by mouth once daily. VITAMIN B COMPLEX ORAL Take 1 tablet by mouth once daily. No current facility-administered medications for this visit. ALLERGIES No Known Allergies PAST MEDICAL HISTORY Diagnosis Date A-fib (HCC) Anxiety Breast mass, left Cardiomyopathy (HCC) CHF (congestive heart failure) (HCC) Depression Emphysema lung (HCC) History of ectopic Hyperlipidemia IBS (irritable bowel syndrome) Lung nodule Rheumatoid arthritis (HCC) Smoker No past surgical history on file. FAMILY HISTORY Problem Relation Age of Onset Heart disease Mother other (Abdominal aortic aneurysm) Mother Heart disease Father other (Myocardial infarction) Father Heart disease Sister Hypertension Sister Uterine Fibroids Sister Diabetes Brother Hypertension Brother Heart disease Brother Hypertension Brother Heart disease Brother Social History Tobacco Use Smoking status: Every Day Current packs/day: 1.00 Types: Cigarettes Smokeless tobacco: Never Vaping Use Vaping status: Never Used Substance Use Topics Alcohol use: Not Currently Drug use: Never REVIEW OF SYSTEMS GENERAL: No weight loss, malaise or fevers. No night sweats. HEENT: Negative for headaches, No changes in hearing or vision, no nose bleeds or other nasal problems. RESPIRATORY: Negative for cough, wheezing and shortness of breath CARDIOVASCULAR: Negative for chest pain, leg swelling and palpitations GI: Negative for abdominal discomfort, blood in stools or black stools and change in bowel habits : Negative for dysuria, frequency and incontinence MUSCULOSKELETAL: Negative for joint pain or swelling, back pain, and muscle pain. SKIN: Negative for lesions, rash, and itching. HEMATOLOGY/LYMPHOLOGY Negative for prolonged bleeding, bruising easily, and swollen nodes. NEURO: Negative for numbness or tingling of hands/feet. No weakness. PHYSICAL EXAMINATION: There were no vitals taken for this visit. There were no vitals taken for this visit. No data found for this vital: Wt General appearance:ECOG PERFORMANCE STATUS: 0- Fully active, able to carry on all pre-disease performance w/o restriction. Patient in NAD. Skin: Skin color, texture, turgor normal. No rashes or lesions. Eyes: Anicteric sclera. Pupils are equally round and reactive to light. Extraocular movements are intact. Breast: No nipple change or discharge. Lymph Nodes: No cervical, supraclavicular, axillary or inguinal adenopathy. Oropharynx: Lips, mucosa, and tongue normal. Back: No pain to percussion. Negative SLR test Lungs (more content not included)... Normal [facility] Clifford 10-20-2024 [facility] Telephone ([facility]) -- TAWANDA STEVENS ([id number]) 1955 F Date Time Provider Department [facility] During your visit today, we recorded the following information about you: Itzel Leblanc 10/20/2024 4:13 PM Signed [facility] gave her an appt for 11-13-24. Patient denied this appt. She is requesting to wait until November 2024 to have this bx done. Carrie at [facility] to call me when her Nov schedule is available to schedule. Tawanda is aware to this. Pierre Hall RN 12/01/2024 9:44 AM Signed [facility], [facility] scheduling reports pt is canceling her lung bx for now. She reports her schedule is too busy and wants to complete in January. [facility] scheduling in now out to January. She wanted to inform Dr Manzo. BRUNA Christopher Adarsh, MD 12/01/2024 9:54 AM Signed Can she see me sometime next week in the office? Thanks. Pierre Hall RN 12/01/2024 10:02 AM Signed PSS: Please call to schedule BRUNA Christopher Deidre 12/01/2024 10:09 AM Signed Patient has been scheduled for 12/07/24. She was hesitant as to why the appt was being requested and noted that she does not want to do the Bx until January when the weather is better. Shekhar Devine MD 12/01/2024 10:17 AM Signed To discuss about the breast cancer and its treatment options. Thanks Tena Dodge 12/01/2024 10:19 AM Signed Patient informed Allergies As of Date: 10/20/2024 (No Known Allergies) Date Reviewed: 10/16/2024 Reviewed by: Leny Covarrubias MA - Fully Assessed Reason for Visit: Future Appointment [256] Prescriptions as of 12/01/2024 - predniSONE (DELTASONE) 5 mg tablet Take 5 mg by mouth as needed. - adalimumab 80 mg/0.8 mL and 40 mg/0.4 mL subcutaneous syringe kit (HUMIRA (CF)) Inject 80 mg subcutaneously every 2 weeks. - ELIQUIS 5 mg tab(s) Take 5 mg by mouth two times a day. - atorvastatin (LIPITOR) 20 mg tablet Take 20 mg by mouth once daily. - canagliflozin (INVOKANA) 100 mg tab Take 100 mg by mouth once daily. - folic acid 1 mg tablet Take 1 mg by mouth once daily. - hydrOXYchloroQUINE (PLAQUENIL) 200 mg tablet Take 200 mg by mouth two times a day. - methotrexate 2.5 mg tablet Take 2.5 mg by mouth as directed. - metoprolol succinate ER (TOPROL XL) 100 mg Take 100 mg by mouth once daily. - spironolactone (ALDACTONE) 25 mg tablet Take 25 mg by mouth once daily. - VITAMIN B COMPLEX ORAL Take 1 tablet by mouth once daily. Problem List As Of Date: 10/20/2024 (None) Encounter Status:Closed by ITZEL LEBLANC on 10/20/24 Normal [facility] CBC W Auto Differential pane l (Bld)on 10-16-2024 Basophils (Bld) [#/Vol] 0.11 10*3/uL High [facility] Basophils/100 WBC (Bld) 1.1 % [facility] Differential cell count method Nom (Bld) Auto [facility] Eosinophils (Bld) [#/Vol] 0.43 10*3/uL [facility] Eosinophils/100 WBC (Bld) 4.2 % [facility] Erythrocyte distribution width (RBC) [Ratio] 14.2 % 11.5 - 15.0 % [facility] Hematocrit (Bld) [Volume fraction] 46.0 % 36.0 - 46.0 % [facility] Hemoglobin (Bld) [Mass/Vol] 15.5 g/dL 11.5 - 15.5 g/dL [facility] Immature granulocytes (Bld) [#/Vol] 0.03 10*3/uL [facility] Immature granulocytes/100 WBC (Bld) 0.3 % [facility] Interpretation and review of laboratory results Abnormal [facility] Lymphocytes (Bld) [#/Vol] 3.22 10*3/uL [facility] Lymphocytes/100 WBC (Bld) 31.4 % [facility] MCH (RBC) [Entitic mass] 33.0 pg 26.0 - 34.0 pg [facility] MCHC (RBC) [Mass/Vol] 33.7 g/dL 30.5 - 36.0 g/dL [facility] MCV (RBC) [Entitic vol] 98.1 fL 80.0 - 100.0 fL [facility] Monocytes (Bld) [#/Vol] 0.86 10*3/uL NINF [facility] Monocytes/100 WBC (Bld) 8.4 % [facility] Neutrophils (Bld) [#/Vol] 5.61 10*3/uL [facility] Neutrophils/100 WBC (Bld) 54.6 % [facility] Nucleated RBC (Bld) [#/Vol] NINF [facility] Nucleated RBC/100 WBC (Bld) [Ratio] 0.0 % /100 WBC [facility] Platelet mean volume (Bld) [Entitic vol] 9.9 fL 9.0 - 12.7 fL [facility] Platelets (Bld) [#/Vol] 229 10*3/uL [facility] RBC (Bld) [#/Vol] 4.69 10*6/uL 3.90 - 5.20 m/uL [facility] WBC (Bld) [#/Vol] 10.26 10*3/uL [facility] Basophils (Bld) [#/Vol] 0.11 10*3/uL High <0.11 [facility] Comment on above: Order Comment: Speci men Type: BLOOD SPECIMENOrdering Facility: [facility] Address: [address] [place] [address] Performed By: #### 5 7021-8 ####[facility] LABIA [id number] [place] [address] Basophils/100 WBC (Bld) 1.1 % Normal [facility] Comment on above: Order Comment: Speci men Type: BLOOD SPECIMENOrdering Facility: [facility] Address: [address] [place] [address] Performed By: #### 5 7021-8 ####[facility] LABIA [id number] [place] [address] Differential cell count method Nom (Bld) Auto Normal [facility] Comment on above: Order Comment: Speci men Type: BLOOD SPECIMENOrdering Facility: [facility] Address: [address] [place] [address] Performed By: #### 5 7021-8 ####[facility] LABCLIA [id number] [place] [address] Eosinophils (Bld) [#/Vol] 0.43 10*3/uL Normal <0.46 [facility] Comment on above: Order Comment: Speci men Type: BLOOD SPECIMENOrdering Facility: [facility] Address: [address] [place] [address] Performed By: #### 5 7021-8 ####[facility] LABCLIA [id number] [place] [address] Eosinophils/100 WBC (Bld) 4.2 % Normal [facility] Comment on above: Order Comment: Speci men Type: BLOOD SPECIMENOrdering Facility: [facility] Address: [address] [place] [address] Performed By: #### 5 7021-8 ####[facility] LABCLIA [id number] [place] [address] Erythrocyte distribution width (RBC) [Ratio] 14.2 % Normal 11.5-15.0 [facility] Comment on above: Order Comment: Speci men Type: BLOOD SPECIMENOrdering Facility: [facility] Address: [address] [place] [address] Performed By: #### 5 7021-8 ####[facility] LABCLIA [id number] [place] [address] Hematocrit (Bld) [Volume fraction] 46.0 % Normal 36.0-46.0 [facility] Comment on above: Order Comment: Speci men Type: BLOOD SPECIMENOrdering Facility: [facility] Address: [address] [place] [address] Performed By: #### 5 7021-8 ####[facility] LABIA [id number] [place] [address] Hemoglobin (Bld) [Mass/Vol] 15.5 g/dL Normal 11.5-15.5 [facility] Comment on above: Order Comment: Speci men Type: BLOOD SPECIMENOrdering Facility: [facility] Address: [address] [place] [address] Performed By: #### 5 7021-8 ####[facility] LABCLIA [id number] [place] [address] Immature granulocytes (Bld) [#/Vol] 0.03 10*3/uL Normal <0.10 [facility] Comment on above: Order Comment: Speci men Type: BLOOD SPECIMENOrdering Facility: [facility] Address: [address] [place] [address] Performed By: #### 5 7021-8 ####[facility] LABCLIA [id number] [place] [address] Immature granulocytes/100 WBC (Bld) 0.3 % Normal [facility] Comment on above: Order Comment: Speci men Type: BLOOD SPECIMENOrdering Facility: [facility] Address: [address] [place] [address] Performed By: #### 5 7021-8 ####[facility] LABCLIA [id number] [place] [address] Lymphocytes (Bld) [#/Vol] 3.22 10*3/uL Normal 1.00-4.00 [facility] Comment on above: Order Comment: Speci men Type: BLOOD SPECIMENOrdering Facility: [facility] Address: [address] [place] [address] Performed By: #### 5 7021-8 ####[facility] LABCLIA [id number] [place] [address] Lymphocytes/100 WBC (Bld) 31.4 % Normal [facility] Comment on above: Order Comment: Speci men Type: BLOOD SPECIMENOrdering Facility: [facility] Address: [address] [place] [address] Performed By: #### 5 7021-8 ####[facility] LABCLIA [id number] [place] [address] MCH (RBC) [Entitic mass] 33.0 pg Normal 26.0-34.0 [facility] Comment on above: Order Comment: Speci men Type: BLOOD SPECIMENOrdering Facility: [facility] Address: [address] [place] [address] Performed By: #### 5 7021-8 ####[facility] LABCLIA [id number] [place] [address] MCHC (RBC) [Mass/Vol] 33.7 g/dL Normal 30.5-36.0 [facility] Comment on above: Order Comment: Speci men Type: BLOOD SPECIMENOrdering Facility: [facility] Address: [address] [place] [address] Performed By: #### 5 7021-8 ####[facility] LABCLIA [id number] [place] [address] MCV (RBC) [Entitic vol] 98.1 fL Normal 80.0-100.0 [facility] Comment on above: Order Comment: Speci men Type: BLOOD SPECIMENOrdering Facility: [facility] Address: [address] [place] [address] Performed By: #### 5 7021-8 ####[facility] LABCLIA [id number] [place] [address] Monocytes (Bld) [#/Vol] 0.86 10*3/uL Normal <0.87 [facility] Comment on above: Order Comment: Speci men Type: BLOOD SPECIMENOrdering Facility: [facility] Address: [address] [place] [address] Performed By: #### 5 7021-8 ####[facility] LABCLIA [id number] [place] [address] Monocytes/100 WBC (Bld) 8.4 % Normal [facility] Comment on above: Order Comment: Speci men Type: BLOOD SPECIMENOrdering Facility: [facility] Address: [address] [place] [address] Performed By: #### 5 7021-8 ####[facility] LABCLIA [id number] [place] [address] Neutrophils (Bld) [#/Vol] 5.61 10*3/uL Normal 1.45-7.50 [facility] Comment on above: Order Comment: Speci men Type: BLOOD SPECIMENOrdering Facility: [facility] Address: [address] [place] [address] Performed By: #### 5 7021-8 ####[facility] LABCLIA [id number] [place] [address] Neutrophils/100 WBC (Bld) 54.6 % Normal [facility] Comment on above: Order Comment: Speci men Type: BLOOD SPECIMENOrdering Facility: [facility] Address: [address] [place] [address] Performed By: #### 5 7021-8 ####[facility] LABCLIA [id number] [place] [address] Nucleated RBC (Bld) [#/Vol] 10*3/uL Normal <0.01 [facility] Comment on above: Order Comment: Speci men Type: BLOOD SPECIMENOrdering Facility: [facility] Address: [address] [place] [address] Performed By: #### 5 7021-8 ####[facility] LABCLIA [id number] [place] [address] Nucleated RBC/100 WBC (Bld) [Ratio] 0.0 /100 WBC Normal [facility] Comment on above: Order Comment: Speci men Type: BLOOD SPECIMENOrdering Facility: [facility] Address: [address] [place] [address] Performed By: #### 5 7021-8 ####[facility] LABCLIA [id number] [place] [address] Platelet mean volume (Bld) [Entitic vol] 9.9 fL Normal 9.0-12.7 [facility] Comment on above: Order Comment: Speci men Type: BLOOD SPECIMENOrdering Facility: [facility] Address: [address] [place] [address] Performed By: #### 5 7021-8 ####[facility] LABCLIA [id number] [place] [address] Platelets (Bld) [#/Vol] 229 10*3/uL Normal 150-400 [facility] Comment on above: Order Comment: Speci men Type: BLOOD SPECIMENOrdering Facility: [facility] Address: [address] [place] [address] Performed By: #### 5 7021-8 ####[facility] LABCLIA [id number] [place] [address] RBC (Bld) [#/Vol] 4.69 10*6/uL Normal 3.90-5.20 [facility] Comment on above: Order Comment: Speci men Type: BLOOD SPECIMENOrdering Facility: [facility] Address: [address] [place] [address] Performed By: #### 5 7021-8 ####[facility] LABIA [id number] [place] [address] WBC (Bld) [#/Vol] 10.26 10*3/uL Normal 3.70-11.00 [facility] Comment on above: Order Comment: Speci men Type: BLOOD SPECIMENOrdering Facility: [facility] Address: [address] [place] [address] Performed By: #### 5 7021-8 ####[facility] LABIA [id number] [place] [address] CEA SerPl-mCncon 10-16-2024 Carcinoembryonic Ag [Mass/Vol] 2.5 ng/mL Normal <=2.9 [facility] Comment on above: Order Comment: Speci men Type: BLOOD SPECIMENOrdering Facility: [facility] Address: [address] [place] [address] Result Comment: Carc inoembryonic antigen test is used as an aid in monitoring response to treatment or recurrence in patients with established colorectal, breast, lung, prostatic, pancreatic, and ovarian carcinomas. Clinical correlation is required. The Carcinoembryonic antigen test was performed using the Angela [employer] DXI paramagnetic particle chemiluminescent immunoassay method. Results obtained with different assay methods or kits cannot be used interchangeably. Performed By: #### 2 039-6 ####[facility] LABCLIA [id number] [facility] [id number] [id number] [place] [facility] CNOVSPon 10-16-2024 CNOVSP Visit (SP) Office ( [facility]) -- TAWANDA STEVENS ([id number]) 1955 F Date Time Provider Department 10/16/24 1:00 PM SHEKHAR ARMANDO During your visit today, we recorded the following information about you: Temperature Pulse Respiration Blood pressure 97.5 degrees 62/minute 18/minute 126/80 Weight Height 99.1 kg 1.626 m Shekhar Armando MD 10/16/2024 1:48 PM Signed PATIENT NAME: Tawanda Stevens CLINIC NO.: [id number] ATTENDING PHYSICIAN: Shekhar Armando MD DATE OF SERVICE: October 16, [address] Kathy Ross MD [address] [place], [place] [id number] thank you for referring Tawanda Stevens for an opinion regarding lung and breast mass. CHIEF COMPLAINT: Lung mass and breast mass. HPI: Tawanda Stevens is a 69 year old year old female with h/o A fib on eliquis, CHF, CAD, DM, RA referred to us for lung mass and breast mass. Had CT chest for follow up on lung nodule followed by mammogram and PET scan. PET scan (10/11/24) Mammogram (09/26/24) CT Chest (08/22/24): Underwent left breast biopsy on 09/27/24. Pathology showed mucinous carcinoma. Smokes 1 pk/day for 40 yrs Occasionally drinks alcohol Worked at [employer]. Saw surgeon on 10/05/24. Brother has prostate cancer. No major complaints. Current Outpatient Medications Medication Sig adalimumab 80 mg/0.8 mL and 40 mg/0.4 mL subcutaneous syringe kit (HUMIRA (CF)) Inject 80 mg subcutaneously every 2 weeks. ELIQUIS 5 mg tab(s) Take 5 mg by mouth two times a day. atorvastatin (LIPITOR) 20 mg tablet Take 20 mg by mouth once daily. canagliflozin (INVOKANA) 100 mg tab Take 100 mg by mouth once daily. folic acid 1 mg tablet Take 1 mg by mouth once daily. hydrOXYchloroQUINE (PLAQUENIL) 200 mg tablet Take 200 mg by mouth two times a day. methotrexate 2.5 mg tablet Take 2.5 mg by mouth as directed. metoprolol succinate ER (TOPROL XL) 100 mg Take 100 mg by mouth once daily. spironolactone (ALDACTONE) 25 mg tablet Take 25 mg by mouth once daily. VITAMIN B COMPLEX ORAL Take 1 tablet by mouth once daily. No current facility-administered medications for this visit. ALLERGIES No Known Allergies PAST MEDICAL HISTORY Diagnosis Date A-fib (HCC) Anxiety Breast mass, left Cardiomyopathy (HCC) CHF (congestive heart failure) (HCC) Depression Emphysema lung (HCC) History of ectopic Hyperlipidemia IBS (irritable bowel syndrome) Lung nodule Rheumatoid arthritis (HCC) Smoker No past surgical history on file. FAMILY HISTORY Problem Relation Age of Onset Heart disease Mother other (Abdominal aortic aneurysm) Mother Heart disease Father other (Myocardial infarction) Father Heart disease Sister Hypertension Sister Uterine Fibroids Sister Diabetes Brother Hypertension Brother Heart disease Brother Hypertension Brother Heart disease Brother Social History Tobacco Use Smoking status: Every Day Types: Cigarettes Smokeless tobacco: Never Substance Use Topics Alcohol use: Yes REVIEW OF SYSTEMS GENERAL: No weight loss, malaise or fevers. No night sweats. HEENT: Negative for headaches, No changes in hearing or vision, no nose bleeds or other nasal problems. RESPIRATORY: Negative for cough, wheezing and shortness of breath CARDIOVASCULAR: Negative for chest pain, leg swelling and palpitations GI: Negative for abdominal discomfort, blood in stools or black stools and change in bowel habits : Negative for dysuria, frequency and incontinence MUSCULOSKELETAL: Negative for joint pain or swelling, back pain, and muscle pain. SKIN: Negative for lesions, rash, and itching. HEMATOLOGY/LYMPHOLOGY Negative for prolonged bleeding, bruising easily, and swollen nodes. NEURO: Negative for numbness or tingling of hands/feet. No weakness. PHYSICAL EXAMINATION: There were no vitals taken for this visit. There were no vitals taken for this visit. No data found for this vital: Wt General appearance:ECOG PERFORMANCE STATUS: 0- Fully active, able to carry on all pre-disease performance w/o restriction. Patient in NAD. Skin: Skin color, texture, turgor normal. No rashes or lesions. Eyes: Anicteric sclera. Pupils are equally round and reactive to light. Extraocular movements are intact. Breast: No nipple change or discharge. Lymph Nodes: No cervical, supraclavicular, axillary or inguinal adenopathy. Oropharynx: Lips, mucosa, and tongue normal. Back: No pain to percussion. Negative SLR test Lungs clear to auscultation, No wheezing or rhonchi Heart: RRR without murmur, gallop, or rubs. Abdomen soft, non-tender. No masses, organomegaly Extremities: No deformities. No edema Neuro: Gait and speech normal. Reflexes normal and symmetric. Muscular strength intact. Sensation grossly intact. Rectal: Deferred : Deferred LABS: No results found for: GLUC , K , NA , CHL (more content not included)... Normal [facility] Cancer Ag15-3 SerPl-aCncon 1 12-17-2023 Cancer Ag 15-3 Qn 10.2 U/mL Normal <26.0 [facility] Comment on above: Order Comment: Speci men Type: BLOOD SPECIMENOrdering Facility: [facility] Address: [address] [id number] Result Comment: The CA 15-3 test methodology used is the Electrochemiluminescence Immunoassay by [employer]. Results obtained with different methods or kits cannot be used interchangeably. Performed By: #### 6 875-9 ####[facility] LABCLIA [id number] [address] [place] Cancer Ag27-29 SerPl-aCncon 10-16-2024 Cancer Ag 27-29 Qn 17.2 [arb'U]/mL Normal <38.6 [facility] Comment on above: Order Comment: Speci men Type: BLOOD SPECIMENOrdering Facility: [facility] Address: [address] [place] [address] Result Comment: The CA27.29 test was performed using the Siemens Supertecaur XP chemiluminometric immunoassay method. Results obtained with different assay methods or kits cannot be used interchangeably. Performed By: #### 1 7842-6 ####[facility] LABCLIA [id number] [address] Comprehensive metabolic 2000 panelOrdered By: Mady Key on 10-16-2024 Albumin [Mass/Vol] 4.3 g/dL 3.9 - 4.9 g/dL [facility] ALP [Catalytic activity/Vol] 93 U/L 34 - 123 U/L [facility] ALT [Catalytic activity/Vol] 26 U/L 7 - 38 U/L [facility] Anion gap [Moles/Vol] 10 mmol/L 8 - 15 mmol/L [facility] AST [Catalytic activity/Vol] 24 U/L 13 - 35 U/L [facility] Bilirubin [Mass/Vol] 0.6 mg/dL 0.2 - 1 .3 mg/dL [facility] Calcium [Mass/Vol] 9.6 mg/dL 8.5 - 10. 2 mg/dL [facility] Chloride [Moles/Vol] 105 mmol/L 98 - 10 7 mmol/L [facility] CO2 [Moles/Vol] 24 mmol/L 22 - 30 mmol/L [facility] Creatinine [Mass/Vol] 0.73 mg/dL 0.58 - 0.96 mg/dL [facility] GFR/1.73 sq M.predicted among non-blacks MDRD (S/P/Bld) [Vol rate/Area] 89 mL/min/{1.73_m2} - PINF [facility] Comment on above: Estimated Glomerular Filtration Rate (eGFR) is calculated using the 2020 CKD-EPI creatinine equation. This equation utilizes serum creatinine, sex, and age as parameters. The creatinine assay has traceable calibration to isotope dilution-mass spectrometry. Refer to KDIGO guidelines for clinical interpretation. In patients with unstable renal function, e.g. those with acute kidney injury, the eGFR may not accurately reflect actual GFR. Glucose [Mass/Vol] 86 mg/dL 74 - 99 mg/dL [facility] Comment on above: The [place] Di[employer] s Association (ADA) provides guidance for cutoff values for fasting glucose and random glucose. The ADA defines fasting as no caloric intake for at least 8 hours. Fasting plasma glucose results between 100 to 125 mg/dL indicate increased risk for diabetes (prediabetes). Fasting plasma glucose results greater than or equal to 126 mg/dL meet the criteria for diagnosis of diabetes. In the absence of unequivocal hyperglycemia, results should be confirmed by repeat testing. In a patient with classic symptoms of hyperglycemia or hyperglycemic crisis, random plasma glucose results greater than or equal to 200 mg/dL meet the criteria for diagnosis of diabetes. Reference: Standards of Medical Care in Diabetes 2016, [place] [employer]. Diabetes Care. 2016.39(Suppl 1). Interpretation and review of laboratory results Normal [facility] Potassium [Moles/Vol] 4.0 mmol/L 3.7 - 5.1 mmol/L [facility] Protein [Mass/Vol] 7.3 g/dL 6.3 - 8.0 g/dL [facility] Sodium [Moles/Vol] 139 mmol/L 136 - 144 mmol/L [facility] Urea nitrogen [Mass/Vol] 10 mg/dL 7 - 21 mg/dL [facility] Comprehensive metabolic 2000 panelon 10-16-2024 Albumin [Mass/Vol] 4.3 g/dL Normal 3.9-4.9 [facility] Comment on above: Order Comment: Speci men Type: BLOOD SPECIMENOrdering Facility: [facility] Address: [address] [place] [address] Performed By: #### 2 4323-8 ####[facility] LABCLIA [id number] [place] [address] ALP [Catalytic activity/Vol] 93 U/L Normal 34-123 [facility] Comment on above: Order Comment: Speci men Type: BLOOD SPECIMENOrdering Facility: [facility] Address: [address] [place] [address] Performed By: #### 2 4323-8 ####[facility] LABCLIA [id number] [place] [address] ALT [Catalytic activity/Vol] 26 U/L Normal 7-38 [facility] Comment on above: Order Comment: Speci men Type: BLOOD SPECIMENOrdering Facility: [facility] Address: [address] [place] [address] Performed By: #### 2 4323-8 ####[facility] LABCLIA [id number] [place] [address] Anion gap [Moles/Vol] 10 mmol/L Normal 8-15 [facility] Comment on above: Order Comment: Speci men Type: BLOOD SPECIMENOrdering Facility: [facility] Address: [address] [place] [address] Performed By: #### 2 4323-8 ####[facility] LABCLIA [id number] [place] [address] AST [Catalytic activity/Vol] 24 U/L Normal 13-35 [facility] Comment on above: Order Comment: Speci men Type: BLOOD SPECIMENOrdering Facility: [facility] Address: [address] [place] [address] Performed By: #### 2 4323-8 ####[facility] LABCLIA [id number] [place] [address] Bilirubin [Mass/Vol] 0.6 mg/dL Normal 0.2-1.3 [facility] Comment on above: Order Comment: Speci men Type: BLOOD SPECIMENOrdering Facility: [facility] Address: [address] [place] [address] Performed By: #### 2 4323-8 ####[facility] LABCLIA [id number] [place] [address] Calcium [Mass/Vol] 9.6 mg/dL Normal 8.5-10.2 [facility] Comment on above: Order Comment: Speci men Type: BLOOD SPECIMENOrdering Facility: [facility] Address: [address] [place] [address] Performed By: #### 2 4323-8 ####[facility] LABCLIA [id number] [place] [address] Chloride [Moles/Vol] 105 mmol/L Normal 98-107 [facility] Comment on above: Order Comment: Speci men Type: BLOOD SPECIMENOrdering Facility: [facility] Address: [address] [place] [address] Performed By: #### 2 4323-8 ####[facility] LABCLIA [id number] [place] [address] CO2 [Moles/Vol] 24 mmol/L Normal 22-30 [facility] Comment on above: Order Comment: Speci men Type: BLOOD SPECIMENOrdering Facility: [facility] Address: [address] [place] [address] Performed By: #### 2 4323-8 ####[facility] LABCLIA [id number] [place] [address] Creatinine [Mass/Vol] 0.73 mg/dL Normal 0.58-0.96 [facility] Comment on above: Order Comment: Speci men Type: BLOOD SPECIMENOrdering Facility: [facility] Address: [address] [place] [address] Performed By: #### 2 4323-8 ####[facility] LABCLIA [id number] [place] [address] Creatinine and Glomerular filtration rate.predicted panel (S/P/Bld) 89 mL/min/1.73m??? Normal >=60 [facility] Comment on above: Order Comment: Speci men Type: BLOOD SPECIMENOrdering Facility: [facility] Address: [address] [place] [address] Result Comment: Michael mated Glomerular Filtration Rate (eGFR) is calculated using the 2020 CKD-EPI creatinine equation. This equation utilizes serum creatinine, sex, and age as parameters. The creatinine assay has traceable calibration to isotope dilution-mass spectrometry. Refer to KDIGO guidelines for clinical interpretation. In patients with unstable renal function, e.g. those with acute kidney injury, the eGFR may not accurately reflect actual GFR. Performed By: #### 2 4323-8 ####[facility] LABCLIA [id number] [place] [address] Glucose [Mass/Vol] 86 mg/dL Normal 74-99 [facility] Comment on above: Order Comment: Speci sandra Type: BLOOD SPECIMENOrdering Facility: [facility] Address: [address] [place] [address] Result Comment: The [place] Diabetes Association (ADA) provides guidance for cutoff values for fasting glucose and random glucose. The ADA defines fasting as no caloric intake for at least 8 hours. Fasting plasma glucose results between 100 to 125 mg/dL indicate increased risk for diabetes (prediabetes). Fasting plasma glucose results greater than or equal to 126 mg/dL meet the criteria for diagnosis of diabetes. In the absence of unequivocal hyperglycemia, results should be confirmed by repeat testing. In a patient with classic symptoms of hyperglycemia or hyperglycemic crisis, random plasma glucose results greater than or equal to 200 mg/dL meet the criteria for diagnosis of diabetes. Reference: Standards of Medical Care in Diabetes 2016, [place] [employer]. Diabetes Care. 2016.39(Suppl 1). Performed By: #### 2 4323-8 ####[facility] LABCLIA [id number] [place] [address] Potassium [Moles/Vol] 4.0 mmol/L Normal 3.7-5.1 [facility] Comment on above: Order Comment: Speci men Type: BLOOD SPECIMENOrdering Facility: [facility] Address: [address] [place] [address] Performed By: #### 2 4323-8 ####[facility] LABCLIA [id number] [place] [address] Protein [Mass/Vol] 7.3 g/dL Normal 6.3-8.0 [facility] Comment on above: Order Comment: Speci men Type: BLOOD SPECIMENOrdering Facility: [facility] Address: [address] [place] [address] Performed By: #### 2 4323-8 ####[facility] LABCLIA [id number] [place] [address] Sodium [Moles/Vol] 139 mmol/L Normal 136-144 [facility] Comment on above: Order Comment: Speci men Type: BLOOD SPECIMENOrdering Facility: [facility] Address: [address] [place] [address] Performed By: #### 2 4323-8 ####[facility] LABCLIA [id number] [place] [address] Urea nitrogen [Mass/Vol] 10 mg/dL Normal 7-21 [facility] Comment on above: Order Comment: Speci men Type: BLOOD SPECIMENOrdering Facility: [facility] Address: [address] [place] [address] Performed By: #### 2 4323-8 ####[facility] LABIA [id number] [place] [address] Haile 09-27-2024 L ------ Specimen: [id number] Received: 09/28/24 Status: DANIAL Myrna Num: [id number] Spec Type: Surgical Subm Dr: Tomasa Escobar MD Tissues: A BREAST CORE NO CALCS (LEFT BREAST TISSUE) Procedures: HE/4, Gross/Micro L4, CDX2, CK20, CK 7, E CADHERIN, ER, UT, TTF1, WT1, PAX-8, GATA3 Age/ Patient Sex Location Account Attending Physician Tawanda Stevens 69/F [facility] [id number] Mac Rhodes DO SPEC NUM: [id number] RECD: 09/28/24 STATUS: DANIAL HWANG NUM: [id number] CHANTEL: 09/27/24-1327 [facility] DR: Tomasa Escobar MD ENTERED: 09/28/[address] [facility] [address]: DO HOWIE Vuong TYPE: Surgical DEPT: S ENTERED BY: [id number] RECV BY: [id number] ORDERED: HE/4, Gross/Micro L4, CDX2, CK20, CK 7, E CADHERIN, ER, UT, TTF1, WT1, PAX-8, GATA3 ORDERED: HE/4, Gross/Micro L4, CDX2, CK20, CK 7, E CADHERIN, ER, UT, TTF1, WT1, PAX-8, GATA3 COMMENTS: @ Ordering doctor for H E edited from [id number] to [id number] @ by [id number] at 09/28/24 1056 @ Ordering doctor for GM4 edited from [id number] to [id number] @ by [id number] at 09/28/24 1056 @ Submitting doctor edited from [id number] to [id number] @ by [id number] at 09/28/24 105 Supplemental Report Addendum 1 Entered: 10/06/24 To issue HER-2 testing. HER2: Negative (0) by IHC. Addendum Signed (signature on file) Michael Nunez MD 10/06/24902 Specimen: [id number] Received: 09/28/24 Status: DANIAL Hwang Num: [id number] Spec Type: Surgical Subm Dr: Tomasa Escobar MD Tissues: A BREAST CORE NO CALCS (LEFT BREAST TISSUE) Procedures: HE/4, Gross/Micro L4, CDX2, CK20, CK 7, E CADHERIN, ER, UT, TTF1, WT1, PAX-8, GATA3 Patient: Tawanda Stevens [id number] (Continued) Specimen: [id number] Received: 09/28/24 (Continued) Signed (signature on file) Michael Nunez MD 10/02/24 1026 Specimen: [id number] Received: 09/28/24 Status: DANIAL Hwang Num: [id number] Spec Type: Surgical Subm Dr: Tomasa Escobar MD Tissues: A BREAST CORE NO CALCS (LEFT BREAST TISSUE) Procedures: HE/4, Gross/Micro L4, CDX2, CK20, CK 7, E CADHERIN, ER, UT, TTF1, WT1, PAX-8, GATA3 Patient: Tawanda Stevens [id number] (Continued) Specimen: [id number] Received: 09/28/24 (Continued) Pathological Diagnosis Left breast, lesion at 3:00, Ultrasound-guided core needle biopsy: - Mucinous carcinoma, grade 1, 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 - UT: Positive, >90%, Moderate to Strong. - HER-2: Pending. - See Comment. Comment: Microscopic review of left breast mass at 3:00 core needle biopsy reveals mucinous carcinoma, grade 1 of 3. The [place] grade is based on score of 3 for glandular/tubule formation, score 1 for nuclear pleomorphism and score 1 for mitotic rate. Immunohistochemical stains were performed on the tissue block A1 with appropriate staining controls. Tumor cells are positive for CK7, E-Cadherin, JOYCE-3, WT-1, ER and UT, and are negative for TTF-1, PAX-8, CK20 and CDX-2. 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 HER-2 testing is pending and will follow as supplemental report.. Clinical Information Left breast lesion at 3:00, 8 cm from nipple, ultrasound-guided breast biopsy. Gross Description Received in formalin labeled with the patients name, date of , and left breast lesion at 3:00, 8 cm from nipple are four pale little to yellow wolff, delicate needle core biopsy segments, 1.5 to 2.2 cm in length by 0.2 to 0.3 cm in diameter with detached fragments of fibrofatty tissue, 1.5 x 0.8 x 0.2 cm in aggregate. The cores are submitted in Cassette A1 with the fragmented fibrofatty tissue filtered, and the rest is entirely submitted in Cassette A2. Fixation time: Time tissue removed from patient: 1323 Time specimen placed in formalin: 1327 Cold ischemic time: 4 minutes Total fixation time: 28 hours and 30 minutes (2, ns, [id number] A) YAMEL (more content not included)... Normal [facility] Mammography reportOrdered By : Tomasa Escobar on 09-27-2024 Diagnostic imaging study [facility] Main [place] [id number] Mammography Report Signed Patient: Tawanda Stevens MR#: [id number] : 1955 Acct:[id number] Age/Sex: 69 / F ADM Date: 4 Loc: [facility] Room: Type: [facility] Attending Dr: Mac Rhodes DO Copies to: Mac Rhodes DO NO FAMILY PHYSICIAN~ Ordering Provider: Mac Rhodes DO Date of Service: 09/27/24 US/US breast ndl core biopsy LT: BREAST MASS ([id number]) MM/MM post biopsy LT w/CAD: POST U/S BX WITH CLIP LEFT BREAST ULTRASOUND-GUIDED BIOPSY WITH VACUUM ASSISTANCE CLINICAL DATA: Solid left breast mass seen on CT. Patient's recent mammograms and ultrasound from September 26, 2024 were reviewed.The procedure was discussed with patient and consent was obtained. Ultrasound survey at the central lateral breast shows a hypoechoic nodule at 3:00, 8 cm from the nipple. Following sterile preparation and local anesthesia with lidocaine, a 12-gauge vacuum-assisted needle was advanced into the nodule under direct ultrasound visualization. Core tissue samples were obtained. A biopsy marking clip was subsequently placed free hand. There were no immediate complications. DIAGNOSTIC LEFT MAMMOGRAM - FULL FIELD DIGITAL Craniocaudal and true lateral views of the left breast were obtained using low-dose digital technique. Comparison is made to previous mammograms from September 13, 2020 through September 26, 2024. There is moderate fibroglandular tissue. A nodular asymmetry is again visualizedat the central lateral breast. There is now subcutaneous air and a biopsy marking clip within the lesion. MM/MM post biopsy LT w/CAD IMPRESSION: STATUS POST ULTRASOUND-GUIDED SAMPLING OF A SOLID MASS AT THE LATERAL LEFT BREAST. Impression dictated by: Tomasa Escobar M.D.09/27/2024 4:00 PM Dictation Location: [facility] Transcribed By: BARB 09/27/24 1600 Dictated By: Tomasa Escobar MD 09/27/24 4726 Signed By: 09/27/24 1600 [facility] Work Phone: US breast ndl core biopsy LT on 09-27-2024 US breast ndl core biopsy LT [facility] [place] [address] Mammography Report Signed with Addenda Patient: Tawanda Stevens MR#: [id number] 7 : 1955 Acct:[id number] Age/Sex: 69 / F ADM Date: 09/27/24 Loc: [facility] Room: Type: [facility] Attending Dr: Mac Rhodes DO Copies to: Mac Rhodes DO NO FAMILY PHYSICIAN Ordering Provider: Mac Rhodes DO Date of Service: 09/27/24 US/US breast ndl core biopsy LT: BREAST MASS ([id number]) MM/MM post biopsy LT w/CAD: POST U/S BX WITH CLIP ADDENDUM 1 Patient's pathology results for the left breast biopsy show mucinous carcinoma, ER/UT positive. Surgical resection is recommended. Impression dictated by: Tomasa Escobar M.D.10/06/2024 7:32 AM Dictation Location: [place] [address] Addendum Dictated By: MD Tomasa Escobar Addendum Signed By: 10/06/24731 Addendum Cosigned By: DD/ TD/TT: 10/06/24 LEFT BREAST ULTRASOUND-GUIDED BIOPSY WITH VACUUM ASSISTANCE CLINICAL DATA: Solid left breast mass seen on CT. Patient's recent mammograms and ultrasound from September 26, 2024 were reviewed. The procedure was discussed with patient and consent was obtained. Ultrasound survey at the central lateral breast shows a hypoechoic nodule at 3:00, 8 cm from the nipple. Following sterile preparation and local anesthesia with lidocaine, a 12-gauge vacuum-assisted needle was advanced into the nodule under direct ultrasound visualization. Core tissue samples were obtained. A biopsy marking clip was subsequently placed free hand. There were no immediate complications. DIAGNOSTIC LEFT MAMMOGRAM - FULL FIELD DIGITAL Craniocaudal and true lateral views of the left breast were obtained using low-dose digital technique. Comparison is made to previous mammograms from September 13, 2020 through September 26, 2024. There is moderate fibroglandular tissue. A nodular asymmetry is again visualized at the central lateral breast. There is now subcutaneous air and a biopsy marking clip within the lesion. MM/MM post biopsy LT w/CAD IMPRESSION: STATUS POST ULTRASOUND-GUIDED SAMPLING OF A SOLID MASS AT THE LATERAL LEFT BREAST. Impression dictated by: Tomasa Escobar M.D.09/27/2024 4:00 PM Dictation Location: [facility] Transcribed By: BARB 09/27/24 1600 Dictated By: Tomasa Escobar MD 09/27/24 1556 Signed By: 09/27/24 1600 Normal [facility] Mammography reportOrdered By : John Loving on 09-26-2024 Diagnostic imaging study [facility] [place] [address] [place] [address] Mammography Report Signed Patient: Tawanda Stevens MR#: [id number] : 1955 Acct:[id number] Age/Sex: 69 / F ADM Date: 4 Loc: [place] Room: Type: [facility] Attending Dr: Kathy Ross MD Copies to: MD Carolee Alatorre MD~ Ordering Provider: Kathy Ross MD Date of Service: 09/26/24 MM/MM diagnostic mammo BI w/CAD: N63.0 - Unspecified lump in unspecified breast ([id number]) US/US breast LT limited: N63.0 - Unspecified lump in unspecified breast DIAGNOSTIC BILATERAL BREAST MAMMOGRAM - FULL FIELD DIGITAL WITH TOMOSYNTHESIS CLINICAL DATA: Left breast mass Tomosynthesis Craniocaudal and mediolateral oblique views of the bilateral breasts were obtained using low-dose digital technique. Comparison is made to prior studies from 09/15/2021 and 09/13/2020. This examination was reviewed withthe aid of CAD. There are scattered fibroglandular tissue. There is a 2.3 cm asymmetry 8 cm fromnipple in the lateral aspect of the left breast inferiorly at approximately the 4 to 5:00 position. Benign-appearing calcifications are present. Benign-appearing lymph nodes are noted along the chest wall. There are similar focal asymmetries on the right without significant interval change. Limited left breast ultrasound: There is a hypoechoic mass at the 3:00 position 8 cm from the nipple measuring 1.9 x 1.2 x 1.9 cm in greatest dimension. This has lobular margins and is solid in consistency. Images of the left axilla demonstrates benign-appearing lymph nodes measuring up to 8 mm in short axis without evidence of cortical thickening. No pathologically enlarged lymph nodes. MM/MM diagnostic mammo BI w/CAD IMPRESSION: There is a hypoechoic mass at the 3:00 position 8 cm from the nipple measuring 1.9 x 1.2 x 1.9 cm in greatest dimension. This has lobular margins and is solid in consistency. THIS IS SUSPICIOUS FOR MALIGNANCY. THE PATIENT IS SCHEDULED FOR ULTRASOUND-GUIDED BIOPSY 09/27/2024. Images of the left axilla demonstrates benign-appearing lymph nodes measuring up to 8 mm in short axis without evidence of cortical thickening. No pathologically enlarged lymph nodes. RESULT CODE: 4 Suspicious Abnormality - Biopsy Considered DENSITY CODE: 2 (approximately 25-50% glandular) FOLLOW UP: BIO The false-negative rate of mammography is approximately 10-percent. Management of a palpable abnormality must be based on clinical grounds. Impression dictated by: John Loving M.D.09/26/2024 10:59 AM Dictation Location: [facility] Transcribed By: [facility] 09/26/24 1059 Dictated By: John Loving II, MD 09/26/24 1038 Signed By: 09/26/24 1059 [facility] Work Phone: breast LT [facility] 09-26 breast LT [facility] [place] [address] Mammography Report Signed Patient: Tawanda Stevens MR#: [id number] 7 : 1955 Acct:[id number] Age/Sex: 69 / F ADM Date: 09/26/24 Loc: [place] Room: Type: [facility] Attending Dr: Kathy Ross MD Copies to: MD Carolee Alatorre MD Ordering Provider: Kathy Ross MD Date of Service: 09/26/24 MM/MM diagnostic mammo BI w/CAD: N63.0 - Unspecified lump in unspecified breast ([id number]) US/US breast LT limited: N63.0 - Unspecified lump in unspecified breast DIAGNOSTIC BILATERAL BREAST MAMMOGRAM - FULL FIELD DIGITAL WITH TOMOSYNTHESIS CLINICAL DATA: Left breast mass Tomosynthesis Craniocaudal and mediolateral oblique views of the bilateral breasts were obtained using low-dose digital technique. Comparison is made to prior studies from 09/15/2021 and 09/13/2020. This examination was reviewed with the aid of CAD. There are scattered fibroglandular tissue. There is a 2.3 cm asymmetry 8 cm from nipple in the lateral aspect of the left breast inferiorly at approximately the 4 to 5:00 position. Benign- appearing calcifications are present. Benign-appearing lymph nodes are noted along the chest wall. There are similar focal asymmetries on the right without significant interval change. Limited left breast ultrasound: There is a hypoechoic mass at the 3:00 position 8 cm from the nipple measuring 1.9 x 1.2 x 1.9 cm in greatest dimension. This has lobular margins and is solid in consistency. Images of the left axilla demonstrates benign-appearing lymph nodes measuring up to 8 mm in short axis without evidence of cortical thickening. No pathologically enlarged lymph nodes. MM/MM diagnostic mammo BI w/CAD IMPRESSION: There is a hypoechoic mass at the 3:00 position 8 cm from the nipple measuring 1.9 x 1.2 x 1.9 cm in greatest dimension. This has lobular margins and is solid in consistency. THIS IS SUSPICIOUS FOR MALIGNANCY. THE PATIENT IS SCHEDULED FOR ULTRASOUND-GUIDED BIOPSY 09/27/2024. Images of the left axilla demonstrates benign-appearing lymph nodes measuring up to 8 mm in short axis without evidence of cortical thickening. No pathologically enlarged lymph nodes. RESULT CODE: 4 Suspicious Abnormality - Biopsy Considered DENSITY CODE: 2 (approximately 25-50% glandular) FOLLOW UP: BIO The false-negative rate of mammography is approximately 10-percent. Management of a palpable abnormality must be based on clinical grounds. Impression dictated by: John Loving M.D.09/26/2024 10:59 AM Dictation Location: [facility] Transcribed By: BARB 09/26/24 1059 Dictated By: John Loving II, MD 09/26/24 1038 Signed By: 09/26/24 1059 Normal [facility] Glucose Glucometer (BldC) [M ass/Vol]Ordered By: Kathy Ross on 09-25-2024 Glucose [Mass/Vol] Capillary blood gluc ose measurement by glucometer (mass/volume) [facility] Comment on above: Random Glucose Refer ence Range is dependent on time and content of last meal. Glucose of more than 200 mg/dL in a nonstressed, ambulatory subject supports the diagnosis of Diabetes Mellitus. Glucose Poct Glucometerson 1 11-25-2023 Glucose [Mass/Vol] 83 mg/dL Normal [facility] Comment on above: Result Comment: [place] om Glucose Reference Range is dependent on time and content of last meal. Glucose of more than 200 mg/dL in a nonstressed, ambulatory subject supports the diagnosis of Diabetes Mellitus. PERFORMED BY: [place] [address] PATHOLOGIST SNOUT PULLER BRIANNA MONTALVO M.D. Performed By: #### G LULS #### Point of Care testing , PET tumor init tx strat sb-m ton 09-25-2024 PET tumor init tx strat sb-mt [facility] [place] [address] [place] [address] Nuclear Medicine Report Signed Patient: Tawanda Stevens MR#: [id number] 7 : 1955 Acct:[id number] Age/Sex: 69 / F ADM Date: 09/25/24 Loc: Room: Type: [facility] Attending Dr: Kathy Ross MD Copies to: MD John Alatorre II, MD Ordering Provider: Kathy Ross MD Date of Service: 09/25/24 PET/PET tumor init tx strat sb-mt: R91.1 - Solitary pulmonary nodule PET tumor init tx strat sb-mt 09/25/2024 11:17 AM SIGNS AND SYMPTOMS: R91.1 - Solitary pulmonary nodule PROTOCOL: PET images were obtained from skull base to mid thigh after intravenous radiotracer administration. Low-dose CT was performed from skull base to mid thigh. After attenuation correction of PET images, fused PET CT images were generated and reconstructed in axial, sagittal, and coronal planes. COMPARISON: Chest CT 08/22/2024 RADIOPHARMACEUTICAL: 11.49 mCi of intravenous fluorine 18 FDG. BLOOD GLUCOSE: 83 mg/dL FINDINGS: There is a 2.3 cm noncalcified nodule posteriorly in the right upper lobe with a maximum SUV of 3.4. Inferior to this is a 1.9 cm noncalcified FDG avid pleural-based nodule with a maximum SUV of 4.6. Posteriorly along the left lower lobe is a 12 mm subtly FDG avid nodule with a maximum SUV of 2.7. Anteriorly along the inferior aspect of the left lobe there is a 9 mm subtly FDG avid focus measuring a maximum SUV of 1.9. There is a 2 cm soft tissue attenuating structure in the left breast. This is nonsignificantly FDG avid with a maximum SUV of 1.5. There is physiologic radiotracer accumulation in the brain, salivary glands, myocardium, liver, spleen, kidneys, bladder, ureters, and bowel. PET/PET tumor init tx strat sb-mt IMPRESSION: There is a 2.3 cm noncalcified nodule posteriorly in the right upper lobe with a maximum SUV of 3.4. Inferior to this is a 1.9 cm noncalcified FDG avid pleural-based nodule with a maximum SUV of 4.6. Posteriorly along the left lower lobe is a 12 mm subtly FDG avid nodule with a maximum SUV of 2.7. These findings may represent sequelae of malignancy with other etiologies such as round atelectasis without significant. Impression dictated by: John Loving M.D.09/25/2024 1:57 PM Dictation Location: [place] [address] Transcribed By: BARB 09/25/24 1357 Dictated By: John Loving II, MD 09/25/24 1345 Signed By: 09/25/24 1357 Normal [facility] CT chest evelyn palacio 08-22-2024 CT chest wo [facility] [place] [address] CT Scan Report Signed Patient: Tawanda Stevens MR#: [id number] 7 : 1955 Acct:[id number] Age/Sex: 69 / F ADM Date: 08/22/24 Loc: CT Room: Type: [facility] Attending Dr: Kathy Ross MD Copies to: Kathy Ross MD Ordering Provider: Kathy Ross MD Date of Service: 08/22/24 CT/CT chest wo con: R91.1 - Solitary pulmonary nodule CT CHEST WITHOUT IV CONTRAST: CLINICAL HISTORY: Follow-up pulmonary nodule COMPARISON: CT chest 02/22/2024 as well as others dating back to 04/27/2022 TECHNIQUE: Spiral images were obtained through the [...] or lymphadenopathy. The esophagus is grossly unremarkable. Lungs:Emphysema. No consolidation pneumothorax or pleural effusion. Mild reticular changes. The subpleural nodules have increased in size the prior study, largest now measuring 21 mm in greatest axial dimension involving the right upper lobe series 4 image 11, once measuring 17 mm on the prior study. There also appears to be a new subpleural nodule involving the superior segment of the left lower lobe measuring 1 cm in greatest axial dimension when compared to the prior study from 02/22/2024. These nodules all appear new compared to the 2021 study. Abd:No acute findings. Small cyst right kidney. Soft tissues/Bones: A mass is noted involving the lateral aspect of the left breast measuring 1.8 x 1.2 cm in greatest axial dimensions. This is likely new when compared to the prior CT study from 02/22/2024. No axillary lymphadenopathy is seen.Osseous structures demonstrate degenerative change. CT/CT chest wo con IMPRESSION: Enlarging subpleural nodules one of which appears new involving the superior segment of the left lower lobe when compared to the most recent study of 02/22/2024. A CT should BE considered for further evaluation. Mass involving the lateral aspect of the left breast measuring 1.8 x 1.2 cm in greatest axial dimension. This is likely new compared to the prior study from 02/22/2024. Correlation with diagnostic mammography and ultrasound is recommended given the lung findings. Impression dictated by: Roberth Bryant Jr., D.OVernon08/22/2024 1:42 PM Dictation Location: [place] [address] Transcribed By: [facility] 08/22/24 1342 Dictated By: Roberth Bryant Jr, DO 08/22/24 1315 Signed By: 08/22/24 1342 [place] [facility] CT chest wo conon 02-22-2024 CT chest wo con [facility] [address] CT Scan Report Signed Patient: Tawanda Stevens MR#: [id number] 7 : 1955 Acct:[id number] Age/Sex: 68 / F ADM Date: 02/22/24 Loc: [facility] Room: Type: [facility] Attending Dr: Kathy Ross MD Copies to: Kathy Ross MD Ordering Provider: Kathy Ross MD Date of Service: 02/22/24 CT/CT chest wo con: R91.8 CT CHEST WITHOUT IV CONTRAST: [...] contemplated. Impression dictated by: Roberth Bryant Jr., D.O.02/22/2024 2:18 PM Dictation Location: [place] [address] Transcribed By: [facility] 02/22/24 1418 Dictated By: Roberth Bryant Jr, DO 02/22/24 141 Signed By: 02/22/24 1418 Normal [facility] Office Visit (Cardiology)on 07-14-2023 Follow-up [...] Daily A (more content not included)... Normal [facility] Consultation Noteon 04-15-20 Consultation Note [id number]:127 Normal [facility] Electrocardiogram 12 Leadon 04-13-2023 Electrocardiogram 12 Lead Ventricular Rate 57 Atrial Rate 57 QRS Duration 86 Q-T Interval 424 QTC Calculation(Bazett) 412 R [place] -11 T [place] 28 QRS Count 9 Q Onset 223 [...] Hernandez ([id number]) on 04/14/2023 3:36:14 PM Normal [facility] Office Visit (Cardiology)on 04-13-2023 Follow-up visit Diagnoses/Problems Assessed Persistent atrial fibrillation (427.31) (I48.19) Orders Persistent atrial fibrillation Electrocardiogram EKG; Status:Complete; Done: [id number] 08:44AM Chief Complaint TAWANDA STEVENS is being [...] and as (more content not included)... Normal [facility] Tobacco Screening.on 023 Fall risk assessment a) No falls within the last year [facility] Work Phone: Tobacco use status [facility] a) Yes [facility]iolo [employer] [address] [place] Work Phone: Tobacco Screening. 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 No syncope Father SCD [...] we can help. You may also call 6-428-QWEW-NOW for free resources and assistance.; Status:Complete; Done: [id number] Tobacco Use Screening; Status:Complete; Done: [id number] Patient Instructions Please bring all medicines, vitamins, [...] amiodarone July 28, 2022 cardioversion x2 with mu-ism of normal sinus rhythm on amiodarone 200 mg twice daily. August 11, 2022 follow-up had recurrent atrial fibrillation and amiodarone increased 200 mg 3 times daily. Follow-up cardioversion was postponed due to COVID-positive illness, did not require hospitalization. September 30, 2022 uneventful (more content not included)... Normal [facility] Tobacco Screening.on 023 Tobacco use status [facility] b) No -[facility]-Sandu ara 250 DO Work Phone: Lab Reportson 02-02-2023 Lab Reports [id number]#[id number]:127 Normal [facility] CBC AUTO DIFFon 01-18-2023 BASO # 0.1 103/ul Normal 0.0-0.1 [facility] Comment on above: Performed By: #### P TT, PT #### [facility] [address] [place] [address] [address] Lee Zaldivar Basophils/100 WBC (Bld) 0.9 % Normal 0.2-2.0 [facility] Comment on above: Performed By: #### P TT, PT #### [facility] [address] [place] [address] [address] Lee Zaldivar EO # 0.3 103/ul Normal 0.0-0.7 [facility] Comment on above: Performed By: #### P TT, PT #### [facility] [address] [place] [address] [address] Lee Zaldivar Eosinophils/100 WBC (Bld) 1.7 % Normal 0.9-7.0 [facility] Comment on above: Performed By: #### P TT, PT #### [facility] [address] [place] [address] [address] Lee Zaldivar Erythrocyte distribution width (RBC) [Ratio] 14.3 % Normal 11.0-15.0 [facility] Comment on above: Performed By: #### P TT, PT #### [facility] [address] [place] [address] [address] Lee Zaldivar Hematocrit (Bld) [Volume fraction] 46.6 % Normal 36.0-48.0 [facility] Comment on above: Performed By: #### P TT, PT #### [facility] [address] [place] [address] Dr. Lee Zaldivar Hemoglobin (Bld) [Mass/Vol] 15.3 g/dL Normal 12.0-16.0 [facility] Comment on above: Performed By: #### P TT, PT #### [facility] [address] [place] [address] Dr. Lee Zaldivar IG # 0.13 10e3/ul Critically high 0.00-0.03 [facility] Comment on above: Performed By: #### P TT, PT #### [facility] [address] [place] [address] Dr. Lee Zaldivar IG % 0.9 % Critically high 0.0-0.5 [facility] Comment on above: Performed By: #### P TT, PT #### [facility] [address] [place] [address] Dr. Lee Zaldivar LYMPH # 2.2 103/ul Normal 1.2-3.8 [facility] Comment on above: Performed By: #### P TT, PT #### [facility] [address] [place] [address] Dr. Lee Zaldivar Lymphocytes/100 WBC (Bld) 15.0 % Critically low 20.5-60.0 [facility] Comment on above: Performed By: #### P TT, PT #### [facility] [address] [place] [address] Dr. Lee Zaldivar MANUAL DIFF REQ NO Normal [facility] Comment on above: Performed By: #### P TT, PT #### [facility] [address] [place] [address] Dr. Lee Zaldivar MCH (RBC) [Entitic mass] 31.7 pg Normal 26.7-34.0 [facility] Comment on above: Performed By: #### P TT, PT #### [facility] [address] [place] [address] Dr. Lee Zaldivar MCHC (RBC) [Mass/Vol] 32.8 g/dL Normal 29.9-35.2 [facility] Comment on above: Performed By: #### P TT, PT #### [facility] [address] [place] [address] Dr. Lee Zaldivar MCV (RBC) [Entitic vol] 96.5 fL Normal 81.0-99.0 [facility] Comment on above: Performed By: #### P TT, PT #### [facility] [address] [place] [address] Dr. Lee Zaldivar MONO # 1.0 103/ul Critically high 0.3-0.8 [facility] Comment on above: Performed By: #### P TT, PT #### [facility] [address] [place] [address] Dr. Lee Zaldivar Monocytes/100 WBC (Bld) 7.0 % Normal 1.7-12.0 [facility] Comment on above: Performed By: #### P TT, PT #### [facility] [address] [place] [address] Dr. Lee Zaldivar NEUT # 11.1 103/ul Critically high 1.4-6.5 [facility] Comment on above: Performed By: #### P TT, PT #### [facility] [address] [place] [address] Dr. Lee Zaldivar Neutrophils/100 WBC (Bld) 74.5 % Normal 43.0-75.0 [facility] Comment on above: Performed By: #### P TT, PT #### [facility] [address] [place] [address] Dr. Lee Zaldivar Platelet mean volume (Bld) [Entitic vol] 9.7 fL Normal 9.5-13.5 [facility] Comment on above: Performed By: #### P TT, PT #### [facility] [address] [place] [address] Dr. Lee Zaldivar PLT 354 103/ul Normal 150-450 [facility] Comment on above: Performed By: #### P TT, PT #### [facility] [address] [place] [address] Dr. Lee Zaldivar RBC 4.83 106/ul Normal 4.20-5.40 [facility] Comment on above: Performed By: #### P TT, PT #### [facility] [address] [place] [address] Dr. Lee Zaldivar WBC 15.0 103/ul Critically high 4.0-11.0 [facility] Comment on above: Performed By: #### P TT, PT #### [facility] [address] [place] [address] Dr. Lee Zaldivar CREATININEon 01-18-2023 Creatinine [Mass/Vol] 1.00 mg/dL Normal 0.55-1.02 [facility] Comment on above: Performed By: #### D IG #### [facility] [address] [place] [address] Dr. Lee Zaldivar EGFR-AF [place]OOK ISLANDER >60 Normal >=60 [facility] Comment on above: Performed By: #### D IG #### [facility] [address] [place] [address] Dr. Lee Zaldivar EGFR-NON AF [place]ER 55 mL/min/1.73m2 Critically low >=60 [facility] Comment on above: Performed By: #### D IG #### [facility] [address] [place] [address] Dr. Lee Zaldivar LIVER PROFILEon 01-18-2023 Albumin [Mass/Vol] 3.4 g/dL Normal 3.4-5.0 [facility] Comment on above: Performed By: #### D IG #### [facility] [address] [place] [address] Dr. Lee Zaldivar Albumin/Globulin [Mass ratio] 0.7 {ratio} Normal [facility] Comment on above: Performed By: #### D IG #### [facility] [address] [place] [address] Dr. Lee Zaldivar ALP [Catalytic activity/Vol] 106 U/L Normal 46-116 [facility] Comment on above: Performed By: #### D IG #### [facility] [address] [place] [address] Dr. Lee Zaldivar ALT [Catalytic activity/Vol] 23 U/L Normal 14-59 [facility] Comment on above: Performed By: #### D IG #### [facility] [address] [address] [address] Lee Zaldivar AST [Catalytic activity/Vol] 19 U/L Normal 15-37 [facility] Comment on above: Performed By: #### D IG #### [facility] [address] [place] [address] [address] Lee Zaldivar BILI, CONJUGATED 0.1 mg/dL Normal 0.0-0.2 [facility] Comment on above: Performed By: #### D IG #### [facility] [address] [place] [address] [address] Lee Zaldivar Bilirubin [Mass/Vol] 0.4 mg/dL Normal 0.2-1.0 [facility] Comment on above: Performed By: #### D IG #### [facility] [address] [place] [address] [address] Lee Zaldivar Globulin (S) [Mass/Vol] 4.6 g/dL Normal [facility] Comment on above: Performed By: #### D IG #### [facility] [address] [place] [address] [address] Lee Zaldivar Protein [Mass/Vol] 8.0 g/dL Normal 6.4-8.2 [facility] Comment on above: Performed By: #### D IG #### [facility] [address] [place] [address] [address] Lee Zaldivar SED RATE WESTSIERRA TUCSONRENon 2022 SED RATE 7 mm/hr Normal <=30 [facility] Comment on above: Performed By: #### D IG #### [facility] [address] [place] [address] [address] Lee Zaldivar ACT-HIGH RANGEon 01-08-2023 ACT-HIGH RANGE 349 SECONDS High 96 - 152 [facility] Comment on above: Result Comment: Note new reference range as of 02/17/2019. Target ACT range will vary based on the patient population, clinical status, and surgical intervention occurring. Performed By: #### A CTP #### [facility] [id number] [place] [address] ACT-HIGH RANGE 285 SECONDS High 96 - 152 [facility] Comment on above: Result Comment: Note new reference range as of 02/17/2019. Target ACT range will vary based on the patient population, clinical status, and surgical intervention occurring. Performed By: #### A CTP ####[id number] [place] [address] ACT-HIGH RANGE 242 SECONDS High 96 - 152 [facility] Comment on above: Result Comment: Note new reference range as of 02/17/2019. Target ACT range will vary based on the patient population, clinical status, and surgical intervention occurring. Performed By: #### A CTP #### [facility] [id number] [place] [address] No Panel Informationon 01-08 349 {SECONDS} above [...] - Reconciliation: 08-Jan-2023 12:36 by: Diana Garcia ( (Resident)) Home Medications EnteredHOME MEDICATIONS AT DISCHARGE DateReconciliation Comment/ Additional Information amiodarone 200 mg oral tablet 1 tab(s) orally once a day 24 07:57 amiodarone 200 mg oral tablet 1 [...] 10 mL (more content not included)... Normal [facility] CORONAVIRUS 2019, SCREEN ASY MPTOMATICon 01-06-2023 SARS-CoV-2 (COVID-19) RNA LAURITA+probe Ql (Unsp spec) Not detected Normal Not Detected [facility] Comment on above: Result Comment: . This assay is designed to detect the ORF1a/b and E genes of SARS-CoV-2 via nucleic acid amplification. A Not Detected result does not preclude 2019-nCoV infection since the adequacy of sample collection and/or low viral burden may result in presence of viral nucleic acids below the clinical sensitivity of this test method. Fact sheet for providers: https://www.fda.gov/media/203551/download Fact sheet for patients: https://www.fda.gov/media/133482/download This test has received FDA Emergency Use Authorization (EUA) and has been verified for use by [facility] ([facility]). This test is only authorized for the duration of time that circumstances exist to justify the authorization of the emergency use of in vitro diagnostic tests for the detection of SARS-CoV-2 virus and/or diagnosis of COVID-19 infection under section 564(b)(1) of the Act, 21 U.S.C. 360bbb-3(b)(1), unless the authorization is terminated or revoked sooner. [facility] is certified under CLIA-88 as qualified to perform high complexity testing. Testing is performed in the [facility] laboratories located at [id number] [place] [address]. Performed By: #### C OVSC ####[id number] [facility] [place] [address] Covid 19 Resultson 3 SARS-CoV-2 (COVID-19) RNA [...] You may also be contacted by the [facility] to see if any of your close [...] or Naproxen (Aleve) can also be used. Ncpa-dfc-iuwwebx cough and cold medicines can be used according to the instructions on the package. Some evyu-ois-edlfgeg medicines also contain acetaminophen. Make sure you [...] water are not available, use alcohol-based hand executive vice president and chief operating officer. Avoid touching your eyes, nose, and mouth [...] 24 kalpana (more content not included)... Normal [facility] BASIC METABOLIC PANELon - Anion gap [Moles/Vol] 12 mmol/L Normal 10 - 20 [facility] Comment on above: Performed By: #### B MP #### [address] [id number] Calcium [Mass/Vol] 9.6 mg/dL Normal 8.6 - 10.3 [facility] Comment on above: Performed By: #### B MP #### [address] [id number] Chloride [Moles/Vol] 108 mmol/L High 98 - 107 [facility] Comment on above: Performed By: #### B MP #### [address] [id number] Creatinine [Mass/Vol] 0.88 mg/dL Normal 0.50 - 1.05 [facility] Comment on above: Performed By: #### B MP #### [address] [place] [id number] GFR/1.73 sq M.predicted among non-blacks MDRD (S/P/Bld) [Vol rate/Area] 72 mL/min/{1.73_m2} Normal >90 [facility] Comment on above: Result Comment: CALC ULATIONS OF ESTIMATED GFR ARE PERFORMED USING THE 2020 CKD-EPI STUDY REFIT EQUATION WITHOUT THE RACE VARIABLE FOR THE IDMS-TRACEABLE CREATININE METHODS. https://jasn.asnjournals.org/content/early//ASN.15785 35113 Performed By: #### B MP #### [address] [id number] Glucose [Mass/Vol] 79 mg/dL Normal 74 - 99 [facility] Comment on above: Performed By: #### B MP #### [address] [id number] HCO3 (Bld) [Moles/Vol] 23 mmol/L Normal 21 - 32 [facility] Comment on above: Performed By: #### B MP #### [address] [id number] Potassium [Moles/Vol] 3.3 mmol/L Low 3.5 - 5.3 [facility] Comment on above: Performed By: #### B MP #### [address] [id number] Sodium [Moles/Vol] 140 mmol/L Normal 136 - 145 [facility] Comment on above: Performed By: #### B MP #### [address] [id number] Urea nitrogen [Mass/Vol] 12 mg/dL Normal 6 - 23 [facility] Comment on above: Performed By: #### B MP #### [address] [id number] CBCon 01-05-2023 Erythrocyte distribution width (RBC) [Ratio] 14.4 % Normal 11.5 - 14.5 [facility] Comment on above: Performed By: #### C BC #### [address] [id number] Hematocrit (Bld) [Volume fraction] 48.2 % High 36.0 - 46.0 [facility] Comment on above: Performed By: #### C BC #### [address] [id number] Hemoglobin (Bld) [Mass/Vol] 15.3 g/dL Normal 12.0 - 16.0 [facility] Comment on above: Performed By: #### C BC #### [address] [id number] MCHC (RBC) [Mass/Vol] 31.7 g/dL Low 32.0 - 36.0 [facility] Comment on above: Performed By: #### C BC #### [address] [id number] MCV (RBC) [Entitic vol] 101 fL High 80 - 100 [facility] Comment on above: Performed By: #### C BC #### [address] [id number] Platelets (Bld) [#/Vol] 345 10*3/uL Normal 150 - 450 [facility] Comment on above: Performed By: #### C BC #### [address] [id number] RBC 4.79 x10E12/L Normal 4.00 - 5.20 [facility] Comment on above: Performed By: #### C BC #### [address] [id number] WBC (Bld) [#/Vol] 14.4 10*3/uL High 4.4 - 11.3 [facility] Comment on above: Performed By: #### C BC #### [address] [id number] CORONAVIRUS 2019, SCREEN ASY MPTOMATICon 01-05-2023 Lab Specimen Source Nasal, Nasopharyngeal Normal [facility] Comment on above: Performed By: #### C OVSC ####[id number] [facility] [place] [address] Coronavirus 2019 RNA by PCR, Screening Asymptomticon [...] this test method. Fact sheet for providers: https://www.fda.gov/media/135374/download Fact sheet for patients: https://www.fda.gov/media/285974/download This test has received FDA Emergency Use Authorization (EUA) and has been verified for use by [facility] ([facility]). This test is only authorized for the duration of time that circumstances exist to justify the authorization of the emergency use of in vitro diagnostic tests for the detection of SARS-CoV-2 virus and/or diagnosis of COVID-19 infection under section 564(b)(1) of the Act, 21 U.S.C. 360bbb-3(b)(1), unless the authorization is terminated or revoked sooner.[facility] is certified under CLIA-88 as qualified to perform high complexity testing. Testing is performed in the [facility] laboratories located at [address] [place] [address]. Laboratory - Chemistry and C hemistry - [...] 11.9 s 9.8 - 13.4 MG-C [facility] [facility] Work Phone: Laboratory - Hematology and [...] RACE VARIABLE FOR THE IDMS-TRACEABLE CREATININE METHODS.https://jasn.asnjournals.org/content//A SN.3808920259 PT/INRon 01-05-2023 PT Coag (PPP) [Time] 11.9 s Normal 9.8 - 13.4 [facility] Comment on above: Performed By: #### P TINR #### [address] [id number] PT, INR 1.0 Normal 0.9 - 1.1 [facility] Comment on above: Performed By: #### P TINR #### [address] [id number] Electrocardiogram 12 Leadon 12-15-2022 Electrocardiogram 12 Lead Ventricular Rate 49 Atrial Rate 49 P-R Interval 178 QRS Duration 84 Q-T Interval 490 QTC Calculation(Bazett) 442 P [place] 74 R [place] 6 T [place] 64 QRS Count 8 Q Onset 221 P Onset 132 P Offset 176 T Offset 466 QTC Fredericia 458 Diagnosis Class Abnormal Diagnosis Sinus bradycardia Nonspecific ST and T wave abnormality Abnormal ECG No previous ECGs available Confirmed by Gilbert Hernandez ([id number]) on 12/21/2022 9:01:39 AM Normal [facility] No Panel Informationon 12-15 [email or web address] ?RetrieveTestByDateTime?Pa [email or web address]=[email or web address]&Date=&Time=10%3a51%3a01% 3a00&TestType=ECG&Site=1&O utputType=PDF&Ext=PDF [facility] Work Phone: Sinus bradycardia [...] Vital Signs Recorded: 15Dec2022 10:56AM Heart Rate53 Yemkclhd895, LUE, Sitting Sinwdgole48, LUE, Sitting Height5 ft 4 in Yplwhm138 lb 2 oz BMI Ohnvzywwnn75.4 kg/m2 BSA Calculated1.86 Tobacco Useb) No Falls Screening (Age (more content not included)... Normal [facility] Tobacco Screening.on 023 Fall risk assessment a) No falls within the last year [facility] Work Phone: Tobacco use status [facility] b) No [facility] Work [...] times daily September 30, 2022 DCC with mu-ism normal sinus rhythm on amiodarone 200 mg [...] with RVR with improvement in EF with mu-ism normal sinus rhythm. No syncope Father SCD [...] we can help. You may also call [phone] for free resources and assistance.; Status:Complete; Done: [...] contact the office if new symptoms arise. 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 Lab work was completed at [facility], need to obtain. 4. Repeat echocardiogram showed improvement in LVEF 50 to 55%, left atrium mildly dilated, mild MR. Results reviewed in detail. Patient presents to the office today with contin (more content not included)... Normal [facility] Tobacco Screening.on 023 Adult depression screening assessment Yes [facility] DO Work Phone: Adult depression screening assessment Moderate (10-14) [facility] ara 250 DO Work Phone: Fall risk assessment a) No falls within the last year [facility] 250 DO Work Phone: Tobacco use status CPHS a) Yes [facility] 250 DO Work Phone: Tobacco Screening. Yes [facility] ara 250 DO Work Phone: Tobacco Screening. 2-More than half the days [facility] 250 DO Work Phone: Tobacco Screening. 3-Nearly every day [facility] DO Work Phone: Tobacco Screening. 1-Several days [facility] 250 DO Work Phone: Tobacco Screening. 0-Not at all [facility] 250 DO Work Phone: Tobacco Screening. Somewhat Difficult [facility] 250 DO Work Phone: Echocardiogramon 11-12-[address], [address] [place] [address] TRANSTHORACIC ECHOCARDIOGRAM REPORT Patient Name: TAWANDA STEVENS Reading Physician: [id number] Foster Steen MD Study Date: 11/12/2022 Referring Physician: JANENE BERRY MRN/PID: [id number] PCP: Carolee Estrada Accession/Order#: [id number] Department Location: [facility] Date of : 1955 Fellow: Gender: F Nurse: Admit Date: Interpretative Dancer: Vira Berg RDCS, RVT Height: 162.56 cm CC Report to: Weight: 82.10 kg Study Type: Echocardiogram BSA: 1.87 m2 Blood Pressure: 124 /68 mmHg Diagnosis/ICD: I42.8-Other cardiomyopathies Indication: Atrial Fibrillation-s/p Cardioversion X2, CHF, Hyperlipidemia, Tobacco Abuse, Obesity, COVID-19 07/2022 Procedure/CPT: Echo [id number] Study Detail: The following Echo studies were [...] Normal Ranges: LVOT Diameter: 2.30 cm (1.8-2.4cm) [id number] Foster Steen MD Electronically signed on 11/12/2022 at 2:30:19 PM Final Normal [facility] AMIODARONEon 11-11-2022 Amiodarone 1708 ng/mL Normal 6961-1130 [facility] Comment on above: Performed By: #### D IG #### [facility] [address] [place] [address] Dr. Lee Zaldivar Desethylamiodarone 1158 ng/mL Normal [facility] Comment on above: Result Comment: Note : To convert from ng/ml to ug/ml, divide the result by 1000. Reference range (amiodarone): 1.00-2.50 ug/mL. This test was developed and its performance characteristics determined by [facility]. It has not been cleared or approved by the Food and Drug Administration. Performed By: #### D IG #### [facility] [address] [place] [address] Dr. Lee Zaldivar CBC AUTO DIFFon 10-30-2022 BASO # 0.1 103/ul Normal 0.0-0.1 [facility] Comment on above: Performed By: #### D IG #### [facility] [address] [place] [address] Dr. Lee Zaldivar Basophils/100 WBC (Bld) 0.9 % Normal 0.2-2.0 [facility] Comment on above: Performed By: #### D IG #### [facility] [address] [place] [address] Dr. Lee Zaldivar EO # 0.3 103/ul Normal 0.0-0.7 [facility] Comment on above: Performed By: #### D IG #### [facility] [address] [place] [address] Dr. Lee Zaldivar Eosinophils/100 WBC (Bld) 2.6 % Normal 0.9-7.0 [facility] Comment on above: Performed By: #### D IG #### [facility] [address] [place] [address] Dr. Lee Zaldivar Erythrocyte distribution width (RBC) [Ratio] 15.6 % Critically high 11.0-15.0 [facility] Comment on above: Performed By: #### D IG #### [facility] [address] [place] [address] Dr. Lee Zaldivar Hematocrit (Bld) [Volume fraction] 44.4 % Normal 36.0-48.0 [facility] Comment on above: Performed By: #### D IG #### [facility] [address] [place] [address] Dr. Lee Zaldivar Hemoglobin (Bld) [Mass/Vol] 14.4 g/dL Normal 12.0-16.0 [facility] Comment on above: Performed By: #### D IG #### [facility] [address] [place] [address] Dr. Lee Zaldivar IG # 0.08 10e3/ul Critically high 0.00-0.03 [facility] Comment on above: Performed By: #### D IG #### [facility] [address] [place] [address] Dr. Lee Zaldivar IG % 0.7 % Critically high 0.0-0.5 [facility] Comment on above: Performed By: #### D IG #### [facility] [address] [place] [address] Dr. Lee Zaldivar LYMPH # 1.7 103/ul Normal 1.2-3.8 [facility] Comment on above: Performed By: #### D IG #### [facility] [address] [place] [address] Dr. Lee Zaldivar Lymphocytes/100 WBC (Bld) 14.9 % Critically low 20.5-60.0 [facility] Comment on above: Performed By: #### D IG #### [facility] [address] [place] [address] Dr. Lee Zaldivar MANUAL DIFF REQ NO Normal [facility] Comment on above: Performed By: #### D IG #### [facility] [address] [place] [address] Dr. Lee Zaldivar MCH (RBC) [Entitic mass] 31.0 pg Normal 26.7-34.0 [facility] Comment on above: Performed By: #### D IG #### [facility] [address] [place] [address] Dr. Lee Zaldivar MCHC (RBC) [Mass/Vol] 32.4 g/dL Normal 29.9-35.2 [facility] Comment on above: Performed By: #### D IG #### [facility] [address] [place] [address] Dr. Lee Zaldivar MCV (RBC) [Entitic vol] 95.5 fL Normal 81.0-99.0 [facility] Comment on above: Performed By: #### D IG #### [facility] [address] [place] [address] Dr. Lee Zaldivar MONO # 0.9 103/ul Critically high 0.3-0.8 [facility] Comment on above: Performed By: #### D IG #### [facility] [address] [place] [address] Dr. Lee Zaldivar Monocytes/100 WBC (Bld) 7.7 % Normal 1.7-12.0 [facility] Comment on above: Performed By: #### D IG #### [facility] [address] [place] [address] Dr. Lee Zaldivar NEUT # 8.1 103/ul Critically high 1.4-6.5 [facility] Comment on above: Performed By: #### D IG #### [facility] [address] [place] [address] Dr. Lee Zaldivar Neutrophils/100 WBC (Bld) 73.2 % Normal 43.0-75.0 [facility] Comment on above: Performed By: #### D IG #### [facility] [address] [place] [address] Dr. Lee Zaldivar Platelet mean volume (Bld) [Entitic vol] 10.4 fL Normal 9.5-13.5 [facility] Comment on above: Performed By: #### D IG #### [facility] [address] [address] [address] Lee Zaldivar PLT 342 103/ul Normal 150-450 [facility] Comment on above: Performed By: #### D IG #### [facility] [address] [place] [address] Dr. Lee Zaldivar RBC 4.65 106/ul Normal 4.20-5.40 [facility] Comment on above: Performed By: #### D IG #### [facility] [address] [place] [address] Dr. Lee Zaldivar WBC 11.1 103/ul Critically high 4.0-11.0 [facility] Comment on above: Performed By: #### D IG #### [facility] [address] [place] [address] Dr. Lee Zaldivar CREATININEon 10-30-2022 Creatinine [Mass/Vol] 0.85 mg/dL Normal 0.55-1.02 [facility] Comment on above: Performed By: #### AMI DAILEYA #### [facility] [address] [place] [address] Dr. Lee Zaldivar EGFR-AF COOK ISLANDER >60 Normal >=60 [facility] Comment on above: Performed By: #### Isadora CHUA CREA #### [facility] [address] [place] [address] Dr. Lee Zaldivar EGFR-NON AF COOK ISLANDER >60 Normal >=60 [facility] Comment on above: Performed By: #### Isadora CHUA CREA #### [facility] [address] [place] [address] Dr. Lee Zaldivar DIGOXINon 10-30-2022 DIG 0.7 ng/mL Critically low 0.9-2.0 [facility] Comment on above: Performed By: #### D IG #### [facility] [address] [place] [address] Dr. Lee Zaldivar LIVER PROFILEon 10-30-2022 Albumin [Mass/Vol] 3.2 g/dL Critically low 3.4-5.0 [facility] Comment on above: Performed By: #### L HARSHIL CREA #### [facility] [address] [place] [address] Dr. Lee Zaldivar Albumin/Globulin [Mass ratio] 0.7 {ratio} Normal [facility] Comment on above: Performed By: #### L HARSHIL CREA #### [facility] [address] [place] [address] Dr. Lee Zaldivar ALP [Catalytic activity/Vol] 124 U/L Critically high 46-116 [facility] Comment on above: Performed By: #### Isadora CHUA CREA #### [facility] [address] [place] [address] Dr. Lee Zaldivar ALT [Catalytic activity/Vol] 16 U/L Normal 14-59 [facility] Comment on above: Performed By: #### Isadora CHUA CREA #### [facility] [address] [place] [address] Dr. Lee Zaldivar AST [Catalytic activity/Vol] 20 U/L Normal 15-37 [facility] Comment on above: Performed By: #### Isadora CHUA CREA #### [facility] [address] [place] [address] Dr. Lee Zaldivar BILI, CONJUGATED 0.1 mg/dL Normal 0.0-0.2 [facility] Comment on above: Performed By: #### Isadora CHUA CREA #### [facility] [address] [place] [address] Dr. Lee Zaldivar Bilirubin [Mass/Vol] 0.4 mg/dL Normal 0.2-1.0 [facility] Comment on above: Performed By: #### L HARSHIL CREA #### [facility] [address] [place] [address] Dr. Lee Zaldivar Globulin (S) [Mass/Vol] 4.6 g/dL Normal [facility] Comment on above: Performed By: #### L REJI CHUA #### [facility] [address] [place] [address] Dr. Lee Zaldivar Protein [Mass/Vol] 7.8 g/dL Normal 6.4-8.2 [facility] Comment on above: Performed By: #### L REJI CHUA #### [facility] [address] [place] [address] Dr. Lee Zaldivar SED RATE WESTERGRENon 2021 SED RATE 81 mm/hr Critically high <=30 [facility] Comment on above: Performed By: #### S EDR #### [facility] [address] [place] [address] Dr. Lee Zaldivar TSHon 10-30-2022 TSH 3.217 uIU/mL Normal 0.358-3.74 0 [facility] Comment on above: Performed By: #### D IG #### [facility] [address] [place] [address] Dr. Lee Zaldivar Office Visit (Cardiology)on 10-21-2022 [...] times daily July 31, 2022 DCC with mu-ism normal sinus rhythm on amiodarone 200 mg [...] (424.0) (I34.0) April 2022 Cath - 3+ NC April 2022 Echo - MR moderate Hyperlipidemia [...] atrial fibrillation Amiodarone Level, Serum; Status:Active; Requested for:[id number]; Digoxin Level, Serum; Status:Active; Requested for:[id number]; TSH WITH REFLEX TO FREE T4 IF ABNORMAL; Status:Active; Requested for:[id number]; Class 1 obesity with body mass index (BMI) of 31.0 to 31.9 in adult Healthy Weight Tips; Status:Complete; Done: [id number] NICM (nonischemic cardiomyopathy) Echocardiogram; Status:Hold For - Scheduling; Requested for:[id number]; NICM (nonischemic cardiomyopathy), Persistent atrial fibrillation Cardiology - Electrophysiology Referral Evaluation and Treatment Evaluate AND Treat Status: Active Requested for: [id number] SocHx: Current every day smoker Start: HM [...] we can help. You may also call [phone]-YUEK-NOW for free resources and assistance.; Status:Complete; Done: [id number] Tobacco Use Screening; Status:Complete; Done: [id number] Unlinked Stop: Atorvastatin Calcium 20 MG Oral [...] contact the office if new symptoms arise. 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 Patient presents to the office today ambulatory with steady gait. Last evaluated in clinic by myself June 2022. Since that time she has completed the following: July 28, 2022 cardioversion x2 with mu-ism of normal sinus rhythm on amiodarone 200 mg twice daily. August 11, 2022 follow-up had recurrent atrial fibrillation and amiodarone increased 200 mg 3 times daily. Follow-up cardioversion was postponed due to COVID-positive illness, did not require hospitalization. September 30, 2022 uneventful cardioversion with restora (more content not included)... Normal [employer] Tobacco Screening.on 022 Fall risk assessment a) No falls within the last year [facility] [employer] DO Work Phone: Tobacco use status CP a) Yes [facility] 250 DO Work Phone: Tobacco Screening. Yes [facility] 250 DO Work Phone: CBC AUTO DIFFon 10-12-2022 BASO # 0.1 103/ul Normal 0.0-0.1 [facility] Comment on above: Performed By: #### P TT, PT #### [facility] [address] [place] [address] Dr. Lee Zaldivar Basophils/100 WBC (Bld) 0.8 % Normal 0.2-2.0 [facility] Comment on above: Performed By: #### P TT, PT #### [facility] [address] [place] [address] Dr. Lee Zaldivar EO # 0.2 103/ul Normal 0.0-0.7 [facility] Comment on above: Performed By: #### P TT, PT #### [facility] [address] [place] [address] Dr. Lee Zaldivar Eosinophils/100 WBC (Bld) 1.2 % Normal 0.9-7.0 [facility] Comment on above: Performed By: #### P TT, PT #### [facility] [address] [place] [address] Dr. Lee Zaldivar Erythrocyte distribution width (RBC) [Ratio] 16.5 % Critically high 11.0-15.0 [facility] Comment on above: Performed By: #### P TT, PT #### [facility] [address] [address] [address] Lee Zaldivar Hematocrit (Bld) [Volume fraction] 45.9 % Normal 36.0-48.0 [facility] Comment on above: Performed By: #### P TT, PT #### [facility] [address] [place] [address] Dr. Lee Zaldivar Hemoglobin (Bld) [Mass/Vol] 15.0 g/dL Normal 12.0-16.0 [facility] Comment on above: Performed By: #### P TT, PT #### [facility] [address] [place] [address] Dr. Lee Zaldivar IG # 0.12 10e3/ul Critically high 0.00-0.03 [facility] Comment on above: Performed By: #### P TT, PT #### [facility] [address] [place] [address] Dr. Lee Zaldivar IG % 0.7 % Critically high 0.0-0.5 [facility] Comment on above: Performed By: #### P TT, PT #### [facility] [address] [place] [address] Dr. Lee Zaldivar LYMPH # 1.7 103/ul Normal 1.2-3.8 [facility] Comment on above: Performed By: #### P TT, PT #### [facility] [address] [place] [address] Dr. Lee Zaldivar Lymphocytes/100 WBC (Bld) 10.1 % Critically low 20.5-60.0 [facility] Comment on above: Performed By: #### P TT, PT #### [facility] [address] [place] [address] Dr. Lee Zaldivar MANUAL DIFF REQ NO Normal [facility] Comment on above: Performed By: #### P TT, PT #### [facility] [address] [place] [address] Dr. Lee Zaldivar MCH (RBC) [Entitic mass] 30.8 pg Normal 26.7-34.0 [facility] Comment on above: Performed By: #### P TT, PT #### [facility] [address] [place] [address] Dr. Lee Zaldivar MCHC (RBC) [Mass/Vol] 32.7 g/dL Normal 29.9-35.2 [facility] Comment on above: Performed By: #### P TT, PT #### [facility] [address] [place] [address] Dr. Lee Zaldivar MCV (RBC) [Entitic vol] 94.3 fL Normal 81.0-99.0 [facility] Comment on above: Performed By: #### P TT, PT #### [facility] [address] [place] [address] Dr. Lee Zaldivar MONO # 1.2 103/ul Critically high 0.3-0.8 [facility] Comment on above: Performed By: #### P TT, PT #### [facility] [address] [place] [address] Dr. Lee Zaldivar Monocytes/100 WBC (Bld) 6.8 % Normal 1.7-12.0 [facility] Comment on above: Performed By: #### P TT, PT #### [facility] [address] [place] [address] Dr. Lee Zaldivar NEUT # 13.7 103/ul Critically high 1.4-6.5 [facility] Comment on above: Performed By: #### P TT, PT #### [facility] [address] [place] [address] Dr. Lee Zaldivar Neutrophils/100 WBC (Bld) 80.4 % Critically high 43.0-75.0 [facility] Comment on above: Performed By: #### P TT, PT #### [facility] [address] [place] [address] Dr. Lee Zaldivar Platelet mean volume (Bld) [Entitic vol] 9.7 fL Normal 9.5-13.5 [facility] Comment on above: Performed By: #### P TT, PT #### [facility] [address] [place] [address] Dr. Lee Zaldivar PLT 342 103/ul Normal 150-450 [facility] Comment on above: Performed By: #### P TT, PT #### [facility] [address] [place] [address] Dr. Lee Zaldivar RBC 4.87 106/ul Normal 4.20-5.40 [facility] Comment on above: Performed By: #### P TT, PT #### [facility] [address] [place] [address] Dr. Lee Zaldivar WBC 17.0 103/ul Critically high 4.0-11.0 [facility] Comment on above: Performed By: #### P TT, PT #### [facility] [address] [place] [address] Dr. Lee Zaldivar CREATININEon 10-12-2022 Creatinine [Mass/Vol] 0.99 mg/dL Normal 0.55-1.02 [facility] Comment on above: Performed By: #### D IG #### [facility] [address] [place] [address] Dr. Lee Zaldivar EGFR-AF COOK ISLANDER >60 Normal >=60 [facility] Comment on above: Performed By: #### D IG #### [facility] [address] [place] [address] Dr. Lee Zaldivar EGFR-NON AF COOK ISLANDER 56 mL/min/1.73m2 Critically low >=60 [facility] Comment on above: Performed By: #### D IG #### [facility] [address] [place] [address] Dr. Lee Zaldivar LIVER PROFILEon 10-12-2022 Albumin [Mass/Vol] 3.3 g/dL Critically low 3.4-5.0 [facility] Comment on above: Performed By: #### C ADDIS, LIVER #### [facility] [address] [place] [address] Dr. Lee Zaldivar Albumin/Globulin [Mass ratio] 0.7 {ratio} Normal [facility] Comment on above: Performed By: #### C ADDIS, LIVER #### [facility] [address] [place] [address] Dr. Lee Zaldivar ALP [Catalytic activity/Vol] 136 U/L Critically high 46-116 [facility] Comment on above: Performed By: #### C ADDIS, LIVER #### [facility] [address] [place] [address] Dr. Lee Zaldivar ALT [Catalytic activity/Vol] 18 U/L Normal 14-59 [facility] Comment on above: Performed By: #### C ADDIS, LIVER #### [facility] [address] [place] [address] Dr. Lee Zaldivar AST [Catalytic activity/Vol] 19 U/L Normal 15-37 [facility] Comment on above: Performed By: #### C ADDIS, LIVER #### [facility] [address] [place] [address] Dr. Lee Zaldivar BILI, CONJUGATED 0.2 mg/dL Normal 0.0-0.2 [facility] Comment on above: Performed By: #### C ADDIS, LIVER #### [facility] [address] [place] [address] Dr. Lee Zaldivar Bilirubin [Mass/Vol] 0.6 mg/dL Normal 0.2-1.0 [facility] Comment on above: Performed By: #### C ADDIS, LIVER #### [facility] [address] [place] [address] Dr. Lee Zaldivar Globulin (S) [Mass/Vol] 5.0 g/dL Normal [facility] Comment on above: Performed By: #### C ADDIS, LIVER #### [facility] [address] [place] [address] Dr. Lee Zaldivar Protein [Mass/Vol] 8.3 g/dL Critically high 6.4-8.2 [facility] Comment on above: Performed By: #### C ADDIS, LIVER #### [facility] [address] [place] [address] Dr. Lee Zaldivar SED RATE [facility] 2021 SED RATE 73 mm/hr Critically high <=30 [facility] Comment on above: Performed By: #### S EDR #### [facility] [address] [place] [address] Dr. Lee Zaldivar No Panel Informationon 09-30 9.0\S\9.0 Normal 6.0-15.0 [facility] 250 DO Work Phone: Comment on above: PERFORMED BY:[address], [place] [id number] MEDICAL DIRECTORBRIANNA MONTALVO M.D. 20.6\S\20.6 below low threshold 22.0-30.0 [facility] 250 DO Work Phone: [phone]\S\[phone] Normal 95-114 [facility] 250 DO Work Phone: 3.6\S\3.6 Normal 3.5-5.1 [facility] 250 DO Work Phone: 135\S\135 below low threshold 136-146 [facility] ara 250 DO Work Phone: Serum or plasma anion gap de terminationOrdered By: Arsalan Conley on 09-30-2022 Anion gap [Moles/Vol] 9.0 mmol/L 6.0-15.0 [facility] Serum or plasma chloride mukesh surement (moles/volume)Ordered By: Arsalan Conley on 09-30-2022 Chloride [Moles/Vol] 109 mmol/L 95-114 [facility] Serum or plasma potassium me asurement (moles/volume)Ordered By: Arsalan Conley on 09-30-2022 Potassium [Moles/Vol] 3.6 mmol/L 3.5-5.1 [facility] Serum or plasma sodium measu rement (moles/volume)Ordered By: Arsalan Conley on 09-30-2022 Sodium [Moles/Vol] 135 mmol/L 136-146 [facility] Serum or plasma total carbon dioxide measurement (moles/volume)Ordered By: Arsalan Conley on 09-30-2022 CO2 [Moles/Vol] 20.6 mmol/L 22.0-30.0 [facility] COVID-19 SOFIAOrdered By: Stanford Conley on 09-11-2022 SARS-CoV+SARS-CoV-2 (COVID-19) Ag IA.rapid Ql (Resp) Positive Negative [facility] Comment on above: This is a duplicate Celia SARS Antigen (DEB) result to be used for statistical tracking purpose only. No Panel InformationOrdered By: Arsalan Conley on 09-11-2022 SARS Antigen (LFIA) [facility] Body fluid albumin measureme nt (mass/volume)Ordered By: Carmine Nails on 09-02-2022 Albumin (Body fld) [Mass/Vol] 2.9 g/dL 3.2-5.5 [facility] C reactive protein [Mass/vol ume] in Serum or PlasmaOrdered By: Carmine Nails on 09-02-2022 CRP [Mass/Vol] 5.7 mg/dL 0.0-1.0 [facility] Creatinine and Glomerular fi ltration rate.predicted panel (S/P/Bld)Ordered By: Carmine Nails on 09-02-2022 Creatinine [Mass/Vol] 0.98 mg/dL 0.44-1.03 [facility] Direct bilirubin measurement Ordered By: Carmine Nails on 09-02-2022 Bilirubin.direct [Mass/Vol] 0.2 mg/dL 0.0-0.4 [facility] Erythrocyte sedimentation ra te by Photometric methodOrdered By: Carmine Nails on 09-02-2022 ESR Photometric method (Bld) [Velocity] 57 mm/hr 0-29 [facility] Estimated glomerular filtrat ion rate (GFR) non- AmericanOrdered By: Carmine Nails on 09-02-2022 GFR/1.73 sq M.predicted among non-blacks MDRD (S/P/Bld) [Vol rate/Area] 57 mL/Min [facility] Globulin Calc (S) [Mass/Vol] Ordered By: Carmine Nails on 09-02-2022 Globulin (S) [Mass/Vol] 3.9 g/dL [facility] No Panel InformationOrdered By: Carmine Nails on 09-02-2022 Estimated GFR () > 60 mL/Min [facility] Comment on above: GFR estimated refere nce range: According to KDOQI guidelines, <60 ml/min/1.73m2 is sufficient to diagnose a patient with chronic kidney disease. Pharmacy Creatinine Clearance (Chem N/A [facility] Protein [Mass/volume] in Ser um or PlasmaOrdered By: Carmine Nails on 09-02-2022 Protein [Mass/Vol] 6.8 g/dL 6.1-7.9 [facility] Serum or plasma alanine spicer otransferase measurement without P-5'-P (enzymatic activiOrdered By: Carmine Nails on 09-02-2022 ALT No additional P-5'-P [Catalytic activity/Vol] 20 U/L 10 [facility] Serum or plasma albumin/glob ulin mass ratioOrdered By: Carmine Nails on 09-02-2022 Albumin/Globulin [Mass ratio] 0.7 {ratio} [facility] Serum or plasma alkaline adis sphatase measurement (enzymatic activity/volume)Ordered By: Carmine Nails on 09-02-2022 ALP [Catalytic activity/Vol] 109 U/L [facility] Serum or plasma aspartate am inotransferase measurement (enzymatic activity/volume)Ordered By: Carmine Nails on 09-02-2022 AST [Catalytic activity/Vol] 23 U/L [facility] Serum or plasma non-glucuron idated bilirubin measurement (mass/volume)Ordered By: Carmine Nails on 09-02-2022 Bilirubin.indirect [Mass/Vol] 0.5 mg/dL [facility] Serum or plasma total biliru bin measurement (mass/volume)Ordered By: Carmine Nails on 09-02-2022 Bilirubin [Mass/Vol] 0.7 mg/dL 0.3-1.2 [facility] Digoxin [Mass/volume] in Ser um or PlasmaOrdered By: Arsalan Conley on 07-28-2022 Digoxin [Mass/Vol] 0.3 ng/mL 0.9-2.0 [facility] Comment on above: Last dose: - No Panel Informationon 07-28 17.0\S\17.0 above high threshold 6.0-15.0 [facility] DO Work Phone: Comment on above: PERFORMED BY:[place] [address] [place], [place] [phone] MEDICAL DIRECTORBRIANNA MONTALVO M.D. 23.0\S\23.0 Normal 22.0-30.0 [facility] DO Work Phone: 99\S\99 Normal 95-114 [facility] DO Work Phone: 4.0\S\4.0 Normal 3.5-5.1 [facility] ara 250 DO Work Phone: 135\S\135 below low threshold 136-146 -[facility] 250 DO Work Phone: 0.3\S\0.3 below low threshold 0.9-2.0 -[facility] 250 DO Work Phone: Comment on above: Last dose: -PERFORME D BY:[facility] [place], [place] [phone] MEDICAL DIRECTORBRIANNA MONTALVO M.D. Serum or plasma anion gap de terminationOrdered By: Arsalan Conley on 07-28-2022 Anion gap [Moles/Vol] 17.0 mmol/L 6.0-15.0 [facility] Serum or plasma chloride mukesh surement (moles/volume)Ordered By: Arsalan Conley on 07-28-2022 Chloride [Moles/Vol] 99 mmol/L 95-114 [facility] Serum or plasma potassium me asurement (moles/volume)Ordered By: Arsalan Conley on 07-28-2022 Potassium [Moles/Vol] 4.0 mmol/L 3.5-5.1 [facility] Serum or plasma sodium measu rement (moles/volume)Ordered By: Arsalan Conley on 07-28-2022 Sodium [Moles/Vol] 135 mmol/L 136-146 [facility] Serum or plasma total carbon dioxide measurement (moles/volume)Ordered By: Arsalan Conley on 07-28-2022 CO2 [Moles/Vol] 23.0 mmol/L 22.0-30.0 [facility] COVID-19 SOFIAOrdered By: Stanford Conley on 07-24-2022 SARS-CoV+SARS-CoV-2 (COVID-19) Ag IA.rapid Ql (Resp) Negative Negative [facility] Comment on above: This is a duplicate Celia SARS Antigen (DEB) result to be used for statistical tracking purpose only. Laboratory - Microbiology an d Antimicrobial susceptibilityon 07-24-2022 SARS-CoV-2 (COVID-19) RNA LAURITA+probe Ql (Unsp spec) [facility] 250 DO Work Phone: No Panel Informationon 07-24 Negative Normal Negative [facility] 250 DO Work Phone: Comment on above: This is a duplicate Celia SARS Antigen (DEB) result to be used for statistical tracking purpose only.PERFORMED BY:[facility] [place], [place] [phone] MEDICAL DIRECTORBRIANNA MONTALVO M.D. No Panel InformationOrdered By: Arsalan Conley on 07-24-2022 SARS Antigen (LFIA) [facility] PROF CHEM 8 (BAS METB)on Anion gap [Moles/Vol] 12.1 mmol/L Normal [facility] Comment on above: Performed By: #### T SH, BMP #### [facility] [address] [place] [address] Dr. Lee Zaldivar Calcium [Mass/Vol] 9.2 mg/dL Normal 8.5-10.1 [facility] Comment on above: Performed By: #### T SH, BMP #### [facility] [address] [place] [address] Dr. Lee Zaldivar Chloride [Moles/Vol] 103 mmol/L Normal 98-107 [facility] Comment on above: Performed By: #### T SH, BMP #### [facility] [address] [place] [address] Dr. Lee Zaldivar CO2 [Moles/Vol] 26.2 mmol/L Normal 21.0-32.0 [facility] Comment on above: Performed By: #### T SH, BMP #### [facility] [address] [place] [address] Dr. Lee Zaldivar Creatinine [Mass/Vol] 0.92 mg/dL Normal 0.55-1.02 [facility] Comment on above: Performed By: #### T SH, BMP #### [facility] [address] [place] [address] Dr. Lee Zaldivar EGFR-AF COOK ISLANDER >60 Normal >=60 [facility] Comment on above: Performed By: #### T SH, BMP #### [facility] [address] [place] [address] Dr. Lee Zaldivar EGFR-NON AF [place]OOK ISLANDER >60 Normal >=60 [facility] Comment on above: Performed By: #### T SH, BMP #### [facility] [address] [place] [address] Dr. Lee Zaldivar Glucose [Mass/Vol] 109 mg/dL Critically high 74-106 [facility] Comment on above: Result Comment: SPEC IMEN SLIGHTLY LIPEMIC MAY AFFECT GLUCOSE RESULT Performed By: #### T SH, BMP #### [facility] [address] [place] [address] Dr. Lee Zaldivar Potassium [Moles/Vol] 4.3 mmol/L Normal 3.5-5.1 [facility] Comment on above: Performed By: #### T SH, BMP #### [facility] [address] [place] [address] Dr. Lee Zaldivar Sodium [Moles/Vol] 137 mmol/L Normal 136-145 [facility] Comment on above: Performed By: #### T SH, BMP #### [facility] [address] [place] [address] Dr. Lee Zaldivar Urea nitrogen [Mass/Vol] 12.0 mg/dL Normal 7.0-18.0 [facility] Comment on above: Performed By: #### T SH, BMP #### [facility] [address] [place] [address] Dr. Lee Zaldivar Urea nitrogen/Creatinine [Mass ratio] 13.0 mg/mg Normal [facility] Comment on above: Performed By: #### T SH, BMP #### [facility] [address] [place] [address] Dr. Lee Zaldivar TSHon 07-22-2022 TSH 1.532 uIU/mL Normal 0.358-3.74 0 [facility] Comment on above: Performed By: #### T SH, BMP #### [facility] [address] [place] [address] Dr. Lee Zaldivar Tobacco Screening.on 022 Fall risk assessment a) No falls within the last year [facility] Jada bullock 250 DO Work Phone: Tobacco use status CP a) Yes [facility] Jada bullock 250 DO Work Phone: Tobacco Screening. Yes [facility] bullock 250 DO Work Phone: Digoxin [Mass/volume] in Ser um or PlasmaOrdered By: Arsalan Conley on 06-24-2022 Digoxin [Mass/Vol] ng/mL 0.9-2.0 [facility] Comment on above: Last dose: - No Panel Informationon 06-24 < 0.2 below low threshold 0.9-2.0 [facility] Jada bullock 250 DO Work Phone: Comment on above: Last dose: -PERFORME D BY:[facility] [place], [place] [phone] MEDICAL DIRECTORBRIANNA MONTALVO M.D. 21.3\S\21.3 below low threshold 22.0-30.0 [facility] Jada Madera DO Work Phone: Comment on above: PERFORMED BY:[place] [address] [place], [place] [phone] MEDICAL DIRECTORBRIANNA MONTALVO M.D. 101\S\101 Normal 95-114 [facility] Jada bullock 250 DO Work Phone: 2.7\S\2.7 Critically low 3.5-5.1 [facility] Jada bullock 250 DO Work Phone: Comment on above: Results called at 10 03 on 06/24/22 135\S\135 below low threshold 136-146 [facility] Jada bullock 250 DO Work Phone: Serum or plasma chloride mukesh surement (moles/volume)Ordered By: Arsalan Conley on 06-24-2022 Chloride [Moles/Vol] 101 mmol/L 95-114 [facility] Serum or plasma potassium me asurement (moles/volume)Ordered By: Arsalan Conley on 06-24-2022 Potassium [Moles/Vol] 2.7 mmol/L 3.5-5.1 [facility] Comment on above: Results called at 1003 on 06/24/22 Results calledat 100 3 on 06/24/22 Serum or plasma sodium measu rement (moles/volume)Ordered By: Arsalan Conley on 06-24-2022 Sodium [Moles/Vol] 135 mmol/L 136-146 [facility] Serum or plasma total carbon dioxide measurement (moles/volume)Ordered By: Arsalan Conley on 06-24-2022 CO2 [Moles/Vol] 21.3 mmol/L 22.0-30.0 [facility] COVID-19 SOFIAOrdered By: Stanford Conley on 06-22-2022 SARS-CoV+SARS-CoV-2 (COVID-19) Ag IA.rapid Ql (Resp) Negative Negative [facility] Comment on above: This is a duplicate Celia SARS Antigen (DEB) result to be used for statistical tracking purpose only. Laboratory - Microbiology an d Antimicrobial susceptibilityon 06-22-2022 SARS-CoV-2 (COVID-19) RNA LAURITA+probe Ql (Unsp spec) [facility] 250 DO Work Phone: No Panel Informationon 06-22 Negative Normal Negative [facility] 250 DO Work Phone: Comment on above: This is a duplicate Celia SARS Antigen (DEB) result to be used for statistical tracking purpose only.PERFORMED BY:[place] [address] [place], [place] [id number] MEDICAL DIRECTORBRIANNA MONTALVO M.D. No Panel InformationOrdered By: Arsalan Conley on 06-22-2022 SARS Antigen (LFIA) [facility] PHQ-2 VITALSon 06-17-2022 Fall risk assessment a) No falls within the last year [facility] 250 DO Work Phone: Tobacco use status CPHS a) Yes [facility] Work Phone: PHQ-2 VITALS Yes [facility] 250 DO Work Phone: BNPon 05-20-2022 Natriuretic peptide B (Bld) [Mass/Vol] 1242.0 pg/mL Critically high <=900.0 [facility] Comment on above: Performed By: #### P TT, PT #### [facility] [address] [place] [address] Dr. Lee Zaldivar PROF CHEM 8 (BAS METB)on Anion gap [Moles/Vol] 14.1 mmol/L Normal [facility] Comment on above: Performed By: #### P TT, PT #### [facility] [address] [place] [address] Dr. Lee Zaldivar Calcium [Mass/Vol] 9.1 mg/dL Normal 8.5-10.1 [facility] Comment on above: Performed By: #### P TT, PT #### [facility] [address] [place] [address] Dr. Lee Zaldivar Chloride [Moles/Vol] 109 mmol/L Critically high 98-107 [facility] Comment on above: Performed By: #### P TT, PT #### [facility] [address] [place] [address] Dr. Lee Zaldivar CO2 [Moles/Vol] 23.1 mmol/L Normal 21.0-32.0 [facility] Comment on above: Performed By: #### P TT, PT #### [facility] [address] [place] [address] Dr. Lee Zaldivar Creatinine [Mass/Vol] 1.04 mg/dL Critically high 0.55-1.02 [facility] Comment on above: Performed By: #### P TT, PT #### [facility] [address] [place] [address] Dr. Lee Zaldivar EGFR-AF COOK ISLANDER >60 Normal >=60 [facility] Comment on above: Performed By: #### P TT, PT #### [facility] [address] [address] [address] Lee Zaldivar EGFR-NON AF [place]OOK ISLANDER 53 mL/min/1.73m2 Critically low >=60 [facility] Comment on above: Performed By: #### P TT, PT #### [facility] [address] [address] [address] Lee Zaldivar Glucose [Mass/Vol] 81 mg/dL Normal 74-106 [facility] Comment on above: Performed By: #### P TT, PT #### [facility] [address] [address] [address] Lee Zaldivar Potassium [Moles/Vol] 4.2 mmol/L Normal 3.5-5.1 [facility] Comment on above: Performed By: #### P TT, PT #### [facility] [address] [address] [address] Lee Zaldivar Sodium [Moles/Vol] 142 mmol/L Normal 136-145 [facility] Comment on above: Performed By: #### P TT, PT #### [facility] [address] [address] [address] Lee Zaldivar Urea nitrogen [Mass/Vol] 11.0 mg/dL Normal 7.0-18.0 [facility] Comment on above: Performed By: #### P TT, PT #### [facility] [address] [address] [address] Lee Zaldivar Urea nitrogen/Creatinine [Mass ratio] 10.6 mg/mg Normal [facility] Comment on above: Performed By: #### P TT, PT #### [facility] [address] [address] [address] Lee Zaldivar Basophils Auto (Bld) [#/Vol] Ordered By: August Lamas on 05-13-2022 Basophils (Bld) [#/Vol] 0.1 10*3/uL 0.0-0.2 [facility] Basophils/100 WBC Auto (Bld) Ordered By: August Lamas on 05-13-2022 Basophils/100 WBC (Bld) 1.0 % . [facility] Blood hemoglobin measurement (mass/volume)Ordered By: August Lamas on 05-13-2022 Hemoglobin (Bld) [Mass/Vol] 14.8 g/dL 11.8-15.4 [facility] Blood leukocytes automated c ount (number/volume)Ordered By: August Lamas on 05-13-2022 WBC (Bld) [#/Vol] 9.6 10*3/uL 4.5-11.0 [facility] Creatinine and Glomerular fi ltration rate.predicted panel (S/P/Bld)Ordered By: August Lamas on 05-13-2022 Creatinine [Mass/Vol] 0.86 mg/dL 0.44-1.03 [facility] Eosinophils Auto (Bld) [#/Vo l]Ordered By: August Lamas on 05-13-2022 Eosinophils (Bld) [#/Vol] 0.1 10*3/uL 0.0-0.45 [facility] Eosinophils/100 WBC Auto (Bl d)Ordered By: August Lamas on 05-13-2022 Eosinophils/100 WBC (Bld) 1.5 % . [facility] Erythrocyte distribution wid th Auto (RBC) [Ratio]Ordered By: August Lamas on 05-13-2022 Erythrocyte distribution width (RBC) [Ratio] 14.7 % 11.9-15.3 [facility] Estimated glomerular filtrat ion rate (GFR) non- AmericanOrdered By: August Lamas on 05-13-2022 GFR/1.73 sq M.predicted among non-blacks MDRD (S/P/Bld) [Vol rate/Area] > 60 mL/Min [facility] Hematocrit Auto (Bld) [Volum e fraction]Ordered By: August Lamas on 05-13-2022 Hematocrit (Bld) [Volume fraction] 45.2 % 34.0-46.4 [facility] Laboratory - Chemistry and C hemistry - challengeOrdered By: August Lamas on 05-13-2022 Magnesium [Mass/Vol] 1.8 mg/dL 1.6-2.6 [facility] Laboratory - Hematology and Cell countsOrdered By: August Lamas on 05-13-2022 Nucleated RBC/100 WBC (Bld) [Ratio] 0.3 % 0-0.5 [facility] Lymphocytes Auto (Bld) [#/Vo l]Ordered By: August Lamas on 05-13-2022 Lymphocytes (Bld) [#/Vol] 1.3 10*3/uL 1.00-4.8 [facility] Lymphocytes/100 WBC Auto (Bl d)Ordered By: August Lamas on 05-13-2022 Lymphocytes/100 WBC (Bld) 13.1 % . [facility] MCH Auto (RBC) [Entitic mass ]Ordered By: August Lamas on 05-13-2022 MCH (RBC) [Entitic mass] 31.3 pg 24.7-34.3 [facility] MCHC Auto (RBC) [Mass/Vol]Or dered By: August Lamas on 05-13-2022 MCHC (RBC) [Mass/Vol] 32.7 g/dL 32.0-35.0 [facility] MCV Auto (RBC) [Entitic vol] Ordered By: August Lamas on 05-13-2022 MCV (RBC) [Entitic vol] 95.8 fL 80-100 [facility] Monocytes Auto (Bld) [#/Vol] Ordered By: August Lamas on 05-13-2022 Monocytes (Bld) [#/Vol] 1.0 10*3/uL 0.0-0.8 [facility] Monocytes/100 WBC Auto (Bld) Ordered By: August Lamas on 05-13-2022 Monocytes/100 WBC (Bld) 9.9 % . [facility] Neutrophils Auto (Bld) [#/Vo l]Ordered By: August Lamas on 05-13-2022 Neutrophils (Bld) [#/Vol] 7.2 10*3/uL 1.8-7.7 [facility] Neutrophils/100 WBC Auto (Bl d)Ordered By: August Lamas on 05-13-2022 Neutrophils/100 WBC (Bld) 74.5 % . [facility] No Panel InformationOrdered By: August Lamas on 05-13-2022 Estimated GFR () > 60 mL/Min [facility] Comment on above: GFR estimated refere nce range: According to KDOQI guidelines, <60 ml/min/1.73m2 is sufficient to diagnose a patient with chronic kidney disease. Pharmacy Creatinine Clearance (Chem 73.97 [facility] Platelet mean volume Auto (B ld) [Entitic vol]Ordered By: August Lamas on 05-13-2022 Platelet mean volume (Bld) [Entitic vol] 9.5 fL 6.3-10.7 [facility] Platelets Auto (Bld) [#/Vol] Ordered By: August Lamas on 05-13-2022 Platelets (Bld) [#/Vol] 226 10*3/uL 150-450 [facility] RBC Auto (Bld) [#/Vol]Ordere d By: August Lamas on 05-13-2022 RBC (Bld) [#/Vol] 4.71 10*6/uL 3.60-5.00 [facility] Serum or plasma calcium vikki urement (mass/volume)Ordered By: August Lamas on 05-13-2022 Calcium [Mass/Vol] 8.9 mg/dL 8.2-10.2 [facility] Serum or plasma chloride mukesh surement (moles/volume)Ordered By: August Lamas on 05-13-2022 Chloride [Moles/Vol] 103 mmol/L 95-114 [facility] Serum or plasma glucose vikki urement (mass/volume)Ordered By: August Lamas on 05-13-2022 Glucose [Mass/Vol] 89 mg/dL 70-100 [facility] Comment on above: ADA recommended refe rence range Random Glucose Reference Range is dependent on time and content of last meal. Glucose of more than 200 mg/dL in a nonstressed, ambulatory subject supports the diagnosis of Diabetes Mellitus. Serum or plasma potassium me asurement (moles/volume)Ordered By: August Lamas on 05-13-2022 Potassium [Moles/Vol] 3.9 mmol/L 3.5-5.1 [facility] Serum or plasma sodium measu rement (moles/volume)Ordered By: August Lamas on 05-13-2022 Sodium [Moles/Vol] 135 mmol/L 136-146 [facility] Serum or plasma total carbon dioxide measurement (moles/volume)Ordered By: August Lamas on 05-13-2022 CO2 [Moles/Vol] 21.4 mmol/L 22.0-30.0 [facility] Serum or plasma urea nitroge n measurement (mass/volume)Ordered By: August Lamas on 05-13-2022 Urea nitrogen [Mass/Vol] 13 mg/dL 9-23 [facility] Cholesterol [Mass/volume] in Serum or PlasmaOrdered By: August Lamsa on 05-09-2022 Cholesterol [Mass/Vol] 110 mg/dL 140-200 [facility] Comment on above: Chol less than 200 m g/dl low risk Chol 201-239 mg/dl borderline risk Chol 240 mg/dl and greater high risk Cholesterol in LDL Calc [Mas s/Vol]Ordered By: August Lamas on 05-09-2022 Cholesterol in LDL [Mass/Vol] 75 mg/dL 0-100 [facility] Comment on above: LDL ATP III CLASSIFI CATION LDL less than 100 mg/dL Optimal LDL 100-129 mg/dL Near or above optimal LDL 130-159 mg/dL Borderline high LDL 160-189 mg/dL High LDL greater than 189 mg/dL Very high Cholesterol in VLDL Calc [Ma ss/Vol]Ordered By: August Lamas on 05-09-2022 Cholesterol in VLDL [Mass/Vol] 12 mg/dL [facility] Glucose mean value [Mass/vol ume] in Blood Estimated from glycated hemoglobinOrdered By: August Lamas on 05-09-2022 Average glucose Estimated from glycated hemoglobin (Bld) [Mass/Vol] 128 mg/dL [facility] Hemoglobin A1c percentageOrd ered By: August Lamas on 05-09-2022 HbA1c (Bld) [Mass fraction] 6.1 % 4.3-5.6 [facility] Comment on above: Increased risk for d iabetes: 5.7 - 6.4 diabetes: >6.4 glycemic control for adults with diabetes: <7.0 Serum or plasma high density lipoprotein (HDL) cholesterol measurementOrdered By: August Lamas on 05-09-2022 Cholesterol in HDL [Mass/Vol] 22 mg/dL 35-85 [facility] Comment on above: HDL CHOL ATP-III CLA SSIFICATION Cardiovascular Risk HDL > or equal to 60 mg/dL LOW HDL < 40 mg/dL HIGH Serum or plasma total choles terol/high density lipoprotein (HDL) cholesterol mass ratOrdered By: August Lamas on 05-09-2022 Cholesterol.total/Chol esterol in HDL [Mass ratio] 5.0 {ratio} <5.0 [facility] Triglyceride [Mass/volume] i n Serum or PlasmaOrdered By: August Lamas on 05-09-2022 Triglyceride [Mass/Vol] 64 mg/dL 35-149 [facility] Comment on above: TRIG ATP III [...] High sensitivity method [Mass/Vol] 19 pg/mL 0-15 [facility] Activated partial thrombopla stin time (aPTT) in platelet poor plasma by coagulation aOrdered By: August Lamas on 05-08-2022 aPTT Coag (PPP) [Time] 27.8 s 25.1-36.5 [facility] CBC AUTO DIFFon 05-08-2022 BASO # 0.1 103/ul Normal 0.0-0.1 [facility] Comment on above: Performed By: #### D IG #### [facility] [address] [address] [address] Lee Zaldivar Basophils/100 WBC (Bld) 1.1 % Normal 0.2-2.0 [facility] Comment on above: Performed By: #### D IG #### [facility] [address] [address] [address] Lee Zaldivar EO # 0.1 103/ul Normal 0.0-0.7 [facility] Comment on above: Performed By: #### D IG #### [facility] [address] [address] [address] Lee Zaldivar Eosinophils/100 WBC (Bld) 0.5 % Critically low 0.9-7.0 [facility] Comment on above: Performed By: #### D IG #### [facility] [address] [place] [address] Dr. Lee Zaldivar Erythrocyte distribution width (RBC) [Ratio] 14.5 % Normal 11.0-15.0 [facility] Comment on above: Performed By: #### D IG #### [facility] [address] [place] [address] Dr. Lee Zaldivar Hematocrit (Bld) [Volume fraction] 46.8 % Normal 36.0-48.0 [facility] Comment on above: Performed By: #### D IG #### [facility] [address] [place] [address] Dr. Lee Zaldivar Hemoglobin (Bld) [Mass/Vol] 15.3 g/dL Normal 12.0-16.0 [facility] Comment on above: Performed By: #### D IG #### [facility] [address] [address] [address] Lee Zaldivar IG # 0.05 10e3/ul Critically high 0.00-0.03 [facility] Comment on above: Performed By: #### D IG #### [facility] [address] [address] [address] Lee Zaldivar IG % 0.5 % Normal 0.0-0.5 [facility] Comment on above: Performed By: #### D IG #### [facility] [address] [place] [address] Dr. Lee Zaldivar LYMPH # 2.1 103/ul Normal 1.2-3.8 [facility] Comment on above: Performed By: #### D IG #### [facility] [address] [place] [address] Dr. Lee Zaldivar Lymphocytes/100 WBC (Bld) 19.6 % Critically low 20.5-60.0 [facility] Comment on above: Performed By: #### D IG #### [facility] [address] [place] [address] Dr. Lee Zaldivar MANUAL DIFF REQ NO Normal [facility] Comment on above: Performed By: #### D IG #### [facility] [address] [place] [address] Dr. Lee Zaldivar MCH (RBC) [Entitic mass] 31.4 pg Normal 26.7-34.0 [facility] Comment on above: Performed By: #### D IG #### [facility] [address] [place] [address] Dr. Lee Zaldivar MCHC (RBC) [Mass/Vol] 32.7 g/dL Normal 29.9-35.2 [facility] Comment on above: Performed By: #### D IG #### [facility] [address] [place] [address] Dr. Lee Zaldivar MCV (RBC) [Entitic vol] 96.1 fL Normal 81.0-99.0 [facility] Comment on above: Performed By: #### D IG #### [facility] [address] [place] [address] Dr. Lee Zaldivar MONO # 0.7 103/ul Normal 0.3-0.8 [facility] Comment on above: Performed By: #### D IG #### [facility] [address] [place] [address] Dr. Lee Zaldivar Monocytes/100 WBC (Bld) 6.8 % Normal 1.7-12.0 [facility] Comment on above: Performed By: #### D IG #### [facility] [address] [place] [address] Dr. Lee Zaldivar NEUT # 7.8 103/ul Critically high 1.4-6.5 [facility] Comment on above: Performed By: #### D IG #### [facility] [address] [address] [address] Lee Zaldivar Neutrophils/100 WBC (Bld) 71.5 % Normal 43.0-75.0 [facility] Comment on above: Performed By: #### D IG #### [facility] [address] [place] [address] Dr. Lee Zaldivar Platelet mean volume (Bld) [Entitic vol] 11.2 fL Normal 9.5-13.5 [facility] Comment on above: Performed By: #### D IG #### [facility] [address] [place] [address] Dr. Lee Zaldivar PLT 243 103/ul Normal 150-450 [facility] Comment on above: Performed By: #### D IG #### [facility] [address] [place] [address] Dr. Lee Zaldivar WBC 10.9 103/ul Normal 4.0-11.0 [facility] Comment on above: Performed By: #### D IG #### [facility] [address] [place] [address] Dr. Lee Zaldivar Covid-19 PCR ([facility])on 04-16 SARS-CoV-2 (COVID-19) RNA LAURITA+probe Ql (Unsp spec) Not detected Normal NOT DETECTED [facility] Comment on above: Result Comment: [...] for this test is supported by the [place] of Health and Human Service's declaration that [...] Performed By: #### P TT, PT #### [facility] [address] [address] [address] Lee Zaldivar Laboratory - Chemistry and C hemistry - challengeOrdered By: August Lamas on 05-08-2022 Natriuretic peptide B (Bld) [Mass/Vol] 390.0 pg/mL 5-100 [facility] - CoagulationOrde red By: August Lamas on 05-08-2022 PT Coag (PPP) [Time] 19.7 s 9.0-12.9 [facility] PROF CHEM 8 (BAS METB)on Anion gap [Moles/Vol] 18.0 mmol/L Normal [facility] Comment on above: Performed By: #### P TT, PT #### [facility] [address] [address] [address] Lee Zaldivar Calcium [Mass/Vol] 9.1 mg/dL Normal 8.5-10.1 [facility] Comment on above: Performed By: #### P TT, PT #### [facility] [address] [address] [address] Lee Zaldivar Chloride [Moles/Vol] 102 mmol/L Normal 98-107 [facility] Comment on above: Performed By: #### P TT, PT #### [facility] [address] [address] [address] Lee Zaldivar CO2 [Moles/Vol] 22.7 mmol/L Normal 21.0-32.0 [facility] Comment on above: Performed By: #### P TT, PT #### [facility] [address] [address] [address] Lee Zaldivar Creatinine [Mass/Vol] 1.19 mg/dL Critically high 0.55-1.02 [facility] Comment on above: Performed By: #### P TT, PT #### [facility] [address] [address] [address] Lee Zaldivar EGFR-AF [place] 55 mL/min/1.73m2 Critically low >=60 [facility] Comment on above: Performed By: #### P TT, PT #### [facility] [address] [address] [address] Lee Zaldivar EGFR-NON AF [place] 45 mL/min/1.73m2 Critically low >=60 [facility] Comment on above: Performed By: #### P TT, PT #### [facility] [address] [place] [address] Dr. Lee Zaldivar Glucose [Mass/Vol] 141 mg/dL Critically high 74-106 T [facility] Comment on above: Performed By: #### P TT, PT #### [facility] [address] [place] [address] Dr. Lee Zaldivar Potassium [Moles/Vol] 2.7 mmol/L Critically low 3.5-5.1 [facility] Comment on above: Result Comment: repe ated Performed By: #### P TT, PT #### [facility] [address] [place] [address] Dr. Lee Zaldivar Sodium [Moles/Vol] 140 mmol/L Normal 136-145 [facility] Comment on above: Performed By: #### P TT, PT #### [facility] [address] [place] [address] Dr. Lee Zaldivar Urea nitrogen [Mass/Vol] 18.0 mg/dL Normal 7.0-18.0 [facility] Comment on above: Performed By: #### P TT, PT #### [facility] [address] [place] [address] Dr. Lee Zaldivar Urea nitrogen/Creatinine [Mass ratio] 15.1 mg/mg Normal [facility] Comment on above: Performed By: #### P TT, PT #### [facility] [address] [place] [address] Dr. Lee Zaldivar PROTIMEon 05-08-2022 INR Coag (PPP) [Relative time] 1.48 {INR} Normal [facility] Comment on above: Performed By: #### P TT, PT #### [facility] [address] [place] [address] Dr. Lee Zaldivar INR GUIDELINES SEE BELOW Normal [facility] Comment on above: Result Comment: JHONNY RED INR: 2.0 - 3.0 CONDITIONS NOT LISTED BELOW 2.5 - 3.5 FOR PROSTHETIC HEART VALVE REPLACEMENT 2.5 - 3.5 RECURRENT THROMBOSIS Performed By: #### P TT, PT #### [facility] [address] [address] [address] Lee Zaldivar PT Coag (PPP) [Time] 15.6 s Critically high 9.0-11.6 [facility] Comment on above: Performed By: #### P TT, PT #### [facility] [address] [place] [address] Dr. Lee Zaldivar PTTon 05-08-2022 aPTT Coag (Bld) [Time] 27.9 s Normal 22.3-36.2 [facility] Comment on above: Performed By: #### P TT, PT #### [facility] [address] [place] [address] Dr. Lee Zaldivar Platelet poor plasma interna tional normalized ratio (INR) by coagulation assay (relatOrdered By: August Lamas on 05-08-2022 INR Coag (PPP) [Relative time] 1.7 {INR} [facility] Comment on above: INR Therapeutic Rang [...] 05-08-2022 HSTROP 509.9 pg/mL Critically high 4.0-51.3 [facility] Comment on above: Result Comment: CUT- OFF POINTS HAVE BEEN ESTABLISHED BASED ON THE FOURTH UNIVERSAL DEFINITIONS OF MYOCARDIAL INFARCTION. THE UPPER REFERENCE LIMIT (URL) OF TROPONIN, DEFINED THE 99TH PERCENTILE OF cTnI DISTRIBUTION IN A REFERENCE POPULATION, HAS BEEN CONFIRMED THE DECISION THRESHOLD FOR NC DIAGNOSIS. repeated Performed By: #### P TT, PT #### [facility] [address] [address] [address] Lee Zaldiavr HSTROP 521.8 pg/mL Critically high 4.0-51.3 [facility] Comment on above: Result Comment: CUT- OFF POINTS HAVE BEEN ESTABLISHED BASED ON THE FOURTH UNIVERSAL DEFINITIONS OF MYOCARDIAL INFARCTION. THE UPPER REFERENCE LIMIT (URL) OF TROPONIN, DEFINED THE 99TH PERCENTILE OF cTnI DISTRIBUTION IN A REFERENCE POPULATION, HAS BEEN CONFIRMED THE DECISION THRESHOLD FOR NC DIAGNOSIS. repeated Performed By: #### P TT, PT #### [facility] [address] [address] [address] Lee Zaldivar TSH DL <= 0.005 mIU/L QnOrde red By: August Lamas on 05-08-2022 TSH Qn 1.54 m[IU]/L 0.45-5.33 [facility] XR CHEST 1 Von 05-08-2022 XR [...] AUDIE GILLESPIE Date: 2022-05-08 12:53 Normal [facility] XR CHEST 2 Von 04-10-2022 [...] by: LAUREN ALCALA Date: 2022-04-10 14:26 Normal [facility] Vital Signs Date Time Vital Sign Value Performing Clinician Barb evans 02-22-2025 14:03-0400 Body height 162.6 cm Fluorofinder DO Work Phone: [facility] 02-22-2025 14:03-0400 Body mass index (BMI) [Ratio] 37.76 kg/m2 Fluorofinder DO Work Phone: [facility] 02-22-2025 14:03-0400 Body weight 99.79 kg Fluorofinder DO Work Phone: [facility] 02-15-2025 11:41-0400 Body height 162.56 cm PHYSICIAN NO [facility] 02-15-2025 11:41-0400 Body mass index (BMI) [Ratio] 37.5 kg/m2 PHYSICIAN NO [facility] 02-15-2025 11:41-0400 Body weight 99.33 kg PHYSICIAN NO [facility] 02-15-2025 11:41-0400 Diastolic blood pressure 84 mm[Hg] PHYSICIAN NO [facility] 02-15-2025 11:41-0400 Heart rate 62 /min PHYSICIAN NO [facility] 02-15-2025 11:41-0400 Respiratory rate 20 /min PHYSICIAN NO [facility] 02-15-2025 11:41-0400 SaO2% (BldA) [Mass fraction] 95 % PHYSICIAN NO [facility] 02-15-2025 11:41-0400 Systolic blood pressure 128 mm[Hg] PHYSICIAN NO [facility] 02-12-2025 13:51-0400 Body height 162.6 cm Shekhar Armando MD Work Phone: [facility] 02-12-2025 13:51-0400 Body mass index (BMI) [Ratio] 37.75 kg/m2 Shekhar Armando MD Work Phone: [facility] 02-12-2025 13:51-0400 Body temperature 97.3 [degF] Shekhar Armando MD Work Phone: [facility] 02-12-2025 13:51-0400 Body weight 99.8 kg Shekhar Armando MD Work Phone: [facility] 02-12-2025 13:51-0400 Diastolic blood pressure 90 mm[Hg] Shekhar Armando MD Work Phone: [facility] 02-12-2025 13:51-0400 Heart rate 104 /min Shekhar Armando MD Work Phone: [facility] 02-12-2025 13:51-0400 Respiratory rate 18 /min Shekhar Armando MD Work Phone: [facility] 02-12-2025 13:51-0400 SaO2% (BldA) [Mass fraction] 95 % Shekhar Armando MD Work Phone: [facility] 02-12-2025 13:51-0400 Systolic blood pressure 139 mm[Hg] Shekhar Armando MD Work Phone: [facility] 02-05-2025 12:25-0400 Diastolic blood pressure 82 mm[Hg] PHYSICIAN NO [facility] 02-05-2025 12:25-0400 Heart rate 65 /min PHYSICIAN NO [facility] 02-05-2025 12:25-0400 Respiratory rate 18 /min PHYSICIAN NO [facility] 02-05-2025 12:25-0400 SaO2% (BldA) [Mass fraction] 95 % PHYSICIAN NO [facility] 02-05-2025 12:25-0400 Systolic blood pressure 115 mm[Hg] PHYSICIAN NO [facility] 02-05-2025 09:11-0400 Body height 162.56 cm PHYSICIAN NO [facility] 02-05-2025 09:11-0400 Body weight 99.79 kg PHYSICIAN NO [facility] 01-26-2025 10:19-0400 Body mass index (BMI) [Ratio] 37.86 kg/m2 Shekhar Armando MD Work Phone: [facility] 01-26-2025 10:19-0400 Body temperature 98.2 [degF] Shekhar Armando MD Work Phone: [facility] 01-26-2025 10:19-0400 Body weight 100.1 kg Shekhar Armando MD Work Phone: [facility] 01-26-2025 10:19-0400 Diastolic blood pressure 73 mm[Hg] Shekhar Armando MD Work Phone: [facility] 01-26-2025 10:19-0400 Heart rate 62 /min Shekhar Armando MD Work Phone: [facility] 01-26-2025 10:19-0400 Respiratory rate 16 /min Shekhar Armando MD Work Phone: [facility] 01-26-2025 10:19-0400 SaO2% (BldA) [Mass fraction] 95 % Shekhar Armando MD Work Phone: [facility] 01-26-2025 10:19-0400 Systolic blood pressure 105 mm[Hg] Shekhar Armando MD Work Phone: [facility] 12-07-2024 12:57-0500 Body height 162.6 cm Shekhar Armando MD Work Phone: [facility] 12-07-2024 12:57-0500 Body mass index (BMI) [Ratio] 37.37 kg/m2 Shekhar Armando MD Work Phone: [facility] 12-07-2024 12:57-0500 Body temperature 97 [degF] Shekhar Armando MD Work Phone: [facility] 12-07-2024 12:57-0500 Body weight 98.8 kg Shekhar Armando MD Work Phone: [facility] 12-07-2024 12:57-0500 Diastolic blood pressure 75 mm[Hg] Shekhar Armando MD Work Phone: [facility] 12-07-2024 12:57-0500 Heart rate 64 /min Shekhar Armando MD Work Phone: [facility] 12-07-2024 12:57-0500 Respiratory rate 16 /min Shekhar Armando MD Work Phone: [facility] 12-07-2024 12:57-0500 SaO2% (BldA) [Mass fraction] 96 % Shekhar Armando MD Work Phone: [facility] 12-07-2024 12:57-0500 Systolic blood pressure 121 mm[Hg] Shekhar Armando MD Work Phone: [facility] 10-16-2024 13:03-0500 Body height 162.6 cm Shekhar Armando MD Work Phone: [facility] Comment on above: per patient 10-16-2024 13:03-0500 Body mass index (BMI) [Ratio] 37.5 kg/m2 Shekhar Armando MD Work Phone: [facility] 10-16-2024 13:03-0500 Body temperature 97.5 [degF] Shekhar Armando MD Work Phone: [facility] 10-16-2024 13:03-0500 Body weight 99.1 kg Shekhar Armando MD Work Phone: [facility] 10-16-2024 13:03-0500 Diastolic blood pressure 80 mm[Hg] Shekhar Armando MD Work Phone: [facility] 10-16-2024 13:03-0500 Heart rate 62 /min Shekhar Armando MD Work Phone: [facility] 10-16-2024 13:03-0500 Respiratory rate 18 /min Shekhar Armando MD Work Phone: [facility] 10-16-2024 13:03-0500 SaO2% (BldA) [Mass fraction] 99 % Shekhar Armando MD Work Phone: [facility] 10-16-2024 13:03-0500 Systolic blood pressure 126 mm[Hg] Shekhar Armando MD Work Phone: [facility] 09-28-2024 12:43-0500 Body height 162.6 cm Ese Sawant MD Work Phone: [facility] 09-28-2024 12:43-0500 Body mass index (BMI) [Ratio] 37.25 kg/m2 Ese Sawant MD Work Phone: [facility] 09-28-2024 12:43-0500 Body weight 98.43 kg Ese Sawant MD Work Phone: [facility] 09-28-2024 12:43-0500 Diastolic blood pressure 82 mm[Hg] Ese Sawant MD Work Phone: [facility] 09-28-2024 12:43-0500 Heart rate 64 /min Ese Sawant MD Work Phone: [facility] 09-28-2024 12:43-0500 Systolic blood pressure 110 mm[Hg] Ese Sawant MD Work Phone: [facility] 09-27-2024 13:05-0500 Body temperature 98.2 [degF] PHYSICIAN NO [facility] 09-27-2024 13:05-0500 Diastolic blood pressure 80 mm[Hg] PHYSICIAN NO [facility] 09-27-2024 13:05-0500 Heart rate 73 /min PHYSICIAN NO [facility] 09-27-2024 13:05-0500 Respiratory rate 20 /min PHYSICIAN NO [facility] 09-27-2024 13:05-0500 SaO2% (BldA) [Mass fraction] 99 % PHYSICIAN NO [facility] 09-27-2024 13:05-0500 Systolic blood pressure 123 mm[Hg] PHYSICIAN NO [facility] 09-20-2024 13:49-0500 Body height 162.6 cm Mac Itzkowitz DO Work Phone: [facility] 09-20-2024 13:49-0500 Body mass index (BMI) [Ratio] 37.08 kg/m2 Mac Itzkowitz DO Work Phone: [facility] 09-20-2024 13:49-0500 Body weight 97.98 kg Mac Itzkowitz DO Work Phone: [facility] 09-20-2024 13:49-0500 Diastolic blood pressure 85 mm[Hg] Mac Itzkowitz DO Work Phone: [facility] 09-20-2024 13:49-0500 Systolic blood pressure 125 mm[Hg] Mac Itzkowitz DO Work Phone: [facility] 09-05-2024 14:04-0400 Body height 162.56 cm PHYSICIAN NO [facility] 09-05-2024 14:04-0400 Body mass index (BMI) [Ratio] 36.6 kg/m2 PHYSICIAN NO [facility] 09-05-2024 14:04-0400 Body temperature 97.1 [degF] PHYSICIAN NO [facility] 09-05-2024 14:04-0400 Body weight 96.61 kg PHYSICIAN NO [facility] 09-05-2024 14:04-0400 Diastolic blood pressure 77 mm[Hg] PHYSICIAN NO [facility] 09-05-2024 14:04-0400 Heart rate 73 /min PHYSICIAN NO [facility] 09-05-2024 14:04-0400 Respiratory rate 20 /min PHYSICIAN NO [facility] 09-05-2024 14:04-0400 SaO2% (BldA) [Mass fraction] 97 % PHYSICIAN NO [facility] 09-05-2024 14:04-0400 Systolic blood pressure 121 mm[Hg] PHYSICIAN NO [facility] 11-30-2023 13:57-0500 Diastolic blood pressure 83 mm[Hg] MD Carolee Estrada Work Phone: [facility] 11-30-2023 13:57-0500 Heart rate 105 /min MD Carolee Estrada Work Phone: [facility] 11-30-2023 13:57-0500 Respiratory rate 18 /min MD Carolee Estrada Work Phone: [facility] 11-30-2023 13:57-0500 SaO2% (BldA) [Mass fraction] 96 % MD Carolee Estrada Work Phone: [facility] 11-30-2023 13:57-0500 Systolic blood pressure 107 mm[Hg] MD Carolee Estrada Work Phone: [facility] 11-30-2023 12:31-0500 Body height 162.56 cm MD Carolee Estrada Work Phone: [facility] 11-30-2023 12:31-0500 Body weight 90.71 kg MD Carolee Estrada Work Phone: [facility] 11-23-2023 14:30-0500 Body height 162.56 cm Kathy Ross Other [employer] Other 11-23-2023 14:30-0500 Body mass index (BMI) [Ratio] 35.7 kg/m2 Kathy Ross Other [employer] Other 11-23-2023 14:30-0500 Body temperature 96.7 [degF] Kathy Quinnno Other [employer] Other 11-23-2023 14:30-0500 Body weight 94.35 kg Kathy Snowdano Other [employer] Other 11-23-2023 14:30-0500 Diastolic blood pressure 84 mm[Hg] Jacer Vandana Other [employer] Other 11-23-2023 14:30-0500 Respiratory rate 20 /min Kathy Snowdano Other [employer] Other 11-23-2023 14:30-0500 SaO2% (BldA) [Mass fraction] 96 % Kathy Snowdano Other [employer] Other 11-23-2023 14:30-0500 Systolic blood pressure 118 mm[Hg] Kathy Snowdano Other [employer] Other 11-11-2023 14:15-0500 Body height 162.56 cm Clinton Pierce Other [employer] Other 11-11-2023 14:15-0500 Body mass index (BMI) [Ratio] 32.44 kg/m2 Clinton Pierce Other [employer] Other 11-11-2023 14:15-0500 Body weight 85.73 kg Clinton Pierce Other [employer] Other 11-11-2023 14:15-0500 Diastolic blood pressure 81 mm[Hg] Clinton Pierce Other [employer] Other 11-11-2023 14:15-0500 Systolic blood pressure 128 mm[Hg] Clinton Pierce Other [employer] [facility] [employer] Other 09-15-2023 15:16-0400 Body height 162.6 cm Arsalan Conley MD Work Phone: [facility] 09-15-2023 15:16-0400 Body mass index (BMI) [Ratio] 35.7 kg/m2 Arsalan Conley MD Work Phone: [facility] 09-15-2023 15:16-0400 Body weight 94.35 kg Arsalan Conley MD Work Phone: [facility] 09-15-2023 15:16-0400 Diastolic blood pressure 78 mm[Hg] Arsalan Conley MD Work Phone: [facility] 09-15-2023 15:16-0400 Heart rate 64 /min Arsalan Conley MD Work Phone: [facility] 09-15-2023 15:16-0400 Systolic blood pressure 116 mm[Hg] Arsalan Conley MD Work Phone: [facility] 07-14-2023 11:53-0400 Body height 162.56 cm Carolee Estrada Work Phone: [facility] Work Phone: 07-14-2023 11:53-0400 Body mass index (BMI) [Ratio] 34.16 kg/m2 Carolee Estrada Work Phone: AA[facility]Yiezgthagf-Txgyx [facility] Work Phone: 07-14-2023 11:53-0400 Body surface area Derived from formula 1.95 m2 Carolee Estrada Work Phone: WB[facility]Wumdqtqonc-Rrosk [facility] Work Phone: 07-14-2023 11:53-0400 Body weight 90.27 kg Carolee Estrada Work Phone: WR-Fpyttmrdge-Ujufy [facility] Work Phone: 07-14-2023 11:53-0400 Diastolic blood pressure 81 mm[Hg] Carolee Estrada Work Phone: JS-Ozazymxqcv-Avcbg [facility] Work Phone: 07-14-2023 11:53-0400 Heart rate 69 /min Carolee Estrada Work Phone: II-Xbjusjwxgj-Xprbq [facility] Work Phone: 07-14-2023 11:53-0400 SaO2% (BldA) [Mass fraction] 99 % Carolee Estrada Work Phone: RR-Xnenndsgwm-Zipew [facility] Work Phone: 07-14-2023 11:53-0400 Systolic blood pressure 118 mm[Hg] Carolee Estrada Work Phone: BI-Jxwqemxmgl-Fbnhp [facility] Work Phone: 04-13-2023 08:41-0400 Body height 162.56 cm Carolee Estrada Work Phone: EH-Hemgmauuzf-MQO [facility] [address] [place] Work Phone: 04-13-2023 08:41-0400 Body mass index (BMI) [Ratio] 33.99 kg/m2 Carolee Estrada Work Phone: RM-Rqqjwomvdw-DAH [facility] [address] [place] Work Phone: 04-13-2023 08:41-0400 Body surface area Derived from formula 1.95 m2 Carolee Agosto Sean Work Phone: FT-Sdzwlqtrax-JZE [facility] [address] [place] Work Phone: 04-13-2023 08:41-0400 Body weight 89.81 kg Carolee Agosto Sean Work Phone: BL-Tzdwbviyxk-MMK [facility] [address] [place] Work Phone: 04-13-2023 08:41-0400 Diastolic blood pressure 87 mm[Hg] Carolee Agosto Sean Work Phone: RZ-Penbveweyj-RRV [facility] [address] [place] Work Phone: 04-13-2023 08:41-0400 Heart rate 60 /min Carolee Agosto Sean Work Phone: DT-Cdcsoygyyx-IPN [facility] [address] [place] Work Phone: 04-13-2023 08:41-0400 SaO2% (BldA) [Mass fraction] 95 % Carolee Triny Estrada Work Phone: W[facility]-Ytuhqbljzo-[facility] [address] [place] Work Phone: 04-13-2023 08:41-0400 Systolic blood pressure 143 mm[Hg] Carolee Agosto Sean Work Phone: VO-Lvigdgguze-BCQ [facility] [address] [place] Work Phone: 04-13-2023 08:41-0400 0 1 Carolee Estrada Work Phone: DB-Ieujixdozq-XEP [facility] [address] [place] Work Phone: Comment on above: [employer] 02-19-2023 11:23-0400 Body height 162.56 cm Carolee Agosto Estrada Work Phone: [facility] [address] [place] Work Phone: 02-19-2023 11:23-0400 Body mass index (BMI) [Ratio] 32.44 kg/m2 Carolee Agosto Sean Work Phone: [facility] [address] [place] Work Phone: 02-19-2023 11:23-0400 Body surface area Derived from formula 1.91 m2 Carolee Abelight Work Phone: [facility] [address] DO Work Phone: 02-19-2023 11:23-0400 Body weight 85.73 kg Carolee Estrada Work Phone: [facility] [address] [place] Work Phone: 02-19-2023 11:23-0400 Diastolic blood pressure 76 mm[Hg] Carolee Estrada Work Phone: [facility] [address] [place] Work Phone: 02-19-2023 11:23-0400 Heart rate 51 /min Carolee Estrada Work Phone: [facility] [employer] [address] [place] Work Phone: 02-19-2023 11:23-0400 Systolic blood pressure 118 mm[Hg] Carolee Estrada Work Phone: [facility] [employer] [address] DO Work Phone: 02-16-2023 11:00-0400 Body height 162.56 cm Kathy Ross Other [employer] Other 02-16-2023 11:00-0400 Body mass index (BMI) [Ratio] 32.09 kg/m2 Kathy Ross Other [employer] Other 02-16-2023 11:00-0400 Body temperature 96.4 [degF] Kathy Quinnno Other [employer] Other 02-16-2023 11:00-0400 Body weight 84.82 kg Kathy Quinnno Other [employer] Other 02-16-2023 11:00-0400 Diastolic blood pressure 80 mm[Hg] Kathy Quinnno Other [employer] Other 02-16-2023 11:00-0400 Respiratory rate 20 /min Kathy Quinnno Other [employer] Other 02-16-2023 11:00-0400 SaO2% (BldA) [Mass fraction] 95 % Kathy Ross Other [employer] Other 02-16-2023 11:00-0400 Systolic blood pressure 122 mm[Hg] Kathy Ross Other [employer] Other 12-15-2022 10:56-0500 Body height 162.56 cm Carolee Estrada Work Phone: VZ-Gbzzghnhjx-Upzko [facility] Work Phone: 12-15-2022 10:56-0500 Body mass index (BMI) [Ratio] 30.4 kg/m2 Carolee Estrada Work Phone: LW-Ckrvciouko-Xmred [facility] Work Phone: 12-15-2022 10:56-0500 Body surface area Derived from formula 1.86 m2 Carolee Estrada Work Phone: NZ-Solzxnguaa-Vslpy [facility] Work Phone: 12-15-2022 10:56-0500 Body weight 80.35 kg Carolee Estrada Work Phone: PR-Qubkxnmppy-Ewdqj EP [facility] Work Phone: 12-15-2022 10:56-0500 Diastolic blood pressure 79 mm[Hg] Carolee Estrada Work Phone: HI-Fawrgeqefw-Jmtou [facility] Work Phone: 12-15-2022 10:56-0500 Heart rate 53 /min Carolee Estrada Work Phone: OP-Gwirjffcrb-Yhyvt [facility] Work Phone: 12-15-2022 10:56-0500 SaO2% (BldA) [Mass fraction] 94 % Carolee Estrada Work Phone: GO-Bwtbuekqok-Jrdhg EP [facility] Work Phone: 12-15-2022 10:56-0500 Systolic blood pressure 124 mm[Hg] Carolee Estrada Work Phone: VH-Ezsatvkhkm-Uwdof EP [facility] Work Phone: 12-15-2022 10:56-0500 0 1 Carolee Estrada Work Phone: QW-Jbizkkidvi-Lpbox EP [facility] Work Phone: Comment on above: [employer] 11-18-2022 13:09-0500 Body height 162.56 cm Carolee Estrada Work Phone: [facility] 250 DO Work Phone: 11-18-2022 13:09-0500 Body mass index (BMI) [Ratio] 31.76 kg/m2 Carolee Estrada Work Phone: [facility] 250 DO Work Phone: 11-18-2022 13:09-0500 Body surface area Derived from formula 1.89 m2 Carolee Estrada Work Phone: [facility] 250 DO Work Phone: 11-18-2022 13:09-0500 Body weight 83.92 kg Carolee Estrada Work Phone: [facility] 250 DO Work Phone: 11-18-2022 13:09-0500 Diastolic blood pressure 72 mm[Hg] Carolee Estrada Work Phone: [facility] 250 DO Work Phone: 11-18-2022 13:09-0500 Heart rate 44 /min Carolee Estrada Work Phone: [facility] 250 DO Work Phone: 11-18-2022 13:09-0500 Systolic blood pressure 120 mm[Hg] Carolee Estrada Work Phone: [facility] 250 DO Work Phone: 11-18-2022 13:09-0500 11 1 Carolee Estrada Work Phone: [facility] 250 DO Work Phone: Comment on above: PHQ-9 TS 11-12-2022 10:45-0500 55 1 Carolee Estrada Work Phone: [facility] 250 DO Work Phone: Comment on above: [id number] 10-21-2022 10:06-0500 Body height 162.56 cm Carolee Triny Sean Work Phone: [facility] 250 DO Work Phone: 10-21-2022 10:06-0500 Body mass index (BMI) [Ratio] 31.07 kg/m2 Carolee Estrada Work Phone: [facility] 250 DO Work Phone: 10-21-2022 10:06-0500 Body surface area Derived from formula 1.87 m2 Carolee Estrada Work Phone: [facility] 250 DO Work Phone: 10-21-2022 10:06-0500 Body weight 82.1 kg Carolee Agosto Sean Work Phone: [facility] 250 DO Work Phone: 10-21-2022 10:06-0500 Diastolic blood pressure 72 mm[Hg] Carolee Agosto Sean Work Phone: [facility] 250 DO Work Phone: 10-21-2022 10:06-0500 Heart rate 56 /min Carolee Agosto Sean Work Phone: [facility] 250 DO Work Phone: 10-21-2022 10:06-0500 Systolic blood pressure 124 mm[Hg] Carolee Estrada Work Phone: [facility] 250 DO Work Phone: 08-11-2022 14:24-0400 Body height 162.56 cm Carolee Estrada Work Phone: [facility] 250 DO Work Phone: 08-11-2022 14:24-0400 Body mass index (BMI) [Ratio] 31.76 kg/m2 Carolee Abelight Work Phone: [facility] 250 DO Work Phone: 08-11-2022 14:24-0400 Body surface area Derived from formula 1.89 m2 Carolee Estrada Work Phone: [facility] 250 DO Work Phone: 08-11-2022 14:24-0400 Body weight 83.92 kg Carolee Estrada Work Phone: [facility] 250 DO Work Phone: 08-11-2022 14:24-0400 Diastolic blood pressure 84 mm[Hg] Carolee Estrada Work Phone: [facility] 250 DO Work Phone: 08-11-2022 14:24-0400 Heart rate 94 /min Carolee Estrada Work Phone: [facility] 250 DO Work Phone: 08-11-2022 14:24-0400 Systolic blood pressure 100 mm[Hg] Carolee Estrada Work Phone: [facility] 250 DO Work Phone: 07-27-2022 17:46-0400 Body height 162.56 cm MD Carolee Estrada Work Phone: [facility] 07-27-2022 17:46-0400 Body weight 87.99 kg MD Carolee Estrada Work Phone: [facility] 07-06-2022 15:49-0400 Body height 162.56 cm Carolee Estrada Work Phone: [facility] 250 DO Work Phone: 07-06-2022 15:49-0400 Body mass index (BMI) [Ratio] 33.3 kg/m2 Carolee Abelight Work Phone: [facility] 250 DO Work Phone: 07-06-2022 15:49-0400 Body surface area Derived from formula 1.93 m2 Carolee Estrada Work Phone: [facility] 250 DO Work Phone: 07-06-2022 15:49-0400 Body weight 88 kg Carolee Estrada Work Phone: [facility] 250 DO Work Phone: 07-06-2022 15:49-0400 Diastolic blood pressure 68 mm[Hg] Carolee Estrada Work Phone: [facility] 250 DO Work Phone: 07-06-2022 15:49-0400 Heart rate 102 /min Carolee Estrada Work Phone: [facility] 250 DO Work Phone: 07-06-2022 15:49-0400 Systolic blood pressure 98 mm[Hg] Carolee Estrada Work Phone: [facility] 250 DO Work Phone: 06-24-2022 09:39-0400 Heart rate 111 /min MD Carolee Estrada Work Phone: [facility] 06-17-2022 15:13-0400 Body height 162.56 cm Carolee Estrada Work Phone: [facility] 250 DO Work Phone: 06-17-2022 15:13-0400 Body mass index (BMI) [Ratio] 25.58 kg/m2 Carolee Estrada Work Phone: [facility] 250 DO Work Phone: 06-17-2022 15:13-0400 Body surface area Derived from formula 1.73 m2 Carolee Estrada Work Phone: [facility] 250 DO Work Phone: 06-17-2022 15:13-0400 Body weight 67.59 kg Carolee Estrada Work Phone: [facility] 250 DO Work Phone: 06-17-2022 15:13-0400 Diastolic blood pressure 64 mm[Hg] Carolee Estrada Work Phone: [facility] 250 DO Work Phone: 06-17-2022 15:13-0400 Heart rate 116 /min Carolee Estrada Work Phone: [facility] 250 DO Work Phone: 06-17-2022 15:13-0400 Systolic blood pressure 102 mm[Hg] Carolee Estrada Work Phone: [facility] 250 DO Work Phone: 05-13-2022 11:31-0400 Body temperature 98 [degF] MD Carolee Estrada Work Phone: [facility] 05-13-2022 11:31-0400 Diastolic blood pressure 72 mm[Hg] MD Carolee Estrada Work Phone: [facility] 05-13-2022 11:31-0400 Heart rate 88 /min MD Carolee Estrada Work Phone: [facility] 05-13-2022 11:31-0400 Respiratory rate 18 /min MD Carolee Estrada Work Phone: [facility] 05-13-2022 11:31-0400 SaO2% (BldA) [Mass fraction] 95 % MD Carolee Estrada Work Phone: [facility] 05-13-2022 11:31-0400 Systolic blood pressure 104 mm[Hg] MD Carolee Estrada Work Phone: [facility] 05-13-2022 04:53-0400 Body weight 102.5 kg MD Carolee Estrada Work Phone: [facility] 05-12-2022 14:00-0400 Inhaled oxygen flow rate 2 L/min MD Carolee Estrada Work Phone: [facility] 05-11-2022 14:56-0400 Body height 162.56 cm MD Carolee Estrada Work Phone: [facility] 05-08-2022 18:00-0400 Body mass index (BMI) [Ratio] 37.8 kg/m2 MD Carolee Estrada Work Phone: [facility] Encounters Encounter Date Encounter Type Care Provider Facility Start: 02-22-2025 End: 02-22-2025 ambulatory MAC RHODES Not Available Start: 02-22-2025 End: 02-22-2025 Office outpatient visit 40 minutes Mac Rhodes DO Work Phone: [facility] Comment on above: Malignant neoplasm o f female breast (CMS/HCC) Start: 02-21-2025 End: 02-21-2025 Telephone encounter Shekhar Armando MD Work Phone: [facility] Start: 02-15-2025 End: 02-15-2025 ambulatory PHYSICIAN NO [facility] Work Phone: Start: 02-15-2025 End: 02-15-2025 Patient encounter procedure PHYSICIAN NO [facility] Pulmonary Work Phone: Start: 02-13-2025 End: 02-13-2025 Telephone encounter Pierre Hall mattress specialist/Oncology Comment on above: Lung bx order Medication request f or MRI Start: 02-12-2025 End: 02-12-2025 Telephone encounter Shekhar Armando MD Work Phone: [facility] Comment on above: 2nd opinion Start: 02-12-2025 End: 02-12-2025 ambulatory SHEKHAR ARMANDO Facility:[facility] Start: 02-12-2025 End: 02-12-2025 Office outpatient visit 25 minutes Shekhar Armando MD Work Phone: Hematology/Oncology Comment on above: Lung nodules (Primar y Dx); Malignant neoplasm of upper-outer quadrant of left breast in female, estrogen receptor positive (HCC); Malignant 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 (HCC) Start: 02-05-2025 End: 02-05-2025 Admission to same day surgery center PHYSICIAN [facility]-CT Scan [place] Work Phone: Start: 02-05-2025 End: 02-05-2025 ambulatory PHYSICIAN [facility] Work Phone: Start: 01-26-2025 End: 01-26-2025 ambulatory SHEKHAR ARMANDO Facility:[facility] Start: 01-26-2025 End: 01-26-2025 Office outpatient visit 15 minutes Shekhar Armando MD Work Phone: Hematology/Oncology Comment on above: Lung nodules (Primar y Dx); Malignant neoplasm of upper-outer quadrant of left breast in female, estrogen receptor positive (HCC) Start: 01-25-2025 End: 01-25-2025 ambulatory SHEKHAR ARMANDO Facility:[facility] Start: 01-25-2025 End: 01-25-2025 Subsequent hospital visit by physician Arrival Time Radiology Work Phone: Radiology [facility] Comment on above: Lung nodules [R91.8] Start: 01-04-2025 End: 01-08-2025 Telephone encounter Paige Nash RN Hematology/Oncology Comment on above: Orders Start: 12-12-2024 End: 12-12-2024 Social Work Letitia Chaves BIOINFORMATICIAN Hematology/Oncology Start: 12-07-2024 End: 12-07-2024 ambulatory SHEKHAR ARMANDO Facility:[facility] Start: 12-07-2024 End: 12-07-2024 Office outpatient visit 15 minutes Shekhar Armando MD Work Phone: Hematology/Oncology Comment on above: Lung nodules (Primar y Dx) Start: 10-20-2024 End: 10-20-2024 Telephone encounter Chester Tan MD Work Phone: [facility] Comment on above: Future Appointment Start: 10-17-2024 End: 11-09-2024 Telephone encounter Mac Rhodes DO Work Phone: [facility] Start: 10-16-2024 End: 10-16-2024 ambulatory KATHY ROSS Facility:[facility] Start: 10-16-2024 End: 10-16-2024 Office outpatient new 60 minutes Shekhar Armando MD Work Phone: Hematology/Oncology Comment on above: Lung nodules (Primar y Dx); Malignant neoplasm of upper-outer quadrant of left breast in female, estrogen receptor positive (HCC) Start: 10-11-2024 End: 10-11-2024 Chart abstracting Shekhar Armando MD Work Phone: Hematology/Oncology Start: 10-05-2024 End: 10-05-2024 Office outpatient visit 40 minutes Mac Rhodes DO Work Phone: [facility] Comment on above: Malignant neoplasm o f lower-outer quadrant of left breast of female, estrogen receptor positive (CMS/HCC) (Primary Dx) Start: 10-05-2024 End: 10-05-2024 ambulatory MAC RHODES Not Available Start: 09-28-2024 End: 09-28-2024 Office outpatient visit 25 minutes Ese Sawant MD Work Phone: [facility] Comment on above: Establishing care wi th new doctor, encounter for (Primary Dx); Paroxysmal atrial fibrillation (Multi); Nonischemic cardiomyopathy (Multi); Essential hypertension; Mixed hyperlipidemia; Body mass index (BMI) of 37.0 to 37.9 in adult; Cigarette smoker; 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 Start: 09-28-2024 End: 09-28-2024 ambulatory [facility] Start: 09-27-2024 End: 09-27-2024 Admission to same day surgery center PHYSICIAN NO [facility] Ctr-Ultrasound Cntr for Breast Car Start: 09-27-2024 End: 09-27-2024 ambulatory PHYSICIAN NO [facility] Work Phone: Start: 09-26-2024 End: 09-26-2024 Patient encounter procedure PHYSICIAN NO [facility] Ctr-Center for Breast Care Work Phone: Start: 09-26-2024 End: 09-26-2024 ambulatory PHYSICIAN [facility] Work Phone: Start: 09-25-2024 End: 09-25-2024 Patient encounter procedure PHYSICIAN NO [facility] Ctr-Pet Scan Work Phone: Start: 09-25-2024 End: 09-25-2024 ambulatory PHYSICIAN NO [facility] Work Phone: Start: 09-20-2024 End: 09-20-2024 Office outpatient new 60 minutes Mac Rhodes DO Work Phone: [facility] Comment on above: Mass of lower outer quadrant of left breast Start: 09-20-2024 End: 09-20-2024 ambulatory MAC RHODES Not Available Start: 09-05-2024 End: 09-05-2024 Patient encounter procedure PHYSICIAN NO [facility] Work Phone: Start: 08-22-2024 End: 08-22-2024 Patient encounter procedure PHYSICIAN NO [facility] Ctr-CT Scan [facility] [place] Work Phone: Start: 08-22-2024 End: 08-22-2024 ambulatory PHYSICIAN SALOME WALL [facility] Work Phone: Start: 02-22-2024 End: 02-22-2024 Patient encounter procedure MD Carolee Estrada Work Phone: [facility]-CT [address] Work Phone: Start: 02-22-2024 End: 02-22-2024 ambulatory MD Carolee Estrada Work Phone: [facility] Work Phone: Start: 12-01-2023 End: 12-01-2023 ambulatory Clinton Pierce Other [employer] Other Start: 12-01-2023 Telephone encounter Clinton Pierce [facility] Start: 11-30-2023 End: 11-30-2023 Admission to same day surgery center MD Carolee Estrada Work Phone: [facility]-Digestive [facility] Work Phone: Start: 11-30-2023 End: 11-30-2023 ambulatory MD Carolee Estrada Work Phone: [facility] Work Phone: Start: 11-23-2023 End: 11-23-2023 ambulatory Kathy Ross Other [employer] Other Start: 11-23-2023 Office outpatient vi sit 25 minutes Christopher Vandana [facility] Start: 11-11-2023 End: 11-11-2023 ambulatory Clinton Pierce Other [employer] Other Start: 11-11-2023 Patient encounter procedure Clinton Pierce [facility] Start: 10-22-2023 End: 10-22-2023 ambulatory MD Carolee Estrada Work Phone: [facility] Work Phone: Start: 10-22-2023 End: 10-22-2023 Patient encounter procedure MD Carolee Estrada Work Phone: [facility]-CT Scan [facility] [place] Work Phone: Start: 09-15-2023 End: 09-15-2023 Office outpatient visit 25 minutes Arsalan Conley MD Work Phone: [facility] Comment on above: Paroxysmal atrial fi brillation (CMS/HCC) (Primary Dx); Nonischemic cardiomyopathy (CMS/HCC); Mixed hyperlipidemia; Essential hypertension; Melena Start: 07-14-2023 Office outpatient vi sit 25 minutes Carolee Estrada Work Phone: [facility]Dduktkhvbq-Xjymh [facility] Work Phone: Start: 07-14-[address] Carolee Estrada Facility:[facility] Start: 04-13-2023 ambulatory Gilbert Hernandez Facility:[facility] Start: 04-13-2023 Office outpatient vi sit 25 minutes Carolee Estrada Work Phone: [facility]Me[facility]mlvgnlm[facility] [address] [place] Work Phone: Start: 03-02-2023 Rx Renewal Carolee Estrada Work Phone: [facility] 250 DO Work Phone: Start: 02-19-2023 ambulatory Ms. Janene Berry Facility: Start: 02-19-2023 Office outpatient vi sit 25 minutes Carolee Estrada Work Phone: [facility] 250 DO Work Phone: Start: 02-16-2023 End: 02-16-2023 ambulatory Kathy Ross Other [employer] Other Start: 02-16-2023 Office outpatient vi sit 25 minutes Kathy Ross [facility] Start: 01-30-2023 ambulatory Facility:[facility] Start: 01-18-2023 End: 01-19-[address] CARMINE NAILS Facility: Start: 01-14-2023 AUDIT Carolee Estrada Work Phone: [facility]-Srqxbwohzk-Uegykb Work Phone: Start: 01-12-2023 Chart Update Carolee Estrada Work Phone: KD-Bidfpamwoa-Wbgjefshh Work Phone: Start: 01-08-2023 End: 01-08-2023 ambulatory Gilbert Thal Facility:[facility] Start: 01-06-2023 Chart Update Carolee Estrada Work Phone: HA-Tjstrezcip-Scmfouzkn Work Phone: Start: 12-15-2022 Office outpatient ne w 45 minutes Carolee Estrada Work Phone: [facility]-Yckrckcdcd-[facility] EP [facility] Work Phone: Start: 12-15-2022 ambulatory Gilbert Thal Facility:[facility] Start: 11-18-2022 Office outpatient vi sit 25 minutes Carolee Estrada Work Phone: [facility] 600 DO Work Phone: Start: 11-18-2022 Patient encounter procedure Carolee Estrada Work Phone: [facility] 250 DO Work Phone: Start: 11-18-2022 ambulatory Ms. Janene Chchase Berry Facility:[id number] Start: 11-12-2022 Chart Update Carolee Estrada Work Phone: [facility] 250 DO Work Phone: Start: 11-12-2022 ambulatory Ms. JANENE CHChase BERRY Facility:[id number] Start: 10-30-2022 End: 10-31-[address] TANK Junior Facility:[facility] Start: 10-30-2022 End: 10-30-2022 ambulatory MD Carolee Estrada Work Phone: [facility] Work Phone: Start: 10-30-2022 End: 10-30-2022 Patient encounter procedure MD Carolee Estrada Work Phone: [facility]-CT [address] Start: 10-21-2022 Office outpatient vi sit 25 minutes Carolee Estrada Work Phone: [facility] 250 DO Work Phone: Start: 10-21-2022 Patient encounter procedure Carolee Estrada Work Phone: [facility] 250 DO Work Phone: Start: 10-21-2022 ambulatory Ms. Janene Berry Facility: Start: 10-12-2022 End: 10-13-[address] CARMINE NAILS Facility:[facility] Start: 09-30-2022 ambulatory Arsalan Martíneznellpardeep Kaufman y:[id number] Start: 09-30-2022 End: 09-30-2022 Admission to same day surgery center MD Carolee Estrada Work Phone: [facility]-Electrodiagnostics Start: 09-30-2022 End: 09-30-2022 ambulatory MD Carolee Estrada Work Phone: [facility] Work Phone: Start: 09-11-2022 End: 09-11-2022 ambulatory MD Carloee Estrada Work Phone: [facility] Work Phone: Start: 09-11-2022 End: 09-11-2022 Patient encounter procedure MD Carolee Estrada Work Phone: [facility] Bwh-Gvh-Qgxlmrtu Testing Start: 09-02-2022 End: 09-02-2022 ambulatory MD Carolee Estrada Work Phone: [facility] Work Phone: Start: 09-02-2022 End: 09-02-2022 Patient encounter procedure MD Carolee Estrada Work Phone: [facility]-Lab [address] Start: 08-12-2022 Telephone encounter Carolee E Knig ht Work Phone: [facility] 600 DO Work Phone: Start: 08-11-2022 ambulatory Arsalan Kaufman y: Start: 08-11-2022 Patient encounter procedure Carolee Estrada Work Phone: [facility] 250 DO Work Phone: Start: 07-29-2022 Chart Update Carolee Estrada Work Phone: [facility] 250 DO Work Phone: Start: 07-28-2022 ambulatory Arsalna Kaufman y:[id number] Start: 07-28-2022 End: 07-28-2022 Admission to same day surgery center MD Carolee Estrada Work Phone: [facility]-Electrodiagnostics Start: 07-28-2022 ambulatory Arsalan Carlinpardeep Shae y:[id number] Start: 07-24-2022 Chart Update Carolee Estrada Work Phone: [facility] 250 DO Work Phone: Start: 07-24-2022 End: 07-24-2022 Patient encounter procedure MD Carolee Estrada Work Phone: [facility] Blq-Fcn-Ekrbdhfg Testing Start: 07-22-2022 End: 07-23-2022 ambulatory JANENE STONE Facility: Start: 07-06-2022 ambulatory Ms. Janene Betts Teto Berry Facility: Start: 07-06-2022 Office outpatient vi sit 25 minutes Carolee Estrada Work Phone: [facility] 250 DO Work Phone: Start: 07-06-2022 Patient encounter procedure Carolee Estrada Work Phone: [facility] 250 DO Work Phone: Start: 07-01-2022 FUV, Provider: Janene García, Status: Pen, Time: 12:30 PM Carolee Estrada Work Phone: [facility] 250 DO Work Phone: Start: 06-29-2022 AUDIT Carolee Estrada Work Phone: [facility] 250 DO Work Phone: Start: 06-24-2022 Chart Update Carolee Estrada Work Phone: [facility] 250 DO Work Phone: Start: 06-24-2022 ambulatory Arsalan Kaufman y:[id number] Start: 06-24-2022 [facility], Provider: Arsalan Conley, Status: Pen, Time: 10:00 AM Carolee Estrada Work Phone: [facility] 250 DO Work Phone: Start: 06-24-2022 End: 06-24-2022 Admission to same day surgery center MD Carolee Estrada Work Phone: [facility]-Electrodiagnostics Start: 06-22-2022 Chart Update Carolee Estrada Work Phone: [facility] 250 DO Work Phone: Start: 06-22-2022 End: 06-22-2022 Patient encounter procedure MD Carolee Estrada Work Phone: [facility] Bil-Sfk-Mfviifgr Testing Start: 06-17-2022 Office outpatient vi sit 25 minutes Carolee Estrada Work Phone: [facility] 250 DO Work Phone: Start: 06-17-2022 ambulatory Arsalan Kaufman y:[id number] Start: 05-20-2022 End: 05-21-[address] CAROLEE ESTRADA . Facility: Start: 05-13-2022 ambulatory Arsalan Kaufman y:[id number] Start: 05-12-2022 ambulatory Arsalan Conley Facilit y:[id number] Start: 05-11-2022 ambulatory Arsalan Kaufman y:[id number] Start: 05-10-2022 ambulatory Arsalan Carlinpardeep Facilit y:[id number] Start: 05-09-2022 ambulatory Arsalan Carlinpardeep Facilit y:[id number] Start: 05-08-2022 ambulatory Gilbert Thal Facility:[id number] Start: 05-08-2022 End: 05-13-2022 Evaluation and management of inpatient MD Carolee Estrada Work Phone: [facility] [place] [facility] Start: 05-08-2022 End: 05-08-[address] CAROLEE ESTRADA . Facility:[facility] Start: 04-27-2022 End: 04-27-2022 Patient encounter procedure MD Carolee Estrada Work Phone: [facility] [address] Start: 04-10-2022 End: 04-11-[address] CARMINE NAILS Facility:[facility] Imaging result normal Carolee Bradley ht Work Phone: [facility] 250 DO Work Phone: Patient encounter status Carolee Estrada Work Phone: [facility] 600 DO Work Phone: Procedures Date Procedure Procedure Detail Performing Clinician Start: 02-05-2025 Needle biopsy PHYSICIAN NO FAMILY Start: 01-25-2025 Ct thorax w/contrast material Shekhar ryder MD Work Phone: Start: 01-25-2025 CREATININE BLD Shekhar Armando MD Work Phone: Start: 09-27-2024 Core needle biopsy of breast using ultrasound guidance PHYSICIAN NO FAMILY Start: 09-26-2024 Ultrasonography of left breast PHYSICIAN NO FAMILY Start: 09-26-2024 End: 09-27-2024 Mammography PHYSICIAN NO FAMILY Start: 09-25-2024 Positron emission tomography with computed tomography PHYSICIAN NO FAMILY Start: 08-22-2024 CT of chest without contrast PHYSICIAN N O FAMILY Start: 02-22-2024 CT of chest without contrast MD Carolee Bradley ht Work Phone: Start: 11-30-2023 Esophagogastroduodenoscopy MD Carolee Estrada Work Phone: Start: 10-22-2023 CT of chest without contrast MD Carolee Bradley ht Work Phone: Start: 11-12-2022 Echocardiography Carolee Estrada Work Phone: Start: 10-30-2022 CT of chest without contrast MD Carolee Bradley ht Work Phone: Start: 04-27-2022 CT of chest without contrast MD Carolee Bradley ht Work Phone: Catheter ablation of arrhythmogenic focus Carolee Estrada Work Phone: Hysterectomy Carolee Estrada Work Phone: Ligation of varicose vein Petros Estrada Work Phone: Removal of ectopic fetus Carolee Estrada Work Phone: SARS Antigen (LFIA) MD Carolee Morton night Work Phone: SARS Antigen (LFIA) MD Carolee Morton night Work Phone: SARS Antigen (LFIA) MD Carolee Morton night Work Phone: Tonsillectomy and adenoidectomy Carolee Estrada Work Phone: Plan of Treatment Date Care Activity Detail Author Start: 2030 RSV Vaccine (1 - 1-d ose 75+ series) RSV Vaccine (1 - 1-dose 75+ series) [facility] Start: 10-16-2027 Diabetes Screening Diabetes Screenin g [facility] Start: 01-05-2026 Diabetes Screening Diabetes Screenin g [facility] Start: 10-01-2025 End: 10-01-2025 Patient encounter procedure 10/01/2025 11:45 AM EST Office Visit [facility] [address] [facility] [address] [place] [address] Ese Sawant MD [address] [place], [place] [id number] [facility] Start: 09-26-2025 Screening for malign ant neoplasm of [facility] Start: 09-17-2025 End: 09-28-2025 CBC panel - Blood by Automated count CBC Lab Routine Essential hypertension Expected: 09/17/2025 (Approximate), Expires: 09/28/2025 [facility] Service Area Work Phone: Comment on above: Expected: 09/17/2025 (Approximate), Expires: 09/28/2025 Start: 09-17-2025 End: 09-28-2025 Comprehensive metabolic 2000 panel - Serum or Plasma Comprehensive Metabolic Panel Lab Routine Essential hypertension Expected: 09/17/2025 (Approximate), Expires: 09/28/2025 [facility] Work Phone: Comment on above: Expected: 09/17/2025 (Approximate), Expires: 09/28/2025 Start: 09-17-2025 End: 09-28-2025 Lipid 1996 panel - Serum or Plasma Lipid Panel Lab Routine Mixed hyperlipidemia Expected: 09/17/2025 (Approximate), Expires: 09/28/2025 [facility] Work Phone: Comment on above: Expected: 09/17/2025 (Approximate), Expires: 09/28/2025 Start: 07-16-2025 Influenza vaccination Influenz a Vaccine (Season Ended) [facility] Start: 03-08-2025 End: 03-08-2025 Follow-up encounter 03/08/2025 2:00 PM EDT Visit (SP) Office Hematology/Oncology [address] [place] [address] [place] [address] Shekhar Armando MD [address] [place] [address] 3 week follow up after Pet scan, MRI of brain, and lung bx results Hematology/Oncology Comment on above: 3 week follow up aft er Pet scan, MRI of brain, and lung bx results Start: 02-27-2025 End: 02-27-2025 Patient encounter procedure 02/27/2025 12:00 PM EDT Appointment Radiology Pet CT [address] [place] [address] Comment on above: Pet scan Start: 02-26-2025 End: 03-14-2026 Guidance for biopsy of Lung IMAGING GUIDED BIOPSY LUNG Radiology Routine Lung nodules Malignant neoplasm of upper-outer quadrant of left breast in female, estrogen receptor positive (HCC) Malignant 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 (HCC) Expected: 02/26/2025 (Approximate), Expires: 03/14/2026 [facility] Comment on above: Expected: 02/26/2025 (Approximate), Expires: 03/14/2026 Start: 02-26-2025 End: 03-14-2026 MR Brain WO and W contrast IV MRI BRAIN WO/W IVCON Radiology Routine Lung nodules Malignant 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 (HCC) Expected: 02/26/2025, Expires: 03/14/2026 [facility] Comment on above: Expected: 02/26/2025 , Expires: 03/14/2026 Start: 02-26-2025 End: 03-14-2026 PET+CT Guidance for localization of tumor of Skull base to mid-thigh-- W [id number] IV NM PET/CT SKULL-THIGH INITIAL Radiology Routine Lung nodules Malignant 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 (HCC) Expected: 02/26/2025, Expires: 03/14/2026 [facility] Comment on above: Expected: 02/26/2025 , Expires: 03/14/2026 Start: 02-15-2025 Patient referral [facility] Work Phone: Start: 02-12-2025 End: 02-12-2025 Follow-up encounter 02/12/2025 1:00 PM EDT Visit (SP) Office Hematology/Oncology [address] [place] [address] [place] [address] Shekhar Armando MD [address] [place] [address] [place] [address] Follow up after [place] [facility] [place] will call back with date & time. Hematology/Oncology Comment on above: Follow up after Imag e guided[place] [facility] [place] resched[place] will call back with date & time. Start: 02-05-2025 [facility] Start: 01-31-2025 End: 01-31-2025 Follow-up encounter 01/31/2025 9:30 AM EDT Visit (SP) Office Hematology/Oncology [address] [place] [address] Shekhar Armando MD [address] [facility] [place] [address] Follow up after Image [place] [facility] [place] will call back with date & time. Hematology/Oncology Comment on above: Follow up after Imag e guidedlung b[place] [facility] [place] resched[place] will call back with date & time. Start: 01-31-2025 End: 01-31-2025 Patient encounter procedure 01/31/2025 9:15 AM EDT Office Visit [facility] [address] [place] [address] Follow up after Image guidedlung bx [place] [facility] resched[place] will call back with date & time. [facility] Comment on above: Follow up after Imag e guidedlung bx [place] [facility] rescheduling will call back with date & time. Start: 01-26-2025 End: 01-26-2025 ambulatory 01/26/2025 10:00 AM EDT Visit (SP) Office Hematology/Oncology [address] [place] [address] Shekhar Armando MD [address] [place] [address] CT results Hematology/Oncology Comment on above: CT results Start: 01-25-2025 End: 04-26-2025 CREATININE BLD CREATININE BLD Lab Routine Lung nodule Expected: 01/25/2025, Expires: 04/26/2025 [facility] Work Phone: Comment on above: Expected: 01/25/2025 , Expires: 04/26/2025 Start: 01-25-2025 End: 01-25-2025 Patient encounter procedure 01/25/2025 10:45 AM EDT Appointment Radiology Pet CT [address] [place] [address] CT Chest W IV CON Radiology Pet CT Comment on above: CT Chest W IV CON Start: 01-16-2025 End: 01-16-2025 Patient encounter procedure 01/16/2025 1:20 PM EST Office Visit [facility] [address] [place] [id number] [place] [address] [place] [address] [facility] Start: 01-11-2025 End: 01-11-2025 Patient encounter procedure 01/11/2025 12:45 PM EST Appointment Radiology Pet CT [address] [place] [address] CT Chest W IV CON Radiology Pet CT Comment on above: CT Chest W IV CON Start: 01-04-2025 End: 01-06-2026 CT Chest W contrast IV CT CHEST W IVCON Radiology Routine Lung nodules Expected: 01/04/2025 (Approximate), Expires: 01/06/2026 [facility] Work Phone: Comment on above: Expected: 01/04/2025 (Approximate), Expires: 01/06/2026 Start: 11-15-2024 Advance Directive Discussion Advance Directive Discussion [facility] Start: 10-23-2024 End: 11-15-2025 Guidance for biopsy of Lung IMAGING GUIDED BIOPSY LUNG Radiology Routine Lung nodules Malignant neoplasm of upper-outer quadrant of left breast in female, estrogen receptor positive (HCC) Expected: 10/23/2024 (Approximate), Expires: 11/15/2025 [facility] Work Phone: Comment on above: Expected: 10/23/2024 (Approximate), Expires: 11/15/2025 Start: 10-19-2024 End: 10-19-2024 Patient encounter procedure 10/19/2024 1:30 PM EST Office Visit [facility] [address] [place] [id number] Mac Rhodes DO [address] [facility] [address] [place] [address] [facility] Start: 10-16-2024 End: 01-15-2025 Cancer Ag 15-3 [Units/volume] in Serum or Plasma [facility] Comment on above: Expected: 10/16/2024 , Expires: 01/15/2025 Start: 10-16-2024 End: 01-15-2025 Cancer Ag 27-29 [Units/volume] in Serum or Plasma [facility] Comment on above: Expected: 10/16/2024 , Expires: 01/15/2025 Start: 10-16-2024 End: 01-15-2025 Carcinoembryonic Ag [Mass/volume] in Serum or Plasma [facility] Comment on above: Expected: 10/16/2024 , Expires: 01/15/2025 Start: 10-16-2024 End: 10-16-2024 Patient encounter procedure 10/16/2024 1:00 PM EST Visit (SP) Office Hematology/Oncology [address] [place] [address] [place] [address] Shekhar Armando MD [address] [place] [address] [place] [address] Referral, Dr. Ross, Shivani [facility] [place] Hematology/Oncology Comment on above: Referral, Dr. Kai mccrary, Dx [facility] [place] Start: 10-05-2024 End: 10-05-2024 Patient encounter procedure 10/05/2024 1:45 PM EST Office Visit [facility] [address] [facility] [address] [place] [address] Mac Rhodes, DO [address] [facility] [address] [place] [address] [facility] [address] [facility] Start: 09-15-2024 End: 09-15-2024 Patient encounter procedure 09/15/2024 1:30 PM EDT Office Visit [facility] [address] [facility] [address] [place] [address] Arsalan Conley MD [address] [facility] [address] [place] [address] [facility] Start: 07-16-2024 Covid-19 Vaccine ( season) Covid-19 Vaccine ( season) [facility] Start: 07-16-2024 COVID-19 Vaccine () COVID-19 Vaccine ( season) [facility] Start: 07-16-2024 Influenza vaccination Influenza Vacc ine (#1) [facility] Start: 01-10-2024 FUV, Provider: Gilbert Hernandez, Status: Pen, Time: 10:20 AM FUV, Provider: Gilbert Hernandez, Status: Pen, Time: 10:20 AM [facility]ic[facility] Work Phone: Start: 01-10-2024 End: 01-10-2024 Patient encounter procedure 01/10/2024 10:20 AM EST Office Visit [facility] [address] [place] [address] [place] [address] [place], [place] [id number] [facility] Start: 11-30-2023 [facility] Start: 11-15-2023 Advance Directive Discussion Advance Directive Discussion [facility] Start: 09-15-2023 FUV, Provider: Arsalan Conley, Status: Pen, Time: 2:50 PM FUV, Provider: Arsalan Conley, Status: Pen, Time: 2:50 PM [facility] 250 DO Work Phone: Start: 07-16-2023 Influenza vaccination Influenza Vacc ine (#1) [facility] Start: 07-14-2023 FUV, Provider: Gilbert Hernandez, Status: Pen, Time: 11:40 AM FUV, Provider: Gilbert Hernandez, Status: Pen, Time: 11:40 AM NP-Fbaxrtzjet-SOF Dale [address] [place] Work Phone: Start: 04-13-2023 FUVHOSP, Provider: Gilbert Hernandez, Status: Pen, Time: 8:20 AM FUVHOSP, Provider: Gilbert Hernadnez, Status: Pen, Time: 8:20 AM DX-Abvibspnoc-Xrtde gilbert Work Phone: Start: 02-15-2023 FUV, Provider: Janene García, Status: Pen, Time: 11:30 AM FUV, Provider: Janene García, Status: Pen, Time: 11:30 AM -[facility] 250 DO Work Phone: Start: 12-15-2022 NPV, Provider: Gilbert Hernandez, Status: Pen, Time: 11:20 AM NPV, Provider: Gilbert Hernandez, Status: Pen, Time: 11:20 AM [facility] 250 DO Work Phone: Start: 11-18-2022 FUV, Provider: Janene García, Status: Pen, Time: 1:00 PM FUV, Provider: Janene García, Status: Pen, Time: 1:00 PM [facility] 250 DO Work Phone: Start: 11-12-2022 ECHO, Provider: HAILE COOL [facility] ULTRASOUND 01,[id number], Status: Pen, Time: 10:45 AM ECHO, Provider: [place] [facility] ULTRASOUND 01,[id number], Status: Pen, Time: 10:45 AM [facility] 250 DO Work Phone: Start: 09-30-2022 [facility] Start: 09-28-2022 FUV, Provider: Arsalan Conley, Status: Pen, Time: 11:10 AM FUV, Provider: Arsalan Conley, Status: Pen, Time: 11:10 AM -[facility] 250 DO Work Phone: Start: 11-01-2022 SURGNONUH, Provider: Arsalan Conley, Status: Pen, Time: 1:00 PM SURGNONUH, Provider: Arsalan Conley, Status: Pen, Time: 1:00 PM -[facility] 600 DO Work Phone: Start: 08-11-2022 EKG, Provider: CLIFTON AGUILAR [employer] WEIGHER 1,[id number], Status: Pen, Time: 1:00 PM EKG, Provider: CLIFTON AGUILAR [employer] WEIGHER 1,[id number], Status: Pen, Time: 1:00 PM [facility] 250 DO Work Phone: Start: 07-28-2022 SURGNONUH, Provider: Arsalan Conley, Status: Pen, Time: 2:00 PM SURGNONUH, Provider: Arsalan Conley, Status: Pen, Time: 2:00 PM [facility] 250 DO Work Phone: Start: 07-28-2022 End: 07-28-2022 [facility] Start: 07-01-2022 FUV, Provider: Janene García, Status: Pen, Time: 12:30 PM FUV, Provider: Janene García, Status: Pen, Time: 12:30 PM [facility] 250 DO Work Phone: Start: 06-24-2022 SURGNON, Provider: Arsalan Conley, Status: Pen, Time: 10:00 AM SURGNONUH, Provider: Arsalan Conley, Status: Pen, Time: 10:00 AM [facility] 250 DO Work Phone: Start: 06-24-2022 [facility] Start: 05-13-2022 [facility] Work Phone: Start: 05-12-2022 Hospital admission [facility] Work Phone: Start: 05-08-2022 Hospital admission [facility] Work Phone: Start: 05-08-2022 Fluoroscopy of Left Heart using Low Osmolar Contrast Fluoroscopy of Left Heart using Low Osmolar Contrast [facility] Start: 05-08-2022 Fluoroscopy of Multi ple Coronary Arteries using Low Osmolar Contrast Fluoroscopy of Multiple Coronary Arteries using Low Osmolar Contrast [facility] Start: 05-08-2022 Measurement of Cardi ac Sampling and Pressure, Left Heart, Percutaneous Approach Measurement of Cardiac Sampling and Pressure, Left Heart, Percutaneous Approach [facility] Start: 11-19-2021 COVID-19 Vaccine (4 - Pfizer risk series) COVID-19 Vaccine (4 - Pfizer risk series) [facility] Start: 09-13-2021 Pneumococcal Vaccine : 65+ Years (2 of 2 - PPSV23 or PCV20) Pneumococcal Vaccine: 65+ Years (2 of 2 - PPSV23 or PCV20) [facility] Start: 11-08-2020 Pneumococcal Vaccine : 65+ Years (2 - PPSV23 or PCV20) Pneumococcal Vaccine: 65+ Years (2 - PPSV23 or PCV20) [facility] Start: 11-08-2020 Pneumococcal Vaccine : 65+ Years (2 of 2 - PPSV23 or PCV20) Pneumococcal Vaccine: 65+ Years (2 of 2 - PPSV23 or PCV20) [facility] Start: 2020 Pneumococcal Vaccine : 65+ (1 of 1 - PCV) Pneumococcal Vaccine: 65+ (1 of 1 - PCV) [facility] Start: 2020 Screening for osteoporosis Bone Dens ity Screening [facility] Start: 2015 RSV High Risk: (Elde rly (60+) or Population) (1 - Risk 60-74 years 1-dose series) RSV High Risk: (Elderly (60+) or Population) (1 - Risk 60-74 years 1-dose series) [facility] Start: 2015 RSV Vaccine (1 - Ris k 60-74 years 1-dose series) RSV Vaccine (1 - Risk 60-74 years 1-dose series) [facility] Start: 2005 Shingrix Vaccine (1 of 2) Pugh grix Vaccine (1 of 2) [facility] Start: 2000 Lipid panel Lipid Screening [facility] Start: 2000 Screening for malign ant neoplasm of colon [facility] Start: 1995 Screening for malign ant neoplasm of breast Mammogram [facility] Start: 1977 DTaP/Tdap/Td Vaccine s (1 - Tdap) DTaP/Tdap/Td Vaccines (1 - Tdap) [facility] Start: 1974 Pneumococcal Vaccine : 50+ (1 of 2 - PCV) Pneumococcal Vaccine: 50+ (1 of 2 - PCV) [facility] Start: 1974 Shingrix Vaccine (1 of 2) Pugh grix Vaccine (1 of 2) [facility] Start: 1974 Urine microalbumin profile DTa P,Tdap,Td Vaccine (1 - Tdap) [facility] Start: 1973 Anxiety Screening Anxiety Screening [facility] Start: 1973 Depression Screening Depression Scre ening [facility] Start: 1973 Diabetes mellitus screening Diabetes Screening [facility] Start: 1973 Hepatitis C screening Hepatitis C Sc [facility] Start: 1966 Screening for malign ant neoplasm of cervix Cervical Cancer Screening [facility] Start: 1961 Pneumococcal Vaccine : 65+ (1 of 2 - PCV) Pneumococcal Vaccine: 65+ (1 of 2 - PCV) [facility] Start: 1960 Covid-19 Vaccine (#1) Covid-19 Vacci ne (#1) [facility] Start: 1955 Lipid panel Lipid Panel [facility] Start: 1955 Medicare Annual Well ness Visit Medicare Annual Wellness Visit (AWV) [facility] Start: 1955 Screening for malign ant neoplasm of colon [facility] Start: 1955 Screening for osteoporosis Bone Dens ity Scan [facility] MG Breast - bilatera l Diagnostic [facility] OUTSIDE SURG PATH SL SHANE REVIEW OUTSIDE SURG PATH SLIDE REVIEW Lab Routine Ordered: 02/08/2025 [facility] Work Phone: Comment on above: Ordered: 02/08/2025 Patient Education [facility] Work Phone: Patient referral [facility] Work Phone: Immunizations Immunization Date Immunization Notes Care Provider Ramona mcclain 12-08-2023 influenza virus vaccine, unspecified formulation Mac Rhodes DO Work Phone: [facility] 09-24-2021 Pfizer-BioNTech COVID-19 Vacc 30 MCG/0.3ML Intramuscular Suspension Carolee Agosto Estrada Work Phone: [facility] 03-17-2021 Pfizer-BioNTech COVID-19 Vacc 30 MCG/0.3ML Intramuscular Suspension Carolee Agosto Estrada Work Phone: [facility] 02-25-2021 Pfizer-BioNTech COVID-19 Vacc 30 MCG/0.3ML Intramuscular Suspension Carolee Agosto Estrada Work Phone: [facility] 12-24-2020 zoster vaccine recombinant Carolee Agosto Estrada Work Phone: [place] [address] DO Work Phone: 10-17-2020 zoster vaccine recombinant Carolee Agosto Estrada Work Phone: [place] [address] DO Work Phone: 09-13-2020 pneumococcal conjuga te vaccine, 13 valent Carolee Agosto Estrada Work Phone: [place] [address] DO Work Phone: 09-13-2020 Seasonal trivalent influenza vaccine, adjuvanted, preservative free Carolee Agosto Estrada Work Phone: [place] [address] DO Work Phone: 09-13-2020 influenza virus vaccine, unspecified formulation Arsalan Conley MD Work Phone: [facility] Work Phone: 08-15-2019 influenza, injectabl e, quadrivalent, contains preservative Carolee Agosto Estrada Work Phone: [place] [address] DO Work Phone: 08-15-2019 pneumococcal conjuga te vaccine, 13 valent Carolee Estrada Work Phone: [place] [address] DO Work Phone: 10-21-2018 influenza, injectabl e, quadrivalent, preservative free Carolee Estrada Work Phone: -[facility] 250 DO Work Phone: Payers Date Payer Category Payer Self-pay [id number] 2023 Medicare [id number] 2023 Medicare (Managed Care) 1.2. [id number] 2023 Private Health Insurance [id number] 1959 Medicare [id number] 1959 Medicare [id number] 1959 Private Health Insurance [id number] 1955 Unknown [id number] 2.16.840.1.060604.3.579.2.1068 1955 Unknown [id number] 2.16.840.1.188625.3.579.2.593 1955 Unknown [id number] 2.16.840.1.792196.3.579.2.593 1955 Unknown [id number] 2.16.840.1.217155.3.579.2.593 1955 Unknown [id number] 2.16.840.1.310909.3.579.2.593 1955 Unknown [id number] 2.16.840.1.313390.3.579.2.593 1955 Unknown [id number] 2.16.840.1.241322.3.579.2.593 1955 Unknown [id number] 2.16.840.1.936055.3.579.2.593 1955 Unknown [id number] 2.16.840.1.013616.3.579.2.593 1955 Unknown [id number] 2.16.840.1.145059.3.579.2.356 1955 Unknown [id number] 2.16.840.1.860766.3.579.2.356 1955 Unknown [id number] 2.16.840.1.513030.3.579.2.356 1955 Unknown [id number] 2.840.1.629155.3.579.2. 1955 Unknown [id number] 2.840.1.393110.3.579.2. 1955 Unknown [id number] 2.840.1.009461.3.579.2. 1955 Unknown [id number] 2.840.1.581750.3.579.2. 1955 Unknown [id number] 2.840.1.921482.3.579.2. 1955 Unknown [id number] 2.840.1.606517.3.579.2. 1955 Unknown [id number] 2.840.1.237198.3.579.2.356 1955 Unknown [id number] 2.840.1.078005.3.579.2. 1955 Unknown [id number] 2.840.1.968444.3.579.2. 1955 Unknown [id number] 2.840.1.567702.3.579.2. 1955 Unknown [id number] 2.16840.1.818087.3.579.2. 1955 Unknown [id number] 2.16.840.1.740354.3.579.2.356 1955 Unknown [id number] 2.16.840.1.515148.3.579.2.356 1955 Unknown [id number] 2.16.840.1.550945.3.579.2.356 1955 Unknown [id number] 2.16.840.1.645636.3.579.2.356 1955 Unknown [id number] 2.16.840.1.028161.3.579.2.356 1955 Unknown [id number] 2.16.840.1.596769.3.579.2.356 1955 Unknown [id number] 2..840.1.591484.3.579.2.1244 1955 Unknown [id number] 2..840.1.450517.3.579.2.1259 1955 Unknown [id number] 2.16.840.1.490524.3.579.2.1259 1955 Unknown [id number] 2.16.840.1.334249.3.579.2.1259 Medicare Medicare [id number] Unknown Unknown [place] / [id number] Unknown [id number] 2.16.840.1.947456.3.579.2.531 Unknown [id number] 2.16.840.1.335978.3.579.2.531 Unknown [id number] 2.16.840.1.478575.3.579.2.531 Unknown [id number] 2.16.840.1.913625.3.579.2.531 Unknown [id number] 2.16.840.1.419454.3.579.2.531 Unknown [id number] 2.16.840.1.826762.3.579.2.531 Social History Date Type Detail Facility Start: 09-15-2023 End: 02-22-2025 Social alcohol use Social alcohol use [facility] Comment on above: 12 PPD; Start: 11-15-1974 End: 02-15-2025 Tobacco smoking status NHIS Smoker (finding) [facility] Start: 1955 Sex Assigned At Female F [facility] Start: 09-15-2023 End: 02-22-2025 Sex Assigned At [facility] Start: 09-15-2023 End: 10-16-2024 Tobacco smoking status NHIS Smokes tobacco daily [facility] Work Phone: Start: 11-15-1974 History of tobacco use Cigarette Smo ker [facility] Work Phone: Start: 09-15-2023 End: 09-20-2024 Tobacco use and exposure Smokeless tobacco non-user [facility] Work Phone: Start: 09-15-2023 End: 02-22-2025 Alcohol intake Current drinker of alcohol (finding) [facility] Work Phone: Start: 09-15-2023 Alcohol Comment occassionally [facility] Work Phone: Start: 1955 [facility] Work Phone: Start: 09-05-2023 End: 09-28-2024 Exposure to SARS-CoV-2 (event) Not sure [facility] Start: 09-20-2024 Tobacco smoking stat us NHIS Ex-smoker [facility] Start: 09-26-2024 End: 09-29-2024 Sex Patient sex unknown (finding) [facility] Start: 10-16-2024 Alcoholic beverage intake Ex-drinker (finding) [facility] National Score (1-100), lower number is lower risk 64 [facility] Start: 10-16-2024 Gender identity Identifies as female gender (finding) [facility] Start: 10-16-2024 Sexual orientation Heterosexual (shaquille swartz) [facility] Start: 02-05-2025 End: 02-15-2025 Sex Female (finding) [facility] Goals Date Patient Goal Desired Activity /State Functional Status Date Assessment Result Facility 05-13-2022 Functional status Patient at Baseline [facility] Work Phone: Mental Status Date Assessment Result Facility 05-13-2022 Cognitive function Cognitive Sta tus Patient at Baseline [facility] Work Phone: Clinical Notes 06-17-2022 to 02-22-2025 Mac Rhodes DO - 02/22/2025 2:00 PM EDTTelephone Encounter - HeTena guzman - 02/21/2025 1:20 PM EDTTelephone Encounter - HeTena guzman - 02/21/2025 1:20 PM EDTPatient Instructions Note Date & Type Note Facility 02-22-2025 History of Presen t illness Narrative Images from the original note were not included. Tawanda Stevens 1955 Tawanda Stevens is a 69 y.o. female presents with chief complaint of New breast cancer HPI: HPI Tawanda is a 69 y/o female that had a CT of the chest which shows suspicious lung nodules and a Left breast mass. 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 At that time she declined genetic testing and was supposed to schedule a lumpectomy but delayed that pending biopsy of her lung nodule. SUBJECTIVE: MEDICATIONS: ALLERGIES Current Outpatient Medications Medication Instructions atorvastatin (LIPITOR) 20 mg, Nightly b complex-folic acid tablet 1 tablet, Daily RT canagliflozin (Invokana) 100 MG Daily Eliquis 5 mg, 2 times daily folic acid (FOLVITE) 1,000 mcg, Daily Humira, 2 Pen, 40 MG/0.4ML Auto-injector Kit hydroxychloroquine (Plaquenil) 200 MG tablet Twice daily methotrexate 2.5 MG tablet every week metoprolol succinate XL (Toprol-XL) 200 MG 24 hr tablet Daily spironolactone (ALDACTONE) 25 mg, Daily RT No Known Allergies PAST MEDICAL HISTORY: SOCIAL HISTORY SURGICAL HISTORY: Past Medical History: Diagnosis Date Acute on chronic systolic CHF (congestive heart failure), NYHA class 4 (CMS/HCC) resolved Anxiety Atrial fibrillation with RVR (CMS/HCC) resolved Breast nodule Cardiomyopathy (CMS/HCC) resolved Depression (CMS/HCC) Emphysema lung (CMS/HCC) Gastritis Heart disease History of cardiac radiofrequency ablation Hyperlipidemia (CMS/HCC) Lung nodule Measles RA (rheumatoid arthritis) (CMS/HCC) Tonsillitis Tuberculosis Social History Tobacco Use Smoking status: Former Current packs/day: 1.00 Average packs/day: 1 pack/day for 50.3 years (50.3 ttl pk-yrs) Types: Cigarettes Start date: 1974 Smokeless tobacco: Never Substance Use Topics Alcohol use: Yes Alcohol/week: 2.0 standard drinks of alcohol Types: 2 Glasses of wine per week Drug use: Never Past Surgical History: Procedure Laterality Date BI US GUIDED BREAST LOCALIZATION AND BIOPSY LEFT Left 10/06/2024 BI US GUIDED BREAST LOCALIZATION AND BIOPSY LEFT COLONOSCOPY 2016 ECTOPIC SURGERY 1993 HYSTERECTOMY 2004 TONSILECTOMY, ADENOIDECTOMY, BILATERAL MYRINGOTOMY AND TUBES 1973 ULTRASOUND : DOPPLER : VEINS LEG HUY. Right FAMILY HISTORY Family History Problem Relation Name Age of Onset Aneurysm Mother Heart attack Father Thyroid disease Brother Colon cancer Neg Hx Breast cancer Neg Hx Ovarian cancer Neg Hx Pancreatic cancer Neg Hx REVIEW OF SYMPTOMS: Review of Systems Constitutional: Negative for diaphoresis and unexpected weight change. HENT: Negative for hearing loss, tinnitus and voice change. Breasts: Positive for breast mass (Lt Breast). Respiratory: Negative for shortness of breath. Cardiovascular: Negative for chest pain and palpitations. Musculoskeletal: Positive for arthralgias. Neurological: Negative for dizziness, seizures and headaches. Psychiatric/Behavioral: Depression and anxiety All other systems reviewed and are negative. Hematological: Negative for adenopathy. Does not bruise/bleed easily. OBJECTIVE: Visit Vitals Smoking Status Former Physical Exam Exam conducted with a classroom paraprofessional present. HENT: Head: Normocephalic. Cardiovascular: Rate and Rhythm: Normal rate and regular rhythm. Pulmonary: Effort: Pulmonary effort is normal. Breath sounds: Normal breath sounds. Chest: Comments: Bilateral supraclavicular, infraclavicular, bicipital and axillary lymph nodes were found to be normal. Each breast was examined in the sitting and supine position, there was no evidence of masses, dimpling or discharge in the right breast. In the left breast at the 4;30-5:00 position about 5 cm lateral to the NAC is a firm 1 cm smooth non fixed mass Abdominal: General: Abdomen is flat. Bowel sounds are normal. Palpations: Abdomen is soft. Skin: General: Skin is warm and dry. Neurological: Mental Status: She is alert. ASSESSMENT AND PLAN: Assessment/Plan Problem List Items Addressed This Visit None Tawanda underwent a repeat chest CT for a lung nodule that was being observed and was found to have a left breast mass. She has not had a mammogram since 2020. On exam she has a palpable mass at the 4-5:00 position in the left breast. The right lung was biopsied and was proven to be cancer. She has a nodule on the left side that is now supposed to be biopsied but that has not been scheduled yet. 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 She declined Genetic testing as she has no children and it wont change her plan for breast surgery. I discussed the surgical options to include a Left mastectomy with immediate or delayed reconstruction vs a lumpectomy with possible addition of radiation therapy. We reviewed the risks and benefits of both procedures. I explained that if the lumpectomy procedure were chosen and the final pathology of the specimen revealed positive margins or multifocal cancer, additional surgical procedures and possibly a complete mastectomy would be required. I explained that I will john the lumpectomy cavity with marking clips or a radiopaque suture. Based on the prognostic indicators she meets the criteria for the Sound Trial and I will not do any LN evaluation. I spoke with her Oncologist at the [facility] Dr. Armando, and he was fine with not evaluating the LN's. The patient was informed that after surgical treatments is completed she will be referred to Hem/Onc and Rad Onc for consideration of additional treatment options. The patients questions were answered and the decision to proceed with a left breast lumpectomy documented in this encounter [facility] 02-21-2025 Telephone encounter Note Per Bridget at [facility] Tawanda's Brain MRI is scheduled for 02/28/25 @ 1030 Tena Heidl, PSS [facility] 02-21-2025 Miscellaneous Notes Per Bridget at [facility] Tawanda's Brain MRI is scheduled for 02/28/25 @ 1030 Tena Heidl, PSS documented in this encounter [facility] 02-13-2025 Telephone encounter Note Pt notified and denies further needs or concerns at this time. Aware will need a after school driver for testing, if taking the medication Pierre Hall RN [facility] 02-13-2025 Miscellaneous Notes Pt notified and denies further needs or concerns at this time. Aware will need a after school driver for testing, if taking the medication Pierre Hall RN I sent Xanax to pharmacy. Thanks. Pt requesting medications to complete the MRI. AV: Please advise/ RX to Sarbjit Tinoco RN documented in this encounter [facility] 02-13-2025 Telephone encounter Note I sent Xanax to pharmacy. Thanks. [facility] 02-13-2025 Telephone encounter Note Pt requesting medications to complete the MRI. AV: Please advise/ RX to Sarbjit Tinoco RN [facility] 02-13-2025 Miscellaneous Notes [facility] scheduling, updated and will proceed, as ordered. Pierre Hall RN They did right lung nodule biopsy. I want to get left lung nodule biopsy too. Thanks [facility] calling to question Lung bx order rec'd yesterday, as pt just had one completed 02/05/25. AV: please advise Pierre Hall RN documented in this encounter [facility] 02-13-2025 Telephone encounter Note [facility] scheduling, updated and will proceed, as ordered. Pierre Hall RN [facility] 02-13-2025 Telephone encounter Note They did right lung nodule biopsy. I want to get left lung nodule biopsy too. Thanks [facility] 02-13-2025 Telephone encounter Note [facility] calling to question Lung bx order rec'd yesterday, as pt just had one completed 02/05/25. AV: please advise Pierre Hall RN [facility] 02-12-2025 Telephone encounter Note 2nd opinion pathology requested from [facility] to be sent to [facility] for 2nd opinion. [facility] 02-12-2025 Miscellaneous Notes 2nd opinion pathology requested from [facility] to be sent to [facility] for 2nd opinion. documented in this encounter [facility] 02-12-2025 Instructions Shekhar Armando MD - 02/12/2025 2:12 PM EDT Ordered PET scan and MRI brain Ordered left lung biopsy F/u in 3 weeks documented in this encounter [facility] 02-12-2025 History of Presen t illness Narrative Images from the original note were not included. PATIENT NAME: Tawanda Stevens CLINIC NO.: [id number] ATTENDING PHYSICIAN: Shekhar Armando MD DATE OF SERVICE: 02/12/[address] Kathy Ross MD [address] [place], [place] [id number] thank you for referring Tawanda Stevens for an opinion regarding lung and breast mass. Some of the elements of this note have been copied from my previous progress note dated 01/26/25 . All the information has been reviewed carefully. CHIEF COMPLAINT: Lung mass and breast mass. HPI: Tawanda Stevens is a 69 year old year old female with h/o A fib on eliquis, CHF, CAD, DM, RA referred to us for lung mass and breast mass. Had CT chest for follow up on lung nodule followed by mammogram and PET scan. PET scan (10/11/24) Mammogram (09/26/24) CT Chest (08/22/24): Underwent left breast biopsy on 09/27/24. Pathology showed mucinous carcinoma. Smokes 1 pk/day for 40 yrs Occasionally drinks alcohol Worked at [employer]. Saw surgeon on 10/05/24. Brother has prostate cancer. No major complaints. 12/07/24: - Doing well - H/o latent TB treatment 10yrs ago - No major complaints. 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 - Doing well - No major complaints. Current Outpatient Medications Medication Sig predniSONE (DELTASONE) 5 mg tablet Take 5 mg by mouth as needed. ELIQUIS 5 mg tab(s) Take 5 mg by mouth two times a day. atorvastatin (LIPITOR) 20 mg tablet Take 20 mg by mouth once daily. canagliflozin (INVOKANA) 100 mg tab Take 100 mg by mouth once daily. folic acid 1 mg tablet Take 1 mg by mouth once daily. hydrOXYchloroQUINE (PLAQUENIL) 200 mg tablet Take 200 mg by mouth two times a day. metoprolol succinate ER (TOPROL XL) 100 mg Take 100 mg by mouth once daily. spironolactone (ALDACTONE) 25 mg tablet Take 25 mg by mouth once daily. VITAMIN B COMPLEX ORAL Take 1 tablet by mouth once daily. No current facility-administered medications for this visit. ALLERGIES No Known Allergies PAST MEDICAL HISTORY Diagnosis Date A-fib (HCC) Anxiety Breast mass, left Cardiomyopathy (HCC) CHF (congestive heart failure) (HCC) Depression Emphysema lung (HCC) History of ectopic Hyperlipidemia IBS (irritable bowel syndrome) Lung nodule Rheumatoid arthritis (HCC) Smoker No past surgical history on file. FAMILY HISTORY Problem Relation Age of Onset Heart disease Mother other (Abdominal aortic aneurysm) Mother Heart disease Father other (Myocardial infarction) Father Heart disease Sister Hypertension Sister Uterine Fibroids Sister Diabetes Brother Hypertension Brother Heart disease Brother Hypertension Brother Heart disease Brother Social History Tobacco Use Smoking status: Every Day Current packs/day: 1.00 Types: Cigarettes Smokeless tobacco: Never Vaping Use Vaping status: Never Used Substance Use Topics Alcohol use: Not Currently Drug use: Never REVIEW OF SYSTEMS GENERAL: No weight loss, malaise or fevers. No night sweats. HEENT: Negative for headaches, No changes in hearing or vision, no nose bleeds or other nasal problems. RESPIRATORY: Negative for cough, wheezing and shortness of breath CARDIOVASCULAR: Negative for chest pain, leg swelling and palpitations GI: Negative for abdominal discomfort, blood in stools or black stools and change in bowel habits : Negative for dysuria, frequency and incontinence MUSCULOSKELETAL: Negative for joint pain or swelling, back pain, and muscle pain. SKIN: Negative for lesions, rash, and itching. HEMATOLOGY/LYMPHOLOGY Negative for prolonged bleeding, bruising easily, and swollen nodes. NEURO: Negative for numbness or tingling of hands/feet. No weakness. PHYSICAL EXAMINATION: There were no vitals taken for this visit. There were no vitals taken for this visit. No data found for this vital: Wt General appearance:ECOG PERFORMANCE STATUS: 0- Fully active, able to carry on all pre-disease performance w/o restriction. Patient in NAD. Skin: Skin color, texture, turgor normal. No rashes or lesions. Eyes: Anicteric sclera. Pupils are equally round and reactive to light. Extraocular movements are intact. Breast: No nipple change or discharge. Lymph Nodes: No cervical, supraclavicular, axillary or inguinal adenopathy. Oropharynx: Lips, mucosa, and tongue normal. Back: No pain to percussion. Negative SLR test Lungs clear to auscultation, No wheezing or rhonchi Heart: RRR without murmur, gallop, or rubs. Abdomen soft, non-tender. No masses, organomegaly Extremities: No deformities. No edema Neuro: Gait and speech normal. Reflexes normal and symmetric. Muscular strength intact. Sensation grossly intact. Rectal: Deferred : Deferred LABS: Glucose (mg/dL) Date Value 10/16/2024 86 Potassium (mmol/L) Date Value 10/16/2024 4.0 Sodium (mmol/L) Date Value 10/16/2024 139 Chloride (mmol/L) Date Value 10/16/2024 105 CO2 (mmol/L) Date Value 10/16/2024 24 Creatinine (mg/dL) Date Value 01/25/2025 0.80 BUN (mg/dL) Date Value 10/16/2024 10 Anion Gap (mmol/L) Date Value 10/16/2024 10 Calcium, Total (mg/dL) Date Value 10/16/2024 9.6 Protein, Total (g/dL) Date Value 10/16/2024 7.3 Albumin (g/dL) Date Value 10/16/2024 4.3 Bilirubin, Total (mg/dL) Date Value 10/16/2024 0.6 Alkaline Phosphatase (U/L) Date Value 10/16/2024 93 AST (U/L) Date Value 10/16/2024 24 ALT (U/L) Date Value 10/16/2024 26 WBC Date Value Ref Range Status 10/16/2024 10.26 3.70 - 11.00 k/uL Final RBC Date Value Ref Range Status 10/16/2024 4.69 3.90 - 5.20 m/uL Final Hemoglobin Date Value Ref Range Status 10/16/2024 15.5 11.5 - 15.5 g/dL Final Hematocrit Date Value Ref Range Status 10/16/2024 46.0 36.0 - 46.0 % Final MCV Date Value Ref Range Status 10/16/2024 98.1 80.0 - 100.0 fL Final MCH Date Value Ref Range Status 10/16/2024 33.0 26.0 - 34.0 pg Final MCHC Date Value Ref Range Status 10/16/2024 33.7 30.5 - 36.0 g/dL Final RDW-CV Date Value Ref Range Status 10/16/2024 14.2 11.5 - 15.0 % Final Platelet Count Date Value Ref Range Status 10/16/2024 229 150 - 400 k/uL Final MPV Date Value Ref Range Status 10/16/2024 9.9 9.0 - 12.7 fL Final Abs Neut Date Value Ref Range Status 10/16/2024 5.61 1.45 - 7.50 k/uL Final Lymphocytes % Date Value Ref Range Status 10/16/2024 31.4 % Final Abs Lymph Date Value Ref Range Status 10/16/2024 3.22 1.00 - 4.00 k/uL Final Monocytes % Date Value Ref Range Status 10/16/2024 8.4 % Final Abs Kemper Date Value Ref Range Status 10/16/2024 0.86 <0.87 k/uL Final Abs Eosin Date Value Ref Range Status 10/16/2024 0.43 <0.46 k/uL Final Basophils % Date Value Ref Range Status 10/16/2024 1.1 % Final Abs Baso Date Value Ref Range Status 10/16/2024 0.11 (H) <0.11 k/uL Final PATH: IMAGING: ASSESSMENT AND PLAN: Tawanda Stevens is a 69 year old year old female referred to us for lung mass and breast mass. H/o A fib on eliquis, CHF, CAD, DM, RA. PS 0. - CT chest in Aug 2024 showed enlarging lung nodules and left breast mass - Left breast mammogram showed 2cm mass at 3:00 clock position 8 cm from nipple. 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 Ordered lung biopsy to r/o metastases. It was ordered in Oct 2024. She likes to do it in January 2025. - CT Chest on 01/25/25 showed Bilateral pulmonary nodules, overall increased in size when compared to prior exam. - Scheduled for lung biopsy on 02/05/25 PLAN: - Right lung biopsy showed squamous cell ca, mild to moderately differentiated. - Ordered PET scan and MRI brain for complete staging - Advised her to f/u with for left breast lumpectomy surgery. - Ordered left lung biopsy for diagnosis conformation given the oligometastatic disease. - Further management of lung cancer depending on PET findings and left lung biopsy results. - All her questions answered in detail - F/u in [address] Kathy Ross MD [address] [place] [phone] thank you for allowing me to participate in Tawanda Stevens care, if there are any questions or concerns please do not hesitate to contact me at the number below. I spent a total of 30 minutes on the date of the service which included preparing to see the patient, [id number] patient care, completing clinical documentation, obtaining and/or reviewing separately obtained history, performing a medically appropriate examination, counseling and educating the patient/family/caregiver, ordering medications, tests, or procedures, communicating with other HCPs (not separately reported), independently interpreting results (not separately reported), communicating results to the patient/family/caregiver, and care coordination (not separately reported). Shekhar Vennepureddy, MD. Hematology/Medical Oncology [facility] [address] [phone] CC: documented in this encounter [facility] 02-12-2025 Note HNO ID: [id number] Author: SHEKHAR ARMANDO MD Service: ? Author Type: Physician Type: Progress Notes Filed: 02/12/2025 14:46 Note Text: PATIENT NAME: Tawanda Stevens [facility] NO.: [id number] ATTENDING PHYSICIAN: Shekhar Armando MD DATE OF SERVICE: 02/12/[address] Kathy Ross MD [address] [place] [phone] thank you for referring Tawanda Stevens for an opinion regarding lung and breast mass. Some of the elements of this note have been copied from my previous progress note dated 01/26/25 . All the information has been reviewed carefully. CHIEF COMPLAINT: Lung mass and breast mass. HPI: Tawanda Stevens is a 69 year old year old female with h/o A fib on eliquis, CHF, CAD, DM, RA referred to us for lung mass and breast mass. Had CT chest for follow up on lung nodule followed by mammogram and PET scan. PET scan (10/11/24) Mammogram (09/26/24) CT Chest (08/22/24): Underwent left breast biopsy on 09/27/24. Pathology showed mucinous carcinoma. Smokes 1 pk/day for 40 yrs Occasionally drinks alcohol Worked at [employer]. Saw surgeon on 10/05/24. Brother has prostate cancer. No major complaints. 12/07/24: - Doing well - H/o latent TB treatment 10yrs ago - No major complaints. 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 - Doing well - No major complaints. Current Outpatient Medications Medication Sig predniSONE (DELTASONE) 5 mg tablet Take 5 mg by mouth as needed. ELIQUIS 5 mg tab(s) Take 5 mg by mouth two times a day. atorvastatin (LIPITOR) 20 mg tablet Take 20 mg by mouth once daily. canagliflozin (INVOKANA) 100 mg tab Take 100 mg by mouth once daily. folic acid 1 mg tablet Take 1 mg by mouth once daily. hydrOXYchloroQUINE (PLAQUENIL) 200 mg tablet Take 200 mg by mouth two times a day. metoprolol succinate ER (TOPROL XL) 100 mg Take 100 mg by mouth once daily. spironolactone (ALDACTONE) 25 mg tablet Take 25 mg by mouth once daily. VITAMIN B COMPLEX ORAL Take 1 tablet by mouth once daily. No current facility-administered medications for this visit. ALLERGIES No Known Allergies PAST MEDICAL HISTORY Diagnosis Date A-fib (HCC) Anxiety Breast mass, left Cardiomyopathy (HCC) CHF (congestive heart failure) (HCC) Depression Emphysema lung (HCC) History of ectopic Hyperlipidemia IBS (irritable bowel syndrome) Lung nodule Rheumatoid arthritis (HCC) Smoker No past surgical history on file. FAMILY HISTORY Problem Relation Age of Onset Heart disease Mother other (Abdominal aortic aneurysm) Mother Heart disease Father other (Myocardial infarction) Father Heart disease Sister Hypertension Sister Uterine Fibroids Sister Diabetes Brother Hypertension Brother Heart disease Brother Hypertension Brother Heart disease Brother Social History Tobacco Use Smoking status: Every Day Current packs/day: 1.00 Types: Cigarettes Smokeless tobacco: Never Vaping Use Vaping status: Never Used Substance Use Topics Alcohol use: Not Currently Drug use: Never REVIEW OF SYSTEMS GENERAL: No weight loss, malaise or fevers. No night sweats. HEENT: Negative for headaches, No changes in hearing or vision, no nose bleeds or other nasal problems. RESPIRATORY: Negative for cough, wheezing and shortness of breath CARDIOVASCULAR: Negative for chest pain, leg swelling and palpitations GI: Negative for abdominal discomfort, blood in stools or black stools and change in bowel habits : Negative for dysuria, frequency and incontinence MUSCULOSKELETAL: Negative for joint pain or swelling, back pain, and muscle pain. SKIN: Negative for lesions, rash, and itching. HEMATOLOGY/LYMPHOLOGY Negative for prolonged bleeding, bruising easily, and swollen nodes. NEURO: Negative for numbness or tingling of hands/feet. No weakness. PHYSICAL EXAMINATION: There were no vitals taken for this visit. There were no vitals taken for this visit. No data found for this vital: Wt General appearance:ECOG PERFORMANCE STATUS: 0- Fully active, able to carry on all pre-disease performance w/o restriction. Patient in NAD. Skin: Skin color, texture, turgor normal. No rashes or lesions. Eyes: Anicteric sclera. Pupils are equally round and reactive to light. Extraocular movements are intact. Breast: No nipple change or discharge. Lymph Nodes: No cervical, supraclavicular, axillary or inguinal adenopathy. Oropharynx: Lips, mucosa, and tongue normal. Back: No pain to percussion. Negative SLR test Lungs clear to auscultation, No wheezing or rhonchi Heart: RRR without murmur, gallop, or rubs. Abdomen soft, non-tender. No masses, organomegaly Extremities: No deformities. No edema Neuro: Gait and speech normal. Reflexes normal and symmetric. Muscular strength inta (more content not included)... [facility] 02-05-2025 Evaluation note Diagnosis Onset Date Resolution Lung nodule acute February 05, 025 8:55am Breast nodule acute February 15, 2025 11:26am Emphysema lung acute February 15, 2025 11:26am Lung nodule acute February 15 11:26am Rheumatoid arthritis acute Apri 2024 11:26am [facility] Work Phone: [phone] 445-106203-14-2025 Instructions* Patient Instructions* Shekhar Armando MD - 01/26/2025 10:29 AM EDT Lung biopsy scheduled on 02/05/25 F/u with me on 02/12/25 as scheduled [facility] History of Present illness Narrative* Shekhar Armando MD - 01/26/2025 10:00 AM EDT Images from the original note were not included. PATIENT NAME: Tawanda Subramanian [facility] NO.: [id number] ATTENDING PHYSICIAN: Shekhar Armando MD DATE OF SERVICE: 01/26/[address] Kathy Ross MD [address] [id number] thank you for referring Tawanda Stevens for an opinion regarding lung and breast mass. Some of the elements of this note have been copied from my previous progress note dated 12/07/24 . All the information has been reviewed carefully. CHIEF COMPLAINT: Lung mass and breast mass. HPI: Tawanda Stevens is a 69 year old year old female with h/o A fib on eliquis, CHF, CAD, DM, RA referred to us for lung mass and breast mass. Had CT chest for follow up on lung nodule followed by mammogram and PET scan. PET scan (10/11/24) Mammogram (09/26/24) CT Chest (08/22/24): Underwent left breast biopsy on 09/27/24. Pathology showed mucinous carcinoma. Smokes 1 pk/day for 40 yrs Occasionally drinks alcohol Worked at [employer]. Saw surgeon on 10/05/24. Brother has prostate cancer. No major complaints. 12/07/24: - Doing well - H/o latent TB treatment 10yrs ago - No major complaints. 01/26/25: - Doing well - CT chest on 01/25/25 showed worsening lung nodules - Lung biopsy on 02/05/25 Current Outpatient Medications Medication Sig predniSONE (DELTASONE) 5 mg tablet Take 5 mg by mouth as needed. adalimumab 80 mg/0.8 mL and 40 mg/0.4 mL subcutaneous syringe kit (HUMIRA (CF)) Inject 80 mg subcutaneously every 2 weeks. ELIQUIS 5 mg tab(s) Take 5 mg by mouth two times a day. atorvastatin (LIPITOR) 20 mg tablet Take 20 mg by mouth once daily. canagliflozin (INVOKANA) 100 mg tab Take 100 mg by mouth once daily. folic acid 1 mg tablet Take 1 mg by mouth once daily. hydrOXYchloroQUINE (PLAQUENIL) 200 mg tablet Take 200 mg by mouth two times a day. methotrexate 2.5 mg tablet Take 2.5 mg by mouth as directed. metoprolol succinate ER (TOPROL XL) 100 mg Take 100 mg by mouth once daily. spironolactone (ALDACTONE) 25 mg tablet Take 25 mg by mouth once daily. VITAMIN B COMPLEX ORAL Take 1 tablet by mouth once daily. No current facility-administered medications for this visit. ALLERGIES No Known Allergies PAST MEDICAL HISTORY Diagnosis Date A-fib (HCC) Anxiety Breast mass, left Cardiomyopathy (HCC) CHF (congestive heart failure) (HCC) Depression Emphysema lung (HCC) History of ectopic Hyperlipidemia IBS (irritable bowel syndrome) Lung nodule Rheumatoid arthritis (HCC) Smoker No past surgical history on file. FAMILY HISTORY Problem Relation Age of Onset Heart disease Mother other (Abdominal aortic aneurysm) Mother Heart disease Father other (Myocardial infarction) Father Heart disease Sister Hypertension Sister Uterine Fibroids Sister Diabetes Brother Hypertension Brother Heart disease Brother Hypertension Brother Heart disease Brother Social History Tobacco Use Smoking status: Every Day Current packs/day: 1.00 Types: Cigarettes Smokeless tobacco: Never Vaping Use Vaping status: Never Used Substance Use Topics Alcohol use: Not Currently Drug use: Never REVIEW OF SYSTEMS GENERAL: No weight loss, malaise or fevers. No night sweats. HEENT: Negative for headaches, No changes in hearing or vision, no nose bleeds or other nasal problems. RESPIRATORY: Negative for cough, wheezing and shortness of breath CARDIOVASCULAR: Negative for chest pain, leg swelling and palpitations GI: Negative for abdominal discomfort, blood in stools or black stools and change in bowel habits : Negative for dysuria, frequency and incontinence MUSCULOSKELETAL: Negative for joint pain or swelling, back pain, and muscle pain. SKIN: Negative for lesions, rash, and itching. HEMATOLOGY/LYMPHOLOGY Negative for prolonged bleeding, bruising easily, and swollen nodes. NEURO: Negative for numbness or tingling of hands/feet. No weakness. PHYSICAL EXAMINATION: There were no vitals taken for this visit. There were no vitals taken for this visit. No data found for this vital: Wt General appearance:ECOG PERFORMANCE STATUS: 0- Fully active, able to carry on all pre-disease performance w/o restriction. Patient in NAD. Skin: Skin color, texture, turgor normal. No rashes or lesions. Eyes: Anicteric sclera. Pupils are equally round and reactive to light. Extraocular movements are intact. Breast: No nipple change or discharge. Lymph Nodes: No cervical, supraclavicular, axillary or inguinal adenopathy. Oropharynx: Lips, mucosa, and tongue normal. Back: No pain to percussion. Negative SLR test Lungs clear to auscultation, No wheezing or rhonchi Heart: RRR without murmur, gallop, or rubs. Abdomen soft, non-tender. No masses, organomegaly Extremities: No deformities. No edema Neuro: Gait and speech normal. Reflexes normal and symmetric. Muscular strength intact. Sensation grossly intact. Rectal: Deferred : Deferred LABS: Glucose (mg/dL) Date Value 10/16/2024 86 Potassium (mmol/L) Date Value 10/16/2024 4.0 Sodium (mmol/L) Date Value 10/16/2024 139 Chloride (mmol/L) Date Value 10/16/2024 105 CO2 (mmol/L) Date Value 10/16/2024 24 Creatinine (mg/dL) Date Value 01/25/2025 0.80 BUN (mg/dL) Date Value 10/16/2024 10 Anion Gap (mmol/L) Date Value 10/16/2024 10 Calcium, Total (mg/dL) Date Value 10/16/2024 9.6 Protein, Total (g/dL) Date Value 10/16/2024 7.3 Albumin (g/dL) Date Value 10/16/2024 4.3 Bilirubin, Total (mg/dL) Date Value 10/16/2024 0.6 Alkaline Phosphatase (U/L) Date Value 10/16/2024 93 AST (U/L) Date Value 10/16/2024 24 ALT (U/L) Date Value 10/16/2024 26 WBC Date Value Ref Range Status 10/16/2024 10.26 3.70 - 11.00 k/uL Final RBC Date Value Ref Range Status 10/16/2024 4.69 3.90 - 5.20 m/uL Final Hemoglobin Date Value Ref Range Status 10/16/2024 15.5 11.5 - 15.5 g/dL Final Hematocrit Date Value Ref Range Status 10/16/2024 46.0 36.0 - 46.0 % Final MCV Date Value Ref Range Status 10/16/2024 98.1 80.0 - 100.0 fL Final MCH Date Value Ref Range Status 10/16/2024 33.0 26.0 - 34.0 pg Final MCHC Date Value Ref Range Status 10/16/2024 33.7 30.5 - 36.0 g/dL Final RDW-CV Date Value Ref Range Status 10/16/2024 14.2 11.5 - 15.0 % Final Platelet Count Date Value Ref Range Status 10/16/2024 229 150 - 400 k/uL Final MPV Date Value Ref Range Status 10/16/2024 9.9 9.0 - 12.7 fL Final Abs Neut Date Value Ref Range Status 10/16/2024 5.61 1.45 - 7.50 k/uL Final Lymphocytes % Date Value Ref Range Status 10/16/2024 31.4 % Final Abs Lymph Date Value Ref Range Status 10/16/2024 3.22 1.00 - 4.00 k/uL Final Monocytes % Date Value Ref Range Status 10/16/2024 8.4 % Final Abs Kemper Date Value Ref Range Status 10/16/2024 0.86 <0.87 k/uL Final Abs Eosin Date Value Ref Range Status 10/16/2024 0.43 <0.46 k/uL Final Basophils % Date Value Ref Range Status 10/16/2024 1.1 % Final Abs Baso Date Value Ref Range Status 10/16/2024 0.11 (H) <0.11 k/uL Final PATH: IMAGING: ASSESSMENT AND PLAN: Tawanda Stevens is a 69 year old year old female referred to us for lung mass and breast mass. H/o A fib on eliquis, CHF, CAD, DM, RA. PS 0. CT chest in Aug 2024 showed enlarging lung nodules and left breast mass - Left breast mammogram showed 2cm mass at 3:00 clock position 8 cm from nipple. 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 PLAN: - Ordered lung biopsy to r/o metastases. It was ordered in Oct 2024. She likes to do it in January 2025. - CT Chest on 01/25/25 showed Bilateral pulmonary nodules, overall increased in size when compared to prior exam. - Scheduled for lung biopsy on 02/05/25. - Further management depending on lung biopsy findings. - She will proceed with lumpectomy if lung biopsy comes back benign. - All her questions answered in detail - F/u in [address] Kathy Ross MD [address] [place] [phone] thank you for allowing me to participate in Tawanda Stevens care, if there are any questions or concerns please do not hesitate to contact me at the number below. I spent a total of 20 minutes on the date of the service which included preparing to see the patient, [id number] patient care, completing clinical documentation, obtaining and/or reviewing separately obtained history, performing a medically appropriate examination, counseling and educating the pat ient/family/caregiver, ordering medications, tests, or procedures, communicating with other HCPs (not separately reported), independently interpreting results (not separately reported), communicatingresults to the patient/family/caregiver, and care coordination (not separately reported). Shekhar Armando MD. Hematology/Medical Oncology [place] [phone] CC: [facility]25 NoteHNO ID: [id number] Author: SHEKHAR ARMANDO MD Service: ? Author Type: Physician Type: Progress Notes Filed: 01/26/2025 10:40 Note Text: PATIENT NAME: Tawanda Subramanian [facility] NO.: [id number] ATTENDING PHYSICIAN: Shekhar Armando MD DATE OF SERVICE: 01/26/[address] Kathy Ross MD [address] [place] [phone] thank you for referring Tawanda Stevens for an opinion regarding lung and breast mass. Some of the elements of this note have been copied from my previous progress note dated 12/07/24 . All the information has been reviewed carefully. CHIEF COMPLAINT: Lung mass and breast mass. HPI: Tawanda Stevens is a 69 year old year old female with h/o A fib on eliquis, CHF, CAD, DM, RA referred to us for lung mass and breast mass. Had CT chest for follow up on lung nodule followed by mammogram and PET scan. PET scan (10/11/24) Mammogram (09/26/24) CT Chest (08/22/24): Underwent left breast biopsy on 09/27/24. Pathology showed mucinous carcinoma. Smokes 1 pk/day for 40 yrs Occasionally drinks alcohol Worked at [employer]. Saw surgeon on 10/05/24. Brother has prostate cancer. No major complaints. 12/07/24: - Doing well - H/o latent TB treatment 10yrs ago - No major complaints. 01/26/25: - Doing well - CT chest on 01/25/25 showed worsening lung nodules - Lung biopsy on 02/05/25 Current Outpatient Medications Medication Sig predniSONE (DELTASONE) 5 mg tablet Take 5 mg by mouth as needed. adalimumab 80 mg/0.8 mL and 40 mg/0.4 mL subcutaneous syringe kit (HUMIRA (CF)) Inject 80 mg subcutaneously every 2 weeks. ELIQUIS 5 mg tab(s) Take 5 mg by mouth two times a day. atorvastatin (LIPITOR) 20 mg tablet Take 20 mg by mouth once daily. canagliflozin (INVOKANA) 100 mg tab Take 100 mg by mouth once daily. folic acid 1 mg tablet Take 1 mg by mouth once daily. hydrOXYchloroQUINE (PLAQUENIL) 200 mg tablet Take 200 mg by mouth two times a day. methotrexate 2.5 mg tablet Take 2.5 mg by mouth as directed. metoprolol succinate ER (TOPROL XL) 100 mg Take 100 mg by mouth once daily. spironolactone (ALDACTONE) 25 mg tablet Take 25 mg by mouth once daily. VITAMIN B COMPLEX ORAL Take 1 tablet by mouth once daily. No current facility-administered medications for this visit. ALLERGIES No Known Allergies PAST MEDICAL HISTORY Diagnosis Date A-fib (HCC) Anxiety Breast mass, left Cardiomyopathy (HCC) CHF (congestive heart failure) (HCC) Depression Emphysema lung (HCC) History of ectopic Hyperlipidemia IBS (irritable bowel syndrome) Lung nodule Rheumatoid arthritis (HCC) Smoker No past surgical history on file. FAMILY HISTORY Problem Relation Age of Onset Heart disease Mother other (Abdominal aortic aneurysm) Mother Heart disease Father other (Myocardial infarction) Father Heart disease Sister Hypertension Sister Uterine Fibroids Sister Diabetes Brother Hypertension Brother Heart disease Brother Hypertension Brother Heart disease Brother Social History Tobacco Use Smoking status: Every Day Current packs/day: 1.00 Types: Cigarettes Smokeless tobacco: Never Vaping Use Vaping status: Never Used Substance Use Topics Alcohol use: Not Currently Drug use: Never REVIEW OF SYSTEMS GENERAL: No weight loss, malaise or fevers. No night sweats. HEENT: Negative for headaches, No changes in hearing or vision, no nose bleeds or other nasal problems. RESPIRATORY: Negative for cough, wheezing and shortness of breath CARDIOVASCULAR: Negative for chest pain, leg swelling and palpitations GI: Negative for abdominal discomfort, blood in stools or black stools and change in bowel habits : Negative for dysuria, frequency and incontinence MUSCULOSKELETAL: Negative for joint pain or swelling, back pain, and muscle pain. SKIN: Negative for lesions, rash, and itching. HEMATOLOGY/LYMPHOLOGY Negative for prolonged bleeding, bruising easily, and swollen nodes. NEURO: Negative for numbness or tingling of hands/feet. No weakness. PHYSICAL EXAMINATION: There were no vitals taken for this visit. There were no vitals taken for this visit. No data found for this vital: Wt General appearance:ECOG PERFORMANCE STATUS: 0- Fully active, able to carry on all pre-disease performance w/o restriction. Patient in NAD. Skin: Skin color, texture, turgor normal. No rashes or lesions. Eyes: Anicteric sclera. Pupils are equally round and reactive to light. Extraocular movements are intact. Breast: No nipple change or discharge. Lymph Nodes: No cervical, supraclavicular, axillary or inguinal adenopathy. Oropharynx: Lips, mucosa, and tongue normal. Back: No pain to percussion. Negative SLR test Lungs clear to auscultation, No wheezing or rhonchi Heart: RRR without murmur, gallop, or rubs. Abdomen soft, non-tender. No masses, organomegaly Extremities: No deformities. No edema Neuro: Gait and speech normal (more content not included)...[facility]03-13-2025 History of Present illness Narrative* Porter Plunkett RN - 01/25/2025 10:45 AM EDT Radiology Service Progress Note DATE OF SERVICE: January 25, 2025 TIME: 11:01 AM PATIENT WEIGHT: 221LBS PATIENT IDENTITY VERIFICATION COMPLETED USING TWO (2) STANDARD IDENTIFIERS: Name and Date of confirmed by patient verbally. FALL SCREENING: Has the patient had 2 falls in the last year or 1 fall with injury or currently using an Ambulatory Assistive Device (Walker, Cane, Wheelchair, Crutches, etc.)? No PATIENT GENDER DATA: Assigned female at . status: : No status:NO. ALLERGIES: Reviewed and unchanged CONTRAST ALLERGY: No EXAM: CT -CONTRAST INDUCED NEPHROPATHY RISK FACTORS: Patient age > 60 years CREATININE: Creatinine Date Value Ref Range Status 01/25/2025 0.80 0.58 - 0.96 mg/dL Final 10/16/2024 0.73 0.58 - 0.96 mg/dL Final Estimated Glomerular Filtration Rate Date Value Ref Range Status 01/25/2025 80 >=60 mL/min/1.73m Final Comment: Estimated Glomerular Filtration Rate (eGFR) is calculated using the 2020 CKD-EPI creatinine equation. This equation utilizes serum creatinine, sex, and age as parameters. The creatinine assay has traceable calibration to isotope dilution- mass spectrometry. Refer to KDIGO guidelines for clinical interpretation. In patients with unstable renal function, e.g. those with acute kidney injury, the eGFRmay not accurately reflect actual GFR. P.O.C.T. RESULTS: POC done: Yes, See Lab Tab January 25, 2025 TREATMENT: N/A IV SITE: Ambulatory: A peripheral IV was started in the Right antecubital site with a Angio cath: 20 gauge. IV SITE APPEARANCE: Clean,Dry and Intact SIGNATURE: Porter Plunkett RN PATIENT NAME: Tawanda Stevens DATE: January 25, 2025 TIME: 11:01 AM * Inés Shankar, RT(R) - 01/25/2025 10:45 AM EDT Radiology Service Progress Note PATIENT NAME: Tawanda Stevens DATE OF SERVICE: January 25, 2025 TIME: 11:24 AM PATIENT IDENTITY VERIFICATION COMPLETED USING TWO (2) IDENTIFIERS: Name and Date of confirmedby patient verbally. FALL SCREENING: Has the patient had 2 falls in the last year or 1 fall with injury or currently using an Ambulatory Assistive Device (Walker, Cane, Wheelchair, Crutches, etc.)? No PATIENT GENDER DATA: Assigned female at . status: : No status:NO. PATIENT RELEVANT IMPLANT DATA REVIEWED: Not Applicable PATIENT PRESENTS WITH AN IMPLANTABLE OR ATTACHED DENTAL ASSOCIATE: No RADIOLOGY DEPARTMENT: CT; Exam(s) Completed: Chest PERIPHERAL IV DATA: Site assessment: Clean,Dry and Intact, Site disposition Discontinued SIGNED BY: RT Sloan(R) January 25, 2025 11:24 AM documented in this encounterMar[facility]03-13-2025 NoteHNO ID: [id number] Author: PORTER PLUNKETT RN Service: ? Author Type: Registered Nurse Type: Progress Notes Filed: 01/25/2025 11:02 Note Text: Radiology Service Progress Note DATE OF SERVICE: January 25, 2025 TIME: 11:01 AM PATIENT WEIGHT: 221LBS PATIENT IDENTITY VERIFICATION COMPLETED USING TWO (2) STANDARD IDENTIFIERS: Name and Date of confirmed by patient verbally. FALL SCREENING: Has the patient had 2 falls in the last year or 1 fall with injury or currently using an Ambulatory Assistive Device (Walker, Cane, Wheelchair, Crutches, etc.)? No PATIENT GENDER DATA: Assigned female at . status: : No status: NO. ALLERGIES: Reviewed and unchanged CONTRAST ALLERGY: No EXAM: CT -CONTRAST INDUCED NEPHROPATHY RISK FACTORS: Patient age > 60 years CREATININE: Creatinine Date Value Ref Range Status 01/25/2025 0.80 0.58 - 0.96 mg/dL Final 10/16/2024 0.73 0.58 - 0.96 mg/dL Final Estimated Glomerular Filtration Rate Date Value Ref Range Status 01/25/2025 80 >=60 mL/min/1.73m? Final Comment: Estimated Glomerular Filtration Rate (eGFR) is calculated using the 2020 CKD-EPI creatinine equation. This equation utilizes serum creatinine, sex, and age as parameters. The creatinine assay has traceable calibration to isotope dilution-mass spectrometry. Refer to KDIGO guidelines for clinical interpretation. In patients with unstable renal function, e.g. those with acute kidney injury, the eGFR may not accurately reflect actual GFR. P.O.C.T. RESULTS: POC done: Yes, See Lab Tab January 25, 2025 TREATMENT: N/A IV SITE: Ambulatory: A peripheral IV was started in the Right antecubital site with a Angio cath: 20 gauge. IV SITE APPEARANCE: Clean,Dry and Intact SIGNATURE: Porter Plunkett RN PATIENT NAME: Tawanda Stevens DATE: January 25, 2025 TIME: 11:01 [facility]03-13-2025 NoteHNO ID: [id number] Author: INÉS SHANKAR RT(R) Service: ? Author Type: Technologist Type: Progress Notes Filed: 01/25/2025 11:24 Note Text: Radiology Service Progress Note PATIENT NAME: Tawanda Stevens DATE OF SERVICE: January 25, 2025 TIME: 11:24 AM PATIENT IDENTITY VERIFICATION COMPLETED USING TWO (2) IDENTIFIERS: Name and Date of confirmed by patient verbally. FALL SCREENING: Has the patient had 2 falls in the last year or 1 fall with injury or currently using an Ambulatory Assistive Device (Walker, Cane, Wheelchair, Crutches, etc.)? No PATIENT GENDER DATA: Assigned female at . status: : No status: NO. PATIENT RELEVANT IMPLANT DATA REVIEWED: Not Applicable PATIENT PRESENTS WITH AN IMPLANTABLE OR ATTACHED DENTAL ASSOCIATE: No RADIOLOGY DEPARTMENT: CT; Exam(s) Completed: Chest PERIPHERAL IV DATA: Site assessment: Clean,Dry and Intact, Site disposition Discontinued SIGNED BY: RT Sloan(R) January 25, 2025 11:24 [facility]02-20-2025 Telephone encounter Note* Telephone Encounter - Paige Nash RN - 01/04/2025 1:20 PM EST An updated creatinine is needed prior to scan. Please sign pending order thanks. Paige Nash RN [facility]02-20-2025 Miscellaneous Notes* Telephone Encounter - Paige Nash RN - 01/04/2025 1:20 PM EST An updated creatinine is needed prior to scan. Please sign pending order thanks. Paige Nash RN documented in this encounterMar[facility]01-28-2025 NoteHNO ID: [id number] Author: LETITIA CHAVES LSW Service: ? Author Type: Floor Layer Tile Type: Progress Notes Filed: 12/12/2024 14:57 Note Text: Unable To Reach Patient Patient's name appears on the PRO [place] Report for a PHQ-9 score of 13. SW was unable to reach Patient. DAVID cMgraw-[facility]01-28-2025 History of Present illness Narrative* Letitia Chaves LSW - 12/12/2024 2:56 PM EST Unable To Reach Patient Patient's name appears on the PRO [place] Report for a PHQ-9 score of 13. SW was unable to reach Patient. DAVID Mcgraw-S documented in this encounterMarion Hospital01-23-2025 Instructions* Patient Instructions* Shekhar Armando MD - 12/07/2024 1:[address] chest Schedule lung biopsy in January F/u in 6 weeks as scheduled. documented in this encounterMar[facility]01-23-2025 History of Present illness Narrative* Shekhar Armando MD - 12/07/2024 1:00 PM EST Images from the original note were not included. PATIENT NAME: Tawanda Stevens CLINIC NO.: [id number] ATTENDING PHYSICIAN: Shekhar Armando MD DATE OF SERVICE: 12/07/[address] Kathy Ross MD [address] [place] [phone] thank you for referring Tawanda Stevens for an opinion regarding lung and breast mass. Some of the elements of this note have been copied from my previous progress note dated 10/16/24 . All the information has been reviewed carefully. CHIEF COMPLAINT: Lung mass and breast mass. HPI: Tawanda Stevens is a 69 year old year old female with h/o A fib on eliquis, CHF, CAD, DM, RA referred to us for lung mass and breast mass. Had CT chest for follow up on lung nodule followed by mammogram and PET scan. PET scan (10/11/24) Mammogram (09/26/24) CT Chest (08/22/24): Underwent left breast biopsy on 09/27/24. Pathology showed mucinous carcinoma. Smokes 1 pk/day for 40 yrs Occasionally drinks alcohol Worked at [employer]. Saw surgeon on 10/05/24. Brother has prostate cancer. No major complaints. 12/07/24: - Doing well - H/o latent TB treatment 10yrs ago - No major complaints. Current Outpatient Medications Medication Sig predniSONE (DELTASONE) 5 mg tablet Take 5 mg by mouth as needed. adalimumab 80 mg/0.8 mL and 40 mg/0.4 mL subcutaneous syringe kit (HUMIRA (CF)) Inject 80 mg subcutaneously every 2 weeks. ELIQUIS 5 mg tab(s) Take 5 mg by mouth two times a day. atorvastatin (LIPITOR) 20 mg tablet Take 20 mg by mouth once daily. canagliflozin (INVOKANA) 100 mg tab Take 100 mg by mouth once daily. folic acid 1 mg tablet Take 1 mg by mouth once daily. hydrOXYchloroQUINE (PLAQUENIL) 200 mg tablet Take 200 mg by mouth two times a day. methotrexate 2.5 mg tablet Take 2.5 mg by mouth as directed. metoprolol succinate ER (TOPROL XL) 100 mg Take 100 mg by mouth once daily. spironolactone (ALDACTONE) 25 mg tablet Take 25 mg by mouth once daily. VITAMIN B COMPLEX ORAL Take 1 tablet by mouth once daily. No current facility-administered medications for this visit. ALLERGIES No Known Allergies PAST MEDICAL HISTORY Diagnosis Date A-fib (HCC) Anxiety Breast mass, left Cardiomyopathy (HCC) CHF (congestive heart failure) (HCC) Depression Emphysema lung (HCC) History of ectopic Hyperlipidemia IBS (irritable bowel syndrome) Lung nodule Rheumatoid arthritis (HCC) Smoker No past surgical history on file. FAMILY HISTORY Problem Relation Age of Onset Heart disease Mother other (Abdominal aortic aneurysm) Mother Heart disease Father other (Myocardial infarction) Father Heart disease Sister Hypertension Sister Uterine Fibroids Sister Diabetes Brother Hypertension Brother Heart disease Brother Hypertension Brother Heart disease Brother Social History Tobacco Use Smoking status: Every Day Current packs/day: 1.00 Types: Cigarettes Smokeless tobacco: Never Vaping Use Vaping status: Never Used Substance Use Topics Alcohol use: Not Currently Drug use: Never REVIEW OF SYSTEMS GENERAL: No weight loss, malaise or fevers. No night sweats. HEENT: Negative for headaches, No changes in hearing or vision, no nose bleeds or other nasal problems. RESPIRATORY: Negative for cough, wheezing and shortness of breath CARDIOVASCULAR: Negative for chest pain, leg swelling and palpitations GI: Negative for abdominal discomfort, blood in stools or black stools and change in bowel habits : Negative for dysuria, frequency and incontinence MUSCULOSKELETAL: Negative for joint pain or swelling, back pain, and muscle pain. SKIN: Negative for lesions, rash, and itching. HEMATOLOGY/LYMPHOLOGY Negative for prolonged bleeding, bruising easily, and swollen nodes. NEURO: Negative for numbness or tingling of hands/feet. No weakness. PHYSICAL EXAMINATION: There were no vitals taken for this visit. There were no vitals taken for this visit. No data found for this vital: Wt General appearance:ECOG PERFORMANCE STATUS: 0- Fully active, able to carry on all pre-disease performance w/o restriction. Patient in NAD. Skin: Skin color, texture, turgor normal. No rashes or lesions. Eyes: Anicteric sclera. Pupils are equally round and reactive to light. Extraocular movements are intact. Breast: No nipple change or discharge. Lymph Nodes: No cervical, supraclavicular, axillary or inguinal adenopathy. Oropharynx: Lips, mucosa, and tongue normal. Back: No pain to percussion. Negative SLR test Lungs clear to auscultation, No wheezing or rhonchi Heart: RRR without murmur, gallop, or rubs. Abdomen soft, non-tender. No masses, organomegaly Extremities: No deformities. No edema Neuro: Gait and speech normal. Reflexes normal and symmetric. Muscular strength intact. Sensation grossly intact. Rectal: Deferred : Deferred LABS: Glucose (mg/dL) Date Value 10/16/2024 86 Potassium (mmol/L) Date Value 10/16/2024 4.0 Sodium (mmol/L) Date Value 10/16/2024 139 Chloride (mmol/L) Date Value 10/16/2024 105 CO2 (mmol/L) Date Value 10/16/2024 24 Creatinine (mg/dL) Date Value 10/16/2024 0.73 BUN (mg/dL) Date Value 10/16/2024 10 Anion Gap (mmol/L) Date Value 10/16/2024 10 Calcium, Total (mg/dL) Date Value 10/16/2024 9.6 Protein, Total (g/dL) Date Value 10/16/2024 7.3 Albumin (g/dL) Date Value 10/16/2024 4.3 Bilirubin, Total (mg/dL) Date Value 10/16/2024 0.6 Alkaline Phosphatase (U/L) Date Value 10/16/2024 93 AST (U/L) Date Value 10/16/2024 24 ALT (U/L) Date Value 10/16/2024 26 WBC Date Value Ref Range Status 10/16/2024 10.26 3.70 - 11.00 k/uL Final RBC Date Value Ref Range Status 10/16/2024 4.69 3.90 - 5.20 m/uL Final Hemoglobin Date Value Ref Range Status 10/16/2024 15.5 11.5 - 15.5 g/dL Final Hematocrit Date Value Ref Range Status 10/16/2024 46.0 36.0 - 46.0 % Final MCV Date Value Ref Range Status 10/16/2024 98.1 80.0 - 100.0 fL Final MCH Date Value Ref Range Status 10/16/2024 33.0 26.0 - 34.0 pg Final MCHC Date Value Ref Range Status 10/16/2024 33.7 30.5 - 36.0 g/dL Final RDW-CV Date Value Ref Range Status 10/16/2024 14.2 11.5 - 15.0 % Final Platelet Count Date Value Ref Range Status 10/16/2024 229 150 - 400 k/uL Final MPV Date Value Ref Range Status 10/16/2024 9.9 9.0 - 12.7 fL Final Abs Neut Date Value Ref Range Status 10/16/2024 5.61 1.45 - 7.50 k/uL Final Lymphocytes % Date Value Ref Range Status 10/16/2024 31.4 % Final Abs Lymph Date Value Ref Range Status 10/16/2024 3.22 1.00 - 4.00 k/uL Final Monocytes % Date Value Ref Range Status 10/16/2024 8.4 % Final Abs Kemper Date Value Ref Range Status 10/16/2024 0.86 <0.87 k/uL Final Abs Eosin Date Value Ref Range Status 10/16/2024 0.43 <0.46 k/uL Final Basophils % Date Value Ref Range Status 10/16/2024 1.1 % Final Abs Baso Date Value Ref Range Status 10/16/2024 0.11 (H) <0.11 k/uL Final PATH: IMAGING: ASSESSMENT AND PLAN: Tawanda Stevens is a 69 year old year old female referred to us for lung mass and breast mass. H/o A fib on eliquis, CHF, CAD, DM, RA. PS 0. CT chest in Aug 2024 showed enlarging lung nodules and left breast mass - Left breast mammogram showed 2cm mass at 3:00 clock position 8 cm from nipple. 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 PLAN: - Ordered lung biopsy to r/o metastases. It was ordered in Oct 2024. She likes to do it in January 2025. - Ordered repeat CT chest to be done in 4 weeks to follow up on lung nodules - She states she will follow up with after the lung biopsy - Blood work ordered during the last visit was unremarkable. - Further management depending on lung biopsy findings. - She will proceed with lumpectomy if lung biopsy comes back benign. - All her questions answered in detail - F/u in [address] Kathy Ross MD [address] [place] [phone] thank you for allowing me to participate in Tawanda Stevens care, if there are any questions or concerns please do not hesitate to contact me at the number below. I spent a total of 20 minutes on the date of the service which included preparing to see the patient, [id number] patient care, completing clinical documentation, obtaining and/or reviewing separately obtained history, performing a medically appropriate examination, counseling and educating the pat ient/family/caregiver, ordering medications, tests, or procedures, communicating with other HCPs (not separately reported), independently interpreting results (not separately reported), communicatingresults to the patient/family/caregiver, and care coordination (not separately reported). Shekhar Vennepureddy, MD. Hematology/Medical Oncology [facility] [place] [phone] CC: documented in [facility] encounterMar[facility]01-[facility]25 NoteHNO ID: [id number] Author: SHEKHAR ARMANDO MD Service: ? Author Type: Physician Type: Progress Notes Filed: 12/07/2024 13:35 Note Text: PATIENT NAME: Tawanda Stevens [facility] NO.: [id number] ATTENDING PHYSICIAN: Shekhar Armando MD DATE OF SERVICE: 12/07/[address] Kathy Ross MD [address] [place] [phone] thank you for referring Tawanda Stevens for an opinion regarding lung and breast mass. Some of the elements of this note have been copied from my previous progress note dated 10/16/24 . All the information has been reviewed carefully. CHIEF COMPLAINT: Lung mass and breast mass. HPI: Tawanda Stevens is a 69 year old year old female with h/o A fib on eliquis, CHF, CAD, DM, RA referred to us for lung mass and breast mass. Had CT chest for follow up on lung nodule followed by mammogram and PET scan. PET scan (10/11/24) Mammogram (09/26/24) CT Chest (08/22/24): Underwent left breast biopsy on 09/27/24. Pathology showed mucinous carcinoma. Smokes 1 pk/day for 40 yrs Occasionally drinks alcohol Worked at [employer]. Saw surgeon on 10/05/24. Brother has prostate cancer. No major complaints. 12/07/24: - Doing well - H/o latent TB treatment 10yrs ago - No major complaints. Current Outpatient Medications Medication Sig predniSONE (DELTASONE) 5 mg tablet Take 5 mg by mouth as needed. adalimumab 80 mg/0.8 mL and 40 mg/0.4 mL subcutaneous syringe kit (HUMIRA (CF)) Inject 80 mg subcutaneously every 2 weeks. ELIQUIS 5 mg tab(s) Take 5 mg by mouth two times a day. atorvastatin (LIPITOR) 20 mg tablet Take 20 mg by mouth once daily. canagliflozin (INVOKANA) 100 mg tab Take 100 mg by mouth once daily. folic acid 1 mg tablet Take 1 mg by mouth once daily. hydrOXYchloroQUINE (PLAQUENIL) 200 mg tablet Take 200 mg by mouth two times a day. methotrexate 2.5 mg tablet Take 2.5 mg by mouth as directed. metoprolol succinate ER (TOPROL XL) 100 mg Take 100 mg by mouth once daily. spironolactone (ALDACTONE) 25 mg tablet Take 25 mg by mouth once daily. VITAMIN B COMPLEX ORAL Take 1 tablet by mouth once daily. No current facility-administered medications for this visit. ALLERGIES No Known Allergies PAST MEDICAL HISTORY Diagnosis Date A-fib (HCC) Anxiety Breast mass, left Cardiomyopathy (HCC) CHF (congestive heart failure) (HCC) Depression Emphysema lung (HCC) History of ectopic Hyperlipidemia IBS (irritable bowel syndrome) Lung nodule Rheumatoid arthritis (HCC) Smoker No past surgical history on file. FAMILY HISTORY Problem Relation Age of Onset Heart disease Mother other (Abdominal aortic aneurysm) Mother Heart disease Father other (Myocardial infarction) Father Heart disease Sister Hypertension Sister Uterine Fibroids Sister Diabetes Brother Hypertension Brother Heart disease Brother Hypertension Brother Heart disease Brother Social History Tobacco Use Smoking status: Every Day Current packs/day: 1.00 Types: Cigarettes Smokeless tobacco: Never Vaping Use Vaping status: Never Used Substance Use Topics Alcohol use: Not Currently Drug use: Never REVIEW OF SYSTEMS GENERAL: No weight loss, malaise or fevers. No night sweats. HEENT: Negative for headaches, No changes in hearing or vision, no nose bleeds or other nasal problems. RESPIRATORY: Negative for cough, wheezing and shortness of breath CARDIOVASCULAR: Negative for chest pain, leg swelling and palpitations GI: Negative for abdominal discomfort, blood in stools or black stools and change in bowel habits : Negative for dysuria, frequency and incontinence MUSCULOSKELETAL: Negative for joint pain or swelling, back pain, and muscle pain. SKIN: Negative for lesions, rash, and itching. HEMATOLOGY/LYMPHOLOGY Negative for prolonged bleeding, bruising easily, and swollen nodes. NEURO: Negative for numbness or tingling of hands/feet. No weakness. PHYSICAL EXAMINATION: There were no vitals taken for this visit. There were no vitals taken for this visit. No data found for this vital: Wt General appearance:ECOG PERFORMANCE STATUS: 0- Fully active, able to carry on all pre-disease performance w/o restriction. Patient in NAD. Skin: Skin color, texture, turgor normal. No rashes or lesions. Eyes: Anicteric sclera. Pupils are equally round and reactive to light. Extraocular movements are intact. Breast: No nipple change or discharge. Lymph Nodes: No cervical, supraclavicular, axillary or inguinal adenopathy. Oropharynx: Lips, mucosa, and tongue normal. Back: No pain to percussion. Negative SLR test Lungs clear to auscultation, No wheezing or rhonchi Heart: RRR without murmur, gallop, or rubs. Abdomen soft, non-tender. No masses, organomegaly Extremities: No deformities. No edema Neuro: Gait and speech normal. Reflexes normal and symmetric. Muscular strength intact. Sensation grossly intact. Rectal: Deferred (more content not included)...[facility]12-06-2024 Telephone encounter Note* Telephone Encounter - Itzel Leblanc - 10/20/2024 4:07 PM EST [facility] gave her an appt for 11-13-24. Patient denied this appt. She is requesting to wait until November 2024 to have this bx done. Carrie at [facility] to call me when her Nov schedule is available to schedule. Tawanda is aware to this. [facility]12-06-2024 Miscellaneous Notes* Telephone Encounter - Itzel Leblanc - 10/20/2024 4:07 PM EST [facility] gave her an appt for 11-13-24. Patient denied this appt. She is requesting to wait until November 2024 to have this bx done. Carrie at [facility] to call me when her Nov schedule is available to schedule. Tawanda is aware to this. documented in this encounterMarion Hospital12-03-2024 Telephone encounter Note * Telephone Encounter - Maddie Beebe - 10/17/2024 9:53 AM EST The patient cancelled her follow up appointment, she states it was to most likely schedule a lumpectomy. Her oncologist wants to biopsy some lung nodules prior to her addressing her breast concerns. She is not scheduled for the biopsy yet but will call to reschedule her appt with Dr Rhodes when her oncologist recommends it. [facility] [id number] Miscellaneous Notes* Telephone Encounter - Maddie Jah Beebe - 10/17/2024 9:53 AM EST The patient cancelled her follow up appointment, she states it was to most likely schedule a lumpectomy. Her oncologist wants to biopsy some lung nodules prior to her addressing her breast concerns. She is not scheduled for the biopsy yet but will call to reschedule her appt with Dr Rhodes when her oncologist recommends it. documented in this encounterSSM Health [id number] Instructions* Patient Instructions* Shekhar Armando MD - 10/16/2024 1:32 PM EST Labs today Ordered lung biopsy F/u in 2 weeks documented in this encounterMarion Hospital12-02-2024 History of Present illness Narrative* Shekhar Armando MD - 10/16/2024 1:00 PM EST Images from the original note were not included. PATIENT NAME: Tawanda Lunaaide [facility] NO.: [id number] ATTENDING PHYSICIAN: Shekhar Armando MD DATE OF SERVICE: October 16, [address] Kathy Ross MD [address] [place], [place] [phone] thank you for referring Tawanda Subramanian Hilda for an opinion regarding lung and breast mass. CHIEF COMPLAINT: Lung mass and breast mass. HPI: Tawanda Stevens is a 69 year old year old female with h/o A fib on eliquis, CHF, CAD, DM, RA referred to us for lung mass and breast mass. Had CT chest for follow up on lung nodule followed by mammogram and PET scan. PET scan (10/11/24) Mammogram (09/26/24) CT Chest (08/22/24): Underwent left breast biopsy on 09/27/24. Pathology showed mucinous carcinoma. Smokes 1 pk/day for 40 yrs Occasionally drinks alcohol Worked at [employer]. Saw surgeon on 10/05/24. Brother has prostate cancer. No major complaints. Current Outpatient Medications Medication Sig adalimumab 80 mg/0.8 mL and 40 mg/0.4 mL subcutaneous syringe kit (HUMIRA (CF)) Inject 80 mg subcutaneously every 2 weeks. ELIQUIS 5 mg tab(s) Take 5 mg by mouth two times a day. atorvastatin (LIPITOR) 20 mg tablet Take 20 mg by mouth once daily. canagliflozin (INVOKANA) 100 mg tab Take 100 mg by mouth once daily. folic acid 1 mg tablet Take 1 mg by mouth once daily. hydrOXYchloroQUINE (PLAQUENIL) 200 mg tablet Take 200 mg by mouth two times a day. methotrexate 2.5 mg tablet Take 2.5 mg by mouth as directed. metoprolol succinate ER (TOPROL XL) 100 mg Take 100 mg by mouth once daily. spironolactone (ALDACTONE) 25 mg tablet Take 25 mg by mouth once daily. VITAMIN B COMPLEX ORAL Take 1 tablet by mouth once daily. No current facility-administered medications for this visit. ALLERGIES No Known Allergies PAST MEDICAL HISTORY Diagnosis Date A-fib (HCC) Anxiety Breast mass, left Cardiomyopathy (HCC) CHF (congestive heart failure) (HCC) Depression Emphysema lung (HCC) History of ectopic Hyperlipidemia IBS (irritable bowel syndrome) Lung nodule Rheumatoid arthritis (HCC) Smoker No past surgical history on file. FAMILY HISTORY Problem Relation Age of Onset Heart disease Mother other (Abdominal aortic aneurysm) Mother Heart disease Father other (Myocardial infarction) Father Heart disease Sister Hypertension Sister Uterine Fibroids Sister Diabetes Brother Hypertension Brother Heart disease Brother Hypertension Brother Heart disease Brother Social History Tobacco Use Smoking status: Every Day Types: Cigarettes Smokeless tobacco: Never Substance Use Topics Alcohol use: Yes REVIEW OF SYSTEMS GENERAL: No weight loss, malaise or fevers. No night sweats. HEENT: Negative for headaches, No changes in hearing or vision, no nose bleeds or other nasal problems. RESPIRATORY: Negative for cough, wheezing and shortness of breath CARDIOVASCULAR: Negative for chest pain, leg swelling and palpitations GI: Negative for abdominal discomfort, blood in stools or black stools and change in bowel habits : Negative for dysuria, frequency and incontinence MUSCULOSKELETAL: Negative for joint pain or swelling, back pain, and muscle pain. SKIN: Negative for lesions, rash, and itching. HEMATOLOGY/LYMPHOLOGY Negative for prolonged bleeding, bruising easily, and swollen nodes. NEURO: Negative for numbness or tingling of hands/feet. No weakness. PHYSICAL EXAMINATION: There were no vitals taken for this visit. There were no vitals taken for this visit. No data found for this vital: Wt General appearance:ECOG PERFORMANCE STATUS: 0- Fully active, able to carry on all pre-disease performance w/o restriction. Patient in NAD. Skin: Skin color, texture, turgor normal. No rashes or lesions. Eyes: Anicteric sclera. Pupils are equally round and reactive to light. Extraocular movements are intact. Breast: No nipple change or discharge. Lymph Nodes: No cervical, supraclavicular, axillary or inguinal adenopathy. Oropharynx: Lips, mucosa, and tongue normal. Back: No pain to percussion. Negative SLR test Lungs clear to auscultation, No wheezing or rhonchi Heart: RRR without murmur, gallop, or rubs. Abdomen soft, non-tender. No masses, organomegaly Extremities: No deformities. No edema Neuro: Gait and speech normal. Reflexes normal and symmetric. Muscular strength intact. Sensation grossly intact. Rectal: Deferred : Deferred LABS: No results found for: GLUC , K , NA , CHLOR , CO2 , CREAT , BUN , ANION , CA , TPROT , ALB , TBILI , ALKPHOS , AST , ALT No results found for: WBC , RBC , HB , HCT , MCV , MCH , MCHC , RDWCV , PLT , MPV , NEUT , ABSNEUT , LYMPHP , ABSLYMPH , MONOP , ABSMONO , EOSINP , ABSEOSIN , BASOP , ABSBASO PATH: IMAGING: ASSESSMENT AND PLAN: Tawanda Stevens is a 69 year old year old female referred to us for lung mass and breast mass. H/o A fib on eliquis, CHF, CAD, DM, RA. PS 0. PLAN: - CT chest in Aug 2024 showed enlarging lung nodules and left breast mass - Left breast mammogram showed 2cm mass at 3:00 clock position 8 cm from nipple. 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 - Ordered lung biopsy to r/o metastases. - Check CBC CMP CEA CA 15-3 CA 27-29. - Scheduled to see Dr. Buckner on 10/19/24. - Further management depending on lung biopsy findings. - All her questions answered in detail - F/u in [address] Kathy Ross MD [address] [place] [phone] thank you for allowing me to participate in Tawanda Stevens care, if there are any questions or concerns please do not hesitate to contact me at the number below. I spent a total of 60 minutes on the date of the service which included preparing to see the patient, [id number] patient care, completing clinical documentation, obtaining and/or reviewing separately obtained history, performing a medically appropriate examination, counseling and educating the pat ient/family/caregiver, ordering medications, tests, or procedures, communicating with other HCPs (not separately reported), independently interpreting results (not separately reported), communicatingresults to the patient/family/caregiver, and care coordination (not separately reported). Shekhar Armando MD. Hematology/Medical Oncology [facility] [phone] CC: documented in this encounterMarion Hospital12-02-2024 NoteHNO ID: [id number] Author: SHEKHAR ARMANDO MD Service: ? Author Type: Physician Type: Progress Notes Filed: 10/16/2024 13:48 Note Text: PATIENT NAME: Tawanda Stevens [facility] NO.: [id number] ATTENDING PHYSICIAN: Shekhar Armando MD DATE OF SERVICE: October 16, [address] Kathy Ross MD [address] [phone] thank you for referring Tawanda Stevens for an opinion regarding lung and breast mass. CHIEF COMPLAINT: Lung mass and breast mass. HPI: Tawanda Stevens is a 69 year old year old female with h/o A fib on eliquis, CHF, CAD, DM, RA referred to us for lung mass and breast mass. Had CT chest for follow up on lung nodule followed by mammogram and PET scan. PET scan (10/11/24) Mammogram (09/26/24) CT Chest (08/22/24): Underwent left breast biopsy on 09/27/24. Pathology showed mucinous carcinoma. Smokes 1 pk/day for 40 yrs Occasionally drinks alcohol Worked at [employer]. Saw surgeon on 10/05/24. Brother has prostate cancer. No major complaints. Current Outpatient Medications Medication Sig adalimumab 80 mg/0.8 mL and 40 mg/0.4 mL subcutaneous syringe kit (HUMIRA (CF)) Inject 80 mg subcutaneously every 2 weeks. ELIQUIS 5 mg tab(s) Take 5 mg by mouth two times a day. atorvastatin (LIPITOR) 20 mg tablet Take 20 mg by mouth once daily. canagliflozin (INVOKANA) 100 mg tab Take 100 mg by mouth once daily. folic acid 1 mg tablet Take 1 mg by mouth once daily. hydrOXYchloroQUINE (PLAQUENIL) 200 mg tablet Take 200 mg by mouth two times a day. methotrexate 2.5 mg tablet Take 2.5 mg by mouth as directed. metoprolol succinate ER (TOPROL XL) 100 mg Take 100 mg by mouth once daily. spironolactone (ALDACTONE) 25 mg tablet Take 25 mg by mouth once daily. VITAMIN B COMPLEX ORAL Take 1 tablet by mouth once daily. No current facility-administered medications for this visit. ALLERGIES No Known Allergies PAST MEDICAL HISTORY Diagnosis Date A-fib (HCC) Anxiety Breast mass, left Cardiomyopathy (HCC) CHF (congestive heart failure) (HCC) Depression Emphysema lung (HCC) History of ectopic Hyperlipidemia IBS (irritable bowel syndrome) Lung nodule Rheumatoid arthritis (HCC) Smoker No past surgical history on file. FAMILY HISTORY Problem Relation Age of Onset Heart disease Mother other (Abdominal aortic aneurysm) Mother Heart disease Father other (Myocardial infarction) Father Heart disease Sister Hypertension Sister Uterine Fibroids Sister Diabetes Brother Hypertension Brother Heart disease Brother Hypertension Brother Heart disease Brother Social History Tobacco Use Smoking status: Every Day Types: Cigarettes Smokeless tobacco: Never Substance Use Topics Alcohol use: Yes REVIEW OF SYSTEMS GENERAL: No weight loss, malaise or fevers. No night sweats. HEENT: Negative for headaches, No changes in hearing or vision, no nose bleeds or other nasal problems. RESPIRATORY: Negative for cough, wheezing and shortness of breath CARDIOVASCULAR: Negative for chest pain, leg swelling and palpitations GI: Negative for abdominal discomfort, blood in stools or black stools and change in bowel habits : Negative for dysuria, frequency and incontinence MUSCULOSKELETAL: Negative for joint pain or swelling, back pain, and muscle pain. SKIN: Negative for lesions, rash, and itching. HEMATOLOGY/LYMPHOLOGY Negative for prolonged bleeding, bruising easily, and swollen nodes. NEURO: Negative for numbness or tingling of hands/feet. No weakness. PHYSICAL EXAMINATION: There were no vitals taken for this visit. There were no vitals taken for this visit. No data found for this vital: Wt General appearance:ECOG PERFORMANCE STATUS: 0- Fully active, able to carry on all pre-disease performance w/o restriction. Patient in NAD. Skin: Skin color, texture, turgor normal. No rashes or lesions. Eyes: Anicteric sclera. Pupils are equally round and reactive to light. Extraocular movements are intact. Breast: No nipple change or discharge. Lymph Nodes: No cervical, supraclavicular, axillary or inguinal adenopathy. Oropharynx: Lips, mucosa, and tongue normal. Back: No pain to percussion. Negative SLR test Lungs clear to auscultation, No wheezing or rhonchi Heart: RRR without murmur, gallop, or rubs. Abdomen soft, non-tender. No masses, organomegaly Extremities: No deformities. No edema Neuro: Gait and speech normal. Reflexes normal and symmetric. Muscular strength intact. Sensation grossly intact. Rectal: Deferred : Deferred LABS: No results found for: GLUC , K , NA , CHLOR , CO2 , CREAT , BUN , ANION , CA , TPROT , ALB , TBILI , ALKPHOS , AST , ALT No results found for: WBC , RBC , HB , HCT , MCV , MCH , MCHC , RDWCV , PLT , MPV , NEUT , ABSNEUT , LYMPHP , ABSLYMPH , MONOP , ABSMONO , EOSINP , ABSEOSIN , BASOP , ABSBASO PATH: IMAGING: ASSESSM (more content not included)...[facility]11-21-2024 History of Present illness Narrative* Mac Ozuna Toddhima, DO - 10/05/2024 1:45 PM EST Images from the original note were not included. Tawanda Stevens 1955 Tawanda Stevens is a 69 y.o. female presents with chief complaint of Left breast bx results HPI: HPI Tawanda is a 69 y/o female that had a CT of the chest which shows suspicious lung nodules and a Leftbreast mass. She presents today for the biopsy results. She has RA and was informed of a lung nodule in the past which they were keeping an eye on. A repeat CT scan was done which showed a breast nodule. She states she can feel the mass. She denies any skin changes or nipple discharge. The PET scan was completed and she has an appointment to see Dr. Ross for the PET results. SUBJECTIVE: MEDICATIONS: ALLERGIES Current Outpatient Medications Medication Instructions atorvastatin (LIPITOR) 20 mg, Nightly b complex-folic acid tablet 1 tablet, Daily RT canagliflozin (Invokana) 100 MG Daily Eliquis 5 mg, 2 times daily folic acid (FOLVITE) 1,000 mcg, Daily Humira, 2 Pen, 40 MG/0.4ML Auto-injector Kit hydroxychloroquine (Plaquenil) 200 MG tablet Twice daily methotrexate 2.5 MG tablet every week metoprolol succinate XL (Toprol-XL) 200 MG 24 hr tablet Daily spironolactone (ALDACTONE) 25 mg, Daily RT No Known Allergies PAST MEDICAL HISTORY: SOCIAL HISTORY SURGICAL HISTORY: Past Medical History: Diagnosis Date Acute on chronic systolic CHF (congestive heart failure), NYHA class 4 (CMS/HCC) resolved Anxiety Atrial fibrillation with RVR (CMS/HCC) resolved Breast nodule Cardiomyopathy (CMS/HCC) resolved Depression (CMS/HCC) Emphysema lung (CMS/HCC) Gastritis Heart disease History of cardiac radiofrequency ablation Hyperlipidemia (CMS/HCC) Lung nodule Measles RA (rheumatoid arthritis) (CMS/HCC) Tonsillitis Tuberculosis Social History Tobacco Use Smoking status: Former Current packs/day: 1.00 Average packs/day: 1 pack/day for 49.9 years (49.9 ttl pk-yrs) Types: Cigarettes Start date: 1974 Smokeless tobacco: Never Substance Use Topics Alcohol use: Yes Alcohol/week: 2.0 standard drinks of alcohol Types: 2 Glasses of wine per week Drug use: Never Past Surgical History: Procedure Laterality Date BI US GUIDED BREAST LOCALIZATION AND BIOPSY LEFT Left 09/27/2024 BI US GUIDED BREAST LOCALIZATION AND BIOPSY LEFT COLONOSCOPY 2016 ECTOPIC SURGERY 1993 HYSTERECTOMY 2004 TONSILECTOMY, ADENOIDECTOMY, BILATERAL MYRINGOTOMY AND TUBES 1973 ULTRASOUND : DOPPLER : VEINS LEG HUY. Right FAMILY HISTORY Family History Problem Relation Name Age of Onset Aneurysm Mother Heart attack Father Thyroid disease Brother Colon cancer Neg Hx Breast cancer Neg Hx Ovarian cancer Neg Hx Pancreatic cancer Neg Hx REVIEW OF SYMPTOMS: Review of Systems Constitutional: Negative for diaphoresis and unexpected weight change. HENT: Negative for hearing loss, tinnitus and voice change. Breasts: Positive for breast mass (Lt Breast). Respiratory: Negative for shortness of breath. Cardiovascular: Negative for chest pain and palpitations. Musculoskeletal: Positive for arthralgias. Neurological: Negative for dizziness, seizures and headaches. Psychiatric/Behavioral: Depression and anxiety All other systems reviewed and are negative. Hematological: Negative for adenopathy. Does not bruise/bleed easily. OBJECTIVE: Visit Vitals Smoking Status Former Physical Exam Exam conducted with a classroom paraprofessional present. HENT: Head: Normocephalic. Cardiovascular: Rate and Rhythm: Normal rate and regular rhythm. Pulmonary: Effort: Pulmonary effort is normal. Breath sounds: Normal breath sounds. Chest: Comments: Bilateral supraclavicular, infraclavicular, bicipital and axillary lymph nodes were foundto be normal. Each breast was examined in the sitting and supine position, there was no evidence ofmasses, dimpling or discharge in the right breast. In the left breast at the 4;30-5:00 position about 5 cm lateral to the NAC is a firm 1 cm smooth non fixed mass Abdominal: General: Abdomen is flat. Bowel sounds are normal. Palpations: Abdomen is soft. Skin: General: Skin is warm and dry. Neurological: Mental Status: She is alert. ASSESSMENT AND PLAN: Assessment/Plan Problem List Items Addressed This Visit None Tawanda underwent a repeat chest CT for a lung nodule that was being observed and was found to have a left breast mass. She has not had a mammogram since 2020. On exam she has a palpable mass at the 4-5:00 position in the left brast. 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 I informed the patient of the diagnosis of LEFT breast IDC ER/UT+ Her2 pending. I briefly discussedthe surgical options to include a mastectomy with immediate or delayed reconstruction vs a lumpectomy with the possible addition of radiation therapy, Based on the favorable prognostic factors, assuming Her2 comes back neagtive and Grade 1 and the negative left axillary US, we will follow the SOUNDtrial results and consider not doing any LN evaluation. The patient was informed that after surgical treatments is completed she will be referred to Hem/Onc and Rad Onc for consideration of additional treatment options. We discussed the indications for genetic testing to see if she is a carrier of the BRCA or PALB2 genes as well as others. She has no children and chooses not to do the genetic testing at this time. I will have her return after she see's Dr. Ross and gets the information about her lung nodules to review the results of the Her 2 and to plan for surgery. documented in this encounterSSM Health [id number] History of Present illness Narrative* Ese Sawant MD - 09/28/2024 12:45 PM EST Patient is new to this provider. Previously saw Dr. Conley. Has seen Dr. Hunt in EP. Notes were reviewed. Subjective : Interval review of systems is negative for chest discomfort pressure tightness heaviness palpitations lightheadedness orthopnea paroxysmal nocturnal dyspnea dependent edema or claudication TIA or CVAtype symptoms or bleeding diathesis No falls reported At last visit there was a concern for melena, patient reports no bleeding, she does not recall the details of workup No recent laboratory data History so Far : 1. Paroxysmal atrial fibrillation underwent radiofrequency ablation in 2022 2. Nonischemic cardiomyopathy with subsequent normalization of LV systolic function 3. Mixed hyperlipidemia 4. Essential hypertension 5. Echocardiogram October 2022-LVEF 50 to 55% left atrial diameter 4 cm mildly dilated right atrium mild mitral regurgitation significant improvement in LV function compared to prior study 6. Rheumatoid arthritis 7. Long-term use of prednisone 8 weight 217 pounds BMI 37.25 09/28/2024 Objective Wt Readings from Last 3 Encounters: 09/28/24 98.4 kg (217 lb) 01/10/24 93.9 kg (207 lb) 09/15/23 94.3 kg (208 lb) Vitals: 09/28/24 1243 BP: 110/82 BP Location: Right arm Patient Position: Sitting Pulse: 64 Weight: 98.4 kg (217 lb) Height: 1.626 m (5' 4 ) Physical Exam: GENERAL APPEARANCE: in no acute distress. CHEST: Symmetric and non-tender. INTEGUMENT: Skin warm and dry HEENT: No gross abnormalities identified.No pallor or scleral icterus. NECK: Supple, no JVD, no bruit. NEURO/PSHCY: Alert and oriented x3; appropriate behavior and responses and responses LUNGS: Clear to auscultation bilaterally; normal respiratory effort. HEART: Rate and rhythm regular with no evident murmur; no gallop appreciated. ABDOMEN: Soft, non tender. MUSCULOSKELETAL: No gross deformities. EXTREMITIES: Warm There is no edema noted. Meds: Current Outpatient Medications Medication Instructions adalimumab (Julio,MI, Brodericki Crohns Starter) 80 mg/0.8 mL-40 mg/0.4 mL syringe kit prefilled syringestarter kit 80 mg, Every 14 days atorvastatin (LIPITOR) 20 mg, oral, Nightly b complex 0.4 mg tablet 1 tablet, Daily Eliquis 5 mg, oral, 2 times daily hydroxychloroquine (PLAQUENIL) 200 mg, 2 times daily Invokana 100 mg, oral, Daily metoprolol succinate XL (TOPROL-XL) 100 mg, oral, Daily, Do not crush or chew. 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 Establishing care with new doctor, encounter for 2. Paroxysmal atrial fibrillation (Multi) Follow Up In Cardiology 3. Nonischemic cardiomyopathy (Multi) Follow Up In Cardiology 4. Essential hypertension CBC Comprehensive Metabolic Panel CBC Comprehensive Metabolic Panel 5. Mixed hyperlipidemia Lipid Panel Lipid Panel 6. Body mass index (BMI) of 37.0 to 37.9 in adult 7. Cigarette smoker 8. Current use of detention anticoagulation Clinical decision making: Blood pressures at target No bleeding diathesis No clinical recurrence of atrial fibrillation Unknown duration of anticoagulation. No falls Fall precautions reviewed She did have cardiomyopathy when she had atrial fibrillation, subsequent echocardiogram showed normalization of LV function Discussed nicotine cessation, and encouraged her to at least try and cut back. She smokes primarilyto relieve anxiety. No recent laboratory data available. Soon to get blood work done through rheumatology. [facility] and lipid profile that Follow up : 1 year Provider Attestation - Sakshi Lama documentation All medical record entries made by the Scribe were at my direction and personally dictated by me. Alex reviewed the chart and agree that the record accurately reflects my personal performance of the history, physical exam, discussion and plan. documented in this encounterFort [facility] Work Phone: 1(322) 629-873111-14-2024 Instructions* Patient Instructions* Sakshi Epstein LPN - 09/28/2024 12:45 PM EST Please bring all medicines, vitamins, and herbal supplements with you when you come to the office. Prescriptions will not be filled unless you are compliant with your follow up appointments or have a follow up appointment scheduled as per instruction of your physician. Refills should be requested at the time of your visit. BMI was above normal measurement. Current weight: 98.4 kg (217 lb) Weight change since last visit (-) denotes wt loss 10 lbs Weight loss needed to achieve BMI 25: 71.7 Lbs Weight loss needed to achieve BMI 30: 42.6 Lbs Provided instructions on dietary changes Provided instructions on exercise. documented in this [facility] Work Phone: 1(642) 988-648711-11-2024 Nuclear medicine Diagnostic study note [facility] [place] [address] Nuclear Medicine Report Signed Patient: Tawanda Stevens MR#: [id number] : 1955 Acct:[id number] Age/Sex: 69 / F ADM Date: 4 Loc: Room: Type: [facility] Attending Dr: Kathy Ross MD Copies to: MD John Alatorre II, MD~ Ordering Provider: Kathy Ross MD Date of Service: 09/25/24 PET/PET tumor init tx strat sb-mt: R91.1 - Solitary pulmonary nodule PET tumor init tx strat sb-mt 09/25/2024 11:17 AM SIGNS AND SYMPTOMS: ^R91.1 - Solitary pulmonary nodule PROTOCOL: PET images were obtained from skull base to mid thigh after intravenous radiotracer administration. Low-dose CT was performed from skull base to mid thigh. After attenuation correction of PET images, fused PET CT images were generated and reconstructed in axial, sagittal, and coronal planes. COMPARISON: Chest CT 08/22/2024 RADIOPHARMACEUTICAL: 11.49 mCi of intravenous fluorine 18 FDG. BLOOD GLUCOSE: 83 mg/dL FINDINGS: There is a 2.3 cm noncalcified nodule posteriorly in the right upper lobe with amaximum SUV of 3.4. Inferior to this is a 1.9 cm noncalcified FDG avid pleural-based nodule with a maximum SUV of 4.6. Posteriorly along the left lower lobe is a 12 mm subtly FDG avid nodule with a maximum SUV of 2.7. Anteriorly along the inferior aspect of the left lobe there is a 9 mm subtly FDGavid focus measuring a maximum SUV of 1.9. There is a 2 cm soft tissue attenuating structure in the left breast. This is nonsignificantly FDG avid with a maximum SUV of 1.5. There is physiologic radiotracer accumulation in the brain, salivary glands, myocardium, liver, spleen, kidneys, bladder, ureters, and bowel. PET/PET tumor init tx strat sb-mt IMPRESSION: There is a 2.3 cm noncalcified nodule posteriorly in the right upper lobe with amaximum SUV of 3.4. Inferior to this is a 1.9 cm noncalcified FDG avid pleural-based nodule with a maximum SUV of 4.6. Posteriorly along the left lower lobe is a 12 mm subtly FDG avid nodule with a maximum SUV of 2.7. These findings may represent sequelae of malignancy with other etiologies such as round atelectasiswithout significant. Impression dictated by: John Loving M.D.09/25/2024 1:57 PM Dictation Location: [place] [address] Transcribed By: BARB 09/25/24 1357 Dictated By: John Loving II, MD 09/25/24 134 Signed By: 09/25/24 7024 [facility] Work Phone: 1(236) 793-127611-06-2024 History of Present illness Narrative* Mac Rhodes, - 09/20/2024 2:00 PM EST Images from the original note were not included. Tawanda Stevens 1955 Tawanda Stevens is a 69 y.o. female presents with chief complaint of Consult breast nodule HPI: HPI Tawanda is a 69 y/o female that had a CT of the chest which shows suspicious lung nodules and a Leftbreast mass. She has RA and was informed of a lung nodule in the past which they were keeping an eye on. A repeat CT scan was done which showed a breast nodule. She states she can feel the mass. She denies any skin changes or nipple discharge. She states she has a PET scan scheduled for next week. Currently there is no plan to biopsy the lung nodule. SUBJECTIVE: MEDICATIONS: ALLERGIES No current outpatient medications Not on File PAST MEDICAL HISTORY: SOCIAL HISTORY SURGICAL HISTORY: No past medical history on file. No past surgical history on file. FAMILY HISTORY No family history on file. REVIEW OF SYMPTOMS: Review of Systems Constitutional: Negative for diaphoresis and unexpected weight change. HENT: Negative for hearing loss, tinnitus and voice change. Breasts: Positive for breast mass (Lt Breast). Respiratory: Negative for shortness of breath. Cardiovascular: Negative for chest pain and palpitations. Musculoskeletal: Positive for arthralgias. Neurological: Negative for dizziness, seizures and headaches. Psychiatric/Behavioral: Depression and anxiety All other systems reviewed and are negative. Hematological: Negative for adenopathy. Does not bruise/bleed easily. OBJECTIVE: There were no vitals taken for this visit. Physical Exam Exam conducted with a classroom paraprofessional present. HENT: Head: Normocephalic. Cardiovascular: Rate and Rhythm: Normal rate and regular rhythm. Pulmonary: Effort: Pulmonary effort is normal. Breath sounds: Normal breath sounds. Chest: Comments: Bilateral supraclavicular, infraclavicular, bicipital and axillary lymph nodes were foundto be normal. Each breast was examined in the sitting and supine position, there was no evidence ofmasses, dimpling or discharge in the right breast. In the left breast at the 4;30-5:00 position about 5 cm lateral to the NAC is a firm 1 cm smooth non fixed mass Abdominal: General: Abdomen is flat. Bowel sounds are normal. Palpations: Abdomen is soft. Skin: General: Skin is warm and dry. Neurological: Mental Status: She is alert. ASSESSMENT AND PLAN: Assessment/Plan Problem List Items Addressed This Visit Mass of lower outer quadrant of left breast Tawanda underwent a repeat chest CT for a lung nodule that was being observed and was found to have a left breast mass. She has not had a mammogram since 2020. On exam she has a palpable mass at the 4-5:00 position in the left brast. I suggest we get updated mamm's as well as an US of the mass and the left axilla and a biopsy of the mass. She is on Eliquis so she will need to hold that prior to the procedure. I will see her to review the results. 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 PROCEED WITH EGD TO EVALUATE. PATIENT TO REPORT TO ER IF SYMPTOMS WORSEN. [employer] Other 11-01-2023 History of Present illness Narrative* [...] normal. Current Medications Current Outpatient Medications: adalimumab (MI Kim, Yahir Crohns Starter) 80 mg/0.8 mL-40 mg/0.4 mL [...] pre-existing relationship with them. documented in this encounterFort [facility] Hospital Work Phone: [phone] 225-525411-01-2023 Instructions* Patient Instructions* Sakshi Epstein LPN - [...] time of your visit. 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 I personally evaluated the patient [id number] Electronic Signatures: Gilbert Hernandez) (Signed 02-Feb-2023 11:45) Co-Signer: History of Present Illness, Allergies, Home Medication Review, Impression/Procedure, ERAS, Physical Exam, Consent, Note Completion Diana Garcia (Resident)) (Signed 01-Feb-2023 19:00) Authored: History of Present Illness, Allergies, Home Medication Review, Impression/Procedure, ERAS, Physical Exam, Consent, Note Completion Last Updated: 02-Feb-2023 11:45 by Gilbert Hernandez)[facility] 01-08-2023 NotePre-procedure Verification and Time Out: Pre-Procedure Verification and Time Out: Procedure Locationprocedure area HUDDLE - Pre-procedure Verificationcompleted TIME OUT - Final Verificationcompleted immediately prior to procedure start DEBRIEFcompleted General Information: Anesthesia Critical Care: Non-Anesthesia Post-Procedure Diagnosis: successful afib ablation Procedure Name: afib ablation Findings: grossly normal anatomy Procedure performed by: Mary Fitter Armament(s): Diana garcia Estimated Blood Loss (mL): 10 [...] Details Last Updated: 08-Jan-2023 12:32 by Gilbert Hernandez)[facility] 01-08-2023 NoteClinical Note - Pharmacy v2: Education: Document TopicMedication Education MedicationMeds to Beds: Patient declines Meds to Beds service at discharge. Sources used to confirm home medication list: Patient interview, pharmacy fill history (surescripts), AE med list Additional comments: has not started nicotine patches that were prescribed. Aspirin: not prescribed Statin: atorvastatin 20 mg daily P2Y12 inhibitor: not prescribed Anticoagulant: apixaban 5 mg BID Medication reconciliation complete Please reach out via [employer] for questions, or if no response call [phone] or [employer] [facility] Caldwell PharmD, PGY-1 Resident [facility] Is This Intervention Medication Reconciliation Relatedyes Time Croqcnxk77 - 60 minutes Additional NotesDrug Name: amiodarone [...] No Known Allergies Electronic Signatures: Nely Orantes ([facility]) (Signed 08-Jan-2023 13:27) Co-Signer: Donald, Allergy Phil Caldwell ([facility]) (Signed 08-Jan-2023 08:10) Authored: Education, Allergy Last Updated: 08-Jan-2023 13:27 by Nely Orantes ([facility]02-24-2023 NoteElectrophysiology Procedure TestingPlease click on the link to view the study images (Normal)[facility] Work Phone: 1(461) 262-909002-24-2023 NoteElectrophysiology Procedure Testing Please click on the link to view the study images (Normal)[facility] Work Phone: 1(113) 171-698812-12-2022 History of Present illness Narrative* The patient [...] medication regimen. She denies medication side effects. [facility] [employer] DO Work Phone: [phone]) [phone] History of Present illness Narrative* The patient [...] medication regimen. She denies medication side effects. [facility] [employer] DO Work Phone: 1([phone]) 279-162511-16-2022 Procedure [facility]09-13-2022 Procedure [facility]08-10-2022 Procedure [facility]08-03-2022 History of Present illness Narrative* The [...] medication regimen. She denies medication side effects. -[facility] [employer] DO Work Phone: Chief complaint Narrative - ReportedTAWANDA STEVENS is being seen for a consultation for atrial fibrillation and cardiomyopathy. [facility] Work Phone: Chief complaint Narrative - Reported* TAWANDA STEVENS is being seen for a cardiovascular evaluation. * TAWANDA STEVENS is being seen for a cardiovascular evaluation of atrial fibrillation, dyslipidemia and hypertension. [facility]Vfqmwqil[facility] [address] E[address] [place] Work Phone: Evaluation note* Diagnosis Onset Date Resolution Status Acute systolic CHF (congesti ve heart failure), NYHA class 4 acute Anxiety acute Atrial fibrillation with RVR acute Cardiomyopathy acute Depression acute HLD (hyperlipidemia) acute Rheumatoid arthritis acute [facility] Work Phone: Evaluation noteNo assessment information available [facility] Work Phone: Evaluation note* Diagnosis Paroxysmal atrial fibrillation (CMS/HCC)- Primary Atrial fibrillation Nonischemic cardiomyopathy (CMS/HCC) Other primary cardiomyopathies Mixed hyperlipidemia Essential hypertension Unspecified essential hypertension Melena Blood in stool documented in this encounter [facility] Work Phone: Evaluation noteNo InformationNort [employer] Other Evaluation note* Diagnosis Mass of lower outer quadrant of left breast documented in this encounter [facility]* Diagnosis Establishing care with new doctor, encounter for- Primary Paroxysmal atrial fibrillation (Multi) Atrial fibrillation Nonischemic cardiomyopathy (Multi) Other primary cardiomyopathies Essential hypertension Unspecified essential hypertension Mixed hyperlipidemia Body mass index (BMI) of 37.0 to 37.9 in adult Cigarette smoker Tobacco use disorder Current use of detention anticoagulation documented in this encounter [facility] Work Phone: Evaluation note* Diagnosis 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, estrogen receptor positive (CMS/HCC)- Primary documented in this encounter [facility]* Diagnosis Lung nodules- Primary Other nonspecific abnormal finding of lung field Malignant neoplasm of upper-outer quadrant of left breast in female, estrogen receptor positive (HCC) [facility] Diagnosis Lung nodules- Primary Other nonspecific abnormal finding of lung field [facility] encounter [facility]* Diagnosis Lung nodule- Primary Solitary pulmonary nodule [facility] Diagnosis Lung nodules Other nonspecific abnormal finding of lung field Lung nodule Solitary pulmonary nodule [facility] Diagnosis Lung nodules- Primary Other nonspecific abnormal finding of lung field Malignant neoplasm of upper-outer quadrant of left breast in female, estrogen receptor positive (HCC) [facility] Diagnosis Lung nodules- Primary Other nonspecific abnormal finding of lung field Malignant neoplasm of upper-outer quadrant of left breast in female, estrogen receptor positive (HCC) Malignant 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 (HCC) Malignant neoplasm of upper lobe, bronchus or lung documented [facility] this encounter [facility]* Diagnosis Lung nodules- Primary Other nonspecific abnormal finding of lung field Anxiety Anxiety state, unspecified documented [facility] this encounter [facility]* Diagnosis Malignant neoplasm of female breast (CMS/HCC) Malignant neoplasm of breast (female), unspecified site documented in this encounter [facility] HealthcareHistory and physical note Author Clinton Pierce [facility] November 30, 2023 1:10pm Note Date/Time November 30, 2023 1 :10pm [facility] [address] [place] [address] Gastroenterology H&P Signed Patient: Tawanda Stevens MR#: [id number] : 1955 Acct:[id number] Age/Sex: 68 / F Adm Date: 4 Loc: Room: Type: [facility] Attending Dr: Clinton Pierce MD Copies to: [...] signed by Clinton Pierce MD> 11/30/23 1310 [facility] Work Phone: Hiszwjm general Narrative - Reported* Type Description Date Medical History depression Medical History BURSITIS Medical History Atrial fibrillation Medical History rheumatoid arthritis Medical History pulmonary nodule Surgical History HYSTERECTOMY 2004 Surgical History T & A 1974 Surgical History ectopic 1993 Surgical History rt leg veins 2008 [employer] Other Hisrvlh general Narrative - Reported* Type Description Date Medical History depression Medical History BURSITIS Medical History Atrial fibrillation Medical History rheumatoid arthritis Medical History pulmonary nodule Medical History emphysema Medical History rheumatoid lung disease Surgical History HYSTERECTOMY 2004 Surgical History T & A 1974 Surgical History ectopic 1993 Surgical History rt leg veins 2008 [employer] Other History of Present illness Narrative* The [...] medication regimen. She denies medication side effects. [facility] [place] DO Work Phone: History of Present illness [...] medication regimen. She denies medication side effects. [facility] 250 DO Work Phone: History of Present [...] medication regimen. She denies medication side effects. [facility] [address] DO Work Phone: History of Present [...] side effects. [facility] 600 DO Work Phone: History of Present illness Ivqx[age]amh84 yo female. 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 The patient underwent multiple DCC and is currently in high dosis ofamiodarone to maintain NSR. Was referred to me for evaluation for A Fib RFA.[facility]Hxaaumzfug-Siipm [facility] Work Phone: History of Present [...] medication regimen. She denies medication side effects. [facility] [address] DO Work Phone: History of Present illness Doduzjzkm86 yo female. Presents for 3 months follow up after A Fib RFA.AG-Mkhbgiescj-WPP Dale E[address] [place] Work Phone: History of Present illness Xxouksjaw45 yo female. Presents for 6 months follow up after A fib RFA. Amiodarone was stopped during last visit.[facility] Work Phone: Hospital Discharge instructions Additional Instructions No driving for 24 hours. Office will call for your follow up appointment.[facility] Work Phone: Hospital Discharge instructions Additional Instructions [...] problems. -Follow up with PCP. -Office number [phone].[facility] Work Phone: Hospital Discharge instructionsAmbulatory Orders* Referral to General Surgery Time Frame: 02/15/25, Location: None Selected [facility] Work Phone: Reason for referral (narrative)* Consultation (Routine) - Authorized Specialty Diagnoses / Procedures Referred By Contac t Referred To Contact Cardiology Diagnoses Paroxysmal atrial fibrillation (CMS/HCC) Procedures Follow Up In Cardiology Arsalan Conley MD [facility] [facility] 2, [address] [address] Arsalan Conley MD [address], [address] [address] Referral ID Status Reason Start Date Expiration Date V isits Requested Visits Authorized [id number] Authorized 09/15/2023 09/14/2024 1 1 [facility] Work Phone: Chief Complaint * More bad then good days * TAWANDA STEVENS is being seen for follow-up of a hospitalization for dyspnea. * Patient was recently hospitalized at [facility]. The patient was seen in Cardiology consult with subsequent cardiovascular management by [facility]. Hospitalization records have been reviewed. * Reason for Cardiology Consultation: ADHF, afib RVR * Consulting Mid Level Project Manager: Dr. Conley * Cardiovascular testing: Echo, cardiac [...] * Jun 24, 2022: DCC x3 with mu-ism of NSR. * Feels like initially 'was [...] that time (not on med list at , she believes was stopped mid May by PCP), has been compliant with addition of KCL supplement. Is due for repeat labs. * Jun 24, 2022: DCC x3 with mu-ism of NSR. * Feels like initially 'was [...] * July 28, 2022 cardioversion x2 with mu-ism of normal sinus rhythm on amiodarone 200 mg twice daily. * August 11, 2022 follow-up had recurrent atrial fibrillation and amiodarone increased 200 mg 3 times daily. Follow-up cardioversion was postponed due to COVID-positive illness, did not require hospitalization. * September 30, 2022 uneventful cardioversion with mu-ism of normal sinus rhythm. * Patient presents [...] agent due to cardiomyopathy and need for mu-ism normal sinus rhythm in setting EF 15 [...] * 3. Lab work was completed at [facility], need to obtain. * 4. [...] * July 28, 2022 cardioversion x2 with mu-ism of normal sinus rhythm on amiodarone 200 mg twice daily. * August 11, 2022 follow-up had recurrent atrial fibrillation and amiodarone increased 200 mg 3 times daily. Follow-up cardioversion was postponed due to COVID-positive illness, did not require hospitalization. * September 30, 2022 uneventful cardioversion with mu-ism of normal sinus rhythm. * Her cardiomyopathy is tachycardia mediated; LVEF improved with mu-ism and maintenance of normal sinus rhythm. * At 67 years old, preference would be to avoid amiodarone and it was selected as initial agent due to cardiomyopathy and need for mu-ism normal sinus rhythm in setting EF 15 [...] I will follow-up on lab work from [facility]. * Routine f/u: 'doing ok' [...] * July 28, 2022 cardioversion x2 with mu-ism of normal sinus rhythm on amiodarone 200 mg twice daily. * August 11, 2022 follow-up had recurrent atrial fibrillation and amiodarone increased 200 mg 3 times daily. Follow-up cardioversion was postponed due to COVID-positive illness, did not require hospitalization. * September 30, 2022 uneventful cardioversion with mu-ism of normal sinus rhythm. * January 08, 2023 A-fib ablation * Her cardiomyopathy is tachycardia mediated; LVEF improved with mu-ism and maintenance of normal sinus rhythm. * [...] Unknown Not Specified Unknown sister Hypertension Unknown Relationship Condition Age at Onset Recorded Date/T adrian brother Diabetes mellitus Unknown Heart disease Unknown Hypertension Unknown Atrial fibrillation Unknown father Unknown Myocardial infarction Unknown mother Unknown Abdominal aortic aneurysm (AAA) Unknown sister Hypertension Unknown Relationship Condition Age at Onset Recorded Date/T adrian brother Diabetes mellitus Unknown Heart disease Unknown Hypertension Unknown Atrial fibrillation Unknown father Unknown Myocardial infarction Unknown mother Unknown Abdominal aortic aneurysm (AAA) Unknown sister Hypertension Unknown brother Heart disease Unknown Relationship Condition Age at Onset Recorded Date/T adrian father Unknown Heart disease Unknown Myocardial infarction Unknown mother Unknown Abdominal aortic aneurysm (AAA) Unknown sister Hypertension Unknown Atrial fibrillation Unknown brother Heart disease Unknown Hypertension Unknown Diabetes mellitus Unknown Chief Complaint and Reason for Visit [...] r91.8 Chief Complaint r91.8 m05.10 Black Stools Chief Complaint R91.1 M06.9 Chief Complaint Admit Date R91.1 M06.9 August 22, 2024 12 :16pm CEA: 6 mo f/u Lung Nodule, Emphysema, RA September 05, 2024 2:03pm R91.1 September 25, 2024 10:04am Reason for Visit Admit Date Breast nodule September 05, 2024 2 :03pm Emphysema lung September 05, 2024 2 :03pm Lung nodule September 05, 2024 2 :03pm Rheumatoid arthritis September 05, 2024 2:03pm Chief Complaint Admit Date R91.1 M06.9 August 22, 2024 12 :16pm CEA: 6 mo f/u Lung Nodule, Emphysema, RA September 05, 2024 2:03pm R91.1 September 25, 2024 10:04am R92.8 N63.0 September 26, 2024 10:08am Chief Complaint Admit Date R91.1 M06.9 August 22, 2024 12 :16pm CEA: 6 mo f/u Lung Nodule, Emphysema, RA September 05, 2024 2:03pm R91.1 September 25, 2024 10:04am R92.8 N63.0 September 26, 2024 10:08am breast mass September 27, 2024 12:50pm Chief Complaint Admit Date r91.8 c50.412 z17.0 February 05, 2025 8:5 5am Chief Complaint Admit Date r91.8 c50.412 z17.0 February 05, 2025 8:5 5am 4 week f/u Lung Nodule February 15, 2025 1 1:26am Reason for Visit Admit Date Lung nodule February 05, 2025 8:5 5am Breast nodule February 15, 2025 11:2 6am Emphysema lung February 15, 2025 11:2 6am Lung nodule February 15, 2025 11:2 6am Rheumatoid arthritis February 15, 2025 11: 26am Advance Directives No Advanced Directives Records Found Advance Directive Response Recorded Date/ Time Advance Directives No December 01, 2018 4:17pm Advance Directive Response Recorded Date/ Time Advance Directives No December 01, 2018 3:17pm Advance Directive Response Recorded Date/ Time Advance Directives Yes April 11 8:49am Advance Directive Response Recorded Date/ Time Advance Directives Yes April 11 7:49am Summary Purpose Reason for Referral Specialty Diagnoses / Procedures Referred By Barry t Referred To Contact CT IMAGING Diagnoses Lung nodules Procedures CT CHEST W IVCON DIAGNOSTIC COMPUTED TOMOGRAPHY THORAX W/CONTRAST Shekhar Armando MD [address] [place] [address] [place] [address] [place] [address] Referral ID Status Reason Start Date Expiration Date Visits Requested Visits Authorized [id number] New Request Auto-Generat ed Referral 01/04/2025 01/06/2026 1 1 Additional Source Comments Care Teams (unrecognized sec tion and content) Team Status: Inactive Member Role Status Dates Carolee Estrada MD Primary Care Provider Active Arsalan Conley MD Attending Provider Active Team Status: Inactive Member Role Status Dates Carolee Estrada MD Primary Care Provider Active Arsalan Conley MD Attending Provider, Refer ring Provider Active Team Status: Inactive Member Role Status Dates Carolee Estrada MD Primary Care Provider Active August Lamas MD Admit Provider, Attending Fam moya Active Team Status: Inactive Member Role Status Dates Carolee Estrada MD Primary Care Provider Active Carmine Nails MD Attending Provider Active Team Status: Active Member Role Status Dates Carolee Estrada MD Primary Care Provider Active Team Status: Inactive Member Role Status Dates Carolee Estrada MD Primary Care Provider Active Kathy Ross MD Attending Provider Active Credit Report Checker Relationship Specialty Start Date End Date Berry Janene K, MUNICIPAL MAINTENANCE WORKER-WORKFORCE CONSULTANT [address] [facility] [address], [address] [place] [address] PCP - [employer] PCP 03/15/23 Chris Moss MD [address] [facility] [place] [address] PCP - General Family Medicine 09/15/23 Team Status: Inactive Member Role Status Haydee Estrada MD Primary Care Provider Active S tart: November 30, 2023 End: November 30, 2023 Clinton Pierce MD Attending Provider Active S tart: November 30, 2023 End: November 30, 2023 Team Status: Inactive Member Role Status Dates Carolee Estrada MD Primary Care Provider Active S tart: February 22, 2024 End: February 22, 2024 Kathy Ross MD Attending Provider Active Start: February 22, 2024 End: February 22, 2024 Team Status: Inactive Member Role Status Dates Carolee Estrada MD Primary Care Provider Active Clinton Pierce MD Attending Provider Active Team Status: Active Member Role Status Dates PHYSICIAN NO FAMILY Primary Care Provider Active Team Status: Inactive Member Role Status Dates Kathy Ross MD Attending Provider Active Start: August 22, 2024 End: August 22, 2024 PHYSICIAN NO FAMILY Primary Care Provider Active Start: August 22, 2024 End: August 22, 2024 Credit Report Checker Relationship Specialty Start Date End Date Carolee Estrada MD [address] [facility] [place] [address] PCP - General Family Medicine 09/12/24 Credit Report Checker Relationship Specialty Start Date End Date Chris Moss MD [address] [facility] [place] [address] PCP - General Family Medicine 09/15/23 Team Status: Inactive Member Role Status Dates Kathy Ross MD Attending Provider Active Start: September 05, 2024 End: September 05, 2024 Carolee Estrada MD Primary Care Provider Active S tart: September 05, 2024 End: September 05, 2024 Team Status: Inactive Member Role Status Dates Kathy Ross MD Attending Provider Active Start: September 25, 2024 End: September 25, 2024 PHYSICIAN NO FAMILY Primary Care Provider Active Start: September 25, 2024 End: September 25, 2024 Team Status: Inactive Member Role Status Dates Carolee Estrada MD Primary Care Provider Active S tart: September 26, 2024 End: September 26, 2024 Kathy Ross MD Attending Provider Active Start: September 26, 2024 End: September 26, 2024 Team Status: Inactive Member Role Status Dates PHYSICIAN NO FAMILY Primary Care Provider Active Start: September 27, 2024 End: September 27, 2024 Mac Rhodes DO Attending Provider Active Start: September 27, 2024 End: September 27, 2024 Credit Report Checker Relationship Specialty Start Date End Date Carolee Estrada MD [address] [place] [address] PCP - General Family Medicine 09/12/24 Credit Report Checker Relationship Specialty Start Date End Date Kathy Ross MD [address] [place] [address] PCP - General Pulmonary and Critical Care Medicine 10/11/24 Credit Report Checker Relationship Specialty Start Date End Date Kathy Ross MD [address] [place] [address] PCP - General Pulmonary and Critical Care Medicine 10/11/24 Credit Report Checker Relationship Specialty Start Date End Date Kathy Ross MD [address] [place] [address] PCP - General Pulmonary and Critical Care Medicine 10/11/24 Credit Report Checker Relationship Specialty Start Date End Date Carolee Estrada MD [address] [place] [address] PCP - General Family Medicine 09/12/24 Credit Report Checker Relationship Specialty Start Date End Date Pcp, No, MUNICIPAL MAINTENANCE WORKER PCP - General Adult Health 12/07/24 Credit Report Checker Relationship Specialty Start Date End Date Pcp, No, MUNICIPAL MAINTENANCE WORKER PCP - General Adult Health 12/07/24 Credit Report Checker Relationship Specialty Start Date End Date Pcp, No, MUNICIPAL MAINTENANCE WORKER PCP - General Adult Health 12/07/24 07/15/25 Credit Report Checker Relationship Specialty Start Date End Date Pcp, No, MUNICIPAL MAINTENANCE WORKER PCP - General Adult Health 12/07/24 07/15/25 Credit Report Checker Relationship Specialty Start Date End Date Pcp, No, MUNICIPAL MAINTENANCE WORKER PCP - General Adult Health 12/07/24 07/15/25 Team Status: Inactive Member Role Status Dates PHYSICIAN NO FAMILY Primary Care Provider Active Start: February 05, 2025 End: February 05, 2025 Shekhar Armando MD Attending Provider Active Start: February 05, 2025 End: February 05, 2025 Credit Report Checker Relationship Specialty Start Date End Date Pcp, No, MUNICIPAL MAINTENANCE WORKER PCP - General Adult Health 12/07/24 07/15/25 Credit Report Checker Relationship Specialty Start Date End Date Pcp, No, MUNICIPAL MAINTENANCE WORKER PCP - General Adult Health 12/07/24 07/15/25 Credit Report Checker Relationship Specialty Start Date End Date Pcp, No, MUNICIPAL MAINTENANCE WORKER PCP - General Adult Health 12/07/24 07/15/25 Team Status: Inactive Member Role Status Dates PHYSICIAN NO FAMILY Primary Care Provider Active Start: February 15, 2025 End: February 15, 2025 Kathy Ross MD Attending Provider Active Start: February 15, 2025 End: February 15, 2025 Credit Report Checker Relationship Specialty Start Date End Date Pcp, No, MUNICIPAL MAINTENANCE WORKER PCP - General Adult Health 12/07/24 07/15/25 Goals (unrecognized section and content) Goals may be documented in a n alternate sectionGoals may be documented in an alternate sectionGoals may be documented in an alternate sectionGoals may be documented in an alternate sectionNo InformationGoals may be documented in an alternate sectionNo InformationNo InformationNo InformationGoals may be documented in an alternate sectionGoals may be documented in an alternate sectionGoals may be documented in an alternate sectionGoals may be documented in an alternate sectionGoals may be documented in an alternate sectionGoals may be documented in an alternate section INFORMATION SOURCE (unrecogn ized section and content) DATE CREATED AUTHOR [facility]/14/2022 [facility] DATE CREATED AUTHOR AUTHOR'S ORGANIZ ATION 01/23/2023 [facility] DATE CREATED AUTHOR AUTHOR'S ORGANIZ ATION 04/23/2023 Jesus García [facility] DATE CREATED AUTHOR AUTHOR'S ORGANIZ ATION 04/23/2023 [facility] DATE CREATED AUTHOR AUTHOR'S ORGANIZ ATION 07/15/2023 [facility] DATE CREATED AUTHOR AUTHOR'S ORGANIZ ATION 07/16/2023 [facility] DATE CREATED AUTHOR AUTHOR'S ORGANIZ ATION 10/01/2024 [facility] tals Ambulatory DATE CREATED AUTHOR AUTHOR'S ORGANIZ ATION 02/20/2025 [facility] DATE CREATED AUTHOR AUTHOR'S ORGANIZ ATION 02/23/2025 [facility] DATE CREATED AUTHOR AUTHOR'S ORGANIZ ATION 02/24/2025 [facility] EPIC REASON FOR VISIT (unrecogniz ed section and content) Reason Comments Follow-up 6m Reason Comments Consult breast nodule CT chest only Specialty Diagnoses / Procedures Referred By Contac t Referred To Contact General Surgery Diagnoses Unspecified lump in unspecified breast Procedures UT OFFICE/OUTPATIENT NEW HIGH MDM 60 MINUTES Kathy Ross MD [address] [address] Phone: tel: fax: [facility] [address] [facility] [address] [place] [address] Phone: tel: fax: Referral ID Status Reason Start Date Expiration Date V isits Requested Visits Authorized [id number] Closed Specialty Services Required 09/06/2024 03/05/2025 1 1 Reason Comments Annual Exam 1yr Specialty Diagnoses / Procedures Referred By Contac t Referred To Contact Cardiology Diagnoses Paroxysmal atrial fibrillation (Multi) Procedures Follow Up In Cardiology Arsalan Conley MD McGuinn, William P, MD Retired From Practice Referral ID Status Reason Start Date Expiration Date V isits Requested Visits Authorized [id number] Authorized 09/15/2023 09/14/2024 1 1 Reason Comments Left breast bx results Reason Comments Lung Cancer New patient consult Reason Comments Future Appointment Reason Comments Lung nodules Reason Comments Orders Reason Comments Radiology CT Specialty Diagnoses / Procedures Referred By Contac t Referred To Contact CT IMAGING Diagnoses Lung nodules Procedures CT CHEST W IVCON DIAGNOSTIC COMPUTED TOMOGRAPHY THORAX W/CONTRAST Vennepureddy, Shekhar, MD [address] [place] [address] Phone: tel: fax: [place] [address] Referral ID Status Reason Start Date Expiration Date V isits Requested Visits Authorized [id number] Closed Auto-Generate d Referral 01/04/2025 01/06/2026 1 1 Reason Comments Follow Up Reason Comments Lung nodules Followup Reason Comments 2nd opinion Reason Comments Lung bx order Reason Comments Medication request for MRI Reason Comments New breast cancer Specialty Diagnoses / Procedures Referred By Contac t Referred To Contact General Surgery Diagnoses Malignant neoplasm of female breast (CMS/HCC) Procedures UT OFFICE/OUTPATIENT NEW HIGH MDM 60 MINUTES Kathy Ross MD Phone: tel: fax: [facility] [address] [place] [address] Phone: tel: fax: Referral ID Status Reason Start Date Expiration Date V isits Requested Visits Authorized [id number] Closed Specialty Services Required 02/16/2025 08/15/2025 1 1 Source Comments (unrecognize d section and content) In the event this informatio n is protected by the Federal Confidentiality of Alcohol and Drug Abuse Patient Records regulations: The Federal rules restrict any use of the information to criminally investigate or prosecute any alcohol or drug abuse patient.[facility] Hospital[facility] the event this information is protected by the Federal Confidentiality of Alcohol and Drug Abuse Patient Records regulations: The Federal rules restrict any use of the information to criminally investigate or prosecute any alcohol or drug abuse patient.[facility] HospitalIn the event this information is protected by the Federal Confidentiality of Alcohol and Drug Abuse Patient Records regulations: The Federal rules restrict any use of the information to criminally investigate or prosecute any alcohol or drug abuse patient.[facility] HospitalIn the event this information is protected by the Federal Confidentiality of Alcohol and Drug Abuse Patient Records regulations: The Federal rules restrict any use of the information to criminally investigate or prosecute any alcohol or drug abuse patient.[facility] HospitalIn the event this information is protected by the Federal Confidentiality of Alcohol and Drug Abuse Patient Records regulations: The Federal rules restrict any use of the information to criminally investigate or prosecute any alcohol or drug abuse patient.[facility] HospitalIn the event this information is protected by the Federal Confidentiality of Alcohol and Drug Abuse Patient Records regulations: The Federal rules restrict any use of the information to criminally investigate or prosecute any alcohol or drug abuse patient.[facility] HospitalIn the event this information is protected by the Federal Confidentiality of Alcohol and Drug Abuse Patient Records regulations: The Federal rules restrict any use of the information to criminally investigate or prosecute any alcohol or drug abuse patient.[facility] HospitalIn the event this information is protected by the Federal Confidentiality of Alcohol and Drug Abuse Patient Records regulations: The Federal rules restrict any use of the information to criminally investigate or prosecute any alcohol or drug abuse patient.[facility] HospitalIn the event this information is protected by the Federal Confidentiality of Alcohol and Drug Abuse Patient Records regulations: The Federal rules restrict any use of the information to criminally investigate or prosecute any alcohol or drug abuse patient.[facility] HospitalIn the event this information is protected by the Federal Confidentiality of Alcohol and Drug Abuse Patient Records regulations: The Federal rules restrict any use of the information to criminally investigate or prosecute any alcohol or drug abuse patient.[facility] HospitalIn the event this information is protected by the Federal Confidentiality of Alcohol and Drug Abuse Patient Records regulations: The Federal rules restrict any use of the information to criminally investigate or prosecute any alcohol or drug abuse patient.[facility] HospitalIn the event this information is protected by the Federal Confidentiality of Alcohol and Drug Abuse Patient Records regulations: The Federal rules restrict any use of the information to criminally investigate or prosecute any alcohol or drug abuse patient.[facility] HospitalIn the event this information is protected by the Federal Confidentiality of Alcohol and Drug Abuse Patient Records regulations: The Federal rules restrict any use of the information to criminally investigate or prosecute any alcohol or drug abuse patient.[facility] FOR RECORDS PERTAINING TO PATIENTS WHO ARE [...] BE BASED ON THE PRIMARY CLINICAL RECORDS. [facility]. provides no warranty or guarantee of the accuracy or completeness of information in this document.
[2025-02-26 14:17] LABS: Erythrocyte Sedimentation Rate 25 mm/hr (<=30)
[2025-02-26 14:38] LABS: Alanine Aminotransferase 27 U/L (14-59); Albumin Globulin Ratio 0.9; Albumin Level 3.4 g/dL (3.4-5.0); Alkaline Phosphatase 105 U/L (46-116); Aspartate Amino Transferase 20 U/L (15-37); Bilirubin Direct 0.2 mg/dL (0.0-0.2); Bilirubin Total 0.8 mg/dL (0.2-1.0); Estimated GFR (African America >60 (>=60 mL/min/1.73m^2); Estimated GFR (Non-African Ame 57 (>=60 mL/min/1.73m^2); Globulin 3.8 g/dL; Total Protein 7.2 g/dL (6.4-8.2)
== END 2025-02-26 13:45 | disposition home or self-care (01) ==
LOC: LAB 13:46
PROVIDERS: Visit Provider Internal Medicine Rheumatology
DX: M05.79 Rheumatoid arthritis with rheumatoid factor of multiple sites without organ or systems involvement (principal); Z79.899 Other long term (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
CPT/HCPCS: 36415; 80076; 82565; 85025; 85652